=== PATIENT | female | born 1965 | race Caucasian/White ===

== ENCOUNTER → 2018-06-13 11:38 | Outpatient (CLI) | payer BC, SELFPAY ==
--- NOTE | 2018-06-13 12:00 | RAD_ITS ---
STUDY: X-RAY - PARANASAL SINUSES REASON FOR EXAM: Female, 53 years old. Left maxillary sinus pain. TECHNIQUE: 3 view(s) of the paranasal sinuses were obtained. COMPARISON: None. FINDINGS: Normal visualized frontal, maxillary, ethmoidal and sphenoid sinuses. Normal visualized facial bones. The soft tissue structures are unremarkable. RAD/Sinuses min 3 Views IMPRESSION: Normal x-rays of the paranasal sinuses. Electronically Signed: Andrew Akers MD at 14:59 EST , Service support ,
[2018-06-13 17:32] LABS: Absolute Lymphocyte Count 0.99 X10^3/ul (0.83-4.51); Absolute Neutrophil Count 4.4 X10^3/uL (2.0-7.7); Basophil# 0.02 X10^3/uL; Basophil% 0.4 % (0-1); Eosinophil# 0.04 X10^3/uL; Eosinophils% 0.7 % (0-5); Hematocrit 41.4 % (37-47); Hemoglobin 14.2 g/dl (12.0-15.0); Lymphocyte # 0.99 X10^3/ul (4.0); Lymphocyte % 17.6 % (19-41); Mean Corp Hgb Conc 34.3 g/gl (32-36); Mean Corpuscular Hgb 30.7 pg (27.0-32.0); Mean Corpuscular Volume 89.6 fL (81-99); Mean Platelet Vol. 10.8 fl (6.2-12.0); Monocyte% 3.6 % (0-10); Neutrophil # 4.37 X10^3/uL (2.7-7.7); Neutrophil % 77.5 % (47-70); Platelet Count 205 K/mm3 (150-450); RBC Distribution Width CV 11.9 % (11.6-14.6); RBC Distribution Width SD 37.9 fl (35.1-43.9); Red Blood Count 4.62 M/mm3 (4.2-5.4); White Blood Count 5.6 K/mm3 (4.4-11.0)
[2018-06-13 17:33] LABS: POSITIVE COUNT NO; POSITIVE DIFFERENTIAL NO; POSITIVE MORPHOLOGY NO
[2018-06-13 17:51] LABS: Erythrocyte Sedimentation Rate 25 mm/hr (0-30)
--- OUTSIDE RECORDS SUMMARY | 2018-08-06 18:01 | XMS RPT_ITS ---
:1965 Author Organization OHIP Care Team Providers Name Role Phone Dr. Villa Vilchis Attending Unavailable Prosper Hoppero Aparna Referring Unavailable Julianneo, Joe J Primary Care Unavailable GAIL BILLY Admitting Unavailable GAIL BILLY Attending Unavailable Prosper Hoppero Aparna Primary Care Unavailable Gilbert Monsalve Primary Care Unavailable Radha Quintana Attending Unavailable Gilbert Monsalve Primary Care Unavailable Gilbert Monsalve Attending Unavailable Gilbert Monsalve Referring Unavailable SURYA RIZVI Attending Unavailable CHRISTINA MENARD ([facility]) Attending Unavailable SURYA RIZVI Attending Unavailable SURYA RIZVI Referring Unavailable Belardo, Joe Aparna Attending Unavailable Ward, Joe J Primary Care Unavailable Joseph Tomlinson Attending Unavailable Vicenta Cnty, Emergency Physicians Attending Unavailable Belardo, Joe J Primary Care Unavailable PROBLEMS PROBLEMS DATE TYPE CONDITION / ATTENDING STATUS SOURCE CODE 06/14/2018 Unknown R51 - Headache Gilbert Monsalve Active [facility] / [facility]10[facility] 06/14/2018 Unknown R59.0 - BelloGilbert Active [facility] Localized [facility] enlarged lymph Hospital nodes / Repository R59.0(ICD-10) 06/14/2018 Unknown H57.89 - Other Gilbert Monsalve Active [facility] specified [facility] eye and adnexa Repository / H57.89(ICD-10) 04/12/2018 Active Encounter for NA Active [facility] screening [facility] mammogram for Repository malignant neoplasm of breast / Z12.31(ICD-10) 08/27/2017 Admitting Unknown / Joe Hopper Aparna Active [facility] Medical diagnosis UNK(Unknown) [facility] [place] Repository PROCEDURES PROCEDURES No Procedure Records FoundRESULTS RESULTS Observed: 06/14/2018 Status: F Source: [place] CULTURE, EYE 6:20 AM [facility] [place] LEFT EYE Gram Stain Gram Stain No White Blood Cells No organisms seen Eye Culture Clinical correlation necessary, Possible skin contamination. ORGANISM 1: Streptococcus mitis/ oralis Amount Growth Rare ORGANISM 2: Staphylococcus epidermidis Amount Growth 1+ Streptococcus mitis/ oralis: REACTION Ampicillin $ 8 R Clindamycin $$ <=0.25 S Erythromycin $ >=8 R Tigecycline $$$$ <=0.06 S Vancomycin $ 0.5 S (NF) indicates non-formulary drug at [facility]. Approval by Infectious Disease Specialist required before non-formulary drugs may be ordered and/or dispensed. * CLSI guidelines does not recommend testing of cephalosporins. This interpretation is deduced from Beta-lactam/penicillin results. Staphylococcus epidermidis: REACTION Benzylpenicillin NF >=0.5 R Cefoxitin *NF - Clindamycin $$ >=8 R Inducable Clindamycin [place] - Erythromycin $ >=8 R Gentamicin $ <=0.5 S Levofloxacin $ <=0.12 S Linezolid $$$$ 1 S Oxacillin NF <=0.25 S Tigecycline $$$$ <=0.12 S Rifampin $$ <=0.5 S Tetracycline NF <=1 S Vancomycin $ 1 S (NF) indicates non-formulary drug at [facility]. Approval by Infectious Disease Specialist required before non-formulary drugs may be ordered and/or dispensed. * CLSI guidelines does not recommend testing of cephalosporins. This interpretation is deduced from Beta-lactam/penicillin results. Cult, Anaerobic No anaerobic bacteria isolated. Performed By: #### M100.1200 #### [facility] [address] [place], [address] SINUSES MIN 3 VIEWS Observed: 06/13/2018 Status: F Source: [place] 11:58 AM [facility] [place] [facility] [place] [address] Sinuses min 3 Views MR#: [id number] Acct: [id number] Name: SAMUEL WOO Rep #: [id number] : 1965 F 53 From: Christiano Akers MD PCP: Gilbert Mnosalve DO Status: REG CLI Study: Sinuses min 3 Views Date of Exam: 06/13/18 Exam# [id number] Ordering Dr: Lev Monsalve MD STUDY: X-RAY - PARANASAL SINUSES REASON FOR EXAM: Female, 53 years old. Left maxillary sinus pain. TECHNIQUE: 3 view(s) of the paranasal sinuses were obtained. COMPARISON: None. FINDINGS: Normal visualized frontal, maxillary, ethmoidal and sphenoid sinuses. Normal visualized facial bones. The soft tissue structures are unremarkable. RAD/Sinuses min 3 Views IMPRESSION: Normal x-rays of the paranasal sinuses. Electronically Signed: Andrew Akers MD at 14:59 EST , Service support , CC: Gilbert Monsalve DO; Lev Monsalve MD I O Psychologist: Signed CBC W/DIFF, AUTOMATED Collected: 06/13/2018 Status: F Source: [place] 11:40 AM [facility] [place] TYPE CODE TESTS RESULT OUT OF RANGE REFERENCE UNITS LAB L100.1000 4.4-11.0 K/mm3 Normal WBC 5.6 LAB L100.1200 4.2-5.4 M/mm3 Normal RBC 4.62 LAB L100.1300 12.0-15.0 g/dl Normal HGB 14.2 LAB L100.1400 37-47 % Normal HCT 41.4 LAB L100.1500 81-99 fL Normal MCV 89.6 LAB L100.1600 27.0-32.0 pg Normal MCH 30.7 LAB L100.1700 32-36 g/gl Normal MCHC 34.3 LAB L100.1810 11.6-14.6 % Normal RDW CV 11.9 LAB L100.1820 35.1-43.9 fl Normal RDW SD 37.9 LAB L100.1900 150-450 K/mm3 Normal PLT 205 LAB L100.2000 6.2-12.0 fl Normal MPV 10.8 LAB L100.2100 47-70 % High NEUT% 77.5 LAB L100.2200 19-41 % Low LY% 17.6 LAB L100.2300 0-10 % Normal MONO% 3.6 LAB L100.2400 0-5 % Normal EO% 0.7 LAB L100.2500 0-1 % Normal BASO% 0.4 LAB L100.2550 0.0-0.9 % Normal IM GRAN % 0.200 Result Comment: IG% - Immature Granulocytes (promyelocytes, myelocytes and metamyelocytes) > 1% indicates that a LEFT SHIFT is Present. LAB L100.2620 2.0-7.7 X10 3/uL Normal Absolute Neut 4.4 LAB L100.2720 0.83-4.51 X10 3/ul Normal Absolute Lymph 0.99 Performed By: #### L100.0100, L101.9900 #### [facility] [address] [facility] [place], [place], [id number] ERYTHROCYTE SED RATE Collected: 06/13/2018 Status: F Source: [place] 11:40 AM [facility] [place] TYPE CODE TESTS RESULT OUT OF RANGE REFERENCE UNITS LAB L102.0000 0-30 mm/hr Normal SED RATE 25 Performed By: #### L100.0100, L101.9900 #### [facility] [address] [place], [place], [id number] CRP Collected: 06/13/2018 Status: F Source: [place] 11:40 AM [facility] [place] [facility] TYPE CODE TESTS RESULT OUT OF RANGE REFERENCE UNITS LAB L501.6710 0.0-3.0 mg/L High 12.70 C-REACTIVE PROT Result Comment: C-Reactive Protein (CRP) provides useful information for the diagnosis, therapy and monitoring of inflammatory processes and associated diseases. For the evaluation of Relative Risk for Cardiovascular Disease, a High Sensitivity CRP (HSCRP) should be ordered. Performed By: #### L501.6710 #### [facility] [place], [address] CNCO Observed: 04/12/2018 Status: COMPLETED Source: [place] 9:47 AM [facility] REPOSITORY HNO ID: [id number] Author: Mammography Coordinator Service: (none) Author Type: Physician Type: Letter Filed: 04/13/2018 11:31 PM Note Text: April 12, 2018 PID: [id number] Samuel Woo [address] [place] [address] Dear Ms. Woo, We are pleased to inform you that the results of your recent breast imaging exam on 04/12/2018 are normal. Your mammogram demonstrates that you have dense breast tissue, which could hide abnormalities. Dense breast tissue, in and of itself, is a relatively common condition. Therefore, this information is not provided to cause undue concern; rather, it is to raise your awareness and promote discussion with your health care provider regarding the presence of dense breast tissue in addition to other risk factors. Early detection of cancer is very important. We also understand recommendations regarding breast cancer screening are controversial. Please discuss with your primary care provider which strategy is best for you and whether a mammogram is right for you. Your imaging studies and report will be kept on file at [facility] as part of your permanent medical record and are available for your continuing care. Thank you for allowing us to help in meeting your health care needs. Sincerely, Dr. Amato Interpreting Radiologist [facility] (Normal over 40) [facility] SCREENING Observed: 04/12/2018 Status: F Source: [place] 7:52 AM [facility] REPOSITORY * * *Final Report* * * DATE OF EXAM: Apr 12 2018 7:52AM RAI [id number] - [facility] SCREENING / PROCEDURE REASON: Encounter for screening mammogram for malignant neoplasm of breast * * * * Physician Interpretation * * * * RESULT: #[id number] - [facility] SCREENING BILATERAL DIGITAL SCREENING MAMMOGRAM WITH CAD: 04/12/2018 HISTORY: Encounter For Screening Mammogram For Malignant Neoplasm Of Breast /Screening Mammogram - patient reports NO breast symptoms /Priors available for comparison. RESULT: TECHNIQUE: The study was acquired using full field digital technology and interpreted from soft copy. Current study was also evaluated with a Computer Aided Detection (CAD). Comparison is made to exams dated: 12/30/2016 mammogram, 10/31/2015 mammogram, 07/26/2013 mammogram, and 06/14/2012 mammogram - [facility]. The tissue of both breasts is heterogeneously dense. This may lower the sensitivity of mammography. No significant masses, calcifications, or other findings are seen in either breast. There has been no significant interval change. IMPRESSION: NEGATIVE There is no mammographic evidence of malignancy.A 1 year screening mammogram is recommended. Desiree Amato M.D., jr/adamaris:04/12/2018 09:47:39 Administrative Volunteer: Zulema MONTES(Shaunna)(Michael), [facility] letter sent: Normal over 40 Mammogram BI-RADS: 1 Negative Multiple national specialty organizations have released breast cancer screening guidelines for women at average risk for developing breast cancer - guidelines that are based on both evidence and opinion, yet differ on when to start and how often to screen for breast cancer. With representation from Breast Imaging, Internal Medicine, Women's Health, Family Medicine, and Medical/Surgical Oncology, the [facility] has carefully reviewed the data and reached the following consensus: 1) All women should engage in shared decision-making with their providers to decide when to start and how often to screen; 2) All women should have the opportunity to start screening mammography at age 40; 3) For women ages 45-55, we recommend annual screening mammograms; 4) For women ages 55 and over, we support both the transition from an annual to a biennial interval if this aligns more with patient's values and preferences, or continuation with annual screening; 5) All women should discuss with their providers when to stop screening mammograms. I O Psychologist: Adamaris Transcribe Date/Time: Apr 12 2018 7:39A Dictated by: DESIREE AMATO MD This examination was interpreted and the report reviewed and electronically signed by: DESIREE AMATO MD on Apr 12 2018 9:47AM EST [id number] PROGRESS Observed: 04/06/2018 Status: COMPLETED Source: [place] 9:04 AM [facility] REPOSITORY HNO ID: [id number] Author: Kandy Aguilera Ma Service: (none) Author Type: (none) Type: Progress Notes Filed: 04/06/2018 9:43 AM Note Text: Would you like a maintenance of way superintendent present for your visit today? No Kandy Aguilera Ma CNOV Observed: 04/06/2018 Status: COMPLETED Source: [place] 9:00 AM [facility] REPOSITORY Office Visit (WOOB) SAMUEL WOO ([id number]) 1965 F Date Time Provider Department 04/06/18 9:00 AM SURYA RIZVI WOCELI During your visit today, we recorded the following information about you: Blood pressure Weight Height 128/76 92.1 kg 1.702 m Surya Rizvi MD 04/06/2018 9:43 AM Signed Samuel Woo is a 53 year old who presents for her annual gynecologic exam with complaints, some vulvar pruritis, has been on amoxicillin for tooth/mouth infection.. Has had 7 teeth pulled now and feels somewhat better but still a lot of sinus symptoms. s/p hysterectomy Postmenopausal: likely, no hot flashes, stopped estradiol HRT use: No. Last Pap: 2011 normal HPV: 2011 negative History of abnormal pap: No Last mammogram: 2017 normal History of abnormal mammogram: No Sexually active: Yes Obstetric History T2 L2 SAB0 TAB0 Ectopic0 Multiple0 Live Births0 PAST MEDICAL HISTORY Diagnosis Date - Cervical stenosis (uterine cervix) - Dysmenorrhea - Excessive or frequent menstruation Heavy periods - Hypothyroid - Metrorrhagia 2008 - Tobacco use disorder Stopped 02/2007 - Urinary tract infection, site not specified Recurrent UTI's PAST SURGICAL HISTORY Procedure Laterality Date - DELIVERY ONLY , low cervical/X2 - HYSTEROSCOPY, DIAGNOSTIC (SEPARATE 07/09/09 Hysteroscopy, dANIl - LIGATE FALLOPIAN TUBE Tubal ligation at time of c/s - PAST SURGICAL HISTORY OF LEFT GANGLION CYST - PAST SURGICAL HISTORY OF LASIK SURGERY - REMOVAL OF TONSILS,<12 Y/O Tonsillectomy - TLH W/T/O 250 G OR LESS 10/26/13 TLH, bilateral salpingectomy FAMILY HISTORY Problem Relation Age of Onset - Heart Mother AAA and her mother's 2 GMs - Stroke Mother - Heart Father - Thyroid Brother hypo - Diabetes Paternal Grandmother - Asthma Daughter - Thyroid Other Several P-cousins SOCIAL HISTORY Social History Substance Use Topics - Smoking status: Former Smoker Packs/day: 0.50 Years: 25.00 Types: Cigarettes Quit date: 02/16/2007 - Smokeless tobacco: Former User - Alcohol use No REVIEW OF SYSTEMS Abdomen: No abdominal pain, nausea, vomiting, diarrhea, or still consitpated Bladder: No dysuria, gross hematuria, urinary frequency, urinary urgency, or incontinence, difficult to fully empty bladder Breast: No breast lumps, nipple d/c, overlying skin changes, redness or skin retraction Allergies and current medication updated:Yes EXAM: LMP 09/06/2013 GENERAL: pleasant, female in no apparent distress HEENT: Normocephalic, atraumatic, mucus membranes moist and no lesions NECK: Supple, full range of motion, no adenopathy and thyroid normal DERMATOLOGY: Normal, without lesions, non-icteric and non-hirsute BREAST: soft, non-tender, symmetric, no dominant mass, normal nipple-areolar complex, no lymphadenopathy and no nipple discharge CHEST: Normal inspiratory effort ABDOMEN: soft, non-tender and no masses PELVIC: external genitalia normal, normal Bartholin's glands, urethra, [place]'s glands, no vulvar lesions, good vaginal support, physiologic discharge present, normal appearing perineal body and perianal region, cervix surgically absent BIMANUAL: no adnexal masses, non-tender and uterus surgically absent RECTOVAGINAL: deferred. NEURO: alert and oriented x3,exam grossly non-focal EXTREMITIES: normal ASSESSMENT/PLAN: 1) Health maintenance: Pap/HPV up to date. Mammogram ordered Colon cancer screening: up to date with screening 2) Follow up one year or sooner as needed diflucan prn yeast infection MD Kandy Kearney Ma 04/06/2018 9:43 AM Signed Would you like a maintenance of way superintendent present for your visit today? No Kandy Aguilera Ma Referring Provider: SELF [[id number]] Allergies As of Date: 04/06/2018 Noted Allergy Reaction PEANUT 11/30/2017 10 - Anaphylaxis MORPHINE SULFATE 09/15/2016 4 - Hives Comments: Pt receive morphine in ED room today and broke out in hives. Date Reviewed: 04/06/2018 Reviewed by: Surya Rizvi - Fully Assessed Primary Visit Diagnosis:Encounter for gynecological examination (general) (routine) without abnormal findings [Z01.419] Other Visit Diagnosis:Encounter for screening mammogram for breast cancer [Z12.31] Order(s):JANEE SCREENING [[id number]] Order #: [id number] FUTURE JANEE SCREENING [[id number]] Order #: [id number] FUTURE fluconazole (DIFLUCAN) 150 mg tabletTake 1 tablet by mouth one time only for 1 dose. TAKE ONE TIME DOSE PO.Disp: 1 tabletRfl: 1 Prescriptions as of 04/06/2018 Sig: LEVOTHYROXINE 88 MCG TABLET Take 88 mcg by mouth daily be* ACETAMINOPHEN 500 MG TABLET Take 2 tablets by mouth every* FLUCONAZOLE 150 MG TABLET Take 1 tablet by mouth one ti* Medication notes this encounter GABAPENTIN 300 MG CAPSULE >> Kandy Aguilera Ma 04/06/2018 8:58 AM >> KANDY AGUILERA MA WedApr 06, 2018 8:58 AM Pt no longer taking LEVOTHYROXINE 75 MCG CAPSULE >> Kandy Aguilera Ma 04/06/2018 8:59 AM >> KANDY AGUILERA MA WedApr 06, 2018 8:59 AM Pt no longer taking Problem List As Of Date 04/06/2018 Noted Resolved Metrorrhagia [N92.1] INVALID FOR*07/21/2013 Excessive or frequent menstruation [N92.0] INVALID FOR*12/08/2013 Premenstrual Tension Syndromes [N94.3] INVALID FOR* Stricture and stenosis of cervix [N88.2] INVALID FOR*12/08/2013 Hypertrophy of uterus [N85.2] INVALID FOR*10/26/2013 Pelvic pain in female [R10.2] INVALID FOR*12/08/2013 Pelvic pressure in female [R10.2] INVALID FOR*12/08/2013 Acquired hypothyroidism [E03.9] INVALID FOR* Priority: D More... Status post hysterectomy [Z90.710] INVALID FOR* More... Weight loss [R63.4] INVALID FOR* Pain of upper abdomen [R10.10] INVALID FOR* Priority: B More... SUMMARY INVALID FOR* Priority: A More... General ill feeling [R68.89] INVALID FOR* Priority: C More... Prescriptions ordered this encounter Disp Refills Start End FLUCONAZOLE 150 MG TABLET 1 ta* 1 04/06/2018 04/06/2018 Route: ORAL Sig: Take 1 tablet by mouth one time only for 1 dose. TAKE ONE TIME DOSE PO. Medications Discontinued During This Encounter clotrimazole (LOTRIMIN) 1 % vaginal * 45 g 0 12/20/2017 04/06/2018 Si applicator full vaginally every other week for 2 months. Patient not taking: Reported on 04/06/2018 Disc: Reason for discontinue is not on file. Estradiol (ESTRACE) 0.5 mg tablet 30 t* 1 09/11/2016 04/06/2018 Route: ORAL Sig: Take 1 tablet by mouth once daily. take daily x 2 weeks, increase to two tabs daily if needed Patient not taking: Reported on 11/30/2017 Disc: Reason for discontinue is not on file. fluconazole (DIFLUCAN) 150 mg tablet 3 ta* 0 12/20/2017 04/06/2018 Route: ORAL Sig: Take 1 tablet by mouth as directed. Take 1 tablet every 3 days. Patient not taking: Reported on 04/06/2018 Disc: Reason for discontinue is not on file. ibuprofen (MOTRIN) 400 mg tablet 09/18/2016 04/06/2018 Class: OTC Route: ORAL Sig: Take 1 tablet by mouth every 6 hours as needed for Pain (Take around the clock as needed when pain returns). FOR PAIN. Patient not taking: Reported on 11/30/2017 Disc: Reason for discontinue is not on file. gabapentin (NEURONTIN) 300 mg capsule 04/06/2018 Class: Historical Med Route: ORAL Sig: Take 300 mg by mouth three times daily as needed. Disc: Reason for discontinue is not on file. Levothyroxine (TIROSINT) 75 mcg cap 04/06/2018 Class: Historical Med Route: ORAL Sig: Take by mouth. Disc: Reason for discontinue is not on file. lidocaine (LIDODERM) 5 % 30 P* 0 09/18/2016 04/06/2018 Class: Print RX Route: TRANSDERMAL Sig: Apply 2 Patches as directed once daily. Patient not taking: Reported on 11/30/2017 Disc: Reason for discontinue is not on file. lidocaine 5 % gel 1 Olvin* 0 09/18/2016 04/06/2018 Class: Print RX Route: TOPICAL Sig: Apply 1 application to affected area twice daily. Patient not taking: Reported on 11/30/2017 Disc: Reason for discontinue is not on file. melatonin 3 mg 0 09/18/2016 04/06/2018 Class: OTC Route: ORAL Sig: Take 3 tablets by mouth at bedtime as needed (insomnia). Patient not taking: Reported on 11/30/2017 Disc: Reason for discontinue is not on file. LORazepam (ATIVAN) 1 mg tablet 30 t* 0 09/18/2016 04/06/2018 Class: Print RX Route: ORAL Sig: Take 1 tablet by mouth twice daily as needed for Anxiety. Patient not taking: Reported on 11/30/2017 Disc: Reason for discontinue is not on file. metoprolol tartrate, short acting, (* 0 09/18/2016 04/06/2018 Class: Med Update Route: ORAL Sig: Take 0.5 tablets by mouth twice daily. Patient not taking: Reported on 11/30/2017 Disc: Reason for discontinue is not on file. Disposition: Return in 1 year (on 04/06/2019) for Annual Exam. Follow-up and Disposition History Recorded Encounter Status:Closed by SURYA RIZVI MD on 04/06/18 PROGRESS Observed: 04/06/2018 Status: COMPLETED Source: [place] 8:54 AM [facility] REPOSITORY HNO ID: [id number] Author: Surya Rizvi Service: (none) Author Type: Physician Type: Progress Notes Filed: 04/06/2018 9:43 AM Note Text: Samuel Woo is a 53 year old who presents for her annual gynecologic exam with complaints, some vulvar pruritis, has been on amoxicillin for tooth/mouth infection.. Has had 7 teeth pulled now and feels somewhat better but still a lot of sinus symptoms. s/p hysterectomy Postmenopausal: likely, no hot flashes, stopped estradiol HRT use: No. Last Pap: 2011 normal HPV: 2011 negative History of abnormal pap: No Last mammogram: 2017 normal History of abnormal mammogram: No Sexually active: Yes Obstetric History T2 L2 SAB0 TAB0 Ectopic0 Multiple0 Live Births0 PAST MEDICAL HISTORY Diagnosis Date - Cervical stenosis (uterine cervix) - Dysmenorrhea - Excessive or frequent menstruation Heavy periods - Hypothyroid - Metrorrhagia 2008 - Tobacco use disorder Stopped 02/2007 - Urinary tract infection, site not specified Recurrent UTI's PAST SURGICAL HISTORY Procedure Laterality Date - DELIVERY ONLY , low cervical/X2 - HYSTEROSCOPY, DIAGNOSTIC (SEPARATE 07/09/09 Hysteroscopy, dANDc - LIGATE FALLOPIAN TUBE Tubal ligation at time of c/s - PAST SURGICAL HISTORY OF LEFT GANGLION CYST - PAST SURGICAL HISTORY OF LASIK SURGERY - REMOVAL OF TONSILS,<14 Y/O Tonsillectomy - TLH W/T/O 250 G OR LESS 10/26/13 TLH, bilateral salpingectomy FAMILY HISTORY Problem Relation Age of Onset - Heart Mother AAA and her mother's 2 GMs - Stroke Mother - Heart Father - Thyroid Brother hypo - Diabetes Paternal Grandmother - Asthma Daughter - Thyroid Other Several P-cousins SOCIAL HISTORY Social History Substance Use Topics - Smoking status: Former Smoker Packs/day: 0.50 Years: 25.00 Types: Cigarettes Quit date: 02/16/2007 - Smokeless tobacco: Former User - Alcohol use No REVIEW OF SYSTEMS Abdomen: No abdominal pain, nausea, vomiting, diarrhea, or still consitpated Bladder: No dysuria, gross hematuria, urinary frequency, urinary urgency, or incontinence, difficult to fully empty bladder Breast: No breast lumps, nipple d/c, overlying skin changes, redness or skin retraction Allergies and current medication updated:Yes EXAM: LMP 09/06/2013 GENERAL: pleasant, female in no apparent distress HEENT: Normocephalic, atraumatic, mucus membranes moist and no lesions NECK: Supple, full range of motion, no adenopathy and thyroid normal DERMATOLOGY: Normal, without lesions, non-icteric and non-hirsute BREAST: soft, non-tender, symmetric, no dominant mass, normal nipple-areolar complex, no lymphadenopathy and no nipple discharge CHEST: Normal inspiratory effort ABDOMEN: soft, non-tender and no masses PELVIC: external genitalia normal, normal Bartholin's glands, urethra, [place]'s glands, no vulvar lesions, good vaginal support, physiologic discharge present, normal appearing perineal body and perianal region, cervix surgically absent BIMANUAL: no adnexal masses, non-tender and uterus surgically absent RECTOVAGINAL: deferred. NEURO: alert and oriented x3,exam grossly non-focal EXTREMITIES: normal ASSESSMENT/PLAN: 1) Health maintenance: Pap/HPV up to date. Mammogram ordered Colon cancer screening: up to date with screening 2) Follow up one year or sooner as needed diflucan prn yeast infection Surya Rizvi MD ID - FOLLOW UP Observed: 2018 Status: UNK Source: [place] 11:35 AM [facility] Chief Complaint Visit For: Other Referred by PCP . History of Present Illness update 02-18-18 patient did nwith clarithromycin- she says she gets bruising in her right arm with antibiotics and this was worse with clarithromycin She reiterated her concern for some infection causing her total body pain and facial pain- tearful and upset at times over a two-year ordeal- eels it no doctor's help bring her or Figuring out that was wrong with her symptom complex as described below No fevers chills night sweats nausea vomiting diarrhea They had a stool analysis test from a chiropractor which I discussed with him in detail- in indicated I did not think thatthis test had any medical significance from 12-31 Patient was seen for evaluation and management of a 20 month illness characterized by fatigue mouth neck and extremity pain headaches malaise. She is a 52-year-old woman who states she was very healthy until April 20, 2016 when she developed relatively sudden onset of mouth pain malaise neck pain headaches and feeling of her heart racing and blood pressure that went up and down. These symptoms have persisted and she said she seen over 60 physicians in the last 20 month with these problems- mediate urgent care or ER doctors but she is been evaluated by another infectious disease doctor neurologist electrician mental tester a Lyme specialist to determine ENT doctors an oral surgeon who specializes in facial pain and other providers. She has had extensive testing including an MRI of her brain a CAT scan of her face and sinuses examination of her throat by ENT extensive testing for endocrinopathies such as pheochromocytoma with 3 24-hour urines. She indicated that after this went on for sever al months she was diagnosed with infection in the right side of her mouth and underwent tooth extractions which made her feel better. She relapses and took a course of amoxicillin which she said she con tinued for 40 days and felt better but then developed a feeling of burning and inflammation was due to medication she has similar response to clindamycin and doxycycline. She indicated she now frequentl y feels bad when she takes a number medications and also sometimes when she eats. With the feeling of burning and inflammation. She tested negative for Lyme disease, she indicated she had increased infl ammatory markers before the tooth extraction. She was worked up extensively by electrician; she indicated the neurologist told her it was on her head Current symptoms are neck and throat pain malaise fatigue and headaches. 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 No unusual pets or animal exposures. Family history social history otherwise noncontributory Patient has joint pain but no yuliana joint swelling no rash she developed some food intolerance but no nausea vomiting diarrhea no visual changes no hearing changes no hair loss she is postmenopausal meme es many years no cough no shortness of breath no chest pain no abdominal pain Active Problems CFS (chronic fatigue syndrome) (780.71) (R53.82) Frequent headaches (784.0) (R51) Hypothyroidism (244.9) (E03.9) Neck pain (723.1) (M54.2) Occasional tremors (781.0) (R25.1) Pharyngitis, chronic (472.1) (J31.2) Family History Family history of hypothyroidism (V18.19) (Z83.49) Allergies metoprolol Recorded By: Elham Nair; 12/31/2017 9:28:19 AM Morphine Sulfate (Concentrate) SOLN Recorded By: Elham Nair; 12/31/2017 9:27:57 AM Current Meds Synthroid 88 MCG Oral Tablet; Take 1 tablet daily; Therapy: (Recorded:18Feb2018) to Recorded Dispense: 0 Days ; #: Sufficient Tablet; Refill: 0;For: Hypothyroidism; MAURISIO = N; Record; Last Updated By: Essie Leblanc; 2018 10:27:06 AM Vitals Vital Signs Recorded: 18Feb2018 10:23AM Bhfeefjfeeu29.6 F Heart Rate61 [id number] Rcatigpsg07 Height5 ft 7 in Pain Scale4 Physical Exam Patient was at times tearful and upset during the interview but otherwise had normal mental status no oral lesions tympanic membranes benign neck supple she has some shotty anterior cervical adenopathy but nothing significant no spine tenderness chest clear cardiac exam unremarkable abdomen soft nontender no joint swelling no rash normal gait reflexes intact Diagnoses/Problems CFS (chronic fatigue syndrome) (780.71) (R53.82) Frequent headaches (784.0) (R51) Encounter for preventive health examination (V70.0) (Z00.00) Hypothyroidism (244.9) (E03.9) Occasional tremors (781.0) (R25.1) Orders C Reactive Protein, Serum; Source:Blood (BLD); Status:Active; Requested for:18Feb2018; Perform:Lab Services - Lab To Draw (Blood Test); Due:19May2018;Ordered; For:CFS (chronic fatigue syndrome), Neck pain, Pharyngitis, chronic; Ordered By:Gail Billy; Comprehensive Metabolic Panel; Status:Active; Requested for:18Feb2018; Perform:Lab Services - Lab To Draw (Blood Test); Due:19May2018;Ordered; For:Frequent headaches, Hypothyroidism, Neck pain, Occasional tremors, Pharyngitis, chronic; Ordered By:Gail Billy; Complete Blood Count + Differential; Source:Blood (BLD); Status:Active; Requested for:18Feb2018; Perform:Lab Services - Lab To Draw (Blood Test); Due:19May2018;Ordered; For:Frequent headaches, Neck pain, Pharyngitis, chronic; Ordered By:Gail Billy; Vitamin B12, Serum; Source:Blood (BLD); Status:Active; Requested for:18Feb2018; Perform:Lab Services - Lab To Draw (Blood Test); Due:19May2018;Ordered; For:Health Maintenance, Neck pain; Ordered By:Gail Billy; Sedimentation Rate, Erythrocyte; Source:Blood (BLD); Status:Active; Requested for:18Feb2018; Perform:Lab Services - Lab To Draw (Blood Test); Due:19May2018;Ordered; For:Health Maintenance, Neck pain, Pharyngitis, chronic; Ordered By:Gail Billy; Start: Doxycycline Hyclate 100 MG Oral Capsule; Take 1 capsule twice daily Rx By: Gail Billy; Dispense: 60 Days ; #:120 Capsule; Refill: 4;For: Pharyngitis, chronic, Tooth abscess; MAURISIO = N; Verified Transmission to [id number]; Last Updated By: System, [employer]; 2018 10:12:33 AM Provider Impressions 02-18-18 this continues to be a very challenging case- the patient reports great frustration with what she believes is a tooth infection, or something similar. she feels like something needs to be done to fix he r and nothing is being done. I had a long discussion about this. i thought it was possible but unlikely she could have a chronic infection due to persistent pathogen such as actinomyces. We will get a check inflammatory mars today and we prescribed doxycycline. She has a visit coming up with an oral surgeon she iwill defer taking doxycycline until after this examination. I told her if the inflammatory markers are normal we discus sed additional testing including nuclear scans. We will see her back in 6 weeks from 12-27 This is a very unusual symptom complex- as above the patient said she seen over 60 physicians including multiple specialists. I told the patient and her stitcher set up operator automatic she does not easily fit any diagnosis o n the bases a pattern recognition I could not think of anything that was going on specifically. She somewhat focused on the issue of infection as she felt better when she had her teeth pulled and then f elt better temporarily while taking amoxicillin but then developed some nonspecific intolerance of amoxicillin- she is a same intolerance with multiple medications including vzhg-ojt-odghoob medications so I do not think this is an allergy of any type. On exam today there was nothing suggestive active infection. A chronic infection such as actinomycoses is a possibility and we discussed treatment opti ons for this. We recommended treatedment with clarithromycin which has some antimicrobial properties, some anti-inflammatory properties and is something that she has not shown intolerance of in the past . I discussed the indications for this medication with her and told her we did not have a specific diagnosis but given her great difficulty over the last 20 months and her extreme frustration- she wante d to try something that I characterized as somewhat experimental- and she expressed a good understanding of the plan of care. In some ways her illness is characteristic of chronic fatigue syndrome- in that she was relatively high energy high functioning until she developed a relatively acute illness which she can pinpoint as t o the day- and since that time has not felt well. But her symptoms of throat pain jaw pain etc. are typical for chronic fatigue. Time Time Stamp_UH: Time Spent With Patient: 70 minutes of which greater than 50 percent was spent counseling and or coordinating care. End of Encounter Meds Doxycycline Hyclate 100 MG Oral Capsule; Take 1 capsule twice daily; Therapy: 18Feb2018 to (Evaluate:15Dec2018) Requested for: 18Feb2018; Last Rx:18Feb2018 Ordered Synthroid 88 MCG Oral Tablet (Levothyroxine Sodium); Take 1 tablet daily; Therapy: (Recorded:18Feb2018) to Recorded Signatures Electronically signed by : Gail Billy MD; 2018 11:35AM EST (Author) VITAMIN B12 Collected: 2018 Status: F Source: [place] 10:[facility] REPOSITORY TYPE CODE TESTS RESULT OUT OF REFERENCE UNITS RANGE LAB VTB12(LOINC 211 - 911 pg/mL ) VITAMIN B12 289 Performed By: #### VTB12 #### [facility] [address] [place] [address] C-REACTIVE PROTEIN Collected: 2018 Status: F Source: [place] 10:[address] [place] [address] REPOSITORY TYPE CODE TESTS RESULT OUT OF REFERENCE UNITS RANGE LAB CRP(LOINC) mg/dL C-REACTIVE <0.10 PROTEIN Result Comment: REF VALUE < 1.00 Performed By: #### CRP #### [facility] [address] [place] [address] COMPREHENSIVE PANEL Collected: 2018 Status: F Source: [place] 10:[address] [place] [address] REPOSITORY TYPE CODE TESTS RESULT OUT OF REFERENCE UNITS RANGE LAB GLU(LOINC) 74 - 99 mg/dL GLUCOSE 92 LAB SOD(LOINC) 136 - 145 mmol/L SODIUM 140 LAB K(LOINC) 3.5 - 5.3 mmol/L POTASSIUM 4.2 LAB CHLOR(LOIN 98 - 107 mmol/L C) CHLORIDE 104 LAB BIC(LOINC) 21 - 32 mmol/L BICARBONATE 26 LAB ANGAP(LOIN 10 - 20 mmol/L C) ANION GAP 14 LAB UREA(LOINC 6 - 23 mg/dL ) UREA NITROGEN 15 LAB CREA(LOINC 0.50 - 1.05 mg/dL ) CREATININE 0.73 LAB GFRFN(LOIN >60 mL/min/1.7 C) 3m2 GFR-NON AM. >60 LAB GFRAA(LOIN >60 mL/min/1.7 C) 3m2 GFR- AM. >60 Result Comment: CALCULATIONS OF ESTIMATED GFR ARE PERFORMED USING THE MDRD STUDY EQUATION FOR THE IDMS-TRACEABLE CREATININE METHODS. CLIN CHEM 2007;53:766-72 LAB CA(LOINC) 8.6 - 10.6 mg/dL CALCIUM 9.7 LAB ALB(LOINC) 3.4 - 5.0 g/dL ALBUMIN 4.8 LAB AP(LOINC) 33 - 110 U/L ALKALINE PHOSPHATASE 59 LAB TP(LOINC) 6.4 - 8.2 g/dL TOTAL PROTEIN 6.8 LAB AST(LOINC) 9 - 39 U/L AST 15 LAB TBILI(LOINC) 0.0 - 1.2 mg/dL BILIRUBIN,TOTAL 1.1 LAB ALT(LOINC) 7 - 45 U/L ALT 12 Result Comment: Patients treated with Sulfasalazine may generate falsely decreased results for ALT. Performed By: #### CMP #### [facility] [address] [place] [address] CBC AND DIFFERENTIAL Collected: 2018 Status: F Source: [place] 10:[facility] REPOSITORY TYPE CODE TESTS RESULT OUT OF REFERENCE UNITS RANGE LAB WBCR(LOINC 4.4 - 11.3 x10E9/L ) WBC 4.6 LAB NRBC(LOINC 0.0-0.0 /100 WBC ) NUCLEATED RBC 0.0 LAB RBCCT(LOIN 4.00 - 5.20 x10E12/L C) RBC 4.70 LAB HGB(LOINC) 12.0 - 16.0 g/dL HGB 14.6 LAB HCT(LOINC) 36.0 - 46.0 % HCT 42.6 LAB MCV(LOINC) 80 - 100 fL MCV 91 LAB MCHC2(LOIN 32.0 - 36.0 g/dL C) MCHC 34.3 LAB PLTCT(LOIN 150 - 450 x10E9/L C) PLT 170 LAB RDWCV(LOIN 11.5 - 14.5 % C) RDW-CV 11.7 LAB NEUT(LOINC 40.0 - 80.0 % ) % NEUTROPHIL 63.2 LAB IG(LOINC) 0.0 - 0.9 % % AUTOMATED 0.2 IMMATURE GRAN Result Comment: Percent differential counts (%) should be interpreted in the context of the absolute cell counts (cells/L). LAB LYMPH(LOINC) 13.0 - 44.0 % % LYMPHOCYTE 27.4 LAB MONO(LOINC) 2.0 - 10.0 % % MONOCYTE 7.0 LAB EOS(LOINC) 0.0 - 6.0 % % EOSINOPHIL 1.3 LAB BASO(LOINC) 0.0 - 2.0 % % BASOPHIL 0.9 LAB #NEUT(LOINC) 1.20 - 7.70 x10E9/L NEUTROPHIL 2.89 LAB #LYMP(LOINC) 1.20 - 4.80 x10E9/L LYMPHOCYTE 1.25 LAB #MONO(LOINC) 0.10 - 1.00 x10E9/L MONOCYTE 0.32 LAB #EOS(LOINC) 0.00 - 0.70 x10E9/L EOSINOPHIL 0.06 LAB #BASO(LOINC) 0.00 - 0.10 x10E9/L BASOPHIL 0.04 Performed By: #### CBCDF #### [facility] [address] [place] [address] SEDIMENTATION RATE, Collected: 2018 Status: F Source: [place] [facility]ROCY[facility] 10:41 [facility] REPOSITORY TYPE CODE TESTS RESULT OUT OF REFERENCE UNITS RANGE LAB ESRWS(LOIN 0 - 30 mm/h C) SEDIMENTATION RATE, ERYTHROCYTE 8 Performed By: #### ESRWS #### [facility] [address] [place] [address] OFFICE VISIT Observed: 02/09/2018 Status: UNK Source: [place] (NEURO-MOVEMENT) 12:43 PM [facility]OSPITALS REPOSITORY Chief Complaint referred for tremor. 1. Pain that surges in an out (hip and feet) 2. Sleepiness 3. Ear pain History of Present Illness SAMUEL WOO is here for an initial evaluation. She is a left-handed 52 year-old woman with multiple complaints since 2016 including jaw and arm tremor. She just kind of noticed the jaw and arm tremor. It can be very prevalent or mild. It feels like teeth chattering when its cold and is always there at a low level at least. Both arms shake and she may n otice it when bringing a cup to her mouth. THere is no family history of tremor. She feels her handwriting is poor but not shaky or small. She doesnt sleep much at all. She feels like she drank a pot of coffee 24-7. She doesnt talk or act out her dreams at night. She rarely drinks alcohol and is not sure if it effects her tremor. There is no change in walking but is more difficult due to pain. Her pain is everywhere. She has bad headaches surging in and out every day, all day long. She has searing neck pain and pain radiating in her jaw. She as bad pain in her right hip down to her ankle. She has stabbing pain in both arms and feet. She has pain in both ears L>R. It is not painful to touch. It feels like an ear ache all the time. She doesnt get nauseous with headaches and light doesnt bother her eyes. When all of this started, her blood pressure went up a little 140-190s systolic where it had never was high before. She has felt dizzy (not vertigo) but off balance. She has a constant machine moice in her ears. It is sometime pulsatile but not always. Her first symptoms was the noise in March 2016. It got louder and louder. In April 2016, all of a sudden after dinner she felt like she was having an anxiety attack, and had high blood pressure an d tingeling in hands and feet and had severe headache bitemporally. At that time she had some nausea and photophobia and stiff neck for about a year. The tremor started August of this year. She has been on an off antibiotics which causes her pain to go away temporarily. The tremor doesnt change. She saw Dr. Galvan in [place]. He had ordered an MRI of brain w/ w/o contrast 07/03/2016 and EEG. This was reportable normal. She saw him again in October and seemed to suggest her problems were physiatric. She reports no life stressors or prior traumas. No history of depression or anxiety prior to this. She has not been on antidepressants for her depression or anxiety but Ativan seemed to help. She reports no speech problems and no dysphagia. She reports she has no symptoms of depression and no anxiety . She had suicidal thoughts when coming off ativan and gabapentin but is fine now and had no plan. She reports difficulty staying asleep, but no difficulty falling asleep and no problems with daytime sleepiness. [place] Sleepiness Scale is 0. She reports no concern about memory and no hallucinations. Review of Systems Constitutional: unexplained weight loss, but no fever. Eyes: vision loss/change, but no diplopia. ENMT: tinnitus and dizziness/vertigo, but no hearing loss. Respiratory: dyspnea, but no cough. Cardiovascular: palpitations, but no chest pain. Gastrointestinal: constipation and Constipation has always been a problem, but no dysphagia and no bleeding. Genitourinary: no hematuria and no incontinence. Musculoskeletal: pain, stiffness and muscle weakness. Skin: no rashes. Neurological: no seizures, no headaches and no frequent falls. Psychiatric: sleep disturbances. Hematologic/Lymphatic: excessive. Active Problems CFS (chronic fatigue syndrome) (780.71) (R53.82) Frequent headaches (784.0) (R51) Hypothyroidism (244.9) (E03.9) Neck pain (723.1) (M54.2) Pharyngitis, chronic (472.1) (J31.2) Family History Family history of hypothyroidism (V18.19) (Z83.49) Allergies metoprolol Recorded By: Elham Nair; 12/31/2017 9:28:19 AM Morphine Sulfate (Concentrate) SOLN Recorded By: Elham Nair; 12/31/2017 9:27:57 AM Current Meds Medication NameInstructionReason Synthroid 88 MCG Oral TabletTake 1 tablet daily Physical Exam Constitutional: General appearance: no acute distress Peripheral Vascular Exam: Pulses +2 and equal in all extremities. No swelling, varicosities, edema or tenderness to palpations Mental status: The patient was in no distress, alert, interactive and cooperative. Affect is appropriate. Orientation: oriented to person, oriented to place and oriented to time. Memory: recent memory intact and remote memory intact. Attention: normal attention span and normal concentrating ability. Language: normal comprehension and no difficulty naming common objects. Fund of knowledge: Patient displays adequate knowledge of current events, adequate fund of knowledge regarding past history and adequate fund of knowledge regarding vocabulary. Eyes: The ophthalmoscopic examination was normal. The fundi are visualized with normal disc margins and without hemorrhages Cranial nerve II: Visual barger full to confrontation. Cranial nerves III, IV, and : Pupils round, equally reactive to light; no ptosis. EOMs intact. No nystagmus. Cranial Nerve V: Facial sensation intact bilaterally. Cranial nerve VII: Normal and symmetric facial strength. Cranial nerve VIII: Hearing is intact bilaterally to finger rub / whisper. Cranial nerves IX and X: Palate elevates symmetrically. Cranial nerve XI: Shoulder shrug and neck rotation strength are intact. Cranial nerve XII: Tongue midline with normal strength. Motor: Motor exam was normal. (There is no tremor at rest. There is no bradykinesia or rigidity and gait is normal with normal arm-swing. There is no postural or kinetic tremor on ynqihi-[id number]) Mu scle bulk was normal in both upper and lower extremities. Muscle tone was normal in both upper and lower extremities. Muscle strength was 5/5 throughout. no abnormal or adventitious movements were present. Deep Tendon Reflexes: left biceps 2+ , right biceps 2+, left triceps 2+, right triceps 2+, left brachioradialis 2+, right brachioradialis 2+, left patella 2+, right patella 2+, left ankle jerk 2+, right ankle jerk 2+ Plantar Reflex: Toes downgoing to plantar stimulation on the left. Toes downgoing to plantar stimulation on the right. Sensory Exam: Normal to light touch . Normal temperature except maybe a little more pronounced at right ankle than mata. Joint position is intact. Coordination: There is no limb dystaxia and rapid alternating movements are intact. Gait: Gait is normal without spasticity, ataxia or bradykinesia. Stance is stable with a negative Romberg. Normal arm-swing. Results/Data MRI Report Details Patient Name: SAMUEL WOO Procedure Date: 07/03/2016 Date of : 1965 Age 51 Gender: F Facility: [facility] Referring Physician: Lupillo Galvan Procedure: BRAIN WWO NCCBRAIN WITH AND WITHOUT Procedure ID: [id number] Report Text MRI brain with and without contrast Clinical statement: Headaches. Tremors Comparison study: No prior exams Findings An empty sella noted. Midline structures are otherwise normal. No signal abnormality identified in the brain. No restricted diffusion identified No extra-axial fluid collection visualized. Flow voids are patent. No enhancing lesion seen. Orbits appear grossly normal. The septum is deviated towards the left. Numerous retention cysts/polyps noted in the maxillary sinuses. Mild mucosal thickening noted in the sinuses. The septum is bowed towards the left. Impression: 1. Partially empty sella 2. No evidence of ischemia or demyelination 3. No enhancing lesion 4. Sinus inflammatory changes Professional interpretation provided by [facility], [place] on [id number]. Thank you for this referral. Signed by: Justen Penaloza Date Signed: 07/03/2016 1:33 PM Diagnoses/Problems Occasional tremors (781.0) (R25.1) Provider Impressions She is a left-handed 52 year-old woman with with multiple complaints evolving from April 2016 now being seen for tremor. Her tremor is not evident on exam and I see no evidence of Parkinson's disease, essential tremor or dystonia. I gave her reassurance with regards to this. I think further pursuing evaluation of her geovanny f complaints may be helpful at this point as has been initiated. General Billing Time: Medical decision making was highly complex due to multiple diagnoses and management options., Greater than 50% of the visit was spent counseling about diagnosis, prognosis, and treatment options. 80 minutes was spent [id number] in the visit. Signatures Electronically signed by : Villa Vilchis MD; Feb 09 2018 12:43PM EST (Author) ID - INITIAL/CONSULT Observed: 12/31/2017 Status: UNK Source: [place] 2:14 PM HOSPITALS REPOSITORY Chief Complaint Referred by PCP . History of Present Illness Patient was seen for evaluation and management of a 20 month illness characterized by fatigue mouth neck and extremity pain headaches malaise. She is a 52-year-old woman who states she was very healthy until April 20, 2016 when she developed relatively sudden onset of mouth pain malaise neck pain headaches and feeling of her heart racing and blood pressure that went up and down. These symptoms have persisted and she said she seen over 60 physicians in the last 20 month with these problems- mediate urgent care or ER doctors but she is been evaluated by another infectious disease doctor neurologist electrician mental tester a Lyme specialist to determine ENT doctors an oral surgeon who specializes in facial pain and other providers. She has had extensive testing including an MRI of her brain a CAT scan of her face and sinuses examination of her throat by ENT extensive testing for endocrinopathies such as pheochromocytoma with 3 24-hour urines. She indicated that after this went on for sever al months she was diagnosed with infection in the right side of her mouth and underwent tooth extractions which made her feel better. She relapses and took a course of amoxicillin which she said she con tinued for 40 days and felt better but then developed a feeling of burning and inflammation was due to medication she has similar response to clindamycin and doxycycline. She indicated she now frequentl y feels bad when she takes a number medications and also sometimes when she eats. With the feeling of burning and inflammation. She tested negative for Lyme disease, she indicated she had increased infl ammatory markers before the tooth extraction. She was worked up extensively by electrician; she indicated the neurologist told her it was on her head Current symptoms are neck and throat pain malaise fatigue and headaches. 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 No unusual pets or animal exposures. Family history social history otherwise noncontributory Patient has joint pain but no yuliana joint swelling no rash she developed some food intolerance but no nausea vomiting diarrhea no visual changes no hearing changes no hair loss she is postmenopausal meme es many years no cough no shortness of breath no chest pain no abdominal pain Active Problems Hypothyroidism (244.9) (E03.9) Family History Family history of hypothyroidism (V18.19) (Z83.49) Allergies metoprolol Recorded By: Elham Nair; 12/31/2017 9:28:19 AM Morphine Sulfate (Concentrate) SOLN Recorded By: Elham Nair; 12/31/2017 9:27:57 AM Current Meds Gabapentin 300 MG Oral Capsule; as needed; Therapy: [id number] to Recorded Dispense: 30 Days ; #:30 Capsule; Refill: 0; MAURISIO = N; Record; Last Updated By: Elham Nair; 12/31/2017 9:32:38 AM Synthroid 88 MCG Oral Tablet; Take 1 tablet daily; Therapy: (Recorded:31Dec2017) to Recorded Dispense: 0 Days ; #: Sufficient Tablet; Refill: 0; MAURISIO = N; Record; Last Updated By: Elham Nair; 12/31/2017 9:33:12 AM Physical Exam Patient was at times tearful during the interview but otherwise had normal mental status no oral lesions tympanic membranes benign neck supple she has some shotty anterior cervical adenopathy but nothin g significant no spine tenderness chest clear cardiac exam unremarkable abdomen soft nontender no joint swelling no rash normal gait reflexes intact Diagnoses/Problems CFS (chronic fatigue syndrome) (780.71) (R53.82) Pharyngitis, chronic (472.1) (J31.2) Frequent headaches (784.0) (R51) Provider Impressions This is a very unusual symptom complex- as above the patient said she seen over 60 physicians including multiple specialists. I told the patient and her stitcher set up operator automatic she does not easily fit any diagnosis o n the bases a pattern recognition I could not think of anything that was going on specifically. She somewhat focused on the issue of infection as she felt better when she had her teeth pulled and then f elt better temporarily while taking amoxicillin but then developed some nonspecific intolerance of amoxicillin- she is a same intolerance with multiple medications including [id number] medications so I do not think this is an allergy of any type. On exam today there was nothing suggestive active infection. A chronic infection such as actinomycoses is a possibility and we discussed treatment opti ons for this. We recommended treatedment with clarithromycin which has some antimicrobial properties, some anti-inflammatory properties and is something that she has not shown intolerance of in the past . I discussed the indications for this medication with her and told her we did not have a specific diagnosis but given her great difficulty over the last 20 months and her extreme frustration- she wante d to try something that I characterized as somewhat experimental- and she expressed a good understanding of the plan of care. In some ways her illness is characteristic of chronic fatigue syndrome- in that she was relatively high energy high functioning until she developed a relatively acute illness which she can pinpoint as t o the day- and since that time has not felt well. But her symptoms of throat pain jaw pain etc. are typical for chronic fatigue. Time Time Stamp_UH: Time Spent With Patient:1 70 minutes of which greater than 50 percent was spent counseling and or coordinating care.1 . 1 Amended By: Gail Billy; Dec 31 2017 2:13 PM EST End of Encounter Meds Gabapentin 300 MG Oral Capsule; as needed; Therapy: [id number] to Recorded Synthroid 88 MCG Oral Tablet (Levothyroxine Sodium); Take 1 tablet daily; Therapy: (Recorded:[id number]) to Recorded Signatures Electronically signed by : Gail Billy MD; Dec 31 2017 2:14PM EST (Author) PROGRESS Observed: 12/20/2017 Status: COMPLETED Source: [place] 11:48 AM [facility] REPOSIT[facility] HNO ID: [id number] Author: Christina Ocasio) Derian Service: (none) Author Type: Nurse Practitioner Type: Progress Notes Filed: 12/20/2017 11:53 AM Note Text: Samuel Woo is a 52 year old female who presents for vaginal pruritis and discharge for 2 month(s).pt has been treated with Diflucan and Terazol over the past 2 months but is still having the itching and discharge Vaginal discharge: moderate amount, thick and white. Itching: YES Dyspareunia: N/A Fever/chills: No Abdominal pain: No Bladder: Negative for dysuria or frequency Bowel: No blood in stool, pain with BM, tarry stool, persistent diarrhea or constipation Any new sexual partners or concern for STD exposure: No Any history of STDs: None Does your partner have any new complaints: No Are you currently taking any medications to treat vaginitis: No Do you use feminine sprays, douches or deodorants: No Past medical, surgical, social history, medications and allergies reviewed and updated. OBJECTIVE: BP 130/84 Wt 193 lb (87.5kg) LMP 09/06/2013 GENERAL: Well developed, well nourished in no apparent distress PELVIC: external genitalia normal, normal Bartholin's glands, urethra, [place]'s glands, no vulvar lesions, no cervical lesions, good vaginal support, physiologic discharge present, normal appearing perineal body and perianal region BIMANUAL: uterus normal size, shape and consistency, no adnexal masses, non-tender and no cervical motion tenderness. RECTOVAGINAL: deferred. ASSESSMENT/PLAN: [place] Office Visit on 12/20/17 -WOUND CULTURE AND GRAM STAIN -gabapentin (NEURONTIN) 300 mg capsule -clotrimazole (LOTRIMIN) 1 % vaginal cream -fluconazole (DIFLUCAN) 150 mg tablet STD screening: Declined STD check. Vaginal culture sent Diflucan started 3x treatment Clotrimazole ordered- will start if needed pending culture. Christina Menard APRN.SPINNING OPERATOR WOUND Observed: 12/20/2017 Status: F Source: [place] CULTURE/STAIN 11:00 AM [facility] REPOSITORY Sp. Request/Comment: - Swab Smear Result - BACTERIAL VAGINOSIS RESULT: Stain results consistent with normal vaginal olya. No Yeast observed Few Polymorphonuclear leukocytes Culture Result - Few Normal vaginal olya No Staphylococcus aureus isolated. No yeast isolated. No Beta Streptococcus species isolated. No Neisseria gonorrhoeae isolated. For optimal sensitivity, testin g for Neisseria gonorrhoeae should be performed by molecular methods. Performed By: #### WCUL #### [facility] [address] [place], [place] [address] CNOV Observed: 12/20/2017 Status: COMPLETED Source: [place] 10:45 AM [facility] REPOSITORY Office Visit (WOOB) SAMUEL WOO ([id number]) 1965 F Date Time Provider Department 12/20/17 10:45 AM CHRISTINA MENARD (LUCILA) WOOB During your visit today, we recorded the following information about you: Blood pressure Weight 130/84 87.5 kg Christina Menard APRN.CNP 12/20/2017 11:53 AM Signed Samuel Woo is a 52 year old female who presents for vaginal pruritis and discharge for 2 month(s).pt has been treated with Diflucan and Terazol over the past 2 months but is still having the itching and discharge Vaginal discharge: moderate amount, thick and white. Itching: YES Dyspareunia: N/A Fever/chills: No Abdominal pain: No Bladder: Negative for dysuria or frequency Bowel: No blood in stool, pain with BM, tarry stool, persistent diarrhea or constipation Any new sexual partners or concern for STD exposure: No Any history of STDs: None Does your partner have any new complaints: No Are you currently taking any medications to treat vaginitis: No Do you use feminine sprays, douches or deodorants: No Past medical, surgical, social history, medications and allergies reviewed and updated. OBJECTIVE: BP 130/84 Wt 193 lb (87.5kg) LMP 09/06/2013 GENERAL: Well developed, well nourished in no apparent distress PELVIC: external genitalia normal, normal Bartholin's glands, urethra, [place]'s glands, no vulvar lesions, no cervical lesions, good vaginal support, physiologic discharge present, normal appearing perineal body and perianal region BIMANUAL: uterus normal size, shape and consistency, no adnexal masses, non-tender and no cervical motion tenderness. RECTOVAGINAL: deferred. ASSESSMENT/PLAN: [place] Office Visit on 12/20/17 -WOUND CULTURE AND GRAM STAIN -gabapentin (NEURONTIN) 300 mg capsule -clotrimazole (LOTRIMIN) 1 % vaginal cream -fluconazole (DIFLUCAN) 150 mg tablet STD screening: Declined STD check. Vaginal culture sent Diflucan started 3x treatment Clotrimazole ordered- will start if needed pending culture. Christina Menard, [place] RECREATION COORDINATOR.SPINNING OPERATOR Referring Provider: SELF [200] Allergies As of Date: 12/20/2017 Noted Allergy Reaction PEANUT 11/30/2017 10 - Anaphylaxis MORPHINE SULFATE 09/15/2016 4 - Hives Comments: Pt receive morphine in ED room today and broke out in hives. Date Reviewed: 12/20/2017 Reviewed by: Holly Ratliff LPN - Fully Assessed Reason for Visit: Vaginal Problem [117] Cmt: itching AND difficulty emptying bladder completely when voiding Primary Visit Diagnosis:Vaginal irritation [N89.8] Order(s):clotrimazole (LOTRIMIN) 1 % vaginal cream1 applicator full vaginally every other week for 2 months.Disp: 45 gRfl: 0 fluconazole (DIFLUCAN) 150 mg tabletTake 1 tablet by mouth as directed. Take 1 tablet every 3 days.Disp: 3 tabletRfl: 0 WOUND CULTURE AND GRAM STAIN [SQWCUL] Order #: [id number] Prescriptions as of 12/20/2017 Sig: GABAPENTIN 300 MG CAPSULE Take 300 mg by mouth three ti* LEVOTHYROXINE 88 MCG TABLET Take 88 mcg by mouth daily be* ACETAMINOPHEN 500 MG TABLET Take 2 tablets by mouth every* CLOTRIMAZOLE 1 % VAGINAL CREAM 1 applicator full vaginally e* FLUCONAZOLE 150 MG TABLET Take 1 tablet by mouth as dir* LORAZEPAM 1 MG TABLET Take 1 tablet by mouth twice * Patient not taking: Reported on 11/30/2017 METOPROLOL TARTRATE 25 MG TAB* Take 0.5 tablets by mouth twi* Patient not taking: Reported on 11/30/2017 LIDOCAINE 5 % TOPICAL PATCH Apply 2 Patches as directed o* Patient not taking: Reported on 11/30/2017 LIDOCAINE 5 % TOPICAL GEL Apply 1 application to affect* Patient not taking: Reported on 11/30/2017 MELATONIN 3 MG TABLET Take 3 tablets by mouth at be* Patient not taking: Reported on 11/30/2017 IBUPROFEN 400 MG TABLET Take 1 tablet by mouth every * Patient not taking: Reported on 11/30/2017 ESTRADIOL 0.5 MG TABLET Take 1 tablet by mouth once d* Patient not taking: Reported on 11/30/2017 LEVOTHYROXINE 75 MCG CAPSULE Take by mouth. Problem List As Of Date 12/20/2017 Noted Resolved Metrorrhagia [N92.1] INVALID FOR*07/21/2013 Excessive or frequent menstruation [N92.0] INVALID FOR*12/08/2013 Premenstrual Tension Syndromes [N94.3] INVALID FOR* Stricture and stenosis of cervix [N88.2] INVALID FOR*12/08/2013 Hypertrophy of uterus [N85.2] INVALID FOR*10/26/2013 Pelvic pain in female [R10.2] INVALID FOR*12/08/2013 Pelvic pressure in female [R10.2] INVALID FOR*12/08/2013 Acquired hypothyroidism [E03.9] INVALID FOR* Priority: D More... Status post hysterectomy [Z90.710] INVALID FOR* More... Weight loss [R63.4] INVALID FOR* Pain of upper abdomen [R10.10] INVALID FOR* Priority: B More... SUMMARY INVALID FOR* Priority: A More... General ill feeling [R68.89] INVALID FOR* Priority: C More... Prescriptions ordered this encounter Disp Refills Start End CLOTRIMAZOLE 1 % VAGINAL CREAM 45 g 0 12/20/2017 Si applicator full vaginally every other week for 2 months. FLUCONAZOLE 150 MG TABLET 3 ta* 0 12/20/2017 Route: ORAL Sig: Take 1 tablet by mouth as directed. Take 1 tablet every 3 days. Medications Discontinued During This Encounter citalopram (CELEXA) 20 mg tablet 30 t* 0 09/18/2016 12/20/2017 Class: Print RX Sig: Take half a tablet by mouth once daily through September 24. Then take one full tablet by mouth daily Patient not taking: Reported on 11/30/2017 Disc: Reason for discontinue is not on file. Encounter Status:Closed by CHRISTINA MENARD on 12/20/17 PROGRESS Observed: 11/30/2017 Status: COMPLETED Source: [place] 3:02 PM [facility] [place] REPOSIT[facility] O ID: [id number] Author: Surya Rizvi Service: (none) Author Type: Physician Type: Progress Notes Filed: 11/30/2017 3:19 PM Note Text: Samuel Woo is a 52 year old female who presents for problem visit concerns of vaginal irritation for several week(s). HPI: 52 YOF was on antibioitics and they did help her pain that she has and now her pain has returned. Took diflucan but was still on the antibiotics at that time. Hasn't tried anything else other than vinegar and water. No new partners. PAST MEDICAL HISTORY Diagnosis Date - Cervical stenosis (uterine cervix) - Dysmenorrhea - Excessive or frequent menstruation Heavy periods - Hypothyroid - Metrorrhagia 2008 - Tobacco use disorder Stopped 02/2007 - Urinary tract infection, site not specified Recurrent UTI's PAST SURGICAL HISTORY Procedure Laterality Date - DELIVERY ONLY , low cervical/X2 - HYSTEROSCOPY, DIAGNOSTIC (SEPARATE 07/09/09 Hysteroscopy, dANIl - LIGATE FALLOPIAN TUBE Tubal ligation at time of c/s - PAST SURGICAL HISTORY OF LEFT GANGLION CYST - PAST SURGICAL HISTORY OF LASIK SURGERY - REMOVAL OF TONSILS,<12 Y/O Tonsillectomy - TLH W/T/O 250 G OR LESS 10/26/13 TLH, bilateral salpingectomy FAMILY HISTORY Problem Relation Age of Onset - Heart Mother AAA and her mother's 2 GMs - Stroke Mother - Heart Father - Thyroid Brother hypo - Diabetes Paternal Grandmother - Asthma Daughter - Thyroid Other Several P-cousins Social History Marital status: Spouse name: Cece Years of education: Number of children: 2 Occupational History Occupation Employer Comment [employer] Social History Main Topics Smoking status: Former Smoker Packs/day: 0.50 Years: 25.00 Types: Cigarettes Quit date: 02/16/2007 Smokeless tobacco: Former User Alcohol use: No Drug use: No Sexual activity: Yes Partners with: Male control/protection: Surgical Comment: hysterectomy Current Outpatient Prescriptions: levothyroxine (SYNTHROID) 88 mcg tablet Take 88 mcg by mouth daily before breakfast. acetaminophen (TYLENOL) 500 mg tablet Take 2 tablets by mouth every 8 hours as needed (take around the clock as needed when pain returns). LORazepam (ATIVAN) 1 mg tablet Take 1 tablet by mouth twice daily as needed for Anxiety. (Patient not taking: Reported on 11/30/2017 ) metoprolol tartrate, short acting, (LOPRESSOR) 25 mg tablet Take 0.5 tablets by mouth twice daily. (Patient not taking: Reported on 11/30/2017 ) citalopram (CELEXA) 20 mg tablet Take half a tablet by mouth once daily through September 24. Then take one full tablet by mouth daily (Patient not taking: Reported on 11/30/2017 ) lidocaine (LIDODERM) 5 % Apply 2 Patches as directed once daily. (Patient not taking: Reported on 11/30/2017 ) lidocaine 5 % gel Apply 1 application to affected area twice daily. (Patient not taking: Reported on 11/30/2017 ) melatonin 3 mg Take 3 tablets by mouth at bedtime as needed (insomnia). (Patient not taking: Reported on 11/30/2017 ) ibuprofen (MOTRIN) 400 mg tablet Take 1 tablet by mouth every 6 hours as needed for Pain (Take around the clock as needed when pain returns). FOR PAIN. (Patient not taking: Reported on 11/30/2017 ) Estradiol (ESTRACE) 0.5 mg tablet Take 1 tablet by mouth once daily. take daily x 2 weeks, increase to two tabs daily if needed (Patient not taking: Reported on 11/30/2017 ) Levothyroxine (TIROSINT) 75 mcg cap Take by mouth. No current facility-administered medications for this visit. Allergies As of Date: 11/30/2017 Allergen Noted Reaction PEANUT 11/30/2017 Anaphylaxis MORPHINE SULFATE 09/15/2016 Hives Fully Assessed 11/30/2017 REVIEW OF SYSTEMS Abdomen: No bloating, early satiety, indigestion, or increased flatulence. No abdominal pain, nausea, vomiting, diarrhea, or constipation. Bladder: No dysuria, gross hematuria, urinary frequency, urinary urgency, or incontinence. Breast: No breast lumps, nipple d/c, overlying skin changes, redness or skin retraction. Expanded ROS: N/A Allergies and current medication updated:Yes EXAM: LMP 09/06/2013 GENERAL: pleasant, female in no apparent distress ABDOMEN: soft, non-tender and no masses PELVIC: external genitalia normal, normal Bartholin's glands, urethra, [place]'s glands, no vulvar lesions, good vaginal support, white thick discharge present, normal appearing perineal body and perianal region, cervix surgically absent BIMANUAL: no adnexal masses, non-tender and uterus surgically absent ASSESSMENT AND PLAN: yeast vaginitis, rx given, contact office if not improved encouraged referral to center for functional medicine for ongoing issues Surya Rizvi MD CNOV Observed: 11/30/2017 Status: COMPLETED Source: [place] 2:50 PM [facility] REPOSITORY Office Visit (WOOB) SAMUEL WOO ([id number]) 1965 F Date Time Provider Department 11/30/17 2:50 PM SURYA RIZVI WOCELI During your visit today, we recorded the following information about you: Surya Rizvi MD 11/30/2017 3:19 PM Signed Samuel Maza Emily is a 52 year old female who presents for problem visit concerns of vaginal irritation for several week(s). HPI: 52 YOF was on antibioitics and they did help her pain that she has and now her pain has returned. Took diflucan but was still on the antibiotics at that time. Hasn't tried anything else other than vinegar and water. No new partners. PAST MEDICAL HISTORY Diagnosis Date - Cervical stenosis (uterine cervix) - Dysmenorrhea - Excessive or frequent menstruation Heavy periods - Hypothyroid - Metrorrhagia 2008 - Tobacco use disorder Stopped 02/2007 - Urinary tract infection, site not specified Recurrent UTI's PAST SURGICAL HISTORY Procedure Laterality Date - DELIVERY ONLY , low cervical/X2 - HYSTEROSCOPY, DIAGNOSTIC (SEPARATE 07/09/09 Hysteroscopy, dANDc - LIGATE FALLOPIAN TUBE Tubal ligation at time of c/s - PAST SURGICAL HISTORY OF LEFT GANGLION CYST - PAST SURGICAL HISTORY OF LASIK SURGERY - REMOVAL OF TONSILS,<12 Y/O Tonsillectomy - TLH W/T/O 250 G OR LESS 10/26/13 TLH, bilateral salpingectomy FAMILY HISTORY Problem Relation Age of Onset - Heart Mother AAA and her mother's 2 GMs - Stroke Mother - Heart Father - Thyroid Brother hypo - Diabetes Paternal Grandmother - Asthma Daughter - Thyroid Other Several P-cousins Social History Marital status: Spouse name: Cece Years of education: Number of children: 2 Occupational History Occupation Employer Comment [employer] Social History Main Topics Smoking status: Former Smoker Packs/day: 0.50 Years: 25.00 Types: Cigarettes Quit date: 02/16/2007 Smokeless tobacco: Former User Alcohol use: No Drug use: No Sexual activity: Yes Partners with: Male control/protection: Surgical Comment: hysterectomy Current Outpatient Prescriptions: levothyroxine (SYNTHROID) 88 mcg tablet Take 88 mcg by mouth daily before breakfast. acetaminophen (TYLENOL) 500 mg tablet Take 2 tablets by mouth every 8 hours as needed (take around the clock as needed when pain returns). LORazepam (ATIVAN) 1 mg tablet Take 1 tablet by mouth twice daily as needed for Anxiety. (Patient not taking: Reported on 11/30/2017 ) metoprolol tartrate, short acting, (LOPRESSOR) 25 mg tablet Take 0.5 tablets by mouth twice daily. (Patient not taking: Reported on 11/30/2017 ) citalopram (CELEXA) 20 mg tablet Take half a tablet by mouth once daily through September 24. Then take one full tablet by mouth daily (Patient not taking: Reported on 11/30/2017 ) lidocaine (LIDODERM) 5 % Apply 2 Patches as directed once daily. (Patient not taking: Reported on 11/30/2017 ) lidocaine 5 % gel Apply 1 application to affected area twice daily. (Patient not taking: Reported on 11/30/2017 ) melatonin 3 mg Take 3 tablets by mouth at bedtime as needed (insomnia). (Patient not taking: Reported on 11/30/2017 ) ibuprofen (MOTRIN) 400 mg tablet Take 1 tablet by mouth every 6 hours as needed for Pain (Take around the clock as needed when pain returns). FOR PAIN. (Patient not taking: Reported on 11/30/2017 ) Estradiol (ESTRACE) 0.5 mg tablet Take 1 tablet by mouth once daily. take daily x 2 weeks, increase to two tabs daily if needed (Patient not taking: Reported on 11/30/2017 ) Levothyroxine (TIROSINT) 75 mcg cap Take by mouth. No current facility-administered medications for this visit. Allergies As of Date: 11/30/2017 Allergen Noted Reaction PEANUT 11/30/2017 Anaphylaxis MORPHINE SULFATE 09/15/2016 Hives Fully Assessed 11/30/2017 REVIEW OF SYSTEMS Abdomen: No bloating, early satiety, indigestion, or increased flatulence. No abdominal pain, nausea, vomiting, diarrhea, or constipation. Bladder: No dysuria, gross hematuria, urinary frequency, urinary urgency, or incontinence. Breast: No breast lumps, nipple d/c, overlying skin changes, redness or skin retraction. Expanded ROS: N/A Allergies and current medication updated:Yes EXAM: LMP 09/06/2013 GENERAL: pleasant, female in no apparent distress ABDOMEN: soft, non-tender and no masses PELVIC: external genitalia normal, normal Bartholin's glands, urethra, [place]'s glands, no vulvar lesions, good vaginal support, white thick discharge present, normal appearing perineal body and perianal region, cervix surgically absent BIMANUAL: no adnexal masses, non-tender and uterus surgically absent ASSESSMENT AND PLAN: yeast vaginitis, rx given, contact office if not improved encouraged referral to center for functional medicine for ongoing issues MD Surya Kearney MD 11/30/2017 3:24 PM Signed Addended by: SURYA RIZVI MD on: 11/30/2017 03:24 PM Modules accepted: Orders Referring Provider: SELF [200] Allergies As of Date: 11/30/2017 Noted Allergy Reaction PEANUT 11/30/2017 10 - Anaphylaxis MORPHINE SULFATE 09/15/2016 4 - Hives Comments: Pt receive morphine in ED room today and broke out in hives. Date Reviewed: 11/30/2017 Reviewed by: Aubrie Lerner Ma - Fully Assessed Reason for Visit: Vaginal Problem [117] Cmt: ongoing yeast infection- was treated with difucan x2 in 4 weeks Primary Visit Diagnosis:Vaginal yeast infection [B37.3] Other Visit Diagnosis:Vaginal discharge [N89.8] Order(s):RAPID BV B/O [[id number]] Order #: [id number] fluconazole (DIFLUCAN) 150 mg tabletTake 1 tablet by mouth as directed for 1 day. repeat in 3 daysDisp: 2 tabletRfl: 1 Prescriptions as of 11/30/2017 Sig: LEVOTHYROXINE 88 MCG TABLET Take 88 mcg by mouth daily be* ACETAMINOPHEN 500 MG TABLET Take 2 tablets by mouth every* FLUCONAZOLE 150 MG TABLET Take 1 tablet by mouth as dir* LORAZEPAM 1 MG TABLET Take 1 tablet by mouth twice * Patient not taking: Reported on 11/30/2017 METOPROLOL TARTRATE 25 MG TAB* Take 0.5 tablets by mouth twi* Patient not taking: Reported on 11/30/2017 CITALOPRAM 20 MG TABLET Take half a tablet by mouth o* Patient not taking: Reported on 11/30/2017 LIDOCAINE 5 % TOPICAL PATCH Apply 2 Patches as directed o* Patient not taking: Reported on 11/30/2017 LIDOCAINE 5 % TOPICAL GEL Apply 1 application to affect* Patient not taking: Reported on 11/30/2017 MELATONIN 3 MG TABLET Take 3 tablets by mouth at be* Patient not taking: Reported on 11/30/2017 IBUPROFEN 400 MG TABLET Take 1 tablet by mouth every * Patient not taking: Reported on 11/30/2017 ESTRADIOL 0.5 MG TABLET Take 1 tablet by mouth once d* Patient not taking: Reported on 11/30/2017 LEVOTHYROXINE 75 MCG CAPSULE Take by mouth. Problem List As Of Date 11/30/2017 Noted Resolved Metrorrhagia [N92.1] INVALID FOR*07/21/2013 Excessive or frequent menstruation [N92.0] INVALID FOR*12/08/2013 Premenstrual Tension Syndromes [N94.3] INVALID FOR* Stricture and stenosis of cervix [N88.2] INVALID FOR*12/08/2013 Hypertrophy of uterus [N85.2] INVALID FOR*10/26/2013 Pelvic pain in female [R10.2] INVALID FOR*12/08/2013 Pelvic pressure in female [R10.2] INVALID FOR*12/08/2013 Acquired hypothyroidism [E03.9] INVALID FOR* Priority: D More... Status post hysterectomy [Z90.710] INVALID FOR* More... Weight loss [R63.4] INVALID FOR* Pain of upper abdomen [R10.10] INVALID FOR* Priority: B More... SUMMARY INVALID FOR* Priority: A More... General ill feeling [R68.89] INVALID FOR* Priority: C More... Prescriptions ordered this encounter Disp Refills Start End FLUCONAZOLE 150 MG TABLET 2 ta* 1 11/30/2017 12/01/2017 Route: ORAL Sig: Take 1 tablet by mouth as directed for 1 day. repeat in 3 days Encounter Status:Closed by SURYA RIZVI MD on 11/30/17 ED DOC Observed: 09/27/2017 Status: UNK Source: [facility] 9:10 PM [employer] This is a preliminary report only, as the practitioner review and authentication has not occurred. ED DOC Observed: 09/27/2017 Status: UNK Source: [facility] 9:10 PM [employer] REPOSITORY PHYSICIAN ASSESSMENT RECORDS : [employer] Event Time: 09/27/2017 20:40 [facility]CA Status: Signed [facility] Samuel Woo [[id number]] Mid-Level Chart (V2b) / / 1965 Chart created at 09/27/2017 20:36 by Laly Jean Chart closed at 09/27/2017 21:18 Entry in Emergency Department at 09/27/2017 17:59, departure at 09/27/2017 21:10 Patient Name: Samuel Woo Record Number: [id number] Date: 09/27/2017 20:36 Entered Department at: 09/27/2017 17:59 Patient Seen at: 09/27/2017 20:38 Historian: Patient PCP: Joe Hopper Chief Complaint:NUMBNESS IN BOTH ARMS Nursing triage/initial assessment reviewed and confirmed and Initial Vital Signs reviewed. Temperature: 97.5 F (36.4 C). Pulse: 86. Respiratory Rate: 16. Blood-pressure: 180/97. Oxygen Saturation: 100%. History of Present Illness: This is a 52-year-old female here for evaluation of numbness and tingling in both of her upper extremities which is been going on since approximately 4:30 this afternoon. The patient reports that the numbness and tingling is in both upper extremities and radiates up to her nose and to her mid abdomen. She reports that the feeling is constant but fluctuates in severity. When it is more severe, she [facility] PATIENT NAME: SAMUEL WOO [address] [facility] [address]. Rojas MEDICAL REC #: [id number] [place] [address] EMERGENCY DEPARTMENT CHART EMERGENCY DEPARTMENT PHYSICIAN describes some mild associated shortness of breath. She also reports a mild intermittent headache. The patient reports that she has had similar numbness and tingling in both her feet for over a year and a half. The patient also notes that she has had multiple teeth extracted over the past several months. During that time, she has been on multiple rounds of antibiotics. She notes that while on amoxicillin, the numbness and tingling in her feet resolves. She believes that her dental pain is related to the numbness and tingling. She denies any chest pain, nausea, vomiting, diarrhea, abdominal pain, visual changes, neck pain, back pain, or any other symptoms at this time. She is a history of hypothyroidism and GERD but has no other chronic medical illnesses and is otherwise healthy. Review of Systems. Constitutional: negative for Chills or Fever Eyes: negative for Eye Pain or Vis. Changes Ear/Nose/Throat: negative for Congestion or Sore Throat Cardio-Vascular: negative for Chest Pain, Palpitations or Syncope Skin: negative for Rash Respiratory: negative for Cough, Dyspnea or Hemoptysis GI: negative for Abd. Pain, Diarrhea, Nausea or Vomiting : negative for Dysuria or Frequency Musculo-Skeletal: negative for Back Pain, Myalgias or Neck Pain Neurological: positive for Headache and Numbness All other systems reviewed and negative.. Past History, Medications, Allergies, Social History and Family History reviewed in nurses note. Medications: Reviewed RN Note. ATIVAN 1MG TABLET - PO, SYNTHROID 88MCG TABLET - PO, AUGMENTIN 850MG TABLET - PO Allergies: Reviewed RN Note Morphine(*N/A) Social History: Reviewed RN Note. Family History: Reviewed RN Note [facility] PATIENT NAME: SAMUEL WOO [address] [facility] [address]. Rojas MEDICAL REC #: [id number] [place] [address] EMERGENCY DEPARTMENT CHART EMERGENCY DEPARTMENT PHYSICIAN Physical Examination: General: Alert and Well Developed; No acute distress. HEENT: Normal ENT inspection. Neck: No Lymphadenopathy, No Meningismus and Supple Respiratory: No Resp Distress, Chest non-tender and Normal Breath Sounds Cardio-Vascular: No murmur and RRR Abdomen: Normal Bowel Sounds, Non-tender and Soft Back: No CVA tenderness and Non-tender Extremity: No Calf Tenderness, No edema and Normal Equal pulses Neurological: Alert and oriented andamp;#215;3. Cranial nerves II through XII are intact. Strength and sensation are grossly intact in bilateral upper and lower extremities. Rapid alternating movements are intact. Radial and dorsalis pedis pulses are 2+. Skin: No rash, No Petechiae, Warm and Dry Psychological: Mood/Affect Normal and Normal Memory/Judgment Cardiogram: Interpreted by me. Read Time: 09/27/2017 21:05 Rate: 62 bpm. Rate NormalRhythm Sinus RhythmAxis NormalIntervals NormalQRS NormalST/T Normal Comparison: Unchanged from 06/26/2016. Medical Decision Making This is a 52-year-old female here for evaluation of bilateral upper extremity numbness and tingling which has been going on for the past several hours. The description of her symptoms is quite unusual. The numb and tingling sensation in both arms and radiates to the patients nose into her mid abdomen. She reports that it constant but fluctuates in severity and when it is more severe she has some difficulty breathing. She also notes intermittent headaches. She denies any chest pain, nausea, vomiting, diarrhea, abdominal pain, visual changes, urinary symptoms, or any other symptoms. She has a history of numbness and tingling in both of her feet which has been going on for 1.5 years which is similar to her numbness and tingling in her arms. The patients physical exam is completely unremarkable. Heart is regular rate and rhythm without murmur. Lungs are clear to auscultation bilaterally. Abdomen soft and nontender. She is totally neurologically intact. Cranial nerves II through XII are intact. She is alert and oriented andamp;#215;3. Rapid alternating movements are intact. Strength and sensation grossly intact in bilateral upper and lower extremities. The patient symptoms are also bilateral in [facility] PATIENT NAME: SAMUEL WOO [address] [facility] [address] Rojas MEDICAL REC #: [id number] [place] [address] EMERGENCY DEPARTMENT CHART EMERGENCY DEPARTMENT PHYSICIAN nature. For these reasons, I have very low suspicion for any acute intercranial process. I do not believe any imaging of the head is warranted at this time. Acetone was suspicion for ACS is the patients signs and symptoms neck while it well with this diagnosis. In addition EKG shows a normal sinus rhythm at 62 bpm with normal intervals, axis, QRS, ST 2. Troponin is 0.00. CBC is unremarkable. There is no leukocytosis or anemia. BMP is also unremarkable. There is no electrolyte abnormality or kidney dysfunction. At this time, because of the patients bilateral upper extremity paresthesias is unclear, although there is no evidence of acute intracranial or cardiac process. She is advised to follow-up with her primary care doctor for further evaluation of her symptoms. She is injected to return to the emergency department with any new or worsening symptoms she verbalized understanding of this plan and is agreeable. I did discuss the patients elevated blood pressure with her. She reports a known history of hypertension, however, states that she cannot take any other medication because they react with her. She is instructed to discuss this with her primary care doctor. Additional Information: Discussed Results, Diagnosis and Follow-Up with Patient and Family. Clinical Impression: 1. Bilateral upper extremity paresthesias, unclear etiology Disposition: Discharged *Home. Condition: Good Direct patient care supervision and electronic documentation review by Gonzalez Thao on 09/30/2017 23:30. : JaneDajessie Event Time: 10/01/2017 00:07 Status: Signed [facility] Samuel Emily [[id number]] [facility] PATIENT NAME: SAMUEL WOO [address] [facility] [address] Rojas MEDICAL REC #: [id number] [place] [address] EMERGENCY DEPARTMENT CHART EMERGENCY DEPARTMENT PHYSICIAN Attending Physician 52 / / 1965 Addendum (V2b) Chart created at 09/30/2017 23:27 by Gonzalez Thao Chart closed at 09/30/2017 23:27 Entry in Emergency Department at 09/27/2017 17:59, departure at 09/27/2017 21:10 Patient Name: Samuel Woo Record Number: [id number] Date: 09/30/2017 23:27 Entered Department at: 09/27/2017 17:59 Patient Seen at: 09/27/2017 20:38 PCP: Joe Hopper Chief Complaint:NUMBNESS IN BOTH ARMS Disposition: Discharged *Home. Condition: Stable MSE completed. I was the primary ED attending.. I confirm that I have reviewed the mid-level providers documentation and agree with the evaluation, plan of care and disposition.. : Discharge Report Event Time: 09/27/2017 20:40 ===DISCHARGE REPORT=== : JaneDajessie Event Time: 09/27/2017 20:40 CMCA : FlexChartData Event Time: 10/01/2017 00:07 : Discharge Report Event Time: 09/27/2017 20:40 Status: Draft Reasons to Return to the ER: You must return to the ER for any new, worsening or changing symptoms, or if you feel more ill or sick in [facility] PATIENT NAME: SAMUEL WOO [address] [facility] [address] Rojas MEDICAL REC #: [id number] [place] [address] EMERGENCY DEPARTMENT CHART EMERGENCY DEPARTMENT PHYSICIAN any way. This is the most important thing to remember. Follow-up: The care you received in the ER was given on an emergency basis only, and it is often not possible to completely treat or diagnose a problem in a single ER visit. You must see your follow-up doctor for a recheck within a week unless you receive instructions with a different timeframe for follow-up. Please follow all your discharge instructions. Medications: Unless the ER doctor tells you differently, you should take all your regular medications and any new medications prescribed today. Because it is not possible for the ER doctor to review all of your medication side effects or interactions, you must review possible side effects and interactions with your pharmacist when you get your prescriptions filled. EKG and Radiology Results: A coagulator or radiologist will review any EKG or radiology results provided by the ER doctor. We will contact you if the results in the final EKG or radiology reports require a change in treatment. Culture Results: Cultures may have been ordered during your ER visit. We will contact you if the culture results require a change in treatment. Referrals: Most referrals to specialists come from the on-call list You should make your regular doctor aware of any referrals before you schedule the appointment so that they are aware and can make suggestions DIAGNOSIS: Bilateral upper extremity paresthesias, unclear etiology [facility] PATIENT NAME: SAMUEL WOO [address] [facility] [address] Rojas MEDICAL REC #: [id number] [place] [address] EMERGENCY DEPARTMENT CHART EMERGENCY DEPARTMENT PHYSICIAN INSTRUCTIONS: Continue all current medications as prescribed. Follow up with Dr. Hopper for further evaluation of your symptoms. Return to the emergency department with any new or worsening symptoms. REFERRAL Emily Hopper MD (Pediatrics), , fax: Please call the above number to schedule a follow-up appointment. 2-3 days MEDICATIONS We have given you these prescriptions that you must fill and start taking: None My signature below indicates that I have received and understand the oral instructions regarding my medical problem. I also acknowledge receipt of this written instruction sheet including a list of major tests and procedures ordered during my visit. I will arrange for follow-up care as indicated by these instructions and referrals. This signed original will be kept in my medical record. Your signature below indicates consent for Case Management to [facility] in an effort to meet your ongoing healthcare needs. This will allow forcontinuity of care once you leave the Emergency Department. This exchange of informationwill include, but not be limited to, disclosure of your patient information and possible release of records. 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 Address: [place] [address] REGISTRATION ED Number: [id number] Marital Status: M Financial Class: PPO TRIAGE Priority: 3 - Urgent Complaint: Numbness Stated Complaint: NUMBNESS IN BOTH ARMS Arrival Date: 09/27/2017 17:59 Triage Date: 09/27/2017 18:00 Mode of Arrival: Ambulance Transfer From: * Home WC: N Language: Congolese Transport: Other$$$ccccccccccccccccccccccccccccc$$$ BED C36 In: 09/27/2017 18:07:57 09/27/2017 18:07:57 RSS C36 (Removed From) Out: 09/27/2017 21:10:17 09/27/2017 21:10:17 RSS PROVIDERS Emergency Medical Service Provider Contact: 09/27/2017 18:00:36 EMS End: [facility] PATIENT NAME: SAMUEL WOO [address] [facility] [address]. Rojas MEDICAL REC #: [id number] [place] [address] EMERGENCY DEPARTMENT CHART EMERGENCY DEPARTMENT PHYSICIAN ENRIKE MEADE Provider Contact: 09/27/2017 18:08:27 RSS End: TRACI JEAN Provider Contact: 09/27/2017 18:12:24 CMCA End: MD Gonzalez Thao Provider Contact: 09/27/2017 20:38:07 LRS End: TRIAGE HISTORY ALLERGIES Allergic To: Morphine - *N/A 09/27/2017 18:09 RSS CURRENT MEDS Name: ATIVAN 1MG TABLET - PO 09/27/2017 18:11 RSS Freq: PRN Name: SYNTHROID 88MCG TABLET - PO 09/27/2017 18:11 RSS Name: AUGMENTIN 850MG TABLET - PO 09/27/2017 18:11 RSS ILLNESS Illness: GERD 09/27/2017 18:09 RSS Illness: *Family History of heart diseae 09/27/2017 18:09 RSS Illness: Hypothyroid 09/27/2017 18:09 RSS Illness: Gluten Sensitivity 09/27/2017 18:09 RSS PAST SURGERY HIST Surgery: x 2 09/27/2017 18:09 RSS Surgery: Tonsillectomy 09/27/2017 18:09 RSS Surgery: ganglion cyst removal from wrist 09/27/2017 18:09 RSS [facility] PATIENT NAME: SAMUEL WOO [facility] Dr. Rojas MEDICAL REC #: [id number] [place] [address] EMERGENCY DEPARTMENT CHART EMERGENCY DEPARTMENT PHYSICIAN Surgery: Hysterectomy-PARTIAL 09/27/2017 18:09 RSS PAST SOCIAL HIST Social History: Communicates without difficulty 09/27/2017 18:09 RSS Social History: Lives with family or significant other 09/27/2017 18:09 RSS Social History: Smoker-None 09/27/2017 18:09 RSS Social History: Recreational Drugs - None 09/27/2017 18:09 RSS Social History: Have you traveled in the past month? Where DENIES 09/27/2017 18:09 RSS NURSING ASSESSMENT ASSESSMENT NOTES 09/27/2017 18:10 pt brought in by ems for c/o numbness and tingling in both of her upper extremities which has been going on since 4:30 this afternoon. The patient reports that the numbness and tingling is in both upper extremities and radiates up to her nose and to her mid abdomen. pt is aandamp;ox 3, skin warm and dry to touch. resp.are easy and nonlabored. moves all extremities with purpose. msps intact. no neurologic deficits noted. 09/28/2017 00:28 RSS TREATMENT 09/27/2017 18:08 Staff/ Patient Interaction - Call light placed within reach. 09/27/2017 18:08 RSS 09/27/2017 18:08 Staff/ Patient Interaction - Introduced self and assessed patients needs. 09/27/2017 18:08 RSS 09/27/2017 18:08 Hourly Rounding - Rounding 09/27/2017 [facility] PATIENT NAME: SAMUEL WOO [address] [facility] [address] Rojas MEDICAL REC #: [id number] [place] [address] EMERGENCY DEPARTMENT CHART EMERGENCY DEPARTMENT PHYSICIAN 18:08 RSS Elimination/Toileting N Pain 0 Position Comfortable Y Safe Environment Y Fall Risk Change N 09/27/2017 18:08 Patient Interaction - Allergy Band on Pt. 09/27/2017 18:08 RSS 09/27/2017 18:08 Patient Interaction - Acoustic Intelligence Specialist/ Pulse ox/ BP cuff applied 09/27/2017 18:08 RSS 09/27/2017 18:18 Neuro Assessment Non Stroke - Neuro Assessment 09/27/2017 18:18 RSS Right Pupil Reaction Brisk Left Pupil Reaction Brisk Follows Commands Appropriately 0 performs 2 tasks correctly [place] Coma Scale /15 15 Level of Orientation /4 4 Pupil Right mm 3 Pupil Left mm 3 Motor Sensory Intact Times /4 4 09/27/2017 19:08 Hourly Rounding - Rounding 09/27/2017 19:42 RSS Position Comfortable Y Safe Environment Y Assessment Note poc updated 09/27/2017 19:15 POC testing results and critical values - POC Troponin 0.00 on ED triag instrument 09/27/2017 19:15 CNH 09/27/2017 19:30 Genitourinary - Patient assisted to BR. 09/27/2017 19:31 RSS Notes: GAIT WAS STEADY 09/27/2017 20:09 Hourly Rounding - Rounding 09/27/2017 20:28 RSS Position Comfortable Y Safe Environment Y Assessment Note POC UPDATED 09/27/2017 21:07 Discharge - Ambulated with steady gait [facility] PATIENT NAME: SAMUEL WOO0 [facility] [address]. Rojas MEDICAL REC #: [id number] [place] [address] EMERGENCY DEPARTMENT CHART EMERGENCY DEPARTMENT PHYSICIAN home 09/27/2017 21:07 RSS Notes: REFUSED WC 09/27/2017 21:07 Discharge - Instructions reviewed with pt and verbalizes understanding 09/27/2017 21:07 RSS MEDICATIONS IV IV Fluid: B 09/27/2017 18:58 09/27/2017 18:59 RSS Line #: 1 Fluid: Saline Lock Rate: ml/hr Location: antecubital fossa right Ndl Gauge: 20 # Attempts: 1 Notes: LABS SENT, GOOD BLOOD RETURN, FLUHES EASY IV Fluid: E 09/27/2017 21:06 09/27/2017 21:06 RSS Line #: 1 Rate: ml/hr Location: antecubital fossa right Ndl Gauge: 20 # Attempts: 1 Notes: CATH INTACT, DRESSING APPLIED I AND O VITALS VS-ROUTINE Time: 09/27/2017 18:00 B/P: 180/97 - Right Upper Arm - Sitting - Machine Pulse: 86 - Acoustic Intelligence Specialist Resp: 16 Sa02: 100 Room Air Temp: 97.50 F - Oral 09/27/2017 18:08 RSS VS-Pain Time: 09/27/2017 18:00 Pain Level: 0 09/27/2017 18:08 RSS VS-GCS Time: 09/27/2017 18:00 Visual: 4 Verbal: 5 Motor: 6 GCS Total: 15 09/27/2017 18:08 RSS VS-HT/WT Time: 09/27/2017 18:00 Weight: 184 lbs Actual 09/27/2017 18:08 RSS VS-Visual Time: 09/27/2017 18:00 09/27/2017 18:08 RSS VS-FHT Time: 09/27/2017 18:00 09/27/2017 18:08 [facility] PATIENT NAME: SAMUEL WOO [address] [facility] [address] Rojas MEDICAL REC #: [id number] [place] [address] EMERGENCY DEPARTMENT CHART EMERGENCY DEPARTMENT PHYSICIAN RSS VS-Notes Time: 09/27/2017 18:00 MAP 128 09/27/2017 18:08 RSS VS-ROUTINE Time: 09/27/2017 19:31 B/P: 180/92 - Left Upper Arm - Sitting - Machine Pulse: 78 - Acoustic Intelligence Specialist Resp: 18 Sa02: 100 Room Air 09/27/2017 19:31 RSS VS-Pain Time: 09/27/2017 19:31 Pain Level: 4 09/27/2017 19:31 RSS VS-GCS Time: 09/27/2017 19:31 Visual: 4 Verbal: 5 Motor: 6 GCS Total: 15 09/27/2017 19:31 RSS VS-HT/WT Time: 09/27/2017 19:31 09/27/2017 19:31 RSS VS-Visual Time: 09/27/2017 19:31 09/27/2017 19:31 RSS VS-FHT Time: 09/27/2017 19:31 09/27/2017 19:31 RSS VS-Notes Time: 09/27/2017 19:31 MAP 126 09/27/2017 19:31 RSS VS-ROUTINE Time: 09/27/2017 19:44 09/27/2017 19:44 RSS VS-Pain Time: 09/27/2017 19:44 09/27/2017 19:44 RSS VS-GCS Time: 09/27/2017 19:44 09/27/2017 19:44 RSS VS-HT/WT Time: 09/27/2017 19:44 Ht: 67 in. Stated 09/27/2017 19:44 RSS VS-Visual Time: 09/27/2017 19:44 09/27/2017 19:44 RSS VS-FHT Time: 09/27/2017 19:44 09/27/2017 19:44 RSS VS-Notes Time: 09/27/2017 19:44 09/27/2017 19:44 RSS ORDERS Discharge patient 09/27/2017 21:02 N/A Ordered: 09/27/2017 20:40 By . Other Reviewed: 09/27/2017 21:02 By . Other MANUFACTURING CLERK ORDER: GFRP 09/27/2017 19:21 None Ordered: 09/27/2017 19:21 Completed Time: 09/27/2017 19:21 Results Time: 09/27/2017 19:21 MANUFACTURING CLERK ORDER: POCTROP 09/27/2017 19:17 None [facility] PATIENT NAME: SAMUEL WOO [address] [facility] [address] Rojas MEDICAL REC #: [id number] [place] [address] EMERGENCY DEPARTMENT CHART EMERGENCY DEPARTMENT PHYSICIAN Ordered: 09/27/2017 19:17 Completed Time: 09/27/2017 19:17 Results Time: 09/27/2017 19:17 CBC with diff 09/27/2017 19:17 N/A Ordered: 09/27/2017 18:33 By LALY JEAN Completed Time: 09/27/2017 19:17 By LALY JEAN Noted Time: 09/27/2017 18:58 RSS Results Time: 09/27/2017 19:17 BMP 09/27/2017 19:21 N/A Ordered: 09/27/2017 18:33 By LALY JEAN Completed Time: 09/27/2017 19:21 By LALY JEAN Noted Time: 09/27/2017 18:58 RSS Results Time: 09/27/2017 19:21 POC troponin 09/27/2017 18:58 N/A Ordered: 09/27/2017 18:33 By LALY JEAN Noted Time: 09/27/2017 18:58 RSS EKG and most recent EKG 09/27/2017 19:17 N/A Ordered: 09/27/2017 18:33 By LALY JEAN Completed Time: 09/27/2017 19:16 By LALY JEAN Noted Time: 09/27/2017 19:13 VLC IV hep lock 09/27/2017 18:58 N/A Ordered: 09/27/2017 18:33 By LALY JEAN Completed Time: 09/27/2017 18:58 By LALY JEAN Noted Time: 09/27/2017 18:47 RSS DISCHARGE Diagnosis: Bilateral upper extremity paresthesias, unclear etiology 09/27/2017 20:40 Disposition: Time: 09/27/2017 20:40 By: Gonzalez Thao Discharge Time: 09/27/2017 21:10 Type: Discharge Condition: Stable for admission/discharge/transfer after emergency evaluation/treatment Category: *NOT APPLICABLE [facility] PATIENT NAME: SAMUEL WOO [address] [facility] MEDICAL REC #: [id number] [place] [address] EMERGENCY DEPARTMENT CHART EMERGENCY DEPARTMENT PHYSICIAN Concurred: 09/27/2017 21:02 Referral: 09/27/2017 20:40 PRESCRIPTIONS CHARGES SIGNATURE Gonzalez Thao MD LRS CHIRSTINA MEADE RN [facility] LUCIE VICTORIA RN [facility] EBEN EWING [facility] LALY JEAN PA-C CMCA [facility] PATIENT NAME: SAMUEL WOO [facility] [address]. Rojas MEDICAL REC #: [id number] [place] [address] EMERGENCY DEPARTMENT CHART EMERGENCY DEPARTMENT PHYSICIAN EKG Observed: 09/27/2017 Status: UNK Source: [facility] 8:46 PM [facility] Procedure Date and Time: 09/27/171911 Test Reason : STAT Blood Pressure : / mmHG Vent. Rate : 062 BPM Atrial Rate : 062 BPM P-R Int : 166 ms QRS Dur : 088 ms QT Int : 416 ms P-R-T Axes : 055 059 054 degrees QTc Int : 422 ms Poor data quality, interpretation may be adversely affected Normal sinus rhythm with sinus arrhythmia Normal ECG When compared with ECG of 26-JUN-2016 20:59, No significant change was found Confirmed by MINH REINOSO A. ([id number]) on 09/28/2017 7:28:40 PM Referred By: Laly Jean Confirmed By:Emanuel REINOSO M.D.FACC M.D. DDandT: 09/27/171911 TDandT: [facility] PATIENT [facility]: [facility] MEDICAL REC #: [id number] [place] [address] ADMIT DATE: DISCHARGE DATE: 09/27/17 ATTENDING PHY: Gonzalez Thao MD ELECTROCARDIOGRAM REPORT CLB cc: [facility] PATIENT NAME: [facility] WOO [facility] MEDICAL REC #: [id number] [place] [address] ADMIT DATE: DISCHARGE DATE: 09/27/17 ATTENDING PHY: Gonzalez Thao MD ELECTROCARDIOGRAM REPORT TROPONIN I POC Collected: 09/27/2017 Status: F Source: [facility] 7:[address] [facility] REPOSITORY TYPE CODE TESTS RESULT OUT OF RANGE REFERENCE UNITS LAB L550.31305 0.0-0.06 NG/ML Normal TROPONIN I POC 0.00 Result Comment: 0.0 - 0.06 NG/ML - NON- DIAGNOSTIC (REFERENCE RANGE) 0.07 - 0.59 NG/ML - INDETERMINATE Greater than or equal to 0.6 NG/ML - INDICATIVE OF MYOCARDIAL DAMAGE CBC W/DIFF Collected: 09/27/2017 Status: F Source: [facility] 6:[address] [facility] REPOSITORY Order Comment: Tunas: TYPE CODE TESTS RESULT OUT OF RANGE REFERENCE UNITS LAB [id number] 4.5-11.0 K/CU MM WBC Normal 5.4 LAB L200.71800 3.90-5.30 M/CU MM RBC Normal 4.63 LAB L200.46368 11.5-15.5 G/DL HGB Normal 14.0 LAB L200.15550 35.0-47.0 % HCT Normal 40.4 LAB L200.54591 80.0-99.0 fl MCV Normal 87.3 LAB L200.52053 32.0-36.0 GM/DL MCHC Normal 34.7 LAB L200.86397 11-14.5 RDW Normal 11.6 LAB L200.96885 9.4-12.4 MPV Normal 10.3 LAB L200.54772 150-450 K/CU MM PLT Normal 183 LAB L200.62415 45-75 % NEUTROPHILS Normal % 73.3 LAB L200.21449 Less than 2 % IMMATURE Normal GRAN % 0.4 LAB L200.72251 20-40 % Low LYMPH % 19.3 LAB L200.58268 2-10 % MONOCYTE % Normal 6.0 LAB L200.15588 0-5 % EOSINOPHIL Normal % 0.4 LAB L200.79479 0-2 % BASOPHIL % Normal 0.6 LAB L200.99012 2.0-8.3 K/CU MM NEUTROPHIL Normal ABS 3.90 LAB L200.76527 Less than 2 K/CU MM IMMATR GRAN Normal ABS 0.00 LAB L200.31197 0.9-4.4 K/CU MM LYMPH ABS Normal 1.00 LAB L200.38560 0.1-1.1 K/CU MM MONO ABS Normal 0.30 LAB L200.36967 0-0.5 K/CU MM EOS ABS Normal 0.00 LAB L200.06063 0-0.2 K/CU MM BASO ABS Normal 0.00 LAB L200.24955 Less than 1 % NRBC Normal 0.0 Performed By: #### L200.78362 #### [facility] [address] [place] [address] BMP Collected: 09/27/2017 Status: F Source: [facility] 6:[address] [facility] REPOSITORY Order Comment: Tunas: TYPE CODE TESTS RESULT OUT OF RANGE REFERENCE UNITS LAB L500.98933 136-145 MMOL/L Normal NA 139 LAB L500.26059 3.5-5.1 MMOL/L Normal K 3.6 LAB L500.30574 98-107 MMOL/L Normal CL 104 LAB L500.77786 21-32 MMOL/L Normal CO2 25 LAB L500.19751 5-16 MMOL/L Normal AGAP 10 LAB L500.10432 70-100 MG/DL Normal GLU 96 Result Comment: 70-100- Normal Fasting; 100-125 Impaired Fasting; greater than 126 on more than one result- Diabetes. ADA guidelines. Results may be falsely elevated after the administration of Sulfapyridine. Results may be falsely depressed after the administration of Sulfasalazine. LAB L500.65270 7-26 MG/DL Low BUN 6 LAB L500.14375 0.510-0.950 MG/DL Normal CREAT 0.705 Result Comment: Patients receiving either N-Acetylcysteine (NAC) or Metamizole prior to venipuncture, may have falsely depressed results. LAB L500.38857 15-24 Low BUN/CREA 9 LAB L500.94078 8.5-10.1 MG/DL Normal CALCIUM TOTAL 9.6 Performed By: #### L500.76838, L500.59122 #### [facility] [address] [place] [address] GFR EST Collected: 09/27/2017 Status: F Source: [facility] 6:[address] [facility] REPOSITORY Order Comment: [place]: M TYPE CODE TESTS RESULT OUT OF RANGE REFERENCE UNITS LAB L500.57888 ML/MIN Normal IF non-AFR Greater than AMER 60 LAB L500.64492 ML/MIN Normal IF Greater than AMER 60 Performed By: #### L500.40562, L500.18758 #### [facility] [address] [place] [address] CT ABDOMEN W/O CON Observed: 09/27/2017 Status: F Source: [facility] 6:[address] [facility] REPOSITORY CT ABDOMEN W/O CON Ordering Physician: Joseph Tomlinson DO 09/27/2017 6:[address] ABDOMEN WITHOUT CONTRAST: Clinical Statement: Follow-up adrenal nodule. Comparison: CT abdomen with and without contrast 07/04/2016 FINDINGS: There is redemonstration of a small left adrenal nodule measuring approximately 8 mm, stable to slightly decreased in size when compared to prior exam 07/04/2016. Several small subcentimeter hypodensities are noted within the liver, grossly unchanged prior exam, given differences in technique. These are too small to characterize but most likely represent simple cysts and/or hemangiomas. The spleen, pancreas, bilateral kidneys and gallbladder are unremarkable. The abdominal aorta demonstrates atherosclerotic calcification without aneurysmal dilatation. No obvious lymphadenopathy. No free fluid or free air within the abdomen. The loops of large and small bowel as well as the stomach are grossly unremarkable. Visualized bilateral lung bases are unremarkable. No acute osseous abnormality. Degenerative changes of the visualized spine is noted. IMPRESSION: 1. Redemonstration of small left adrenal nodule measuring approximately 8 mm, stable to slightly decreased in size since prior exam 07/04/2016. It was compatible with a benign adenoma on prior CT abdomen 07/04/2016. ---- Electronic Signature on File ---- Signed By: Shawn Weeks MD [email or web address] Dictated: 09/27/2017 11:21 AM Signed: 09/27/2017 11:27 AM Reported By: SHAWN WEEKS M.D. Signed By: SHAWN WEEKS M.D. CT SINUSES/FACIAL BONES Observed: 08/27/2017 Status: F Source: [facility] 8:[address] AM [facility] CT SINUSES/FACIAL BONES W/O CO Ordering Physician: Joe Hopper MD 08/27/2017 8:[address] SINUSES/FACIAL BONES WITHOUT CONTRAST, WITH CORONAL RECONSTRUCTIONS: Clinical Statement: Sinus drainage for over six weeks, headache, lightheadedness Comparison: CT head 04/25/2016 TECHNIQUE: Continuous transaxial 2.5 mm images were obtained through the paranasal sinuses without the administration of contrast. Post processing coronal reconstruction was performed. FINDINGS: There is mild to moderate mucosal thickening of the bilateral maxillary sinuses. There has been prior tooth extraction in the left maxilla. No obvious fistula is shown. Otherwise, there is adequate pneumatization of the bilateral frontal, ethmoid, and sphenoid sinuses. The visualized mastoid air cells are clear bilaterally. The maxillary sinus ostia and infundibula are patent. No air-fluid levels are seen. There is no evidence of sinus expansion or bony destruction. The nasal septum is midline. The orbits and periorbital soft tissues are unremarkable. The temporomandibular joints are intact. No soft tissue swelling is noted. The visualized oral, pharyngeal, and nasal structures are unremarkable. Intracranial contents are within normal limits. IMPRESSION: Mild to moderate mucosal thickening of the bilateral maxillary sinuses. The ostiomeatal units are patent bilaterally. Dictated by Technical Support Assistant: Carmen Biswas MD Reviewed and Signed by: Thea Adhikari MD ---- Electronic Signature on File ---- Signed By: Thea Adhikari MD [email or web address] Dictated: 08/27/2017 8:24 AM Signed: 08/27/2017 9:05 AM Reported By: THEA ADHIKARI M.D. Signed By: THEA ADHIKARI M.D. 12 LEAD ELECTROCARDIOGRAM Observed: 07/14/2017 Status: F Source: [place] 3:20 PM [facility] [place] [facility] Cardiovascular Services [address] [place] [address] 12 Lead EKG 07/05/17 0804 MR#: [id number] Acct: [id number] Name: SAMUEL WOO Rep #: [id number] : 1965 52 From: Mathew Dodge MD Attending Dr: Status: DEP ER Ordering Dr: Radha Quintana MD Date: 07/05/17 Location: ED Sex: F C Admitted: Test Reason : OTHER PAIN Blood Pressure : / mmHG Vent. Rate : 064 BPM Atrial Rate : 064 BPM P-R Int : 152 ms QRS Dur : 084 ms QT Int : 416 ms P-R-T Axes : 056 058 055 degrees QTc Int : 429 ms Normal sinus rhythm with sinus arrhythmia Normal ECG Confirmed by MATHEW DODGE MD ([id number]), web content editor RAYRAY COLLAZO ([id number]) on 07/14/2017 3:19:50 PM Referred By: ANITA Confirmed By:MATHEW DODGE MD 07/14/17 1519 Date Mathew Dodge MD CC: Gilbert Monsalve DO Signed EMERGENCY DEPARTMENT Observed: 07/05/2017 Status: F Source: [place] SUMMARY 1:52 PM [facility] [place] [facility] Medical Records Department [address] [place] [address] Emergency Department Summary 07/05/17 0745 MR#: [id number] Acct: [id number] Name: SAMUEL WOO Rep #: [id number] : 1965 52 From: Radha Quintana MD PCP: Gilbert Monsalve DO Status: DEP ER - ER Visit Summary Date of Service: 07/05/17 Chief Complaint: Pain all over History of Present Illness: The patient is a 52 F presenting with pain all over. Patient states that this has been ongoing for 15 months. She complains of dental pain and pain on the bottoms of both of her feet. She has been seen by her primary care physician, electrician, infectious disease. She states no one has been able to figure out what has been going on. The electrician diagnosed her with lupus and rheumatoid arthritis. She states she also has daily chest pain. She states she has seen 28 physicians to this point. She was at [facility] as inpatient and had multiple tests performed. She states they told her she needed to take antidepressants and had no other diagnosis. She does not want to take any medications. Physical Examination: Vitals are stable. Patient is afebrile. Alert no acute distress. HEENT exam is unremarkable. Neck is supple. Lungs are clear and equal bilaterally. Heart is regular rate and rhythm. Abdomen is soft nontender nondistended. Extremities are unremarkable. No erythema, warmth or signs of infection. Normal DP pulses bilaterally. Skin is warm and dry. Remainder of exam is unremarkable. Emergency Department Course and Treatment: Patient is given fentanyl and zofran IV. CBC, chemistries unremarkable. Troponin is negative. EKG is sinus rate of 64. Chest x-ray shows no acute process. She continues to complain of headache. CTA head and neck show no acute process. Patient was given additional dose of fentanyl. She had some improvement. She is not taking any medications at home. She is given a short course of Percocet and Flexeril. She is advised to follow-up with her primary care physician, neurologist, electrician. Advised return ED if worsening complaints. Disposition: Discharge home Impression: Acute on chronic pain This note was generated with [employer] dictation software. It may contain incorrect words, spelling, and punctuation that were not noted in review of the chart prior to signing ED Disposition - Plan for ED Patient: Chief Complaint: Other, Pain/Inj Referrals: Gilbert Monsalve, [Primary Care Provider] - What to do if you have Problems For any increased pain, shortness of breath, bleeding, nausea or vomiting, chest pain, or any unexpected problems, contact your Primary Care Provider. Call [facility] ([phone]) or report to the closest Emergency Room. Call 911 if necessary. 07/05/17 1352 <Electronically signed by Radha Quintana MD> Date Radha Quintana MD Cosigner Signature (If Indicated): Date CC: Gilbert Monsalve DO DISCHARGE INSTRUCTION Observed: 07/05/2017 Status: F Source: [place] 11:06 AM [facility] [place] [facility] Medical Records Department [address] [place] [address] Discharge Instruction 07/05/17 1105 MR#: [id number] Acct: [id number] Name: SAMUEL WOO Rep #: [id number] : 1965 52 From: Radha Quintana MD PCP: Gilbert Monsalve DO Status: REG ER ED Disposition - Plan for ED Patient: Chief Complaint: Other, Pain/Inj Prescriptions: Oxycodone HCl/Acetaminophen [Percocet 5/325] 1 tablet PO Q6H PRN PRN #12 tablet PRN Reason: Pain Cyclobenzaprine [Flexeril] 10 mg PO TID PRN #20 tablet PRN Reason: Muscle Spasm Referrals: Gilbert Monsalve DO [Primary Care Provider] - Michelle Huff MD [STAFF PHYSICIAN] - What to do if you have Problems For any increased pain, shortness of breath, bleeding, nausea or vomiting, chest pain, or any unexpected problems, contact your Primary Care Provider. Call [facility] ([phone]) or report to the closest Emergency Room. Call 911 if necessary. 07/05/17 1106 <Electronically signed by Radha Quintana MD> Date Radha Southern MD Cosigner Signature (If Indicated): Date CC: Gilbert JeanBello CTA NECK W/WO Observed: 07/05/2017 Status: F Source: [place] CONTRAST 9:09 AM [facility] [place] [facility] Imaging Services [address] [place] [address] CTA Neck W/WO Contrast MR#: [id number] Acct: [id number] Name: SAMUEL WOO Rep #: [id number] : 1965 F 52 From: Delores Collazo MD PCP: Gilbert Monsalve DO Status: REG ER Study: CTA Neck W/WO Contrast Date of Exam: 07/05/17 Exam# [id number] Ordering Dr: Radha Quintana MD STUDY: CTA OF THE BRAIN REASON FOR EXAM: Female, 52 years old. Vertigo. RADIATION DOSAGE (If Supplied By Facility): CTDIvol = ( 30.84 ) mGy, DLP = ( 1482.93 ) mGycm TECHNIQUE: CT angiography was performed with a multi-detector CT scanner. Data acquisition was obtained from the skull base through the vertex following intravenous administration of 100 ml of Isovue 370. MIP images were reconstructed from the axial data set. Post-processing of the angiographic images was performed, with multiplanar reformation and 3D reconstruction. Individualized dose optimization techniques were used for this CT. COMPARISON: None. FINDINGS: Normal bilateral petrous carotid arteries. Normal right cavernous carotid artery with a normal supraclinoid bifurcation. Normal left cavernous carotid artery with a normal supraclinoid bifurcation. Normal right A1 segments of the anterior cerebral artery. Normal left A1 segments of the anterior cerebral artery. Normal intact anterior communicating artery (ACOM). Normal bilateral A2 segments of the anterior cerebral arteries. Normal right M1 and M2 segments of the middle cerebral arteries, with a normal M1 bifurcation. Normal left M1 and M2 segments of the middle cerebral arteries, with a normal M1 bifurcation. 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 There is a persistent origin of the left posterior cerebral artery with absence of the posterior communicating artery (PCOM). Both vertebral arteries are small in size. The right vertebral artery appears to end in PICA. The basilar artery is small in size. The visualized bilateral superior cerebellar (SCA) arteries are normal. Bilateral P1 segments are absent. Normal bilateral P2 and visualized P3 segments of the posterior cerebral arteries. There is no demonstrated aneurysm of the osage of Vargas. There is no demonstrated abnormality of the visualized brain. IMPRESSION: No CTA evidence for hemodynamically significant stenosis, acute thrombosis or aneurysm. STUDY: CT BRAIN WITHOUT CONTRAST REASON FOR EXAM: Female, 52 years old. Vertigo. RADIATION DOSAGE (If Supplied By Facility): CTDIvol = ( 30.84 ) mGy, DLP = ( 1482.93 ) mGycm TECHNIQUE: Transaxial CT imaging of the brain was performed without administration of intravenous contrast material. Individualized dose optimization techniques were used for this CT. COMPARISON: Prior comparable comparison studies are not available for review at this time. FINDINGS: Normal soft tissue structures. Normal calvarium. Normal size ventricles and extra-axial spaces for the patient's age. Normal white matter tracts of the cerebral hemispheres. Normal basal ganglia and thalami. Normal brainstem. Normal cerebellum. There is no intracranial hemorrhage. There are no findings of an acute ischemic infarction. Normal visualized paranasal sinuses. IMPRESSION: No CT evidence of acute intracranial hemorrhage. Electronically Signed: Delores Collazo MD at 10:22 EST , Service support , STUDY: CTA NECK WITH CONTRAST REASON FOR EXAM: Female, 52 years old. RADIATION DOSAGE (If Supplied By Facility): CTDIvol = ( ) mGy, DLP = ( ) mGycm TECHNIQUE: CT angiography with multi-detector data acquisition was performed from the aortic arch to the skull base following intravenous administration of 100ML ml of Isovue 370 contrast. MIP images were reconstructed from the axial data set. Post-processing of the angiographic images was performed, with multiplanar reformation and 3D reconstruction. Individualized dose optimization techniques were used for this CT. COMPARISON: None. FINDINGS: AORTIC ARCH: Normal visualized aortic arch. Normal origins of the brachiocephalic, left common carotid, and left subclavian arteries. RIGHT CAROTID ARTERIES: Normal right common carotid artery (CCA). There is mild atherosclerotic plaque formation with minimal narrowing of the right carotid bulb. Normal origin of the right internal carotid (ICA) artery without a hemodynamically significant stenosis. There is atherosclerotic tortuous elongation of the cervical portion of the right internal carotid artery. Normal origin of the right external carotid artery (ECA). LEFT CAROTID ARTERIES: Normal left common carotid artery (CCA). Normal left common carotid bulb. Normal origin of the left internal carotid (ICA) artery without a hemodynamically significant stenosis. Normal visualized cervical portion of the left internal carotid artery. Normal origin of the left external carotid artery (ECA). VERTEBRAL ARTERIES: Normal bilateral vertebral arteries. Normal bilateral parotid glands. Normal bilateral director of product development spaces. Normal bilateral parapharyngeal spaces. Normal bilateral carotid spaces. Normal bilateral sublingual and submandibular glands and spaces. Normal visualized nasopharynx. Normal retropharyngeal space. Normal perivertebral space. Normal visualized bilateral faucial tonsils. There is significant beam hardening and streak artifact arising from patient's dental amalgam obscuring the anatomy of the oral cavity and tongue. The visualized cervical lymph nodes (levels I-) are within normal size limits, and maintain normal morphology. There is no demonstrated solid or cystic mass lesion. There is no abnormal contrast enhancement. Normal epiglottis, bilateral vallecula and hypopharynx. The pre-epiglottic and paraglottic adipose spaces are normal. Normal visualized bilateral piriform sinuses, aryepiglottic folds, vocal cords, and arytenoid-cricoid articulations. Normal subglottic trachea. Normal bilateral lobes of the thyroid gland. Normal visualized pulmonary apices. There are bilateral maxillary mucous retention cysts. There is multilevel degenerative changes of the cervical spine. CT/CTA Neck W/WO Contrast IMPRESSION: No CTA evidence for hemodynamically significant stenosis, acute thrombosis or dissection. Electronically Signed: Delores Collazo MD at 10:31 EST , Service support , CC: Radha Quintana MD; Gilbert Monsalve DO I O Psychologist: Signed CTA HEAD W/WO Observed: 07/05/2017 Status: F Source: [place] CONTRAST 9:09 AM [facility] [place] [facility] Imaging Services [address] [place] [address] CTA Head W/WO Contrast MR#: [id number] Acct: [id number] Name: SAMUEL WOO Rep #: [id number] : 1965 F 52 From: Delores Collazo MD PCP: Gilbert Monsalve DO Status: REG ER Study: CTA Head W/WO Contrast Date of Exam: 07/05/17 Exam# [id number] Ordering Dr: Radha Quintana MD STUDY: CTA OF THE BRAIN REASON FOR EXAM: Female, 52 years old. Vertigo. RADIATION DOSAGE (If Supplied By Facility): CTDIvol = ( 30.84 ) mGy, DLP = ( 1482.93 ) mGycm TECHNIQUE: CT angiography was performed with a multi-detector CT scanner. Data acquisition was obtained from the skull base through the vertex following intravenous administration of 100 ml of Isovue 370. MIP images were reconstructed from the axial data set. Post-processing of the angiographic images was performed, with multiplanar reformation and 3D reconstruction. Individualized dose optimization techniques were used for this CT. COMPARISON: None. FINDINGS: Normal bilateral petrous carotid arteries. Normal right cavernous carotid artery with a normal supraclinoid bifurcation. Normal left cavernous carotid artery with a normal supraclinoid bifurcation. Normal right A1 segments of the anterior cerebral artery. Normal left A1 segments of the anterior cerebral artery. Normal intact anterior communicating artery (ACOM). Normal bilateral A2 segments of the anterior cerebral arteries. Normal right M1 and M2 segments of the middle cerebral arteries, with a normal M1 bifurcation. Normal left M1 and M2 segments of the middle cerebral arteries, with a normal M1 bifurcation. 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 There is a persistent origin of the left posterior cerebral artery with absence of the posterior communicating artery (PCOM). Both vertebral arteries are small in size. The right vertebral artery appears to end in PICA. The basilar artery is small in size. The visualized bilateral superior cerebellar (SCA) arteries are normal. Bilateral P1 segments are absent. Normal bilateral P2 and visualized P3 segments of the posterior cerebral arteries. There is no demonstrated aneurysm of the osage of Vargas. There is no demonstrated abnormality of the visualized brain. IMPRESSION: No CTA evidence for hemodynamically significant stenosis, acute thrombosis or aneurysm. STUDY: CT BRAIN WITHOUT CONTRAST REASON FOR EXAM: Female, 52 years old. Vertigo. RADIATION DOSAGE (If Supplied By Facility): CTDIvol = ( 30.84 ) mGy, DLP = ( 1482.93 ) mGycm TECHNIQUE: Transaxial CT imaging of the brain was performed without administration of intravenous contrast material. Individualized dose optimization techniques were used for this CT. COMPARISON: Prior comparable comparison studies are not available for review at this time. FINDINGS: Normal soft tissue structures. Normal calvarium. Normal size ventricles and extra-axial spaces for the patient's age. Normal white matter tracts of the cerebral hemispheres. Normal basal ganglia and thalami. Normal brainstem. Normal cerebellum. There is no intracranial hemorrhage. There are no findings of an acute ischemic infarction. Normal visualized paranasal sinuses. IMPRESSION: No CT evidence of acute intracranial hemorrhage. Electronically Signed: Delores Collazo MD at 10:22 EST , Service support , STUDY: CTA NECK WITH CONTRAST REASON FOR EXAM: Female, 52 years old. RADIATION DOSAGE (If Supplied By Facility): CTDIvol = ( ) mGy, DLP = ( ) mGycm TECHNIQUE: CT angiography with multi-detector data acquisition was performed from the aortic arch to the skull base following intravenous administration of 100ML ml of Isovue 370 contrast. MIP images were reconstructed from the axial data set. Post-processing of the angiographic images was performed, with multiplanar reformation and 3D reconstruction. Individualized dose optimization techniques were used for this CT. COMPARISON: None. FINDINGS: AORTIC ARCH: Normal visualized aortic arch. Normal origins of the brachiocephalic, left common carotid, and left subclavian arteries. RIGHT CAROTID ARTERIES: Normal right common carotid artery (CCA). There is mild atherosclerotic plaque formation with minimal narrowing of the right carotid bulb. Normal origin of the right internal carotid (ICA) artery without a hemodynamically significant stenosis. There is atherosclerotic tortuous elongation of the cervical portion of the right internal carotid artery. Normal origin of the right external carotid artery (ECA). LEFT CAROTID ARTERIES: Normal left common carotid artery (CCA). Normal left common carotid bulb. Normal origin of the left internal carotid (ICA) artery without a hemodynamically significant stenosis. Normal visualized cervical portion of the left internal carotid artery. Normal origin of the left external carotid artery (ECA). VERTEBRAL ARTERIES: Normal bilateral vertebral arteries. Normal bilateral parotid glands. Normal bilateral director of product development spaces. Normal bilateral parapharyngeal spaces. Normal bilateral carotid spaces. Normal bilateral sublingual and submandibular glands and spaces. Normal visualized nasopharynx. Normal retropharyngeal space. Normal perivertebral space. Normal visualized bilateral faucial tonsils. There is significant beam hardening and streak artifact arising from patient's dental amalgam obscuring the anatomy of the oral cavity and tongue. The visualized cervical lymph nodes (levels I-) are within normal size limits, and maintain normal morphology. There is no demonstrated solid or cystic mass lesion. There is no abnormal contrast enhancement. Normal epiglottis, bilateral vallecula and hypopharynx. The pre-epiglottic and paraglottic adipose spaces are normal. Normal visualized bilateral piriform sinuses, aryepiglottic folds, vocal cords, and arytenoid-cricoid articulations. Normal subglottic trachea. Normal bilateral lobes of the thyroid gland. Normal visualized pulmonary apices. There are bilateral maxillary mucous retention cysts. There is multilevel degenerative changes of the cervical spine. CT/CTA Head W/WO Contrast IMPRESSION: No CTA evidence for hemodynamically significant stenosis, acute thrombosis or dissection. Electronically Signed: Delores Collazo MD at 10:31 EST , Service support , CC: Radha Quintana MD; Gilbert Monsalve DO I O Psychologist: Signed CBC W/DIFF, AUTOMATED Collected: 07/05/2017 Status: F Source: [place] 7:55 AM [facility] [place] TYPE CODE TESTS RESULT OUT OF RANGE REFERENCE UNITS LAB L100.1000 4.4-11.0 K/mm3 Low WBC 4.2 LAB L100.1200 4.2-5.4 M/mm3 Normal RBC 4.62 LAB L100.1300 12.0-15.0 g/dl Normal HGB 14.5 LAB L100.1400 37-47 % Normal HCT 39.7 LAB L100.1500 81-99 fL Normal MCV 85.9 LAB L100.1600 27.0-32.0 pg Normal MCH 31.4 LAB L100.1700 32-36 g/gl High MCHC 36.5 LAB L100.1810 11.6-14.6 % Low RDW CV 11.5 LAB L100.1820 35.1-43.9 fl Normal RDW SD 35.8 LAB L100.1900 150-450 K/mm3 Normal PLT 208 LAB L100.2000 6.2-12.0 fl Normal MPV 10.4 LAB L100.2100 47-70 % Normal NEUT% 61.6 LAB L100.2200 19-41 % Normal LY% 27.9 LAB L100.2300 0-10 % Normal MONO% 7.2 LAB L100.2400 0-5 % Normal EO% 2.1 LAB L100.2500 0-1 % Normal BASO% 1.0 LAB L100.2550 0.0-0.9 % Normal IM GRAN % 0.200 Result Comment: IG% - Immature Granulocytes (promyelocytes, myelocytes and metamyelocytes) > 1% indicates that a LEFT SHIFT is Present. LAB L100.2620 2.0-7.7 X10 3/uL Normal Absolute Neut 2.6 LAB L100.2720 0.83-4.51 X10 3/ul Normal Absolute Lymph 1.17 Performed By: #### L100.0100 #### [facility] [address] [place], [address] BASIC METABOLIC Collected: 07/05/2017 Status: F Source: [place] PROFILE (B[facility]) 7:55 AM [facility] [place] [facility] Order Comment: 'TROP' Serial specimen #1, #2, #3, or #4: 1 TYPE CODE TESTS RESULT OUT OF RANGE REFERENCE UNITS LAB L501.0100 70-110 mg/dL Normal GLU 97 LAB L501.1000 7-18 mg/dL Normal BUN 11 LAB L501.1100 0.55-1.02 mg/dL Normal 0.71 CREAT,SERUM Result Comment: The validity of the calculated GFR AND GFRAA in patients over 70 years has not been determined. Clinical correlation is essential. LAB L501.1110 >60 mL/min Normal EST GFR 92 Result Comment: Non- GFR Calc LAB L501.1115 >60 mL/min Normal EST GFR - AA 112 Result Comment: GFR Calc LAB L501.1255 ml/min Normal Estimated CRCL 92.18 LAB L501.1300 10-20 RATIO Normal BUN/CRE 15.4 LAB L501.2200 8.5-10 mg/dL Normal .1 CA 9.1 LAB L501.5300 136-14 mmol/L Normal 5 NA 142 LAB L501.5600 3.5-5. mmol/L Normal 1 K 3.5 LAB L501.5900 98-107 mmol/L High CL 108 LAB L501.6100 21.0-3 mmol/L Normal 2.0 CO2 23.0 LAB L501.6200 5-15 Normal GAP 11 Performed By: #### L500.2500, L501.4010 #### [facility] [address] [place], [address] TROPONIN-I Collected: 07/05/2017 Status: F Source: [place] 7:55 AM [facility] [place] Order Comment: 'TROP' Serial specimen #1, #2, #3, or #4: 1 TYPE CODE TESTS RESULT OUT OF RANGE REFERENCE UNITS LAB L501.4010 <0.06 ng/mL Normal < 0.02 TROPONIN-I Result Comment: TROPONIN-I EXPECTED VALUES <0.05 NEGATIVE 0.06 - 0.59 AT RISK OF LA > OR = 0.60 SUGGEST LA Performed By: #### L500.2500, L501.4010 #### [facility] [address] [facility] [place], [address] CHEST 1 VIEW Observed: 07/05/2017 Status: F Source: [place] (PORTABLE) 7:45 AM [facility] [place] [facility] Imaging Services [address] [facility] [place] [address] Chest 1 View (Portable) MR#: [id number] Acct: [id number] Name: SAMUEL WOO Rep #: [id number] : 1965 F 52 From: Delores Collazo MD PCP: Gilbert Monsalve DO Status: REG ER Study: Chest 1 View (Portable) Date of Exam: 07/05/17 Exam# [id number] Ordering Dr: Radha Quintana MD STUDY: X-RAY CHEST REASON FOR EXAM: Female, 52 years old. Generalized pain. TECHNIQUE: Single AP portable view of the chest. COMPARISON: CTA of the chest dated September 09, 2016 FINDINGS: The lungs are clear and hyperexpanded. There is no demonstrated pleural abnormality. Normal size heart. Normal mediastinum and garfield. Normal visualized pulmonary arteries. Normal visualized aortic arch and descending thoracic aorta. There are diffuse degenerative changes of the visualized thoracic spine. Normal visualized ribs, clavicles, and shoulders. There is no demonstrated abnormality of the visualized soft tissue structures of the upper abdomen. RAD/Chest 1 View (Portable) IMPRESSION: No radiographic evidence of acute cardiopulmonary disease. Electronically Signed: Delores Collazo MD at 8:22 EST , Service support , CC: Radha Quintana MD; Gilbert Monsalve DO I O Psychologist: Signed ALLERGIES ALLERGIES DATE TYPE / CODE NAME / CODE REACTION SEVERITY SOURCE 11/30/2017 DRUG PEANUT ANAPHYLAXIS High [facility] INGREDI/[address] [place] [id number](SN Repository ED CT) 07/05/2017 Drug peanut/[id number] Anaphylaxis Unknown [place] Allergy/416 68(RXNORM) [facility] 359663([facility] ED CT) Repository 07/05/2017 Drug morphine/O92541 Hives Unknown [place] Allergy/416 1545(RXNORM) [facility] 482783([facility] ED CT) Repository 09/15/2016 DRUG MORPHINE HIVES [facility] INGRED/[address] [place] 157059([facility] Repository ED CT) ENCOUNTERS ENCOUNTERS ADMIT/DISCHARGE ACCOUNT ADMITTING ENCOUNTER LOCATION SOURCE NUMBER CLASS 06/13/2018 [id number] [facility] ing:BFAB Repository 04/29/2018 [id number] [place], Ambulatory [address] [facility] Repository 04/12/2018/04/12/20 [id number] Ambulatory [address] Repository 04/06/2018/04/07/20 [id number] Ambulatory [address] Repository 02/09/2018 [id number] Ambulatory [address] [place] [address] Repository 12/20/2017/12/24/19 [id number] Ambulatory [address] Repository 11/30/2017/12/30/19 [id number] Ambulatory [address] Repository 09/27/[id number] [facility] [place] g:H.ED Repository 09/27/[id number] [facility] [place] g:H.MASCT Repository 08/27/2017 [id number] Ambulatory [facility] g:Ev.JCT Repository 07/05/2017/07/05/20 [id number] Emergency [place] [place] [address] [facility] ing:ED Repository PAYERS PAYERS ENCOUNTER GUARANTOR PAYER SUBSCRIBER SOURCE 06/13/2018 [facility] [place] Insurance:ANTHEMPolic HARTMANDOB[facility] Number: [id number] [id number] Repository [address]Cla: (411) Date:0506-49-67Y[address] () [id number], [place] [address]AP: 06/13/2018 Secondary NOT GIVENUNK [place] Insurance:SELF PAY [facility] Number: Effective Repository Date:2018-06-13 [facility]2018 [facility]AnthemPolic HARTMANDOB: Hospitals y Number: [id number] [facility]ository [id number] [place], [place] Date:Plan Name:[place], [place] [address]Ice: [phone]: () [phone] () 02/09/2018 [facility]:AnthemPolic HARTMANDOB: Hospitals y Number: [id number] [facility]ository [id number] [place], [place] Date:Plan Name:[place], [place] [address]Fse: [phone]: () 263 () 09/27/2017 MELLINDA R [facility] Insurance:[facility] [address] [place], OTHERPolicy Number: Repository [place] [address]Iob: [id number] Date:6710-80-83MW [address] () [id number] [place] [address]EJ: 09/27/2017 [facility] Insurance:[facility] [id number] DARREN OTHERPolicy Number: Repository [place] [id number] [id number]: (330) Date:1549-17-56VZ [phone] () [address] [place] [address] 319[address]UG: 08/27/2017 [facility] R [facility] Insurance:[facility] [id number] DARREN OTHERPolicy Number: Repository [place] [id number]: (330) Date:9726-03-72CO [phone] () [id number] [place] [address] 674[address]SM: 07/05/2017 [facility] Primary [place] [address], Insurance:[facility] Hospital[facility] [place] [address]Gbw: y Number: [id number] Hospital [id number] Repository (HP) Date:0314-85-18TW [address] [place] [address]SH: 07/05/2017 Secondary NOT GIVENUNK [place] Insurance:SELF PAY [facility] Number: Effective Repository Date:2017-07-05
== END ==
PROVIDERS: Family Medicine; Family Provider Family Medicine; PCP Family Medicine; Referring Provider Family Medicine; Visit Provider Family Medicine
DX: R51 Headache (principal); R59.0 Localized enlarged lymph nodes; H57.89 Other specified disorders of eye and adnexa; J34.89 Other specified disorders of nose and nasal sinuses
CPT/HCPCS: 36415; 70220; 85025; 85652; 86140; 87070; 87075; 87077; 87186; 87205

== ENCOUNTER → 2018-07-08 07:05 | Outpatient (CLI) | payer BC, SELFPAY ==
--- NOTE | 2018-07-08 07:45 | MRI_ITS ---
STUDY: MRI SOFT TISSUE NECK WITH AND WITHOUT CONTRAST REASON FOR EXAM: Female, 53 years old. Left cervical adenopathy TECHNIQUE: Standarized fat and water weighted pulse sequences were obtained in all 3 orthogonal plane pre and post intravenous administration of 10 ml of Gadavist contrast material. COMPARISON: CTA neck 07/05/2017 FINDINGS: Normal bilateral parotid glands. Normal bilateral double end tenoner setter spaces. Normal bilateral parapharyngeal spaces. Normal bilateral carotid spaces. Normal bilateral sublingual and submandibular glands and spaces. Normal visualized nasopharynx. Normal retropharyngeal space. Normal perivertebral space. Normal visualized bilateral faucial tonsils. The visualized tongue, tongue base and oropharynx are normal. The visualized cervical lymph nodes (levels I-) are within normal size limits, and maintain normal morphology. There is no demonstrated solid or cystic mass lesion. There is no abnormal contrast enhancement. Normal epiglottis, bilateral vallecula and hypopharynx. The pre-epiglottic and paraglottic adipose spaces are normal. Normal visualized bilateral piriform sinuses, aryepiglottic folds, vocal cords, and arytenoid-cricoid articulations. Normal subglottic trachea. Normal bilateral lobes of the thyroid gland. Normal visualized pulmonary apices. Cyst in the right maxillary sinus. Normal visualized cervical spine. MRI/Orbit Face Neck W/WO Contrast IMPRESSION: No evidence of mass or adenopathy. No focal lesions are identified involving the pharynx or larynx. Electronically Signed: Walt Grigsby MD at 0:55 EST Tel , Service support ,
== END ==
PROVIDERS: Family Provider Family Medicine; PCP Family Medicine; Referring Provider Family Medicine; Visit Provider Family Medicine
DX: R51 Headache (principal); R59.0 Localized enlarged lymph nodes
CPT/HCPCS: 70543; A9585

== ENCOUNTER → 2018-09-02 11:15 | Outpatient (CLI) | payer BC, SELFPAY ==
--- NOTE | 2018-09-02 11:32 | MRI_ITS ---
STUDY: MRI BRAIN WITH AND WITHOUT CONTRAST REASON FOR EXAM: Female, 53 years old. Trigeminal neuralgia TECHNIQUE: Standardized multiplanar fat and water weighted pulse sequences were obtained. Gadavist 10 IV was administered for the contrast portion of the examination. COMPARISON: 07/08/2018 FINDINGS: Normal size of the ventricles and extra-axial spaces for the patient's age. Normal white matter tracts of the supratentorial brain. Normal bilateral basal ganglia. Normal thalami. There is no extra-axial fluid accumulation. Normal flow voids within the major intracranial circulation suggesting patency by spin echo criteria. Normal venous enhancement. There is no enhancing intra-axial or extra-axial abnormality. Normal sella turcica, pituitary gland, infundibular stalk, optic chiasm and hypothalamus. Normal tectal plate and pineal gland. Normal midbrain, smooth and medulla. Normal cerebellum. Normal basal cisterns. Normal bilateral temporal bones. Normal bilateral internal auditory canals. No demonstrated orbital abnormality, within the constraints of a routine brain study. Normal visualized paranasal sinuses. Normal calvarium and skull base. Normal visualized soft tissue structures. Normal visualized upper cervical spine. MRI/Brain W/WO Contrast IMPRESSION: Normal unenhanced and enhanced MRI of the brain. Electronically Signed: Walt Grigsby MD at 2:30 EST Tel , Service support ,
== END ==
PROVIDERS: Family Provider Family Medicine; PCP Family Medicine
DX: G50.0 Trigeminal neuralgia (principal)
CPT/HCPCS: 70553; A9585

== ENCOUNTER → 2018-11-28 | Outpatient (CLI) | payer BC, SELFPAY ==
[2017-07-05 07:23] VITALS: BMI 29.7
[2018-11-28 14:17] LABS: ALB/GLOB Ratio 1.2 RATIO (0.9-2.4); AST(SGOT) 15 U/L (15-37); Alanine Aminotransfer ALT/SGPT 22 U/L (13-56); Albumin, Serum 4.1 g/dL (3.2-5.0); Alkaline Phosphatase 70 U/L (45-117); Anion Gap 9 (5-15); BUN 8 mg/dL (7-18); BUN/Creat Ratio 10.3 RATIO (10-20); Chloride 105 mmol/L (98-107); Creatinine, Serum 0.78 mg/dL (0.55-1.02); EST Glomerular Filtration Rate 83 mL/min (>60); Est Glom Filt Rate - Afr Amer 100 mL/min (>60); Globulin 3.3 g/dL (2.2-4.2); Glucose 93 mg/dL (74-106); Protein, Total 7.4 g/dL (6.4-8.2); Sodium Level 139 mmol/L (136-145)
== END | disposition home or self-care (01) ==
LOC: MTLAB 11:53
PROVIDERS: Family Provider Family Medicine; PCP Family Medicine; Referring Provider Family Medicine; Visit Provider Family Medicine
DX: Z51.81 Encounter for therapeutic drug level monitoring (principal)
CPT/HCPCS: 36415; 80053

== ENCOUNTER → 2018-12-10 | Outpatient (CLI) | payer BC, SELFPAY | END | disposition home or self-care (01) | LOC: LAB.FUTURE 10:26 | PROVIDERS: Family Provider Family Medicine; PCP Family Medicine; Referring Provider Family Medicine; Visit Provider Family Medicine | DX: E72.11 Homocystinuria (principal) | CPT/HCPCS: 36415; 81291 ==

== ENCOUNTER → 2019-01-07 | Outpatient (CLI) | payer BC, SELFPAY ==
[2019-01-07 10:11] LABS: Homocysteine 7.7 umol/L (3.2-10.7)
[2019-01-09 09:26] LABS: Vitamin B12 216 pg/mL (211-911)
== END | disposition home or self-care (01) ==
PROVIDERS: Family Provider Family Medicine; PCP Family Medicine; Referring Provider Family Medicine; Visit Provider Family Medicine
DX: E72.12 Methylenetetrahydrofolate reductase deficiency (principal); E67.2 Megavitamin-B6 syndrome
CPT/HCPCS: 36415; 82607; 82746; 83090; 83921

== ENCOUNTER → 2019-01-19 | Outpatient (CLI) | payer BC, SELFPAY | END | disposition home or self-care (01) | LOC: BFHLAB 12:06 | PROVIDERS: Family Provider Family Medicine; PCP Family Medicine; Visit Provider Family Medicine | DX: R21 Rash and other nonspecific skin eruption (principal); R23.8 Other skin changes | CPT/HCPCS: 87101; 87252 ==

== ENCOUNTER → 2019-05-26 | Outpatient (CLI) | payer BC, SELFPAY | END | disposition home or self-care (01) | LOC: LAB.FUTURE 13:02 | PROVIDERS: Family Provider Family Medicine; PCP Family Medicine; Visit Provider Family Medicine | DX: H57.89 Other specified disorders of eye and adnexa (principal) ==

== ENCOUNTER → 2019-09-25 09:05 | Outpatient (CLI) | payer BC, SELFPAY | PROVIDERS: PCP Family Medicine; Referring Provider Family Medicine; Visit Provider Family Medicine | DX: G62.9 Polyneuropathy, unspecified (principal); J45.909 Unspecified asthma, uncomplicated; R51 Headache; R53.83 Other fatigue | CPT/HCPCS: 36415 ==

== ENCOUNTER → 2019-09-29 13:13 | Outpatient (CLI) | payer BC, SELFPAY ==
[2019-09-29 13:49] LABS: Absolute Lymphocyte Count 0.95 X10^3/uL (0.83-4.51); Basophil# 0.03 X10^3/uL; Basophil% 0.7 % (0-1); Eosinophil# 0.01 X10^3/uL; Eosinophils% 0.2 % (0-5); Hemoglobin 13.8 g/dL (12.0-15.0); Lymphocyte # 0.95 X10^3/ul (4.0); Lymphocyte % 22.6 % (19-41); Mean Corp Hgb Conc 34.5 g/dL (32-36); Mean Corpuscular Hgb 30.9 pg (27.0-32.0); Mean Corpuscular Volume 89.7 fL (81-99); Mean Platelet Vol. 10.5 fl (6.2-12.0); Monocyte# 0.25 X10^3/uL; NRBC Flagged by Analyzer 0 % (0-5); Neutrophil # 2.96 X10^3/uL (2.7-7.7); Neutrophil % 70.5 % (47-70); Platelet Count 173 K/mm3 (150-450); RBC Distribution Width CV 11.7 % (11.6-14.6); RBC Distribution Width SD 37.6 fl (35.1-43.9); Red Blood Count 4.46 M/mm3 (4.2-5.4); White Blood Count 4.2 K/mm3 (4.4-11.0)
[2019-09-29 14:10] LABS: CRP < 2.90 mg/L (0.0-3.0)
[2019-09-29 14:12] LABS: Erythrocyte Sedimentation Rate 7 mm/hr (0-30)
== END ==
PROVIDERS: PCP Family Medicine; Referring Provider Family Medicine; Visit Provider Family Medicine
DX: R50.9 Fever, unspecified (principal); R51 Headache
CPT/HCPCS: 36415; 85025; 85652; 86140; 87040

== ENCOUNTER → 2019-10-31 09:37 | Outpatient (CLI) | payer BC, SELFPAY | PROVIDERS: PCP Family Medicine; Referring Provider Family Medicine; Visit Provider Family Medicine | DX: K13.70 Unspecified lesions of oral mucosa (principal); H57.89 Other specified disorders of eye and adnexa | CPT/HCPCS: 87101 ==

== ENCOUNTER → 2020-02-29 12:58 | Outpatient (CLI) | payer BC, SELFPAY ==
[2020-02-29 14:03] LABS: Vitamin B12 367 pg/mL (211-911); Vitamin D,25 Hydroxy 22.9 ng/mL
[2020-02-29 14:14] LABS: AST(SGOT) 12 U/L (15-37); Alanine Aminotransfer ALT/SGPT 18 U/L (13-56); Albumin, Serum 4.1 g/dL (3.2-5.0); Alkaline Phosphatase 65 U/L (45-117); Globulin 2.9 g/dL (2.2-4.2); Iron 107 ug/dL (50-170)
[2020-03-03 16:07] LABS: Vitamin B1, Thiamine 94.6 nmol/L (66.5-200.0)
[2020-03-04 10:43] LABS: Zinc, Plasma or Serum 90 ug/dL (56-134)
== END ==
PROVIDERS: PCP Family Medicine; Referring Provider Family Medicine; Visit Provider Family Medicine
DX: E63.9 Nutritional deficiency, unspecified (principal); E53.8 Deficiency of other specified B group vitamins; E67.2 Megavitamin-B6 syndrome
CPT/HCPCS: 80076; 82306; 82330; 82607; 82746; 83540; 83735; 84425; 84630

== ENCOUNTER → 2020-06-17 15:00 | Outpatient (CLI) | payer BC, SELFPAY | PROVIDERS: PCP Family Medicine; Visit Provider Family Medicine | DX: K12.30 Oral mucositis (ulcerative), unspecified (principal); K90.49 Malabsorption due to intolerance, not elsewhere classified; R68.89 Other general symptoms and signs | CPT/HCPCS: 36415 ==

== ENCOUNTER → 2021-01-16 13:18 | Outpatient (CLI) | payer BC, SELFPAY ==
[2021-01-16 13:29] LABS: Mucous, Urine 0 SEEN /hpf (<or=2+); Red Blood Cells-Urine 0 SEEN /hpf (0-5)
[2021-01-16 14:22] LABS: Color, Urine Straw (Yellow); Glucose, Dipstick Normal (Normal); Ketone-Dipstick Negative (Negative); Leukocyte Esterase-Dipstick 500 /ul (Negative); Nitrite-Dipstick Negative (Negative); Occult Blood-Urine 150 /ul (Negative); Protein-Dipstick Negative (Negative); Specific Gravity, Urine 1.005 (1.002-1.030); Urine Bilirubin Dipstick Negative (Negative); Urine Clarity Clear (Clear); Urine Urobilinogen Normal (Normal)
[2021-01-16 14:29] LABS: Bacteria RARE /hpf (None Seen); Squamous Epithelial Cells - UA 0-5 SEEN /hpf (5-10); White Blood Cells 10-25 SEEN /hpf (0-5)
== END ==
PROVIDERS: PCP Family Medicine; Referring Provider Family Medicine; Visit Provider Family Medicine
DX: R30.0 Dysuria (principal)
CPT/HCPCS: 81001; 87086; 87088; 87186

== ENCOUNTER → 2021-02-14 07:11 | Outpatient (CLI) | payer BC, SELFPAY ==
--- NOTE | 2021-02-14 07:14 | CT_ITS ---
STUDY: CT MAXILLOFACIAL SINUSES REASON FOR EXAM: Female, 55 years old. CHRONIC SINUSITIS RADIATION DOSAGE (If Supplied By Facility): CTDIvol = ( 33.06 ) mGy, DLP = ( 788.40 ) mGycm TECHNIQUE: The patient was scanned in a multi detector CT scanner. High resolution axial imaging was performed without the administration of intravenous contrast material. Sagittal and coronal images were reconstructed. Individualized dose optimization techniques were used for this CT. COMPARISON: None. FINDINGS: FRONTAL SINUSES: Normal aeration, without mucosal inflammatory disease. ETHMOIDAL SINUSES: Normal aeration, without mucosal inflammatory disease. MAXILLARY SINUSES: Mucous retention cyst in the floor the right maxilla sinus consistent with chronic sinusitis. SPHENOIDAL SINUSES: Normal aeration, without mucosal inflammatory disease. There is patency of the bilateral maxillary infundibuli with normal uncinate processes, ethmoid bullae, and hiatus semilunaris. Normal bilateral middle turbinates. Normal bilateral inferior turbinates. Normal midline nasal septum. There is patency of the bilateral nasal airways. The visualized osseous structures are normal. The visualized bilateral orbital contents are normal. CT/Sinus/Facial Bone IMPRESSION: Mucous retention cyst in the floor the right maxillary sinus consistent with chronic sinusitis. Patent ostiomeatal units bilaterally. Electronically Signed: Keaton Medina MD at 10:11 EDT Tel , Service support ,
--- NOTE | 2021-02-14 07:14 | CT_ITS ---
INDICATION: PERSISTANT CERVICAL ADENOPATHY EXAMINATION: CT NECK WITH CONTRAST - CT Soft Tissue Neck W/ Contrast Injection TECHNIQUE: Helically acquired images were obtained of the neck following IV contrast. A radiation dose optimization technique was used for this scan. IV Contrast dosage and agent: 100 cc of ISOVUE-300 was intravenously injected COMPARISON: CTA Head and Neck obtained on 07/05/2017 FINDINGS: NASOPHARYNX: Unremarkable. SUPRAHYOID NECK: Unremarkable oropharynx, oral cavity, parapharyngeal space, and retropharyngeal space. INFRAHYOID NECK: Unremarkable larynx, hypopharynx, and supraglottis. Cervical lymph nodes: No cerevical lymphadenopathy identified. THYROID: No focal lesions. SALIVARY GLANDS: Unremarkable. LYMPH NODES: No cervical or supraclavicular lymphadenopathy. VASCULAR STRUCTURES: Unremarkable. VISUALIZED PORTIONS OF THE ORBITS, PARANASAL SINUSES, MASTOID AIR CELLS AND SKULL BASE: A mucous retention cyst in the floor of the right maxillary sinus.. BONES: Cervical spondylosis with degenerative arthritis is noted involving the C4-5 and C5-6 articular facets on the right and left respectively. THORACIC INLET: Clear lung apices. CT/Soft Tissue Neck WITH Contrast IMPRESSION: A mucous retention cyst is noted in the floor of the right maxillary sinus in this otherwise normal CT scan of the cervical soft tissues. Electronically Signed: Alexandru Montanez DO at 10:43 EDT Tel , Service support ,
== END ==
PROVIDERS: PCP Family Medicine; Referring Provider Family Medicine; Visit Provider Family Medicine
DX: J32.9 Chronic sinusitis, unspecified (principal); R59.0 Localized enlarged lymph nodes
CPT/HCPCS: 70486; 70491; Q9967

== ENCOUNTER → 2021-02-25 06:01 | Outpatient (CLI) | payer BC, SELFPAY ==
[2021-02-25 08:00] LABS: ALB/GLOB Ratio 1.4 RATIO (0.9-2.4); AST(SGOT) 13 U/L (15-37); Alanine Aminotransfer ALT/SGPT 22 U/L (13-56); Albumin, Serum 3.9 g/dL (3.2-5.0); Alkaline Phosphatase 58 U/L (45-117); Anion Gap 5 (5-15); BUN 10 mg/dL (7-18); BUN/Creat Ratio 15.8 RATIO (10-20); Calcium,Total 8.6 mg/dL (8.5-10.1); Chloride 103 mmol/L (98-107); Cholesterol 219 mg/dL (200); Creatinine, Serum 0.63 mg/dL (0.55-1.02); EST Glomerular Filtration Rate 105 mL/min (>60); Est Glom Filt Rate - Afr Amer 126 mL/min (>60); Globulin 2.7 g/dL (2.2-4.2); Glucose 82 mg/dL (74-106); High Density Lipoprotein 58 mg/dL; Potassium 3.7 mmol/L (3.5-5.1); Protein, Total 6.6 g/dL (6.4-8.2); Sodium Level 136 mmol/L (136-145); Thyroid Stim Hormone (TSH) 0.27 uIU/mL (0.358-3.74); Triglycerides 94 mg/dL; Very Low Density Lipoprotein 19 mg/dL (5-40)
[2021-02-25 08:29] LABS: Vitamin D,25 Hydroxy 37.7 ng/mL
== END ==
PROVIDERS: PCP Family Medicine; Referring Provider Internal Medicine Endocrinology, Diabetes & Metabolism; Visit Provider Internal Medicine Endocrinology, Diabetes & Metabolism
DX: E03.8 Other specified hypothyroidism (principal); E78.2 Mixed hyperlipidemia; E55.9 Vitamin D deficiency, unspecified
CPT/HCPCS: 36415; 80053; 80061; 82306; 84443

== ENCOUNTER → 2021-07-07 06:23 | Outpatient (CLI) | payer BC, SELFPAY ==
[2021-07-07 09:36] LABS: Vitamin B12 199 pg/mL (211-911)
[2021-07-10 10:34] LABS: Zinc, Plasma or Serum 105 ug/dL (44-115)
== END ==
PROVIDERS: PCP Family Medicine; Referring Provider Internal Medicine Endocrinology, Diabetes & Metabolism; Visit Provider Internal Medicine Endocrinology, Diabetes & Metabolism
DX: E03.8 Other specified hypothyroidism (principal)
CPT/HCPCS: 36415; 82607; 84630

== ENCOUNTER 2021-07-15 05:58 | Outpatient (CLI) | payer BC, SELFPAY ==
[2021-07-15 08:05] LABS: ALB/GLOB Ratio 1.2 RATIO (0.9-2.4); AST(SGOT) 13 U/L (15-37); Alanine Aminotransfer ALT/SGPT 22 U/L (13-56); Albumin, Serum 3.5 g/dL (3.2-5.0); Alkaline Phosphatase 62 U/L (45-117); Anion Gap 7 (5-15); BUN 14 mg/dL (7-18); BUN/Creat Ratio 21.1 RATIO (10-20); Calcium,Total 8.5 mg/dL (8.5-10.1); Chloride 107 mmol/L (98-107); Cholesterol 195 mg/dL (200); Creatinine, Serum 0.66 mg/dL (0.55-1.02); EST Glomerular Filtration Rate 99 mL/min (>60); Est Glom Filt Rate - Afr Amer 119 mL/min (>60); Glucose 92 mg/dL (74-106); High Density Lipoprotein 62 mg/dL; Potassium 3.9 mmol/L (3.5-5.1); Protein, Total 6.5 g/dL (6.4-8.2); Sodium Level 140 mmol/L (136-145); Thyroid Stim Hormone (TSH) 0.46 uIU/mL (0.358-3.74); Triglycerides 120 mg/dL; Very Low Density Lipoprotein 24 mg/dL (5-40)
== END 2021-07-15 23:59 | disposition short-term general hospital (02) ==
LOC: LAB 06:02
PROVIDERS: PCP Family Medicine; Referring Provider Internal Medicine Endocrinology, Diabetes & Metabolism; Visit Provider Internal Medicine Endocrinology, Diabetes & Metabolism
DX: E03.8 Other specified hypothyroidism (principal); E78.2 Mixed hyperlipidemia; E55.9 Vitamin D deficiency, unspecified
CPT/HCPCS: 36415; 80053; 80061; 82306; 84443

== ENCOUNTER 2021-08-03 16:11 | Emergency (ER) | payer BC, SELFPAY ==
[2021-08-03 16:11] VITALS: BP 175/84; BP 178/106; PULSE 100; RESP 16; TEMP 37.1; O2SAT 98; BMI 31.3
[2021-08-03 16:48] VITALS: BP 153/87
--- NOTE | 2021-08-03 16:56 | EKG12_ITS ---
Test Reason : HTN Blood Pressure : / mmHG Vent. Rate : 064 BPM Atrial Rate : 064 BPM P-R Int : 164 ms QRS Dur : 090 ms QT Int : 418 ms P-R-T Axes : 040 035 048 degrees QTc Int : 431 ms Normal sinus rhythm Nonspecific ST abnormality Abnormal ECG Confirmed by JENNY CENTENO, ISHAN ([id number]), editorial director WILMAR CLARK ([id number]) on 08/05/2021 9:41:52 AM Referred By: JOSE GUADALUPE Confirmed By:ISHAN ALVARADO MD
--- NOTE | 2021-08-03 16:58 | EX.ED.DYSGE1 ---
HPI History of Present Illness Chief Complaint: Hypertension Informant: patient Onset/Context/Timing Onset: Weeks Context: Gradual Onset Current Severity: Mild Maximum Severity: Moderate Narrative Narrative: Patient presents secondary to high blood pressure with headache, chest pressure. Patient states over the last 6 weeks or so her blood pressure has been climbing. Last week it was in the 160/105 range. She tried clonidine but states that she reacted to it was unable to tolerate it. Her PCP put her on oral potassium pills. She states her blood pressure has been down the last couple days, 150s over 90s. This morning it read 152/98. This afternoon she developed increasing headache with pounding sensation in her chest. She checked her blood pressure and it went up as high as 179/110. She did take a dose of hydralazine that her primary care physician had given her. When her blood pressure had not improved over the next half hour or so she came in for evaluation. She also reports some mild dizziness. Symptoms at this time are improving but not resolved. At the time of my examination blood pressure is 147/91. PFSH PFS Medical History Adrenal adenoma Asthma B12 deficiency Connective tissue disease Heterozygous MTHFR mutation [id number] Hypervitaminosis B6 Hypokalemia Hypothyroid Ocular rosacea Vitamin D deficiency Home Medications oxycodone-acetaminophen 1 tab PO Q6H PRN PRN #12 tablet 07/05/17 [Rx Last Taken Unknown] levothyroxine 100 mcg PO MOTUWETHFRSA 07/10/19 [History Last Taken Unknown] hydralazine 10 mg PO DAILY 08/03/21 [History Last Taken Unknown] levothyroxine 50 mcg PO BARNHART 08/03/21 [History Last Taken Unknown] potassium chloride 10 meq PO DAILY 08/03/21 [History Last Taken Unknown] Allergy/AdvReac Type Severity Reaction Status Date / Time metoprolol Allergy Rash Verified 08/03/21 16:14 morphine Allergy Hives Verified 08/03/21 16:14 peanut Allergy Anaphylaxis Verified 08/03/21 16:14 ALL MEDS AdvReac Other Uncoded 08/03/21 16:14 Family History Mother CVA (cerebral vascular accident) Heart disease Father Heart disease Surgical History History of delivery History of partial hysterectomy Hx of tonsillectomy Social History Smoking Status: Former smoker ROS ROS ED Constitutional Constitutional ED: Denies chills or fever(s) Eyes Eyes: Denies change in vision ENT ENT ED: Denies sore throat Cardiovascular Cardiovascular: Reports chest pain Respiratory/Chest Respiratory/Chest: Denies cough or dyspnea Gastrointestinal Gastrointestinal: Denies abdominal pain, diarrhea, nausea or vomiting Genitourinary Genitourinary ED: Denies dysuria Musculoskeletal Musculoskeletal: Denies back pain Integumentary Denies rash Neurologic Neurologic: Denies weakness Allergic/Immunologic Allergic/Immunologic ED: Denies urticaria EXAM Physical Exam Const Vital Signs: 08/03/21 16:11 08/03/21 16:20 08/03/21 16:48 Temperature 98.7 F Temperature Source Temporal Pulse Rate 100 Respiratory Rate 16 Respiratory Effort Normal Non-Labored Respiratory Pattern Normal Blood Pressure 175/84 H 153/87 H Blood Pressure Mean 114 109 Pulse Ox 98 Oxygen Delivery Method Room Air 08/03/21 18:11 Temperature Temperature Source Pulse Rate 58 L Respiratory Rate 17 Respiratory Effort Respiratory Pattern Blood Pressure 141/87 H Blood Pressure Mean 105 Pulse Ox 97 Oxygen Delivery Method Room Air Positive well nourished and well developed General Appearance ED: well developed HEENT Reports moist mucous membranes Eyes PERRL and EOMs intact bilaterally Neck supple Chest Wall inspection of chest normal and palpation of chest normal Resp normal respiratory effort and clear to auscultation bilaterally Cardio regular rate and regular rhythm GI normal to inspection, nondistended, normoactive bowel sounds and non-tender Palpation: soft Extremity normal to inspection Neuro oriented x3, CN's II-XII intact bilaterally and no sensory deficits noted Sensorium / Orientation: alert Motor Exam: strength 5/5 throughout Psych mental status grossly normal Skin no rashes or lesions noted MDM MDM MDM Narrative Medical decision making narrative: 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 Lab work, EKG, chest x-ray obtained. Lab Data Attestation: I reviewed the patient's lab results. Labs: Laboratory Results - last 24 hr 08/03/21 08/03/21 08/03/21 17:09 17:09 17:53 WBC Cancelled 5.0 Corrected WBC Cancelled RBC Cancelled 4.59 Hgb Cancelled 13.7 Hct Cancelled 40.6 MCV Cancelled 88.5 MCH Cancelled 29.8 MCHC Cancelled 33.7 RDW Std Deviation Cancelled 37.2 RDW Coeff of [place] Cancelled 11.8 Plt Count Cancelled 183 MPV Cancelled 10.2 Immature Gran % (Auto) Cancelled 0.200 Neut % (Auto) Cancelled 66.6 Lymph % (Auto) Cancelled 25.3 Harrison % (Auto) Cancelled 6.1 Eos % (Auto) Cancelled 1.2 Baso % (Auto) Cancelled 0.6 Absolute Neuts (auto) Cancelled 3.3 Absolute Lymphs (auto) Cancelled 1.25 Total Counted Cancelled Neutrophils % (Manual) Cancelled Band Neutrophils % Cancelled Lymphocytes % (Manual) Cancelled Monocytes % (Manual) Cancelled Eosinophils % (Manual) Cancelled Basophils % (Manual) Cancelled Metamyelocytes % Cancelled Myelocytes % Cancelled Promyelocytes % Cancelled Blast Cells % Cancelled Plasma Cell % (Manual) Cancelled Other Cells % Cancelled Nucleated RBC % Cancelled 0 Nucleated RBCs/100 WBC Cancelled Differential Comment Cancelled Diff Path Review Cancelled Hypersegmented Neuts Cancelled Atypical Lymphocytes Cancelled Reactive Lymphocytes Cancelled Smudge Cells Cancelled Toxic Granulation Cancelled Toxic Vacuolation Cancelled Dohle Bodies Cancelled Gulshan Rods Cancelled Platelet Estimate Cancelled Plt Morphology Comment Cancelled RBC Morphology Cancelled Polychromasia Cancelled Hypochromasia Cancelled Poikilocytosis Cancelled Basophilic Stippling Cancelled Anisocytosis Cancelled Microcytosis Cancelled Macrocytosis Cancelled Spherocytes Cancelled Sickle Cells Cancelled Target Cells Cancelled Tear Drop Cells Cancelled Ovalocytes Cancelled Stomatocytes Cancelled Palma-Pennock Bodies Cancelled John Cells Cancelled Bite Cells Cancelled Crenated Cell Cancelled Acanthocytes (Spur) Cancelled Rouleaux Cancelled Schistocytes Cancelled Sodium 140 Potassium 3.8 Chloride 109 H Carbon Dioxide 26.0 Anion Gap 5 BUN 10 Creatinine 0.67 Estim Creat Clear Calc 93.34 Est GFR (MDRD) Af Amer 118 Est GFR (MDRD) Non-Af 98 BUN/Creatinine Ratio 15.0 Glucose 105 Calcium 9.0 Troponin I High Sens 6 Radiography Chest X-Ray - ED: 1 View, Read by ED Physician, Normal, Heart, Lungs and Mediastinum EKG Initial EKG: Attestation: I personally reviewed and interpreted this EKG as follows: Interpretation: Sinus Rhythm (Sinus at 64 with no acute ischemia.) Treatment and Re-Evaluation Comments:: On repeat evaluation patient resting comfortably. Blood pressure is 141/87. She was given no additional medications here. I did recommend starting hydralazine at twice a day and monitoring her blood pressures. This can be increased to the prescribed 4 times a day. She is requesting referral to cardiology to help with blood pressure management. This will be provided. Discharge Plan Triage Chief Complaint: Hypertension ED Provider: Megan Bal Dx/Rx/DC Orders Clinical Impression: Hypertension Instructions: ED Hypertension, Established Prescriptions: No Action oxycodone-acetaminophen 1 TABLET tablet 1 tab PO Q6H PRN PRN (Reason: Pain) Qty: 12 RF: 0 levothyroxine 100 MCG tablet 100 mcg PO MOTUWETHFRSA RF: 0 hydralazine 10 mg tablet 10 mg PO DAILY RF: 0 potassium chloride 10 mEq tablet extended release 10 meq PO DAILY RF: 0 levothyroxine 50 mcg Tablet 50 mcg PO BARNHART RF: 0 Primary Care Provider: Gilbert Monsalve Referrals: Mathew Dodge MD [STAFF PHYSICIAN] - As Needed Gilbert Monsalve DO [Primary Care Provider] - Disposition Disposition: Home, Self Care
--- NOTE | 2021-08-03 17:11 | RAD_ITS ---
STUDY: X-RAY CHEST REASON FOR EXAM: Female, 56 years old. cp increased blood pressure headache TECHNIQUE: Frontal portable view of the chest COMPARISON: 05 July 2017 FINDINGS: The lungs are clear and expanded. There is no demonstrated pleural abnormality. Normal size heart. Normal mediastinum and garfield. Normal visualized pulmonary arteries. Normal visualized aortic arch and descending thoracic aorta. Normal visualized thoracic spine. Normal visualized ribs, clavicles, and shoulders. There is no demonstrated abnormality of the visualized soft tissue structures of the upper abdomen. RAD/Chest 1 View (Portable) IMPRESSION: Normal x-ray examination of the chest. Electronically Signed: Brody Gallagher MD at 19:20 EST Tel , Service support ,
--- NOTE | 2021-08-03 17:30 | NURSING ---
[facility] IS CLOTTED. THEY WILL REPRINT LABELS
[2021-08-03 17:40] LABS: Anion Gap 5 (5-15); BUN 10 mg/dL (7-18); Chloride 109 mmol/L (98-107); Creatinine, Serum 0.67 mg/dL (0.55-1.02); EST Glomerular Filtration Rate 98 mL/min (>60); Est Glom Filt Rate - Afr Amer 118 mL/min (>60); Estimated Creatinine Clearance 93.34 ml/min; Glucose 105 mg/dL (74-106); Potassium 3.8 mmol/L (3.5-5.1); Sodium Level 140 mmol/L (136-145); Troponin-I HS 6 pg/mL (3.0-54.0)
[2021-08-03 18:04] LABS: Absolute Lymphocyte Count 1.25 X10^3/uL (0.83-4.51); Absolute Neutrophil Count 3.3 X10^3/uL (2.0-7.7); Basophil# 0.03 X10^3/uL; Basophil% 0.6 % (0-1); Eosinophil# 0.06 X10^3/uL; Eosinophils% 1.2 % (0-5); Hematocrit 40.6 % (37-47); Hemoglobin 13.7 g/dL (12.0-15.0); Lymphocyte # 1.25 X10^3/ul (0.83-4.51); Lymphocyte % 25.3 % (19-41); Mean Corp Hgb Conc 33.7 g/dL (32-36); Mean Corpuscular Hgb 29.8 pg (27.0-32.0); Mean Corpuscular Volume 88.5 fL (81-99); Mean Platelet Vol. 10.2 fl (6.2-12.0); Monocyte% 6.1 % (0-10); NRBC Flagged by Analyzer 0 % (0-5); Neutrophil % 66.6 % (47-70); Platelet Count 183 K/mm3 (150-450); RBC Distribution Width CV 11.8 % (11.6-14.6); RBC Distribution Width SD 37.2 fl (35.1-43.9); Red Blood Count 4.59 M/mm3 (4.2-5.4)
[2021-08-03 18:11] VITALS: BP 141/87; PULSE 58; RESP 17; O2SAT 97
[2021-08-03 18:58] VITALS: BP 140/89; PULSE 84; RESP 15; O2SAT 98
== END 2021-08-03 18:58 | disposition home or self-care (01) ==
PROVIDERS: Emergency Provider Emergency Medicine; PCP Family Medicine; Visit Provider Emergency Medicine
DX: I10 Essential (primary) hypertension (principal); R51.9 Headache, unspecified; Z87.891 Personal history of nicotine dependence; E03.9 Hypothyroidism, unspecified; Z79.899 Other long term (current) drug therapy
CPT/HCPCS: 71045; 80048; 84484; 85025; 93005; 99285; A4216

== ENCOUNTER 2021-08-25 07:41 | Outpatient (CLI) | payer BC, SELFPAY ==
[2021-09-01 15:08] LABS: Dopamine, UR 45 ug/L (Undefined); Epinephrine, 24Ur < 3 ug/24 hr (0-20); Epinephrine, Ur < 1 ug/L (Undefined); Norepinephrine, 24Ur 20 ug/24 hr (0-135); Norepinephrine, Ur 6 ug/L (Undefined); VMA, 24UR 3.3 mg/24 hr (0.0-7.5)
[2021-09-01 17:59] LABS: Dopamine, 24Ur 146 ug/24 hr (0-510)
== END 2021-08-25 23:59 | disposition home or self-care (01) ==
LOC: LAB 07:43
PROVIDERS: PCP Family Medicine; Visit Provider Internal Medicine Endocrinology, Diabetes & Metabolism
DX: D35.02 Benign neoplasm of left adrenal gland (principal)
CPT/HCPCS: 81050; 82384; 84585

== ENCOUNTER 2021-08-26 07:12 | Outpatient (CLI) | payer BC, SELFPAY ==
[2021-09-02 19:07] LABS: Metanephrine, Ur 18 ug/L (Undefined); Normetanephrines, 24Ur 169 ug/24 hr (131-612); Normetanephrines, Ur 36 ug/L (Undefined)
[2021-09-02 19:58] LABS: Metanephrines, 24Ur 85 ug/24 hr (36-209)
== END 2021-08-26 23:59 | disposition home or self-care (01) ==
LOC: LAB 07:12 → LABSPEC 07:13
PROVIDERS: PCP Family Medicine; Referring Provider Internal Medicine Endocrinology, Diabetes & Metabolism; Visit Provider Internal Medicine Endocrinology, Diabetes & Metabolism
DX: D35.02 Benign neoplasm of left adrenal gland (principal)
CPT/HCPCS: 81050; 83835

== ENCOUNTER 2021-09-17 16:16 | Outpatient (CLI) | payer BC, SELFPAY ==
[2021-09-17 17:22] LABS: Anion Gap 6 (5-15); BUN 8 mg/dL (7-18); BUN/Creat Ratio 10.2 RATIO (10-20); Calcium,Total 9.6 mg/dL (8.5-10.1); Chloride 106 mmol/L (98-107); Creatinine, Serum 0.78 mg/dL (0.55-1.02); EST Glomerular Filtration Rate 81 mL/min (>60); Est Glom Filt Rate - Afr Amer 99 mL/min (>60); Glucose 94 mg/dL (74-106); Sodium Level 138 mmol/L (136-145)
[2021-09-17 18:05] LABS: Homocysteine < 2.0 umol/L (3.2-10.7)
== END 2021-09-17 23:59 | disposition home or self-care (01) ==
LOC: LAB 16:18
PROVIDERS: PCP Family Medicine; Referring Provider Internal Medicine Cardiovascular Disease; Visit Provider Internal Medicine Cardiovascular Disease
DX: I10 Essential (primary) hypertension (principal); D35.00 Benign neoplasm of unspecified adrenal gland
CPT/HCPCS: 36415; 80048; 82088; 82384; 83090; 84244

== ENCOUNTER 2021-10-02 07:46 | Outpatient (CLI) | payer BC, SELFPAY ==
--- NOTE | 2021-10-02 07:51 | CT_ITS ---
STUDY: CT ABDOMEN AND PELVIS WITH AND WITHOUT CONTRAST REASON FOR EXAM: Female, 56 years old. Adenoma adrenal RADIATION DOSAGE (If Supplied By Facility): CTDIvol = ( 21.96 ) mGy, DLP = ( 1444.62 ) mGycm TECHNIQUE: Transaxial images were obtained from the dome of the diaphragm to the symphysis pubis without oral contrast. 100mL Isovue 370 was administered. Sagittal and coronal images were reconstructed. Individualized dose optimization techniques were used for this CT. COMPARISON: None. FINDINGS: The visualized lung bases are unremarkable. The visualized portions of the heart are within normal limits. 2 small cysts are seen in the left lobe of the liver. The largest cyst measures 7.2 mm. A tiny cyst is also seen in the anterior aspect of the right lobe of the liver. Normal gallbladder and extrahepatic biliary system. Normal spleen. Normal pancreas. There is a small, circumscribed, smooth, low attenuation left adrenal mass, consistent with an adrenal adenoma. This measures 7.5 mm. Normal right adrenal gland. Normal right kidney. Normal left kidney. Normal visualized stomach. Normal small intestine. There are scattered colonic diverticula consistent with diverticulosis. The appendix is visualized and appears normal. There is scattered atherosclerotic calcification of the abdominal aorta, without a demonstrated aneurysm. Normal inferior vena cava. Normal retroperitoneum. Normal urinary bladder. There is absence of the uterus consistent with a prior hysterectomy. Normal abdominal wall. There are degenerative changes of the visualized lumbar spine. CT/CT Abd/Pelvis W/WO Contrast IMPRESSION: Findings suggestive of a left adrenal adenoma measuring 7.5 mm. Electronically Signed: Earnest Morales MD at 13:16 EDT ,
== END 2021-10-02 23:59 | disposition home or self-care (01) ==
LOC: CT 07:49
PROVIDERS: PCP Family Medicine; Referring Provider Internal Medicine Cardiovascular Disease; Visit Provider Internal Medicine Cardiovascular Disease
DX: D35.00 Benign neoplasm of unspecified adrenal gland (principal); I10 Essential (primary) hypertension
CPT/HCPCS: 74178; Q9967

== ENCOUNTER 2021-10-17 09:24 | Outpatient (CLI) | payer BC, SELFPAY ==
--- NOTE | 2021-10-17 09:28 | ECHOD_ITS ---
Reason For Study: HTN Procedure This was a 2D Doppler, Color Flow transthoracic echocardiogram. Exam performed in department. Left Ventricle Normal LV size. Left ventricular systolic function is lower limits of normal. The estimated ejection fraction is 53 %. No regional wall motion abnormalities noted. Right Ventricle Normal RV size. Normal systolic function. Atria Normal left atrium. Normal right atrium. Mitral Valve Normal mitral valve. Tricuspid Valve Normal tricuspid valve. Mild tricuspid valve insufficiency. Pulmonary artery systolic pressure is 22 mmHg. Aortic Valve Normal aortic valve. Trisinus/trileaflet aortic valve. Pulmonic Valve Normal pulmonic valve. Great Vessels Normal aortic root. The pulmonary artery is normal size. Normal inferior vena cava. Pericardium/Pleural No pericardial effusion. MMode/2D Measurements & Calculations LVIDd: 5.0 cm IVSd: 1.1 cm Ao root diam: 3.1 cm LVIDs: 3.0 cm LVPWd: 1.0 cm LA dimension: 3.0 cm RVDd: 3.0 cm FS: 39.3 % LAV(MOD-bp): 41.3 ml LA A4 area: 16.3 cm2 RA A4 area: 12.0 cm2 LAV(MOD-bp) Indexed: 20.4 ml/m2 LAV(MOD-sp2): 38.6 ml LAV(MOD-sp4): 45.3 ml Time Measurements MV dec time: 0.25 sec Doppler Measurements & Calculations MV E max kevin: 93.8 cm/sec Lat Peak E' Kevin: 7.7 cm/sec Med Peak E' Kevin: 12.5 cm/sec MV A max kevin: 93.8 cm/sec E/E' lat: 12.2 E/E' med: 7.5 MV E/A: 1.0 MV V2 max: 105.9 cm/sec MV P1/2t max kevin: 106.9 cm/sec Ao V2 max: 134.1 cm/sec MV max P.5 mmHg MV P1/2t: 114.9 msec Ao max P.2 mmHg MV V2 mean: 59.0 cm/sec MV dec slope: 272.4 cm/sec2 MV mean P.6 mmHg MVA(P1/2t): 1.9 cm2 MV V2 VTI: 33.0 cm LV V1 max: 117.5 cm/sec PA V2 max: 94.4 cm/sec TR max kevin: 222.1 cm/sec LV V1 max P.5 mmHg TR max P.7 mmHg ECHO/Echo Complete Interpretation Summary Normal LV size. Left ventricular systolic function is lower limits of normal. The estimated ejection fraction is 53 %. Structurally normal valves. Ordering Physician: Mathew Dodge Referring Physician: Gilbert Monsalve Performed By: Gunner Garcia RCS
== END 2021-10-17 23:59 | disposition home or self-care (01) ==
LOC: CVS 09:27
PROVIDERS: PCP Family Medicine; Referring Provider Internal Medicine Cardiovascular Disease; Visit Provider Internal Medicine Cardiovascular Disease
DX: I10 Essential (primary) hypertension (principal); D35.00 Benign neoplasm of unspecified adrenal gland
CPT/HCPCS: 93306

== ENCOUNTER → 2021-11-05 | Outpatient (CLI) | payer BC, SELFPAY ==
[2021-11-05 10:18] LABS: Vitamin B12 > 2000 pg/mL (211-911)
[2021-11-05 10:59] LABS: ALB/GLOB Ratio 1.2 RATIO (0.9-2.4); AST(SGOT) 16 U/L (15-37); Alanine Aminotransfer ALT/SGPT 24 U/L (13-56); Albumin, Serum 3.7 g/dL (3.2-5.0); Alkaline Phosphatase 61 U/L (45-117); Anion Gap 8 (5-15); BUN 7 mg/dL (7-18); BUN/Creat Ratio 9.8 RATIO (10-20); Calcium,Total 8.4 mg/dL (8.5-10.1); Chloride 104 mmol/L (98-107); Creatinine, Serum 0.71 mg/dL (0.55-1.02); EST Glomerular Filtration Rate 91 mL/min (>60); Est Glom Filt Rate - Afr Amer 110 mL/min (>60); Ferritin 103 ng/mL (8-252); Globulin 3.2 g/dL (2.2-4.2); Glucose 113 mg/dL (74-106); Potassium 3.8 mmol/L (3.5-5.1); Protein, Total 6.9 g/dL (6.4-8.2); Sodium Level 138 mmol/L (136-145); Thyroid Stim Hormone (TSH) 0.88 uIU/mL (0.358-3.74)
[2021-11-06 15:10] LABS: Folate, RBC (Hct) Test 40.5 % (34.0-46.6)
[2021-11-06 17:13] LABS: Folates, RBC Test 1420 ng/mL (>498)
== END | disposition home or self-care (01) ==
LOC: LAB 08:50
PROVIDERS: PCP Family Medicine; Referring Provider Internal Medicine Endocrinology, Diabetes & Metabolism; Visit Provider Internal Medicine Endocrinology, Diabetes & Metabolism
DX: E03.8 Other specified hypothyroidism (principal); E53.9 Vitamin B deficiency, unspecified
CPT/HCPCS: 36415; 80053; 82607; 82728; 82746; 82747; 84443; 85014

== ENCOUNTER → 2021-11-21 | Outpatient (CLI) | payer BC, SELFPAY ==
[2021-11-21 10:07] LABS: AST(SGOT) 16 U/L (15-37); Alanine Aminotransfer ALT/SGPT 22 U/L (13-56); Albumin, Serum 3.8 g/dL (3.2-5.0); Alkaline Phosphatase 66 U/L (45-117); Protein, Total 6.8 g/dL (6.4-8.2)
== END | disposition home or self-care (01) ==
PROVIDERS: PCP Family Medicine; Referring Provider Nurse Practitioner Adult Health; Visit Provider Nurse Practitioner Adult Health
DX: E80.7 Disorder of bilirubin metabolism, unspecified (principal)
CPT/HCPCS: 36415; 80076

== ENCOUNTER → 2022-02-25 | Outpatient (CLI) | payer BC, SELFPAY ==
[2022-02-25 07:51] LABS: Absolute Lymphocyte Count 1.08 X10^3/uL (0.83-4.51); Absolute Neutrophil Count 2.2 X10^3/uL (2.0-7.7); Basophil# 0.03 X10^3/uL; Basophil% 0.8 % (0-1); Eosinophil# 0.07 X10^3/uL; Hematocrit 41.2 % (37-47); Hemoglobin 14.1 g/dL (12.0-15.0); Lymphocyte # 1.08 X10^3/ul (0.83-4.51); Lymphocyte % 30.2 % (19-41); Mean Corp Hgb Conc 34.2 g/dL (32-36); Mean Corpuscular Volume 90.5 fL (81-99); Mean Platelet Vol. 10.6 fl (6.2-12.0); Monocyte% 5.6 % (0-10); NRBC Flagged by Analyzer 0 % (0-5); Neutrophil # 2.19 X10^3/uL (2.7-7.7); Neutrophil % 61.1 % (47-70); Platelet Count 162 K/mm3 (150-450); RBC Distribution Width CV 11.2 % (11.6-14.6); RBC Distribution Width SD 37.3 fl (35.1-43.9); Red Blood Count 4.55 M/mm3 (4.2-5.4); White Blood Count 3.6 K/mm3 (4.4-11.0)
[2022-02-25 08:45] LABS: Vitamin B12 > 2000 pg/mL (211-911); Vitamin D,25 Hydroxy 79.9 ng/mL
[2022-02-25 09:00] LABS: ALB/GLOB Ratio 1.3 RATIO (0.9-2.4); AST(SGOT) 16 U/L (15-37); Alanine Aminotransfer ALT/SGPT 23 U/L (13-56); Albumin, Serum 3.7 g/dL (3.2-5.0); Alkaline Phosphatase 54 U/L (45-117); Anion Gap 5 (5-15); BUN 8 mg/dL (7-18); BUN/Creat Ratio 9.2 RATIO (10-20); Calcium,Total 8.6 mg/dL (8.5-10.1); Chloride 106 mmol/L (98-107); Creatinine, Serum 0.87 mg/dL (0.55-1.02); EST Glomerular Filtration Rate 72 mL/min (>60); Est Glom Filt Rate - Afr Amer 87 mL/min (>60); Ferritin 82 ng/mL (8-252); Globulin 2.8 g/dL (2.2-4.2); Glucose 89 mg/dL (74-106); Iron 120 ug/dL (50-170); Potassium 3.9 mmol/L (3.5-5.1); Protein, Total 6.5 g/dL (6.4-8.2); Sodium Level 139 mmol/L (136-145)
[2022-03-03 08:00] LABS: Methylmalonic Acid Bld 112 nmol/L (0-378)
[2022-03-03 08:02] LABS: VITAMIN B6 7.7 ug/L (3.4-65.2); Vitamin B1, Thiamine 105.4 nmol/L (66.5-200.0)
== END | disposition home or self-care (01) ==
PROVIDERS: PCP Family Medicine; Referring Provider Family Medicine; Visit Provider Family Medicine
DX: I10 Essential (primary) hypertension (principal); R53.83 Other fatigue; E67.2 Megavitamin-B6 syndrome; E53.8 Deficiency of other specified B group vitamins
CPT/HCPCS: 36415; 80053; 82306; 82607; 82728; 82746; 83540; 83921; 84207; 84425; 85025

== ENCOUNTER → 2022-07-08 | Outpatient (CLI) | payer BC, SELFPAY ==
[2022-07-08 08:11] LABS: Vitamin D,25 Hydroxy 43.4 ng/mL
[2022-07-08 08:12] LABS: ALB/GLOB Ratio 1.2 RATIO (0.9-2.4); AST(SGOT) 19 U/L (15-37); Alanine Aminotransfer ALT/SGPT 24 U/L (13-56); Albumin, Serum 3.5 g/dL (3.2-5.0); Alkaline Phosphatase 56 U/L (45-117); Anion Gap 7 (5-15); BUN 12 mg/dL (7-18); BUN/Creat Ratio 13.6 RATIO (10-20); Calcium,Total 8.6 mg/dL (8.5-10.1); Chloride 108 mmol/L (98-107); Creatinine, Serum 0.88 mg/dL (0.55-1.02); EST Glomerular Filtration Rate 71 mL/min (>60); Est Glom Filt Rate - Afr Amer 85 mL/min (>60); Globulin 2.9 g/dL (2.2-4.2); Glucose 95 mg/dL (74-106); Potassium 4.2 mmol/L (3.5-5.1); Protein, Total 6.4 g/dL (6.4-8.2); Sodium Level 140 mmol/L (136-145)
== END | disposition home or self-care (01) ==
LOC: LAB 07:19
PROVIDERS: PCP Family Medicine; Referring Provider Internal Medicine Endocrinology, Diabetes & Metabolism; Visit Provider Internal Medicine Endocrinology, Diabetes & Metabolism
DX: E03.8 Other specified hypothyroidism (principal); E55.9 Vitamin D deficiency, unspecified
CPT/HCPCS: 36415; 80053; 82306; 84443

== ENCOUNTER → 2023-02-15 | Outpatient (CLI) | payer BC, SELFPAY | END | disposition home or self-care (01) | LOC: LAB 06:38 | PROVIDERS: PCP Family Medicine; Referring Provider Internal Medicine Endocrinology, Diabetes & Metabolism; Visit Provider Internal Medicine Endocrinology, Diabetes & Metabolism | DX: E03.8 Other specified hypothyroidism (principal) | CPT/HCPCS: 36415; 84443 ==

== ENCOUNTER → 2023-03-12 | Outpatient (CLI) | payer BC, SELFPAY | END | disposition home or self-care (01) | LOC: BFHLAB 15:32 → LABSPEC 15:32 | PROVIDERS: PCP Family Medicine; Referring Provider Family Medicine; Visit Provider Family Medicine | DX: R35.0 Frequency of micturition (principal) | CPT/HCPCS: 87086; 87088 ==

== ENCOUNTER → 2023-03-23 | Outpatient (CLI) | payer BC, SELFPAY ==
[2023-03-23 17:53] LABS: Color, Urine Yellow (Yellow); Glucose, Dipstick Normal (Normal); Ketone-Dipstick Negative (Negative); Leukocyte Esterase-Dipstick Negative /ul (Negative); Nitrite-Dipstick Negative (Negative); Occult Blood-Urine Negative /ul (Negative); Protein-Dipstick Negative (Negative); Urine Bilirubin Dipstick Negative (Negative); Urine Clarity Clear (Clear); Urine Urobilinogen Normal (Normal)
== END | disposition home or self-care (01) ==
LOC: LABSPEC 15:42
PROVIDERS: PCP Family Medicine; Referring Provider Family Medicine; Visit Provider Family Medicine
DX: N39.0 Urinary tract infection, site not specified (principal)
CPT/HCPCS: 81002; 87086

== ENCOUNTER 2023-03-27 17:55 | Emergency (ER) | payer BC, SELFPAY ==
[2023-03-27 17:56] VITALS: BP 163/130; PULSE 95; RESP 18; TEMP 36.7; O2SAT 99; BMI 29.6
--- NOTE | 2023-03-27 18:28 | EX.ED.DYSGE1 ---
HPI History of Present Illness Chief Complaint: General Illness Informant: patient Narrative Narrative: Patient is a 58-year-old female with history of hypertension, hypothyroid, multiple medication intolerances and diverticulosis presenting with abdominal pain. Patient states that a few weeks ago she saw her UTI for consultation of weird symptoms but also included frequency of urination and dysuria. She had a positive urinalysis and was put on an antibiotic. She does not recall which antibiotic was but states it was a blue and purple pill. She states the antibiotic did not agree with her and then she was switched to ciprofloxacin. She was feeling better but then 3 days later her other symptoms returned but she had no further urinary symptoms. The symptoms include elevated blood pressure, myalgias, cramping and dizziness. She then started to develop some left lower quad abdominal pain and was tentatively put on Augmentin for diverticulitis. She took 2 doses and started feel short of breath. Her PCP then switched her to for amoxicillin. She has been on this for 3 to 4 days but over the past 2 days feels like she is getting worse. She developed abdominal pain last night which is more mild but she states she gets surges of pain in her right lower abdomen. She has nausea but no vomiting. Denies fever but is having sensation of being flushed. She states that she uses an enema daily to help with defecation and thinks that might have caused some type of colonic infection. She notes that she did stop these enemas with the symptoms and has just been using prune juice. She states she does not feel impacted. She denies any URI symptoms. No other complaints or concerns at this time. Denies any black or blood in her stool. 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 Hypokalemia Hypothyroid Ocular rosacea Paresthesia of bilateral legs Vitamin D deficiency Home Medications levothyroxine 100 mcg tablet 100 mcg PO DAILY 09/10/21 [History Last Taken Unknown] hydroxocobalamin 1,000 mcg/mL intramuscular solution 1,000 mcg IM .3xw 12/02/21 [History Last Taken Unknown] clonidine HCl 0.1 mg tablet 0.05 mg (1/2 x 0.1 mg) PO ONCE PRN hypertensive emergency #30 tabs 11/26/22 [Rx Last Taken Unknown] Allergy/AdvReac Type Severity Reaction Status Date / Time morphine Allergy Hives Verified 03/27/23 17:58 peanut Allergy Anaphylaxis Verified 03/27/23 17:58 salicylates Allergy Other Verified 03/27/23 17:58 amlodipine AdvReac unknown Verified 03/27/23 17:58 losartan AdvReac lower Verified 03/27/23 17:58 back/flank pain metoprolol AdvReac GI PAIN Verified 03/27/23 17:58 Family History Mother CVA (cerebral vascular accident) Heart disease Aortic aneurysm abdominal Father Heart disease Aunt Aortic aneurysm Surgical History History of delivery History of partial hysterectomy Hx of tonsillectomy Social History Smoking Status: Former smoker ROS ROS ED Constitutional Constitutional ED: Reports other Details: flushed ; Denies chills or fever(s) Cardiovascular Cardiovascular: Denies chest pain or palpitations Respiratory/Chest Respiratory/Chest: Denies cough or dyspnea Gastrointestinal Gastrointestinal: Reports abdominal pain, constipation and nausea; Denies diarrhea, melena or vomiting Musculoskeletal Musculoskeletal: Reports myalgias; Denies arthralgias Integumentary Denies rash Neurologic Neurologic: Reports headache(s); Denies paresthesias or weakness Psychiatric Psychiatric: Reports anxiety EXAM Physical Exam Const Vital Signs: 03/27/23 17:56 03/27/23 18:41 03/27/23 19:33 Temperature 98.1 F 97.9 F Temperature Source Temporal Oral Pulse Rate 95 68 Respiratory Rate 18 18 Respiratory Effort Normal Non-Labored Respiratory Pattern Normal Blood Pressure 163/130 H 161/84 H Blood Pressure Mean 141 109 Pulse Ox 99 99 Oxygen Delivery Method Room Air Room Air 03/27/23 20:05 03/27/23 21:24 Temperature Temperature Source Pulse Rate 67 72 Respiratory Rate 17 18 Respiratory Effort Respiratory Pattern Blood Pressure 152/86 H 170/99 H Blood Pressure Mean 108 Pulse Ox 99 98 Oxygen Delivery Method Room Air Positive well nourished and well developed General Appearance ED: well developed and NAD HEENT Reports moist mucous membranes Eyes PERRL Neck supple and no JVD Chest Wall inspection of chest normal and palpation of chest normal Resp normal respiratory effort and clear to auscultation bilaterally GI normal to inspection, nondistended, normoactive bowel sounds Palpation: soft and tender RLQ; Negative for guarding Back/Spine no CVA tenderness Extremity normal to inspection General Extremety ED: Negative for edema General Extremity: Negative for edema Neuro oriented x3 Sensorium / Orientation: alert Motor Exam: Negative for general weakness Psych mental status grossly normal Skin no rashes or lesions noted MDM MDM MDM Narrative Medical decision making narrative: Patient is evaluated for right-sided abdominal pain. Has been on multiple partial courses of antibiotics over the past few weeks. Vital signs significant for mild hypertension. Differential includes pyelonephritis, renal colic, appendicitis, diverticulitis and UTI. Despite her antibiotics has been on she does not report any significant diarrhea and in fact has constipation. Low suspicion for C. difficile colitis. Her lab work is largely normal. She has a normal white blood cell count, normal hemoglobin and normal platelets. CMP largely unremarkable. Total bilirubin mildly elevated however it is at her baseline. Urinalysis is not consistent with infection. CT of the abdomen pelvis is obtained without contrast. Patient specifically requested no contrast stating that IV contrast makes her heart feel like it is racing and she does not like that sensation at all. I did discuss that if there is a more subtle process we could miss it without contrast however given that her symptoms been going on for the past 2 weeks to be less likely. She is not pain out of proportion and I do not suspect an acute ischemic process. Patient is agreeable with this and would elected for noncontrast CT. CT of the abdomen pelvis does not show any acute process to explain her symptoms. There is no focal inflammatory changes and no signs of diverticulitis. Patient counseled on these findings. She is referred to either surgery or GI for further follow-up that she might benefit from a colonoscopy given her symptoms. At this time I do not think she requires further antibiotics as she has no signs of infection on her work-up today. She is encouraged to continue to also follow-up with her primary care doctor. Given return precautions. Discharged home in stable condition. History & Record Review Discussion w/independent historian: Patient Lab Data Labs: Laboratory Results - last 24 hr 03/27/23 18:33 WBC 5.7 RBC 4.77 Hgb 14.8 Hct 42.7 MCV 89.5 MCH 31.0 MCHC 34.7 RDW Std Deviation 38.2 RDW Coeff of [place] 11.8 Plt Count 190 MPV 10.1 Immature Gran % (Auto) 0.200 Neut % (Auto) 68.1 Lymph % (Auto) 22.8 [place] % (Auto) 7.3 Eos % (Auto) 0.9 Baso % (Auto) 0.7 Absolute Neuts (auto) 3.9 Absolute Lymphs (auto) 1.29 Nucleated RBC % 0 Sodium 138 Potassium 3.6 Chloride 107 Carbon Dioxide 26.0 Anion Gap 5 BUN 19 H Creatinine 0.98 Estim Creat Clear Calc 62.33 Est GFR (MDRD) Af Amer 75 Est GFR (MDRD) Non-Af 62 BUN/Creatinine Ratio 19.3 Glucose 121 H Calcium 8.8 Total Bilirubin 1.30 H AST 21 ALT 31 Alkaline Phosphatase 68 Total Creatine Kinase 108 Total Protein 6.9 Albumin 3.9 Globulin 3.0 Albumin/Globulin Ratio 1.3 Urine Color Yellow Urine Clarity Clear Urine pH 6.5 Ur Specific [place] 1.010 Urine Protein Negative Urine Glucose (UA) Normal Urine Ketones Negative Urine Occult Blood Negative Urine Nitrite Negative Urine Bilirubin Negative Urine Urobilinogen Normal Ur Leukocyte Esterase Negative Urine RBC 0 SEEN Urine WBC 0 SEEN Ur Squamous Epith Cells 0-5 SEEN Urine Bacteria 0 SEEN Urine Mucus 0 SEEN Radiography Diagnostic Testing: Clinical Impression(s) from Imaging Studies Abdomen/Pelvis CT 03/27/23 18:50 IMPRESSION: No acute intra-abdominal process is appreciated. No focal inflammatory change. Diverticulosis without diverticulitis. Normal appendix. Electronically Signed: Ga Villlaba MD at 19:29 EDT , Discharge Plan Triage Chief Complaint: General Illness ED Provider: Ya He Dx/Rx/DC Orders Clinical Impression: Abdominal pain Instructions: ED Abdominal Pain Unkn Cause Fem Prescriptions: No Action hydroxocobalamin 1,000 mcg/mL solution 1,000 mcg IM .3xw Patient Comments: INJECT 1000MCG INTRAMUSCULARLY 3 TIMES PER WK clonidine HCl 0.1 mg tablet 0.05 mg PO ONCE PRN (Reason: hypertensive emergency) Qty: 30 0RF levothyroxine 100 mcg tablet 100 mcg PO DAILY Primary Care Provider: Gilbert Monsalve Referrals: Roderick Min MD [Med Staff - Active Staff] - As Needed Gilbert Monsalve DO [Primary Care Provider] - Friend,DO Otis [Med Staff - Active Staff] - As Needed Activity Restrictions/Additional Instructions: The exact cause of your symptoms is not clear today however your work-up was largely normal. At this time I feel he can safely be discharged home for outpatient follow-up. You not have any signs of infection on your imaging or blood work. You have been given referral for GI follow-up with gastroenterology as well as general surgery. You can choose who would like to follow-up with. Disposition Disposition: Home, Self Care Discharge Date/Time: 03/27/23 21:28
[2023-03-27] MEDS: 0.9% Normal Saline (1000mL) 1,000 ML 1000 ML IV (18:36)
[2023-03-27 18:41] LABS: Bacteria 0 SEEN /hpf (None Seen); Mucous, Urine 0 SEEN /hpf (<or=2+); Red Blood Cells-Urine 0 SEEN /hpf (0-5); White Blood Cells 0 SEEN /hpf (0-5)
[2023-03-27 18:46] LABS: Color, Urine Yellow (Yellow); Glucose, Dipstick Normal (Normal); Ketone-Dipstick Negative (Negative); Leukocyte Esterase-Dipstick Negative /ul (Negative); Nitrite-Dipstick Negative (Negative); Occult Blood-Urine Negative /ul (Negative); Protein-Dipstick Negative (Negative); Urine Bilirubin Dipstick Negative (Negative); Urine Clarity Clear (Clear); Urine Urobilinogen Normal (Normal); Urine pH 6.5 (5.0 - 8.0)
[2023-03-27 18:49] LABS: Absolute Lymphocyte Count 1.29 X10^3/uL (0.83-4.51); Absolute Neutrophil Count 3.9 X10^3/uL (2.0-7.7); Basophil# 0.04 X10^3/uL; Basophil% 0.7 % (0-1); Eosinophil# 0.05 X10^3/uL; Eosinophils% 0.9 % (0-5); Hematocrit 42.7 % (37-47); Hemoglobin 14.8 g/dL (12.0-15.0); Lymphocyte # 1.29 X10^3/ul (0.83-4.51); Lymphocyte % 22.8 % (19-41); Mean Corp Hgb Conc 34.7 g/dL (32-36); Mean Corpuscular Volume 89.5 fL (81-99); Mean Platelet Vol. 10.1 fl (6.2-12.0); Monocyte# 0.41 X10^3/uL; Monocyte% 7.3 % (0-10); NRBC Flagged by Analyzer 0 % (0-5); Neutrophil # 3.85 X10^3/uL (2.7-7.7); Neutrophil % 68.1 % (47-70); Platelet Count 190 K/mm3 (150-450); RBC Distribution Width CV 11.8 % (11.6-14.6); RBC Distribution Width SD 38.2 fl (35.1-43.9); Red Blood Count 4.77 M/mm3 (4.2-5.4); White Blood Count 5.7 K/mm3 (4.4-11.0)
--- NOTE | 2023-03-27 18:50 | CT_ITS ---
INDICATION: Pain RLQ EXAMINATION: CT ABDOMEN AND PELVIS WITHOUT CONTRAST - CT Abdomen And Pelvis W/O Contrast Injection TECHNIQUE: Helically acquired images were obtained of the abdomen and pelvis without oral or IV contrast. A radiation dose optimization technique was used for this scan. IV Contrast dosage and agent: None. Oral contrast: None. COMPARISON: October 02, 2021. FINDINGS: LOWER CHEST: Basilar atelectasis or scarring. No cardiomegaly or pericardial effusion. LIVER: Homogeneous. No focal mass. GALLBLADDER AND BILIARY TREE: No calcified gallstones. No gallbladder distension or wall edema. No intra- or extrahepatic biliary ductal dilation. PANCREAS: No focal cystic or solid mass. SPLEEN: Normal size without focal cystic or solid mass. ADRENAL GLANDS: No nodules. KIDNEYS AND URETERS: Normal renal size and position. No hydronephrosis. PERITONEUM: No ascites or free air. No other fluid collection. BOWEL: No evidence of acute appendicitis. Normal appendix visualized. No stomach or bowel distension. No focal inflammatory change. Diverticulosis without diverticulitis. LYMPH NODES: No enlarged mesenteric or retroperitoneal lymph nodes. VESSELS: Aorta is non-dilated. Atherosclerosis. URINARY BLADDER: Unremarkable. REPRODUCTIVE ORGANS: No pelvic masses. Hysterectomy. ABDOMINAL WALL: No discrete abdominal or pelvic wall hernia. BONES: Areas of sclerosis are noted in the right iliac bone and femoral heads which are similar to prior. CT/Abdomen/Pelvis without Cont IMPRESSION: No acute intra-abdominal process is appreciated. No focal inflammatory change. Diverticulosis without diverticulitis. Normal appendix. Electronically Signed: Ga Villalba MD at 19:29 EDT ,
[2023-03-27 18:53] LABS: Squamous Epithelial Cells - UA 0-5 SEEN /hpf (5-10)
[2023-03-27 18:58] LABS: ALB/GLOB Ratio 1.3 RATIO (0.9-2.4); AST(SGOT) 21 U/L (15-37); Alanine Aminotransfer ALT/SGPT 31 U/L (13-56); Albumin, Serum 3.9 g/dL (3.2-5.0); Alkaline Phosphatase 68 U/L (45-117); Anion Gap 5 (5-15); BUN 19 mg/dL (7-18); BUN/Creat Ratio 19.3 RATIO (10-20); Calcium,Total 8.8 mg/dL (8.5-10.1); Chloride 107 mmol/L (98-107); Creatinine, Serum 0.98 mg/dL (0.55-1.02); EST Glomerular Filtration Rate 62 mL/min (>60); Est Glom Filt Rate - Afr Amer 75 mL/min (>60); Estimated Creatinine Clearance 62.33 ml/min; Glucose 121 mg/dL (74-106); Potassium 3.6 mmol/L (3.5-5.1); Protein, Total 6.9 g/dL (6.4-8.2); Sodium Level 138 mmol/L (136-145)
[2023-03-27 19:33] VITALS: BP 161/84; PULSE 68; RESP 18; TEMP 36.6; O2SAT 99
[2023-03-27 20:05] VITALS: BP 152/86; PULSE 67; RESP 17; O2SAT 99
[2023-03-27 20:17] LABS: CPK Total, Creatine Kinase 108 U/L (26-192)
[2023-03-27 21:24] VITALS: BP 170/99; PULSE 72; RESP 18; O2SAT 98
== END 2023-03-27 21:28 | disposition home or self-care (01) ==
PROVIDERS: Emergency Provider Emergency Medicine; PCP Family Medicine; Visit Provider Emergency Medicine
DX: R10.9 Unspecified abdominal pain (principal); Z87.891 Personal history of nicotine dependence
CPT/HCPCS: 74176; 80053; 81001; 82550; 85025; 96360; 96361; 99282; J7030; A4216

== ENCOUNTER → 2023-07-21 | Outpatient (CLI) | payer BC, SELFPAY ==
[2023-07-21 09:31] LABS: ALB/GLOB Ratio 1.1 RATIO (0.9-2.4); AST(SGOT) 16 U/L (15-37); Alanine Aminotransfer ALT/SGPT 24 U/L (13-56); Albumin, Serum 3.5 g/dL (3.2-5.0); Alkaline Phosphatase 67 U/L (45-117); Anion Gap 5 (5-15); BUN 10 mg/dL (7-18); BUN/Creat Ratio 12.7 RATIO (10-20); Chloride 105 mmol/L (98-107); Creatinine, Serum 0.79 mg/dL (0.55-1.02); EST Glomerular Filtration Rate 80 mL/min (>60); Est Glom Filt Rate - Afr Amer 97 mL/min (>60); Globulin 3.1 g/dL (2.2-4.2); Glucose 107 mg/dL (74-106); Protein, Total 6.6 g/dL (6.4-8.2); Sodium Level 137 mmol/L (136-145); Thyroid Stim Hormone (TSH) 0.63 uIU/mL (0.358-3.74)
[2023-07-21 12:16] LABS: Vitamin D,25 Hydroxy 43.7 ng/mL
== END | disposition home or self-care (01) ==
LOC: LAB 08:21
PROVIDERS: PCP Family Medicine; Visit Provider Internal Medicine Endocrinology, Diabetes & Metabolism
DX: E03.8 Other specified hypothyroidism (principal); E55.9 Vitamin D deficiency, unspecified
CPT/HCPCS: 36415; 80053; 82306; 84443

== ENCOUNTER → 2023-12-17 | Outpatient (CLI) | payer BC, SELFPAY | END | disposition home or self-care (01) | LOC: LABSPEC 13:03 | PROVIDERS: PCP Family Medicine; Referring Provider Family Medicine; Visit Provider Family Medicine | DX: R79.89 Other specified abnormal findings of blood chemistry (principal); E56.9 Vitamin deficiency, unspecified ==

== ENCOUNTER → 2023-12-25 | Outpatient (CLI) | payer BC, SELFPAY ==
[2023-12-25 08:50] LABS: Calcium,Total 9.4 mg/dL (8.5-10.1)
== END | disposition home or self-care (01) ==
PROVIDERS: PCP Family Medicine; Referring Provider Family Medicine; Visit Provider Family Medicine
DX: R79.89 Other specified abnormal findings of blood chemistry (principal); E56.9 Vitamin deficiency, unspecified
CPT/HCPCS: 36415; 82310

== ENCOUNTER → 2024-01-12 | Outpatient (CLI) | payer BC, SELFPAY ==
[2024-01-12 09:45] LABS: ALB/GLOB Ratio 1.3 RATIO (0.9-2.4); AST(SGOT) 21 U/L (15-37); Alanine Aminotransfer ALT/SGPT 29 U/L (13-56); Albumin, Serum 3.7 g/dL (3.2-5.0); Alkaline Phosphatase 65 U/L (45-117); Anion Gap 5 (5-15); BUN 8 mg/dL (7-18); BUN/Creat Ratio 11.7 RATIO (10-20); Calcium,Total 8.9 mg/dL (8.5-10.1); Chloride 106 mmol/L (98-107); Creatinine, Serum 0.68 mg/dL (0.55-1.02); EST Glomerular Filtration Rate 94 mL/min (>60); Est Glom Filt Rate - Afr Amer 114 mL/min (>60); Globulin 2.8 g/dL (2.2-4.2); Glucose 85 mg/dL (74-106); Potassium 3.8 mmol/L (3.5-5.1); Protein, Total 6.5 g/dL (6.4-8.2); Sodium Level 138 mmol/L (136-145); Thyroid Stim Hormone (TSH) 0.06 uIU/mL (0.358-3.74)
== END | disposition home or self-care (01) ==
LOC: LAB 08:07
PROVIDERS: PCP Family Medicine; Visit Provider Internal Medicine Endocrinology, Diabetes & Metabolism
DX: E03.8 Other specified hypothyroidism (principal)
CPT/HCPCS: 36415; 80053; 84443

== ENCOUNTER → 2024-01-19 | Outpatient (CLI) | payer BC, SELFPAY ==
[2024-01-19 09:47] LABS: ALB/GLOB Ratio 1.4 RATIO (0.9-2.4); AST(SGOT) 19 U/L (15-37); Alanine Aminotransfer ALT/SGPT 23 U/L (13-56); Albumin, Serum 3.8 g/dL (3.2-5.0); Alkaline Phosphatase 64 U/L (45-117); Anion Gap 3 (5-15); BUN 7 mg/dL (7-18); BUN/Creat Ratio 9.8 RATIO (10-20); Chloride 107 mmol/L (98-107); Creatinine, Serum 0.71 mg/dL (0.55-1.02); EST Glomerular Filtration Rate 90 mL/min (>60); Est Glom Filt Rate - Afr Amer 109 mL/min (>60); Globulin 2.7 g/dL (2.2-4.2); Glucose 85 mg/dL (74-106); Potassium 4.1 mmol/L (3.5-5.1); Protein, Total 6.5 g/dL (6.4-8.2); Sodium Level 139 mmol/L (136-145)
== END | disposition home or self-care (01) ==
LOC: LAB 08:56
PROVIDERS: PCP Family Medicine; Visit Provider Internal Medicine Endocrinology, Diabetes & Metabolism
DX: E80.7 Disorder of bilirubin metabolism, unspecified (principal)
CPT/HCPCS: 36415; 80053

== ENCOUNTER → 2024-07-26 | Outpatient (CLI) | payer BC, SELFPAY ==
[2024-07-26 09:56] LABS: Vitamin D,25 Hydroxy 25.4 ng/mL
[2024-07-26 10:01] LABS: ALB/GLOB Ratio 1.2 RATIO (0.9-2.4); AST(SGOT) 17 U/L (15-37); Alanine Aminotransfer ALT/SGPT 32 U/L (13-56); Alkaline Phosphatase 67 U/L (45-117); Anion Gap 6 (5-15); BUN 12 mg/dL (7-18); Calcium,Total 9.2 mg/dL (8.5-10.1); Chloride 104 mmol/L (98-107); Creatinine, Serum 0.86 mg/dL (0.55-1.02); EST Glomerular Filtration Rate 72 mL/min (>60); Est Glom Filt Rate - Afr Amer 87 mL/min (>60); Globulin 3.2 g/dL (2.2-4.2); Glucose 88 mg/dL (74-106); Protein, Total 7.2 g/dL (6.4-8.2); Sodium Level 140 mmol/L (136-145)
== END | disposition home or self-care (01) ==
LOC: LAB 08:44
PROVIDERS: PCP Family Medicine; Referring Provider Internal Medicine Endocrinology, Diabetes & Metabolism; Visit Provider Internal Medicine Endocrinology, Diabetes & Metabolism
DX: E03.8 Other specified hypothyroidism (principal); E55.9 Vitamin D deficiency, unspecified
CPT/HCPCS: 36415; 80053; 82306; 84443

== ENCOUNTER → 2024-09-12 | Outpatient (CLI) | payer BC, SELFPAY ==
[2024-09-14 06:08] LABS: Calprotectin, Stool 12 ug/g (0-120)
== END | disposition home or self-care (01) ==
LOC: LABSPEC 08:41
PROVIDERS: PCP Family Medicine; Referring Provider Student in an Organized Health Care Education/Training Program; Visit Provider Student in an Organized Health Care Education/Training Program
DX: K58.9 Irritable bowel syndrome, unspecified (principal); R19.5 Other fecal abnormalities
CPT/HCPCS: 83993; 87177; 87209; 87329; 87506

== ENCOUNTER → 2025-01-31 | Outpatient (CLI) | payer BC, SELFPAY ==
--- OUTSIDE RECORDS SUMMARY | 2025-01-31 20:14 | XMS RPT_ITS | CCD ---
Author Organization [facility] Care Team Providers Care Last Trimmer Name Role Phone Joseph Tomlinson Unavailable Unavailable Belardo, Joe J Unavailable Unavailable Belardo, Joe J Unavailable Unavailable Joseph Tomlinson Unavailable Unavailable Stk Cnty, Emergency Physicians Unavailable U navailable Belardo, Joe J Unavailable Unavailable HANDY PRICE MD Unavailable Unavailable HANDY PRICE MD Unavailable Unavailable HANDY PRICE MD Unavailable Unavailable Villa Vilchis Unavailable Unavailable Belardo, Joe J Unavailable Unavailable Belardo, Joe J Unavailable Unavailable Dr. Gilbert Monsalve Primary Care Provider [phone] Dr. Gilbert Monsalve Referring Provider [phone] Dr. Mathew Dodge Attending Provider [phone] Mark Nguyen (Historical) Primary Care Prov ider Unavailable Bello DO, Gilbert A [phone] [phone] Dr. Gilbert Monsalve Primary Care Provider [phone] Dr. Gilbert Monsalve Referring Provider [phone] Dr. Mathew Dodge Attending Provider [phone] Mark Nguyen (Historical) Primary Care Prov ider Unavailable Bello DO, Gilbert A Unavailable [phone] Dr. Gilbert Monsalve Primary Care Provider [phone] Dr. Gilbert Monsalve Referring Provider [phone] JOHANA Navarro NP Attending Provider SURYA RIZVI Referring Unavailable SURYA RIZVI Attending Unavailable SURYA RIZVI Referring Unavailable MERCEDES ANN Attending Unavailable Dr. Gilbert Monsalve DO Primary Care Provider [phone] Dr. Joseph Tomlinson DO Attending Provider Dr. Joseph Tomlinson DO Referring Provider Dr. Gilbert Monsalve DO Referring Provider Naomy Lagos Attending Provider Naomy Lagos Referring Provider Gilbert Monsalve Primary Care Unavailable Naomy Chau Referring Unavailable Naomy Chau Attending Unavailable Gilbert Monsalve Primary Care Unavailable Joseph Tomlinson Referring Unavailable Joseph Tomlinson Attending Unavailable Gilbert Monsalve Referring Unavailable Gilbert Monsalve Attending Unavailable Gilbert Monsalve Primary Care Unavailable Gilbert Monsalve Referring Unavailable Gilbert Monsalve Primary Care Unavailable Naomy Chau Attending Unavailable Allergies Allergy Classification Reported Allergen(s) Allergy Type Date of Onset Reaction(s) Facility (11 sources) amLODIPine Drug Allergy 2 Other: See Comments [facility] (20 sources) Metoprolol; Translations: [METOPROLOL] Drug Allergy 9 Rash [facility] (10 sources) Morphine Drug Allergy 2 Hives [facility] (20 sources) peanut allergenic extract; Translations: [PEANUT] Drug Allergy 8 Shortness of Breath [facility] Work Phone: (6 sources) ALL MEDS Propensity to adverse reactions 2 Other [facility] (10 sources) Amoxicillin; Translations: [AMOXICILLIN] Drug Allergy 1 Shortness of Breath [facility] (10 sources) Cinnamon Preparation; Translations: [CINNAMON] Drug Allergy 1 Other: See Comments [facility] (10 sources) Clindamycin; Translations: [CLINDAMYCIN] Drug Allergy 1 Itching [facility] (10 sources) Escitalopram; Translations: [ESCITALOPRAM OXALATE] Drug Allergy 1 Other: See Comments [facility] (10 sources) Lactase; Translations: [LACTASE] Drug Allergy 1 Unknown [facility] (10 sources) Morphine; Translations: [MORPHINE SULFATE] Drug Allergy 7 [facility] (10 sources) Onion extract; Translations: [ONION] Drug Allergy 1 [facility] (10 sources) strawberry allergenic extract; Translations: [STRAWBERRY] Drug Allergy 1 Unknown [facility] (4 sources) Green Pepper Propensity to adverse reactions to drug 1 Unknown [facility] (10 sources) Vitamin D Analogue; Translations: [VITAMIN D ANALOGUE] Propensity to adverse reactions to drug 1 Other: See Comments [facility] (10 sources) Losartan Drug Allergy 2 Other: See Comments [facility] (6 sources) Histamine H>2< antagonist; Translations: [HISTAMINE H2 INHIBITORS] Drug Intolerance 3 Other: See Comments [facility] (6 sources) salicylamide; Translations: [SALICYLAMIDE] Drug Allergy 3 Other: See Comments [facility] (3 sources) Salicylic Acid Drug Allergy 3 Other [facility] (6 sources) King Pepper; Translations: [KING PEPPER] Propensity to adverse reactions to drug 1 Unknown [facility] (1 source) amLODIPine Drug Allergy 3 [facility] Repository (1 source) Losartan Drug Allergy 3 [facility] Repository (1 source) Metoprolol Drug Allergy 3 [facility] Repository (1 source) Morphine Drug Allergy 3 [facility] Repository (1 source) peanut allergenic extract Drug Allergy 3 [facility] Repository (1 source) Salicylic Acid Drug Allergy 3 [facility] Repository Medications Current Medications Medication Drug Class(es) Dates Sig (Normalized) Sig (Original) hydroxocobalamin 1 mg/ml injectable solution (7 sources) Antidote Start: 12-02-2021 Hydroxocobalamin 1,000 mcg/mL solution Active 1000 ug IM .3xw December 02, 2021 12:00am Start: 12-02-2021 Hydroxocobalam in Active 1000 MCG IM .3xw December 01, 2021 11:00pm Magnesium (4 sources) MAGNESIUM ORAL T richmond by mouth once daily. Active MOLYBDENUM, BULK, MISC (4 sources) MOLYBDENUM, BULK , MISC once daily. Supplement Active Vitamin B Complex (4 sources) vitamin B comple x (B COMPLETE ORAL) Take by mouth once daily. Takes all vitamin B supplements individually. Active Completed/Discontinued Medications Medication Drug Class(es) Dates Sig (Normalized) Sig (Original) acetaminophen 325 mg / oxyCODONE hydrochloride 5 mg oral tablet (20 sources) Opioid Agonist Start: 07-05-2017 End: 09-10-2021 Oxycodone-Acetamino phen 1 TABLET tablet Discontinued 1 {tbl} PO EVERY 6 HOURS NEEDED as needed for Pain July 05, 2017 1:00am September 10, 2021 4:00pm Start: 07-05-2017 End: 09-10-2021 take 1 tablet by mouth every six hours as needed Oxycodone-Acetaminophen Discontinued 1 TABLET PO EVERY 6 HOURS NEEDED July 05, 2017 12:00am September 10, 2021 3:00pm Start: 10-27-2013 End: 10-27-2013 Oxycodone-Acetaminophen 1 TA BLET tablet Discontinued 2 {tbl} PO EVERY 4 HOURS NEEDED as needed for Moderate-Severe pain October 27, 2013 12:00am October 27, 2013 8:56am Start: 10-27-2013 End: 10-27-2013 take 2 tablets by mouth every four hours as needed Oxycodone-Acetaminophen Discontinued 2 TABLET PO EVERY 4 HOURS NEEDED October 26, 2013 11:00pm October 27, 2013 7:56am acetylcholine 10% solution - [facility] (5 sources) Start: 11-10-2018 End: 12-10-2022 acetylcholine 10% solution - [facility] Start: 11-10-2018 acetylcholine 10% solution - [facility] cloNIDine hydrochloride 0.1 mg oral tablet (20 sources) Central alpha-2 Adrenergic Agonist Start: 11-26-2022 End: 08-30-2024 take 0.05 mg by mouth once as needed Clonidine Hcl 0.1 mg tablet Discontinued 0.05 mg PO ONCE as needed for hypertensive emergency November 26, 2022 9:46am August 30, 2024 10:02am Start: 11-26-2022 take 0.05 mg by mouth once Alexandra nidine Hcl Active 0.05 MG PO ONCE November 26, 2022 8:46am Start: 10-09-2021 End: 11-26-2022 take 0.05 mg by mouth twice daily as needed Clonidine Hcl 0.1 mg tablet Discontinued 0.05 mg PO TWICE A DAY as needed for hypertensive emergency October 09, 2021 12:00am November 26, 2022 9:46am Start: 10-09-2021 End: 11-26-2022 take 0.05 mg by mouth twice daily Clonidine Hcl Discontinued 0.05 MG PO TWICE A DAY October 08, 2021 11:00pm November 26, 2022 8:46am Start: 09-10-2021 End: 09-17-2021 take 1 tablet by mouth twice daily Clonidine Hcl 0.1 mg tablet Discontinued 0.1 mg PO TWICE A DAY September 10, 2021 1:00am September 17, 2021 5:07pm Cyanocobalamin (Vitamin B-12 ) 100 mcg/mL solution (2 sources) Start: 12-02-2021 End: 12-02-2021 Cyanocobalamin (Vitamin B-12 ) 100 mcg/mL solution Discontinued 100 ug .Route .3xweekly December 02, 2021 10:35am December 02, 2021 10:36am 100 mcg .3xweekly; wice weekly Start: 09-17-2021 End: 12-02-2021 Cyanocobalamin (Vitamin B-12 ) 100 mcg/mL solution Discontinued 100 ug .Route .2 x week September 17, 2021 1:00am December 02, 2021 10:35am .2 x weektwice weekly hydrALAZINE hydrochloride 10 mg oral tablet (10 sources) Arteriolar Vasodilator Start: 08-03-2021 End: 09-17-2021 take 1 tablet by mouth once daily Hydralazine 10 mg tablet Discontinued 10 mg PO DAILY August 03, 2021 1:00am September 17, 2021 4:18pm ibuprofen 600 mg oral tablet (20 sources) Nonsteroidal Anti-inflammatory Drug Start: 10-26-2013 End: 10-27-2013 take 1 tablet by mouth every six hours as needed for pain Ibuprofen 600 MG tablet Discontinued 600 mg PO EVERY 6 HOURS NEEDED as needed for Pain October 27, 2013 8:53am October 27, 2013 8:56am levothyroxine sodium 0.05 mg oral tablet (20 sources) l-Thyroxine Start: 08-03-2021 End: 09-10-2021 Levothyroxine 50 mcg Tablet Discontinued 50 ug PO [place] August 03, 2021 1:00am September 10, 2021 3:58pm Start: 07-10-2019 End: 06-30-2024 take 1 tablet by mouth once daily Levothyroxine 100 mcg tablet Active 100 ug PO DAILY September 10, 2021 3:58pm take 1 tablet by saray th once daily before breakfast levothyroxine (SYNTHROID) 88 mcg tablet Take 88 mcg by mouth daily before breakfast. Active Comment on above: Take 100 mcg by mout h daily before breakfast. LORazepam 1 mg oral tablet (10 sources) Benzodiazepine Start: 6 End: 7 take 1 tablet by mouth three times daily as needed for anxiety Lorazepam 1 MG tablet Discontinued 1 mg PO THREE TIMES A DAY as needed for Anxiety April 22, 2016 10:35am September 09, 2016 12:03am losartan potassium 50 mg oral tablet (10 sources) Angiotensin 2 Receptor Chivo Start: 2 End: 2 take 1 tablet by mouth once daily Losartan 50 mg tablet Discontinued 50 mg PO DAILY 180 September 17, 2021 1:00am October 09, 2021 3:18pm potassium chloride 10 meq extended release oral tablet (20 sources) Start: 2 End: 2 take 1 tablet by mouth three times daily as needed Potassium Chloride 10 mEq tablet extended release Discontinued 10 meq PO THREE TIMES A DAY as needed September 17, 2021 4:15pm September 17, 2021 5:07pm Start: 08-03-2021 End: 09-10-2021 take 1 tablet by mouth once daily Potassium Chloride 10 mEq tablet extended release Discontinued 10 meq PO DAILY August 03, 2021 1:00am September 10, 2021 3:59pm vitamin B12 (15 sources) Vitamin B12 Start: 12-02-2021 End: 12-02-2021 Cyanocobalamin (Vitamin B-12 ) Discontinued 100 MCG .Route .3xweekly December 02, 2021 9:35am December 02, 2021 9:36am 100 mcg .3xweekly; wice weekly Start: 12-02-2021 End: 12-02-2021 Cyanocobalamin (Vitamin B-12 ) Discontinued 100 MCG .Route .3xweekly December 02, 2021 10:35am December 02, 2021 10:36am 100 mcg .3xweekly; wice weekly Start: 09-17-2021 Cyanocobalamin (Vitamin B-12) Active 100 MCG .Route .2 x week September 17, 2021 4:18pm .2 x weektwice weekly Start: 09-17-2021 End: 12-02-2021 Cyanocobalamin (Vitamin B-12 ) Discontinued 100 MCG .Route .2 x week September 17, 2021 12:00am December 02, 2021 9:35am .2 x weektwice weekly Start: 09-17-2021 End: 12-02-2021 Cyanocobalamin (Vitamin B-12 ) Discontinued 100 MCG .Route .2 x week September 17, 2021 1:00am December 02, 2021 10:35am .2 x weektwice weekly Problems Active Problems Problem Classification Problem Date Documented Date Episodic/Chronic Abdominal pain (20 sources) Upper abdominal pain; Translations: [Upper abdominal pain, unspecified] Onset: 014 Resolve d: 014 09-18-2016 Episodic Allergic reactions (2 sources) Adverse reaction to food; Translations: [Other adverse food reactions, not elsewhere classified, initial encounter] Onset: 025 03-01-2024 Episodic Cardiac dysrhythmias (10 sources) Palpitations - rapid; Translations: [Palpitations] 09-17-2021 Episodic Essential hypertension (20 sources) Essential hypertension; Translations: [Essential (primary) hypertension] Chronic Fluid and electrolyte disorders (10 sources) Hypokalemia; Translations: [Hypokalemia] 09-16-2021 Episodic Other and unspecified benign neoplasm (10 sources) Adrenal adenoma; Translations: [Benign neoplasm of unspecified adrenal gland] 09-16-2021 Episodic Other and unspecified benign neoplasm (3 sources) Benign neoplasm of unspecified adrenal gland; Translations: [Benign neoplasm of adrenal gland] Episodic Other circulatory disease (7 sources) Elevated blood-pressure reading without diagnosis of hypertension; Translations: [Elevated blood-pressure reading, without diagnosis of hypertension] 12-02-2021 Episodic Other circulatory disease (3 sources) Elevated blood-pressure reading, without diagnosis of hypertension; Translations: [Elevated blood pressure reading without diagnosis of hypertension] Episodic Other female genital disorders (9 sources) Premenstrual tension syndrome; Translations: [Premenstrual tension syndrome] Onset: 009 05-13-2009 Chronic Other gastrointestinal disorders (1 source) Irritable bowel syndrome without diarrhea; Translations: [Irritable bowel syndrome, unspecified] Onset: 025 Chronic Other gastrointestinal disorders (2 sources) Abnormal feces; Translations: [Other fecal abnormalities] 08-30-2024 Episodic Other gastrointestinal disorders (1 source) Constipation; Translations: [Constipation, unspecified] 08-30-2024 Episodic Other nervous system disorders (10 sources) Paresthesia of skin; Translations: [Paresthesia of both hands] 09-17-2021 Episodic Other nervous system disorders (10 sources) Paresthesia of lower extremity; Translations: [Paresthesia of skin] 09-17-2021 Episodic Other nutritional; endocrine; and metabolic disorders (9 sources) Hypervitaminosis B6; 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 07-22-2019 Chronic Other screening for suspected conditions (not mental disorders or infectious disease) (7 sources) Patient encounter status; Translations: [Encounter for screening mammogram for malignant neoplasm of breast] Onset: 024 Episodic Residual codes; unclassified (10 sources) Heterozygous methylenetetrahydrofolate reductase mutation; Translations: [Genetic susceptibility to other disease] 07-18-2019 Episodic Thyroid disorders (20 sources) Hypothyroidism; Translations: [Hypothyroidism, unspecified] Onset: 016 09-16-2016 Chronic Unclassified (1 source) Unknown / UNK(Unknown) Onset: 017 Unclassified (9 sources) SUMMARY Onset: 017 09-18-2016 Past or Other Problems Problem Classification Problem Date Documented Date Episodic/Chronic Administrative/social admission (9 sources) Person with feared health complaint in whom no diagnosis is made; Translations: [Person with feared complaint in whom no diagnosis was made] Onset: 11-20-2018 11-20-2018 Episodic Conditions associated with dizziness or vertigo (9 sources) Orthostatic hypotension; Translations: [Dizziness and giddiness] Onset: 11-20-2018 11-20-2018 Episodic Menstrual disorders (8 sources) Intermenstrual bleeding - irregular; Translations: [Excessive and frequent menstruation with irregular cycle] Onset: 01-20-2006 Resolved: 12-08-2013 07-21-2013 Chronic Other connective tissue disease (9 sources) Pain in both feet; Translations: [Pain in right foot] Onset: 11-20-2018 11-20-2018 Episodic Other female genital disorders (4 sources) Stenosis of cervix; Translations: [Stricture and stenosis of cervix uteri] Onset: 06-05-2009 Resolved: 12-08-2013 12-08-2013 Episodic Other female genital disorders (4 sources) Hypertrophy of uterus; Translations: [Hypertrophy of uterus] Onset: 07-24-2009 Resolved: 10-26-2013 10-26-2013 Episodic Other nervous system disorders (9 sources) Skin sensation disturbance; Translations: [Unspecified disturbances of skin sensation] Onset: 11-20-2018 11-20-2018 Episodic Other nervous system disorders (4 sources) Abnormal involuntary movement; Translations: [Unspecified abnormal involuntary movements] Onset: 07-22-2019 07-22-2019 Episodic Other nervous system disorders (9 sources) Athetoid movement; Translations: [Other abnormal involuntary movements] Onset: 07-22-2019 07-22-2019 Episodic Other nervous system disorders (5 sources) Involuntary movement; Translations: [Unspecified abnormal involuntary movements] Onset: 07-22-2019 07-22-2019 Episodic Other nutritional; endocrine; and metabolic disorders (9 sources) Weight loss; Translations: [Abnormal weight loss] Onset: 09-15-2016 09-16-2016 Episodic Residual codes; unclassified (9 sources) Generally unwell; Translations: [Other general symptoms and signs] Onset: 09-16-2016 09-18-2016 Episodic Residual codes; unclassified (9 sources) Generalized aches and pains; Translations: [Pain, unspecified] Onset: 11-20-2018 11-20-2018 Episodic Unclassified (1 source) PAIN ALL OVER/ TRIAGE Onset: 04-19-2017 Results Test Name Value Interpretation Reference Range Facility [id number] 09-15-2024 M7400.3302 _ TESTING PERFORMED AT [facility]. ORIGINAL REPORT ON FILE IN LAB CONTAINS ADDITIONAL TEST SITE INFORMATION. _ Giardia Lamblia EIA NEGATIVE [facility] Comment on above: Performed By: #### M 100.637, M600.5000, L7000.0700, M7400.3302 #### [facility] [address] [place], [place], [id number] Ova and Parasites 8623on OP OVA AND PARASITES EX AM, ROUTINE These results were obtained using wet preparation(s) and trichrome stained smear. This test does not include testing for Crytosporidium parvum, Cyclospora, or Microsporidia. One negative specimen does not rule out the possibility of a parasitic infection. _ TESTING PERFORMED AT [facility]. ORIGINAL REPORT ON FILE IN LAB CONTAINS ADDITIONAL TEST SITE INFORMATION. _ Ova/Parasite Exam NO OVA, CYSTS, OR PARASITES FOUND. [facility] Comment on above: Performed By: #### M 100.637, M600.5000, L7000.0700, M7400.3302 #### [facility] [address] [place], [place], [id number] Calprotectin, Stoolon [address] 12 ug/g Normal 0-120 [facility] Comment on above: Result Comment: Conc entration Interpretation Follow-Up < 5 - 50 ug/g Normal None >50 -120 ug/g Borderline Re-evaluate in 4-6 weeks >120 ug/g Abnormal Repeat as clinically indicated Performed at: - [facility] [address] [place], [place] [id number] [employer] Helper: Flavia Bishop MD, Phone: [phone] Performed By: #### M 100.637, M600.5000, L7000.0700, M7400.3302 #### [facility] [address] [place], [address] Calprotectin stoolOrdered By : Naomy Chau on 09-12-2024 Stool Calprotectin 12 ug/g 0-120 [facility] Comment on above: Concentration Interp retation Follow-Up< 5 - 50 ug/g Normal None>50 -120 ug/g Borderline Re-evaluate in 4-6 weeks >120 ug/g Abnormal Repeat as clinically indicatedPerformed at: - [facility] [address] [id number] Director: Flavia Bishop MD, Phone: [phone] ENTERIC PATHOGEN PANEL STOOL on 09-12-2024 EP PANEL Normal Reference Ran ge = Not Detected Not detected for Campylobacter group, Salmonella species, Shigella species, Vibrio Group, Yersinia enterocolitica, EHEC (Shiga Toxin 1, Shiga Toxin 2), Norovirus Gl/Gll, and Rotavirus A. Other common stool pathogens are not detected on this panel include: Aeromonas/Plesiomonas or parasites. Order testing for these organisms separately if suspected. This is an amplified DNA test which makes it both specific and sensitive. CAMPYLOBACTER Not Detected Norovirus Not Detected Rotavirus Not Detected Salmonella Not Detected Shiga Toxin Not Detected Shigella sp. Not Detected VIBRIO Not Detected Yersinia Not Detected Normal [facility] Comment on above: Performed By: #### M 100.637, M600.5000, L7000.0700, M7400.3302 #### [facility] [address] [place], [address] Giardia lamblia antigen assa y by enzyme immunoassayOrdered By: Naomy Chau on 09-12-2024 Giardia Antigen (MAIRA) [facility] Ova and parasitesOrdered By: Naomy Chau on 09-12-2024 Ova and Parasites [facility] Stool enteric pathogen panel by probe and target amplification methodOrdered By: Naomy Chau on 09-12-2024 Enteric Bacteriology [facility] Visit Repor ton 08-30-2024 Gastroenterology Visit Report [facility] [address] [place] [address] OFFICE VISIT Date of Service: 08/30/24 MR#: [id number] Acct: [id number] Name: SAMUEL WOO Rep #: [id number] : 1965 Provider: LEANDRA Quiroz Age/Sex: 59/F Location[place] [facility] [email or web address] Status: Signed Intake Vital Signs 03/27/23 17:56 Height 5 ft 7 in Intake Visit Reasons: Constipation Chief Complaint: constipation Orange Picker Required: No Is patient in pain?: No Allergies morphine Allergy (Verified 03/27/23 17:58) Hives peanut Allergy (Verified 03/27/23 17:58) Anaphylaxis salicylates Allergy (Verified 03/27/23 17:58) Other amlodipine Adverse Reaction (Verified 03/27/23 17:58) unknown losartan Adverse Reaction (Verified 03/27/23 17:58) lower back/flank pain metoprolol Adverse Reaction (Verified 03/27/23 17:58) GI PAIN Medications ???Medication ???Instructions ???Recorded ???Confirmed ???Type levothyroxine 100 mcg tablet 100 mcg PO DAILY 09/10/21 11/26/22 History hydroxocobalamin 1,000 mcg/mL 1,000 mcg IM .3xw 12/02/21 3 History intramuscular solution Patient : No Have you fallen in the past year?: No Nurse's Note: OV 08.30.24 Pt here to establish care with [facility]. Pt reports she has "life long" constipation and can not have a BM without enemas. Denies n/v, abdominal pain, gas, bloating, and blood in stools. Prior hx of colonoscopy was over 8 years ago. 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 Pt with complaints of constipation for her whole life but worsening over the past 2.5 years. She is using three enemas daily. During the first enema she will have string like "rubbery" substance. The second one she has mucous and then the third one is stool. Warm prune juice helped in the past but had to stop taking. She tells me she has a salicylate sensitivity which causes extreme pain in her body so she is very sensitive to anything she takes including foods. Has tried miralax in the past but had bad reaction. She denies abd pain, n/v, constipation, diarrhea, or heartburn. Last colonoscopy; 8 years ago which was normal Smoking status; former smoker ROS Const Constitutional: No fatigue, fever(s) or weight change ENT ENT: No difficulty swallowing Gastro GI: Positive for constipation; No abdominal pain, belching, bloating, change in bowel habits, change in stool character, coffee ground emesis, cramping, diarrhea, heartburn, difficulty swallowing, feeling full early, excessive flatus, incontinent of stools, Vomiting blood/hematemesis, Blood in stool, loose stools, Black,tarry stools, nausea/dyspepsia, pain with swallowing, vomiting or other Musc Musculoskeletal: Positive for joint pain, back pain, muscle cramps, numbness, stiffness, tingling, Arthritis, sciatica and leg pain at night Skin Skin: Positive for dry skin; No yellowing of the eye or itchy eyes Neuro Neurology: Positive for numbness and tingling Psych Psychiatric: No anxiety and No depression Endo Endocrine: No fatigue or weight change Aller/Imm Allergy/Immunologic: No itchy eyes Vu/Lymp Hematologic/Lymphatic: No easy bleeding or easy bruising Exam Const General: cooperative and comfortable Nutritional Appearance: average body habitus and well nourished [facility] Head: normal to inspection Ears: hearing grossly normal bilaterally Nose: external nose normal Face and sinus: normal facial exam Eyes General: appearance normal, both eyes and all related structures Neck Neck: normal visual inspection Chest Chest palpation inspection: normal inspection of the chest and normal palpation of entire chest wall Resp Effort Inspection: normal respiratory effort Auscultation: Bilateral: Clear to Auscultation Cardio Palpation: normal PMI Rate: regular rate Rhythm: regular rhythm GI Inspection: normal to ins (more content not included)... Normal [facility] [id number] DOrdered By: Flory Tomlinson on 07-26-2024 Vitamin D 25-Hydroxy 25.4 ng/mL [facility] Comment on above: Vitamin D 25(OH) Sta tus Range Deficiency <20 ng/mL (50nmol/L) Insufficiency 20 - 30 ng/mL (50 - 75 nmol/L) Sufficiency 30 - 100 ng/mL (75 - 250 nmol/L) Toxicity >100 ng/mL (>250 nmol/L) Albumin to globulin ratioOrd ered By: Joseph Tomlinson on 07-26-2024 Albumin/Globulin [Mass ratio] 1.2 {ratio} 0.9-2.4 [facility] Bilirubin, totalOrdered By: Joseph Tomlinson on 07-26-2024 Bilirubin [Mass/Vol] 1.80 mg/dL High 0.20-1.00 [facility] Comment on above: For patients on eltr ombopag therapy, use of Dimension Dellroy TBIL is not recommended. Blood urea nitrogen (BUN)/cr eatinine ratioOrdered By: Joseph Tomlinson on 07-26-2024 Urea nitrogen/Creatinine [Mass ratio] 14.0 mg/mg 10-20 [facility] Carbon dioxide measurementOr dered By: Joseph Tomlinson on 07-26-2024 CO2 [Moles/Vol] 30.0 mmol/L 21.0-32.0 [facility] Chloride measurementOrdered By: Joseph Tomlinson on 07-26-2024 Chloride [Moles/Vol] 104 mmol/L 98-107 [facility] Prof ilon 07-26-2024 Albumin [Mass/Vol] 4.0 g/dL Normal 3.2-5.0 [facility] Comment on above: Performed By: #### L [id number], L506.1000, [id number] #### [facility] [address] [place], [address] Albumin/Globulin [Mass ratio] 1.2 {ratio} Normal 0.9-2.4 [facility] Comment on above: Performed By: #### L [id number], L506.1000, [id number] #### [facility] [address] [place], [address] ALK P 67 U/L Normal 45-117 [facility] Comment on above: Performed By: #### L [id number], [id number], [id number] #### [facility] [address] [place], [address] ALT [Catalytic activity/Vol] 32 U/L Normal 13-56 [facility] Comment on above: Performed By: #### L [id number], L506.1000, [id number] #### [facility] [address] [place], [address] AST [Catalytic activity/Vol] 17 U/L Normal 15-37 [facility] Comment on above: Performed By: #### L [id number], L506.1000, [id number] #### [facility] [address] [place], [address] Bilirubin [Mass/Vol] 1.80 mg/dL High 0.20-1.00 [facility] Comment on above: Result Comment: For patients on eltrombopag therapy, use of Dimension Dellroy TBIL is not recommended. Performed By: #### L [id number], L506.1000, [id number] #### [facility] [address] [place], [address] BUN/CRE 14.0 RATIO Normal 10-20 [facility] Comment on above: Performed By: #### L [id number], L506.1000, [id number] #### [facility] [address] [place], [address] CA,Total 9.2 mg/dL Normal 8.5-10.1 [facility] Comment on above: Performed By: #### L [id number], L506.1000, [id number] #### [facility] [address] [place], [address] Chloride [Moles/Vol] 104 mmol/L Normal 98-107 [facility] Comment on above: Performed By: #### L [id number], L506.1000, [id number] #### [facility] [address] [place], [address] CO2 [Moles/Vol] 30.0 mmol/L Normal 21.0-32.0 [facility] Comment on above: Performed By: #### L [id number], L506.1000, [id number] #### [facility] [address] [place], [address] Creatinine [Mass/Vol] 0.86 mg/dL Normal 0.55-1.02 [facility] Comment on above: Result Comment: The validity of the calculated GFR GFRAA in patients over 70 years has not been determined. Clinical correlation is essential. Performed By: #### L [id number], L506.1000, [id number] #### [facility] [address] [place], [address] EST GFR - AA 87 mL/min Normal >60 [facility] Comment on above: Result Comment: Afri can Algerian GFR Calc Performed By: #### L [id number], L506.1000, [id number] #### [facility] [address] [place], [address] GAP 6 Normal 5-15 [facility] Comment on above: Performed By: #### L [id number], L506.1000, [id number] #### [facility] [address] [place], [address] GFR/1.73 sq M.predicted among non-blacks MDRD (S/P/Bld) [Vol rate/Area] 72 mL/min/{1.73_m2} Normal >60 [facility] Comment on above: Result Comment: Non- GFR Calc Performed By: #### L [id number], L506.1000, [id number] #### [facility] [address] [place], [address] Globulin (S) [Mass/Vol] 3.2 g/dL Normal 2.2-4.2 [facility] Comment on above: Performed By: #### L [id number], [id number], [id number] #### [facility] [address] [place], [address] Glucose [Mass/Vol] 88 mg/dL Normal 74-106 [facility] Comment on above: Performed By: #### L [id number], [id number], [id number] #### [facility] [address] [place], [address] Potassium [Moles/Vol] 4.0 mmol/L Normal 3.5-5.1 [facility] Comment on above: Performed By: #### L [id number], L506.1000, [id number] #### [place] [facility] [address] [place], [address] Sodium [Moles/Vol] 140 mmol/L Normal 136-145 [facility] Comment on above: Performed By: #### L [id number], L506.1000, [id number] #### [facility] [address] [place], [address] T PROT 7.2 g/dL Normal 6.4-8.2 [facility] Comment on above: Performed By: #### L [id number], L506.1000, [id number] #### [facility] [address] [place], [address] Urea nitrogen [Mass/Vol] 12 mg/dL Normal 7-18 [facility] Comment on above: Performed By: #### L [id number], L506.1000, [id number] #### [facility] [address] [place], [address] Estimated glomerular filtrat ion rate (GFR) AmericanOrdered By: Joseph Tomlinson on 07-26-2024 Estimated GFR (MDRD) Amer 87 mL/min >60 [facility] Comment on above: GFR Calc Glomerular filtration rate ( GFR) estimationOrdered By: Joseph Tomlinson on 07-26-2024 Estimated GFR (MDRD) Non-Af Amer 72 mL/min >60 [facility] Comment on above: Non- GFR Calc Glucose measurementOrdered B y: Joseph Tomlinson on 07-26-2024 Glucose [Mass/Vol] 88 mg/dL 74-106 [facility] - Chemistry and C hemistry - challengeOrdered By: Joseph Tomlinson on 07-26-2024 AST [Catalytic activity/Vol] 17 U/L 15-37 [facility] Potassium measurementOrdered By: Joseph Tomlinson on 07-26-2024 Potassium [Moles/Vol] 4.0 mmol/L 3.5-5.1 [facility] Serum anion gap measurementO rdered By: Joseph Tomlinson on 07-26-2024 Anion gap [Moles/Vol] 6 mmol/L 5-15 [facility] Serum globulin measurementOr dered By: Joseph Tomlinson on 07-26-2024 Globulin (S) [Mass/Vol] 3.2 g/dL 2.2-4.2 [facility] Serum or plasma alanine espinoza otransferase (ALT) measurementOrdered By: Joseph Tomlinson on 07-26-2024 ALT [Catalytic activity/Vol] 32 U/L 13-56 [facility] Serum or plasma albumin yris urement (mass/volume)Ordered By: Joseph Tomlinson on 07-26-2024 Albumin [Mass/Vol] 4.0 g/dL 3.2-5.0 [facility] Serum or plasma alkaline eliel sphatase measurementOrdered By: Joseph Tomlinson on 07-26-2024 ALP [Catalytic activity/Vol] 67 U/L 45-117 [facility] Serum or plasma calcium yris urement (mass/volume)Ordered By: Joseph Tomlinson on 07-26-2024 Calcium [Mass/Vol] 9.2 mg/dL 8.5-10.1 [facility] Serum or plasma creatinine m easurement (mass/volume)Ordered By: Joseph Tomlinson on 07-26-2024 Creatinine [Mass/Vol] 0.86 mg/dL 0.55-1.02 [facility] Comment on above: The validity of the calculated GFR & GFRAA in patients over 70 years has not been determined. Clinical correlation is essential. Serum or plasma urea nitroge n measurement (mass/volume)Ordered By: Joseph Tomlinson on 07-26-2024 Urea nitrogen [Mass/Vol] 12 mg/dL 7-18 [facility] Sodium levelOrdered By: Julian Tomlinson on 07-26-2024 Sodium [Moles/Vol] 140 mmol/L 136-145 [facility] TSH QnOrdered By: Joseph nessa on 07-26-2024 Thyroid Stimulating Hormone (TSH) 1.730 uIU/mL 0.358-3.74 0 [facility] Thyroid Stim Hormone (TSH)on 07-26-2024 TSH 1.730 uIU/mL Normal 0.358-3.74 0 [facility] Comment on above: Performed By: #### L [id number], L506.1000, [id number] #### [facility] [address] [place], [address] Total proteinOrdered By: Kyle Gateszay on 07-26-2024 Protein [Mass/Vol] 7.2 g/dL 6.4-8.2 [facility] Vitamin D,25 Hydroxyon 07-26 Vitamin D 25-OH 25.4 ng/mL Normal [facility] Comment on above: Result Comment: Alisa min D 25(OH) Status Range Deficiency <20 ng/mL (50nmol/L) Insufficiency 20 - 30 ng/mL (50 - 75 nmol/L) Sufficiency 30 - 100 ng/mL (75 - 250 nmol/L) Toxicity >100 ng/mL (>250 nmol/L) Performed By: #### L [id number], L506.1000, [id number] #### [facility] [address] 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 Still get period: No LMP: n/a Menopause symptoms: None Time with current partner: 39 YEARS Number of lifetime partners: 2 control frequency: Never HPV vaccine: No; Last pap smear: 09/09/2022 History of abnormal pap: No, all prior PAP smears have been normal Bothersome pelvic pain: No Last mammogram: 2022 normal History of abnormal mammogram: No OB History T2 L2 SAB0 IAB0 Ectopic0 Multiple0 Live Births0 Ip Counsel History LMP: 09/06/2013, Hysterectomy Age at Menarche: 16 Age at First : Age at Menopause: Ip Counsel History Comments: Sexual Activity: Yes; Male; hysterectomy Contraception: Surgical PAST MEDICAL HISTORY Diagnosis Date Asthma Cervical stenosis (uterine cervix) Dysmenorrhea Excessive or frequent menstruation Heavy periods Hypothyroid Metrorrhagia 2008 MTHFR mutation 01/2019 Rheumatoid arthritis (HCC) Systemic lupus erythematosus (HCC) Tobacco use disorder Stopped 02/2007 Urinary tract infection, site not specified Recurrent UTI's Vitamin B12 deficiency PAST SURGICAL HISTORY Procedure Laterality Date DELIVERY ONLY , low cervical/X2 HYSTERECTOMY 2013 HYSTEROSCOPY, DIAGNOSTIC (SEPARATE 07/09/2009 Hysteroscopy, [facility] LAPS TOTAL HYSTERECT 250 GM/< W/RMVL TUBE/OVARY 10/26/2013 TLH, bilateral salpingectomy LIG/TRNSXJ FLP TUBE ABDL/VAG APPR UNI/BI Tubal ligation at time of c/s PAST SURGICAL HISTORY OF LEFT GANGLION CYST PAST SURGICAL HISTORY OF LASIK SURGERY TONSILLECTOMY PRIMARY/SECONDARY Tonsillectomy UNSPECIFIED ORAL SURGERY PROCEDURE, BY REPORT 2017 Teeth removal --2017 and 2020 FAMILY HISTORY Problem Relation Age of Onset Heart Mother AAA and her mother's 2 GMs Stroke Mother Cancer Mother lung Heart Father Cancer Father multiple mylomia other (mthfr) Sister other (gilberts disease) Brother Thyroid Brother hypo Diabetes Paternal Grandmother Asthma Daughter other (MTHFR) Daughter Thyroid Other Several P-cousins SOCIAL HISTORY Social History Tobacco Use Smoking status: Former Current packs/day: 0.00 Average packs/day: 0.5 packs/day for 25.0 years (12.5 ttl pk-yrs) Types: Cigarettes Start date: 02/16/1982 Quit date: 02/16/2007 Years since quittin.3 Smokeless tobacco: Former Types: Chew Vaping Use Vaping status: Never Used Substance Use Topics Alcohol use: No Alcohol/week: 1.0 standard drink of alcohol Types: 1 Cans of Beer (12oz) per week Drug use: No REVIEW OF SYSTEMS Abdomen: No abdominal pain, nausea, vomiting, diarrhea, or constipation. No bloating, early satiety, indigestion, or increased flatulence.no changes in BM Bladder: No dysuria, gross hematuria, urinary frequency, urinary urgency, or incontinence Breast: No breast lumps, nipple d/c, overlying skin changes, redness or skin retraction Allergies and current medication updated:Yes SENSITIVE EXAM: The sensitive examination was discussed with the Patient or Patient's Authorized Paper Sheeter. As applicable, any other physician, advance practice provider, medical student, or other health professional student that will be observing or involved in the sensitive examination for educational or training purposes was discussed with the Patient or Authorized Paper Sheeter. The Patient or Authorized Paper Sheeter has agreed to proceed with the sensitive examination. (Sensitive examination includes inspection and/or palpation of the breasts, pelvis, prostate and anorectal regions). EXAM: BP 112/74 Ht 5' 7" (1.70m) Wt 169 lb (76.7kg) LMP 09/06/2013 BMI 26.46 kg/(m2). GENERAL: pleasant, female in no apparent distress HEENT: Normocephalic, atraumatic, mucus membranes moist, and no lesions NECK: Supple, full range of motion, no adenopathy, and thyroid normal DERMATOLOGY: Normal, without lesions, non-icteric, and non-hirsute BREAST: soft, non-tender, symmetric, no dominant mass, normal nipple-areolar complex, no lymphadenopathy, and no nipple discharge CHEST: Normal inspiratory effort ABDOMEN: soft, non-tender, and no masses PELVIC: external genitalia normal, normal Bartholin's glands, urethra, Burnet's glands, no vulvar lesions, good vaginal support, physiologic discharge present, normal appearing perineal body (more content not included)... Normal [facility] SCREENING W TOMOon 06-30 JANEE SCREENING W DARRELL * * *Final Report* * * DATE OF EXAM: Jun 30 2024 8:06AM JOANNW [id number] - JANEE SCREENING W DARRELL / PROCEDURE REASON: Screening mammogram, encounter for * * * * Physician Interpretation * * * * RESULT: [facility] [address] [place] [address] #[id number] - [facility] SCREENING W DARRELL HISTORY: Patient is 59 years old and is seen for screening and is asymptomatic in both breasts. Patient states no personal history of breast cancer. Patient states no personal history of other cancers. COMPARISON STUDIES: The present examination has been compared to prior imaging studies dated 04/12/2018 (mammogram), 04/13/2019 (mammogram), 07/01/2020 (mammogram), 10/13/2021 (mammogram) and 10/26/2022 (mammogram). MAMMOGRAM TECHNIQUE: The study was acquired using full field digital technology and interpreted from soft copy. Digital Breast Tomosynthesis (DBT) images were obtained and used to assist in the interpretation of this examination. Computer-aided detection was utilized by the radiologist in the interpretation of this examination. MAMMOGRAM FINDINGS: The breasts are heterogeneously dense, which may obscure small masses. There are stable vascular calcifications in both breasts. There are no significant interval changes. No suspicious masses, calcifications or other abnormalities are seen in either breast. IMPRESSION: There is no mammographic evidence of malignancy. Routine screening mammogram is recommended. Annual mammogram will be due in 1 year. BI-RADS Category 2: Benign RISK: Based on the Tyrer-Cuzick (TC) risk assessment model, this patient has a 7.2% lifetime risk of developing breast cancer, meaning they are at average risk for developing breast cancer. However, this is only an estimate based on available history provided on the patient's questionnaire. We encourage all patients to talk with their providers about these results, further recommendations for managing breast health, and appropriate supplemental screening options if the patient has dense breast tissue. Interpreting Radiologist: Debi Saini M.D. FACR, FSBI Electronically signed on: 07/03/2024 Clinical Nursing Intern: SHARRON Transcribe Date/Time: Jun 30 2024 7:52A Dictated by: DEBI SAINI MD This examination was interpreted and the report reviewed and electronically signed by: DEBI SAINI MD on Jul 03 2024 7:46AM EST [id number] Normal [facility] CNOVon 03-01-2024 CNOV Office Visit (ALLMED ) SAMUEL WOO ([id number]) 1965 F Date Time Provider Department 03/01/24 2:00 PM MERCEDES ANN During your visit today, we recorded the following information about you: Pulse Blood pressure Weight 77/minute 133/83 79 kg Mercedes Ann MD 03/08/2024 1:24 PM Signed ASSESSMENT/PLAN: -Discussed with patient that her constellation of symptoms are not consistent with IgE-mediated food allergies. Discussed that patients who have known conditions associated with aspirin/NSAID sensitivity including patients with aspirin exacerbated respiratory disease and urticaria associated with use of aspirin/NSAIDs tolerate salicylate containing foods without adverse reaction. Recommend that she see neurology and psychiatry for her symptoms. Recommend that she consult a dietitian if she chooses to continue her elimination diet. At the patient's request, I will reach out to my colleagues to get their opinion regarding this patient's concern about salicylate sensitivity. I will contact the patient after hearing back from them. - Discussed medication dosage, usage, side effects, and goals of treatment in detail. - Follow-up in PRN - patient will return sooner should new symptoms or problems arise. Mercedes Ann MD Allergy AND Immunology This is a self-referral for an allergy and immunology evaluation. Samuel Woo is a 59 year old female who presents for further evaluation of possible salicylate sensitivity. Patient was last seen in this office on January 02, 2021. She complains of multiple symptoms including headaches, nerve pain, joint pain, internal vibration, dizziness and rhinorrhea associated with ingestion of multiple types of foods. She attributes the symptoms to salicylates found in foods. She also develops the symptoms with exposure to strong odors. She is significantly limiting her diet and currently ingests beef, white rice, vegetables and butter." She notes that some foods will "limit" her breathing but do not cause wheezing or distress. She has never experienced urticaria, angioedema, respiratory distress or loss of consciousness associated with ingestion of a particular type of food. Symptoms resolve without treatment. She has not presented to the emergency room or required treatment with epinephrine. She requests treatment with antileukotrienes for the presumed salicylate sensitivity. She reports that she has previously undergone neurologic and and psychological evaluation for these symptoms. She has a history of intermittent asthma. Denies use of short acting beta agonists or treatment with systemic steroids for asthma symptoms in recent years. Denies a history of nasal polyposis. Denies a history of urticaria. She currently avoids use of aspirin/NSAIDs. Prior to developing the symptoms mentioned above 8 years ago, she took aspirin/NSAIDs without adverse reaction. REVIEW OF SYSTEMS: Answers submitted by the patient for this visit: Allergy Review of Symptoms (Submitted on 03/01/2024) Eye discharge: Yes Eye pain: Yes Ear pain: Yes Ringing in Ears: Yes Nasal Congestion: Yes Runny Nose: Yes Shortness of breath: Yes Constipation: Yes Headaches: Yes All other review of systems negative except for those listed above. PAST MEDICAL HISTORY No date: Cervical stenosis (uterine cervix) No date: Dysmenorrhea No date: Excessive or frequent menstruation Comment: Heavy periods No date: Hypothyroid 2008: Metrorrhagia 01/2019: MTHFR mutation No date: Tobacco use disorder Comment: Stopped 02/2007 No date: Urinary tract infection, site not specified Comment: Recurrent UTI's No date: Vitamin B12 deficiency MEDICATIONS: levothyroxine (SYNTHROID) 100 mcg tablet Take 100 mcg by mouth daily before breakfast. ALLERGIES: Allergies As of Date: 03/01/2024 Allergen Noted Reaction PEANUT 11/30/2017 Shortness of Breath AMOXICILLIN 01/02/2021 Shortness of Breath KING PEPPER 01/02/2021 Unknown CINNAMON 01/02/2021 Other: See Comments CLINDAMYCIN 01/02/2021 Itching DAIRY AID [LACTASE] 01/02/2021 Unknown ESCITALOPRAM OXALATE 01/02/2021 Other: See Comments HISTAMINE H2 INHIBITORS 11/02/2022 Other: See Comments METOPROLOL 07/10/2019 Rash MORPHINE SULFATE 09/15/2016 Hives ONION 01/02/2021 Hives SALICYLAMIDE 11/02/2022 Other: See Comments STRAWBERRY 01/02/2021 Unknown VITAMIN D ANALOGUE 01/02/2021 Other: See Comments Fully Assessed 11/02/2022 PAST SURGICAL HISTORY No date: DELIVERY ONLY Comment: , low cervical/X2 2014: HYSTERECTOMY 07/09/2009: HYSTEROSCOPY, DIAGNOSTIC (SEPARATE Comment: Hysteroscopy, dANDc 10/26/2013: LAPS TOTAL HYSTERECT 250 GM/< W/RMVL TUBE/OVARY Comment: TLH, bilateral salpingectomy No date: LIG/TRNSXJ FLP TUBE ABDL/VAG APPR UNI/BI Comment: T (more content not included)... Normal [facility] CNCOon 02-21-2024 CNCO Letter Text Normal [facility] Basophil percentageOrdered B y: Joseph Tomlinson on 07-21-2023 Bilirubin [Mass/Vol] 1.20 mg/dL 0.20-1.00 [facility] Comment on above: For patients on eltr ombopag therapy, use of Dimension Dellroy TBIL is not recommended. Chloride [Moles/Vol] 105 mmol/L 98-107 [facility] Glucose [Mass/Vol] 107 mg/dL 74-106 [facility] Comment on above: Fasting Glucose resu lt from 100 to 125 mg/dL suggests IMPAIRED HOMEOSTASIS per A.D.A. criteria. Potassium [Moles/Vol] 4.0 mmol/L 3.5-5.1 [facility] Protein [Mass/Vol] 6.6 g/dL 6.4-8.2 [facility] Sodium [Moles/Vol] 137 mmol/L 136-145 [facility] - Chemistry and C hemistry - challengeOrdered By: Joseph Tomlinson on 07-21-2023 ALP [Catalytic activity/Vol] 67 U/L 45-117 [facility] ALT [Catalytic activity/Vol] 24 U/L 13-56 [facility] CO2 [Moles/Vol] 27.0 mmol/L 21.0-32.0 [facility] Globulin (S) [Mass/Vol] 3.1 g/dL 2.2-4.2 [facility] Urea nitrogen/Creatinine [Mass ratio] 12.7 mg/mg 10- [facility] No Panel InformationOrdered By: Joseph Tomlinson on 07-21-2023 Estimated GFR (MDRD) Amer 97 mL/min >60 [facility] Comment on above: GFR Calc Estimated GFR (MDRD) Non-Af Amer 80 mL/min >60 [facility] Comment on above: Non- GFR Calc Thyroid Stimulating Hormone (TSH) 0.63 uIU/mL 0.358-3.74 [facility] Vitamin D 25-Hydroxy 43.7 ng/mL [facility] Comment on above: Vitamin D 25(OH) Sta tus Range Deficiency <20 ng/mL (50nmol/L) Insufficiency 20 - 30 ng/mL (50 - 75 nmol/L) Sufficiency 30 - 100 ng/mL (75 - 250 nmol/L) Toxicity >100 ng/mL (>250 nmol/L) Serum or plasma albumin yris urement (mass/volume)Ordered By: Joseph Tomlinson on 07-21-2023 Albumin [Mass/Vol] 3.5 g/dL 3.2-5.0 [facility] Serum or plasma albumin/glob ulin mass ratioOrdered By: Joseph Tomlinson on 07-21-2023 Albumin/Globulin [Mass ratio] 1.1 {ratio} 0.9-2.4 [facility] Serum or plasma calcium yris urement (mass/volume)Ordered By: Joseph Tomlinson on 07-21-2023 Calcium [Mass/Vol] 9.0 mg/dL 8.5-10.1 [facility] Serum or plasma creatinine m easurement (mass/volume)Ordered By: Joseph Tomlinson on 07-21-2023 Creatinine [Mass/Vol] 0.79 mg/dL 0.55-1.02 [facility] Comment on above: The validity of the calculated GFR & GFRAA in patients over 70 years has not been determined. Clinical correlation is essential. Serum or plasma urea nitroge n measurement (mass/volume)Ordered By: Joseph Tomlinson on 07-21-2023 Urea nitrogen [Mass/Vol] 10 mg/dL - [facility] Thin prep Papanicolaou smear with manual screeningOrdered By: Josephkaruna Tomlinson on 07-21-2023 Thin prep Papanicolaou smear with manual screening 16 U/L 15-37 [facility] Thin prep Papanicolaou smear with manual screening 5 5-15 [facility] Absolute lymphocyte countOrd ered By: Ya He on 03-27-2023 Lymphocytes Auto (Unsp spec) [#/Vol] 1.29 10*3/uL 0.83-4.51 [facility] Basophil percentageOrdered B y: Ya He on 03-27-2023 Basophil percentage 0 SEEN /hpf 0-5 [facility] Basophils/100 WBC (Bld) 0.7 % 0-1 [facility] Bilirubin [Mass/Vol] 1.30 mg/dL 0.20-1.00 [facility] Comment on above: For patients on eltr ombopag therapy, use of Dimension [place]roy TBIL is not recommended. Chloride [Moles/Vol] 107 mmol/L 98-107 [facility] Eosinophils/100 WBC (Bld) 0.9 % 0-5 [facility] Glucose [Mass/Vol] 121 mg/dL 74-106 [facility] Comment on above: Fasting Glucose resu lt from 100 to 125 mg/dL suggests IMPAIRED HOMEOSTASIS per A.D.A. criteria. Neutrophils (Bld) [#/Vol] 3.9 10*3/uL 2.0-7.7 [facility] Neutrophils/100 WBC (Bld) 68.1 % 47-70 [facility] Potassium [Moles/Vol] 3.6 mmol/L 3.5-5.1 [facility] Protein [Mass/Vol] 6.9 g/dL 6.4-8.2 [facility] Sodium [Moles/Vol] 138 mmol/L 136-145 [facility] WBC (Bld) [#/Vol] 5.7 10*3/uL 4.4-11.0 [facility] Bilirubin Test strip Ql (U)O rdered By: Ya He on 03-27-2023 Bilirubin Ql (U) Negative Negative [facility] Blood erythrocytes count (nu mber/volume)Ordered By: Ya He on 03-27-2023 RBC (Bld) [#/Vol] 4.77 10*6/uL 4.2-5.4 [facility] Blood hemoglobin measurement (mass/volume)Ordered By: Ya He on 03-27-2023 Hemoglobin (Bld) [Mass/Vol] 14.8 g/dL 12.0-15.0 [facility] Blood lymphocytes/100 leukoc ytesOrdered By: Ya He on 03-27-2023 Lymphocytes/100 WBC (Bld) 22.8 % 19-41 [facility] Blood monocytes/100 leukocyt esOrdered By: Ya He on 03-27-2023 Monocytes/100 WBC (Bld) 7.3 % 0-10 [facility] Blood platelet mean volumeOr dered By: Ya He on 03-27-2023 Platelet mean volume (Bld) [Entitic vol] 10.1 fL 6.2-12.0 [facility] Determination of erythrocyte mean corpuscular volume (MCV)Ordered By: Ya He on 03-27-2023 MCV (RBC) [Entitic vol] 89.5 fL 81-99 [facility] Hematocrit Auto (Bld) [Volum e fraction]Ordered By: Ya He on 03-27-2023 Hematocrit (Bld) [Volume fraction] 42.7 % 37-47 [facility] Ketones Test strip Ql (U)Ord ered By: Ya He on 03-27-2023 Ketones Ql (U) Negative Negative [facility] Laboratory - Chemistry and C hemistry - challengeOrdered By: Ya He on 03-27-2023 ALP [Catalytic activity/Vol] 68 U/L 45-117 [facility] ALT [Catalytic activity/Vol] 31 U/L 13-56 [facility] CK [Catalytic activity/Vol] 108 U/L 26-192 [facility] CO2 [Moles/Vol] 26.0 mmol/L 21.0-32.0 [facility] Globulin (S) [Mass/Vol] 3.0 g/dL 2.2-4.2 [facility] Urea nitrogen/Creatinine [Mass ratio] 19.3 mg/mg 10-20 [facility] Laboratory - Hematology and Cell countsOrdered By: Ya He on 03-27-2023 Erythrocyte distribution width (RBC) [Entitic vol] 38.2 fL 35.1-43.9 [facility] Erythrocyte distribution width (RBC) [Ratio] 11.8 % 11.6-14.6 [facility] Immature granulocytes/100 WBC (Bld) 0.200 % 0.0-0.9 [facility] Comment on above: IG% - Immature Granu locytes (promyelocytes, myelocytes and metamyelocytes) > 1% indicates that a LEFT SHIFT is Present. MCH (RBC) [Entitic mass] 31.0 pg 27.0-32.0 [facility] Nucleated RBC/100 WBC (Bld) [Ratio] 0 % 0-5 [facility] MCHC Auto (RBC) [Mass/Vol]Or dered By: Ya He on 03-27-2023 MCHC (RBC) [Mass/Vol] 34.7 g/dL 32-36 [facility] Mucus LM Ql (Urine sed)Order ed By: Ya He on 03-27-2023 Mucus Ql (Urine sed) 0 SEEN /hpf [facility] Nitrite Test strip Ql (U)Ord ered By: Ya He on 03-27-2023 Nitrite Ql (U) Negative Negative [facility] No Panel InformationOrdered By: Ya He on 03-27-2023 Estimated Creatinine Clearance Calc 62.33 ml/min [facility] Estimated GFR (MDRD) Amer 75 mL/min >60 [facility] Comment on above: GFR Calc Estimated GFR (MDRD) Non-Af Amer 62 mL/min >60 [facility] Comment on above: Non- GFR Calc Platelets bldOrdered By: Kimmy He on 03-27-2023 Platelets (Bld) [#/Vol] 190 10*3/uL 150-450 [facility] Protein Test strip Ql (U)Ord ered By: Ya He on 03-27-2023 Protein Ql (U) Negative Negative [facility] Serum or plasma albumin yris urement (mass/volume)Ordered By: Ya He on 03-27-2023 Albumin [Mass/Vol] 3.9 g/dL 3.2-5.0 [facility] Serum or plasma albumin/glob ulin mass ratioOrdered By: Ya He on 03-27-2023 Albumin/Globulin [Mass ratio] 1.3 {ratio} 0.9-2.4 [facility] Serum or plasma calcium yris urement (mass/volume)Ordered By: Ya He on 03-27-2023 Calcium [Mass/Vol] 8.8 mg/dL 8.5-10.1 [facility] Serum or plasma creatinine m easurement (mass/volume)Ordered By: Ya He on 03-27-2023 Creatinine [Mass/Vol] 0.98 mg/dL 0.55-1.02 [facility] Comment on above: The validity of the calculated GFR & GFRAA in patients over 70 years has not been determined. Clinical correlation is essential. Serum or plasma urea nitroge n measurement (mass/volume)Ordered By: Ya He on 03-27-2023 Urea nitrogen [Mass/Vol] 19 mg/dL 7-18 [facility] Squamous epithelial cells de tection in urine sediment by light microscopyOrdered By: Ya He on 03-27-2023 Epithelial cells.squamous LM Ql (Urine sed) 0-5 SEEN /hpf 5-10 [facility] Thin prep Papanicolaou smear with manual screeningOrdered By: Ya He on 03-27-2023 Thin prep Papanicolaou smear with manual screening 21 U/L 15-37 [facility] Thin prep Papanicolaou smear with manual screening 5 5-15 [facility] Urine blood detectionOrdered By: Ya He on 03-27-2023 RBC Ql (U) Negative Negative [facility] RBC Ql (U) 0 SEEN /hpf 0-5 [facility] Urine clarityOrdered By: Kimmy He on 03-27-2023 Clarity (U) Clear Clear [facility] Urine color determinationOrd ered By: Ya He on 03-27-2023 Color (U) Yellow Yellow [facility] Urine glucose detectionOrder ed By: Ya He on 03-27-2023 Glucose Ql (U) Normal mg/dl Normal [facility] Urine leukocyte esterase det ection by dipstickOrdered By: Ya He on 03-27-2023 Leukocyte esterase Test strip Ql (U) Negative Negative [facility] Urine pHOrdered By: Ya benson on 03-27-2023 pH (U) 6.5 [pH] 5.0 - 8.0 [facility] Urine sediment bacteria coun t by microscopy (number/high power field)Ordered By: Ya He on 03-27-2023 Bacteria LM.HPF (Urine sed) [#/Area] 0 /[HPF] None Seen [facility] Urine specific gravity measu rementOrdered By: Ya He on 03-27-2023 Specific gravity (U) [Rel density] 1.010 1.002-1.03 0 [facility] Urobilinogen Auto test strip Ql (U)Ordered By: Ya He on 03-27-2023 Urobilinogen Ql (U) Normal mg/dl Normal [facility] Bilirubin Test strip Ql (U)O rdered By: Gilbert Monsalve on 03-23-2023 Bilirubin Ql (U) Negative Negative [facility] Culture, urineOrdered By: Pauly Monsalve on 03-23-2023 Bacteria identified Cx Nom (U) Culture exhibits no growth. [facility] Ketones Test strip Ql (U)Ord ered By: Gilbert Monsalve on 03-23-2023 Ketones Ql (U) Negative Negative [facility] Nitrite Test strip Ql (U)Ord ered By: Gilbert Monsalve on 03-23-2023 Nitrite Ql (U) Negative Negative [facility] Protein Test strip Ql (U)Ord ered By: Gilbert Monsalve on 03-23-2023 Protein Ql (U) Negative Negative [facility] Urine blood detectionOrdered By: Gilbert Monsalve on 03-23-2023 RBC Ql (U) Negative Negative [facility] Urine clarityOrdered By: Raven Monsalve on 03-23-2023 Clarity (U) Clear Clear [facility] Urine color determinationOrd ered By: Gilbert Monsalve on 03-23-2023 Color (U) Yellow Yellow [facility] Urine glucose detectionOrder ed By: Gilbert Monsalve on 03-23-2023 Glucose Ql (U) Normal mg/dl Normal [facility] Urine leukocyte esterase det ection by dipstickOrdered By: Gilbert oMnsalve on 03-23-2023 Leukocyte esterase Test strip Ql (U) Negative Negative [facility] Urine pHOrdered By: Gilbert candelario on 03-23-2023 pH (U) 8.0 [pH] 5.0 - 8.0 [facility] Urine specific gravity measu rementOrdered By: Gilbert Monsalve on 03-23-2023 Specific gravity (U) [Rel density] 1.010 1.002-1.03 0 [facility] Urobilinogen Auto test strip Ql (U)Ordered By: Gilbert Monsalve on 03-23-2023 Urobilinogen Ql (U) Normal mg/dl Normal [facility] Culture, urineOrdered By: Pauly Monsalve on 03-12-2023 Bacteria identified Cx Nom (U) Positive [facility] No Panel InformationOrdered By: Joseph Tomlinson on 02-15-2023 Thyroid Stimulating Hormone (TSH) 1.90 uIU/mL 0.358-3.74 [facility] JANEE SCREENING W TOMOon 10-26 [facility] Basophil percentageon 2021 Bilirubin [Mass/Vol] 1.20 mg/dL 0.20-1.00 [facility] Work Phone: Comment on above: For patients on eltr ombopag therapy, use of Dimension [place] TBIL is not recommended. Chloride [Moles/Vol] 108 mmol/L 98-107 [facility] Work Phone: Glucose [Mass/Vol] 95 mg/dL 74-106 [facility] Work Phone: Potassium [Moles/Vol] 4.2 mmol/L 3.5-5.1 [facility] Work Phone: Comment on above: Slight Hemolysis, Re sult may be falsely increased. Protein [Mass/Vol] 6.4 g/dL 6.4-8.2 [facility] Work Phone: Sodium [Moles/Vol] 140 mmol/L 136-145 [facility] Work Phone: Laboratory - Chemistry and C hemistry - challengeon 07-08-2022 ALP [Catalytic activity/Vol] 56 U/L 45-117 [facility] Work Phone: ALT [Catalytic activity/Vol] 24 U/L 13-56 [facility] Work Phone: CO2 [Moles/Vol] 25.0 mmol/L 21.0-32.0 [facility] Work Phone: Globulin (S) [Mass/Vol] 2.9 g/dL 2.2-4.2 [facility] Work Phone: Urea nitrogen/Creatinine [Mass ratio] 13.6 mg/mg 10-20 [facility] Work Phone: No Panel Informationon 07-08 Estimated GFR (MDRD) Amer 85 mL/min >60 [facility] Work Phone: Comment on above: GFR Calc Estimated GFR (MDRD) Non-Af Amer 71 mL/min >60 [facility] Work Phone: Comment on above: Non- GFR Calc Thyroid Stimulating Hormone (TSH) 2.00 uIU/mL 0.358-3.74 [facility] Work Phone: Vitamin D 25-Hydroxy 43.4 ng/mL [facility] Work Phone: Comment on above: Vitamin D 25(OH) Sta tus Range Deficiency <20 ng/mL (50nmol/L) Insufficiency 20 - 30 ng/mL (50 - 75 nmol/L) Sufficiency 30 - 100 ng/mL (75 - 250 nmol/L) Toxicity >100 ng/mL (>250 nmol/L) Serum or plasma albumin yris urement (mass/volume)on 07-08-2022 Albumin [Mass/Vol] 3.5 g/dL 3.2-5.0 [facility] Work Phone: Serum or plasma albumin/glob ulin mass ratioon 07-08-2022 Albumin/Globulin [Mass ratio] 1.2 {ratio} 0.9-2.4 [facility] Work Phone: Serum or plasma calcium yris urement (mass/volume)on 07-08-2022 Calcium [Mass/Vol] 8.6 mg/dL 8.5-10.1 [facility] Work Phone: Serum or plasma creatinine m easurement (mass/volume)on 07-08-2022 Creatinine [Mass/Vol] 0.88 mg/dL 0.55-1.02 [facility] Work Phone: Comment on above: The validity of the calculated GFR & GFRAA in patients over 70 years has not been determined. Clinical correlation is essential. Serum or plasma urea nitroge n measurement (mass/volume)on 07-08-2022 Urea nitrogen [Mass/Vol] 12 mg/dL 7-18 [facility] Work Phone: Thin prep Papanicolaou smear with manual screeningon 07-08-2022 Thin prep Papanicolaou smear with manual screening 19 U/L 15-37 [facility] Work Phone: Comment on above: Slight Hemolysis, Re sult may be falsely increased. Thin prep Papanicolaou smear with manual screening 7 5-15 [facility] Work Phone: Absolute lymphocyte counton 02-25-2022 Lymphocytes Auto (Unsp spec) [#/Vol] 1.08 10*3/uL 0.83-4.51 [facility] Work Phone: Basophil percentageon 2021 Basophils/100 WBC (Bld) 0.8 % 0-1 [facility] Work Phone: Bilirubin [Mass/Vol] 1.60 mg/dL 0.20-1.00 [facility] Work Phone: Comment on above: For patients on eltr ombopag therapy, use of Dimension [place] TBIL is not recommended. Chloride [Moles/Vol] 106 mmol/L 98-107 [facility] Work Phone: Eosinophils/100 WBC (Bld) 2.0 % 0-5 [facility] Work Phone: Glucose [Mass/Vol] 89 mg/dL 74-106 [facility] Work Phone: Neutrophils (Bld) [#/Vol] 2.2 10*3/uL 2.0-7.7 [facility] Work Phone: Neutrophils/100 WBC (Bld) 61.1 % 47-70 [facility] Work Phone: Potassium [Moles/Vol] 3.9 mmol/L 3.5-5.1 [facility] Work Phone: Protein [Mass/Vol] 6.5 g/dL 6.4-8.2 [facility] Work Phone: [phone] Sodium [Moles/Vol] 139 mmol/L 136-145 [facility] Work Phone: WBC (Bld) [#/Vol] 3.6 10*3/uL 4.4-11.0 [facility] Work Phone: Blood erythrocytes count (nu mber/volume)on 02-25-2022 RBC (Bld) [#/Vol] 4.55 10*6/uL 4.2-5.4 [facility] Work Phone: [phone] Blood hemoglobin measurement (mass/volume)on 02-25-2022 Hemoglobin (Bld) [Mass/Vol] 14.1 g/dL 12.0-15.0 [facility] Work Phone: [phone] Blood lymphocytes/100 leukoc yteson 02-25-2022 Lymphocytes/100 WBC (Bld) 30.2 % 19-41 [facility] Work Phone: Blood monocytes/100 leukocyt eson 02-25-2022 Monocytes/100 WBC (Bld) 5.6 % 0-10 [facility] Work Phone: Blood platelet mean volumeon 02-25-2022 Platelet mean volume (Bld) [Entitic vol] 10.6 fL 6.2-12.0 [facility] Work Phone: Determination of erythrocyte mean corpuscular volume (MCV)on 02-25-2022 MCV (RBC) [Entitic vol] 90.5 fL 81-99 [facility] Work Phone: Hematocrit Auto (Bld) [Volum e fraction]on 02-25-2022 Hematocrit (Bld) [Volume fraction] 41.2 % 37-47 [facility] Work Phone: Iron measurement (mass/mass) on 02-25-2022 Iron (Unsp spec) [Mass/Mass] 120 ug/dL 50-170 [facility] Work Phone: Laboratory - Chemistry and C hemistry - challengeon 02-25-2022 ALP [Catalytic activity/Vol] 54 U/L 45-117 [facility] Work Phone: ALT [Catalytic activity/Vol] 23 U/L 13-56 [facility] Work Phone: CO2 [Moles/Vol] 28.0 mmol/L 21.0-32.0 [facility] Work Phone: Globulin (S) [Mass/Vol] 2.8 g/dL 2.2-4.2 [facility] Work Phone: Urea nitrogen/Creatinine [Mass ratio] 9.2 mg/mg 10-20 [facility] Work Phone: Laboratory - Hematology and Cell countson 02-25-2022 Erythrocyte distribution width (RBC) [Entitic vol] 37.3 fL 35.1-43.9 [facility] Work Phone: [phone] Erythrocyte distribution width (RBC) [Ratio] 11.2 % 11.6-14.6 [facility] Work Phone: Immature granulocytes/100 WBC (Bld) 0.300 % 0.0-0.9 [facility] Work Phone: Comment on above: IG% - Immature Granu locytes (promyelocytes, myelocytes and metamyelocytes) > 1% indicates that a LEFT SHIFT is Present. MCH (RBC) [Entitic mass] 31.0 pg 27.0-32.0 [facility] Work Phone: Nucleated RBC/100 WBC (Bld) [Ratio] 0 % 0-5 [facility] Work Phone: MCHC Auto (RBC) [Mass/Vol]on 02-25-2022 MCHC (RBC) [Mass/Vol] 34.2 g/dL 32-36 [facility] Work Phone: No Panel Informationon 02-25 Estimated GFR (MDRD) Amer 87 mL/min >60 [facility] Work Phone: Comment on above: GFR Calc Estimated GFR (MDRD) Non-Af Amer 72 mL/min >60 [facility] Work Phone: Comment on above: Non- GFR Calc Miscellaneous Test See comment [facility] Work Phone: Comment on above: TEST RESULT UNITS RE F INTERVALVITAMIN B5 73.0 ng/mL 12.9-253.1 ___ TESTING PERFORMED AT [facility]. ORIGINAL REPORT ON FILE IN LAB CONTAINS ADDITIONAL TEST SITE INFORMATION. Vitamin B12 Level > 2000 pg/mL [phone] [facility] Work Phone: Vitamin D 25-Hydroxy 79.9 ng/mL [facility] Work Phone: Comment on above: Vitamin D 25(OH) Sta tus Range Deficiency <20 ng/mL (50nmol/L) Insufficiency 20 - 30 ng/mL (50 - 75 nmol/L) Sufficiency 30 - 100 ng/mL (75 - 250 nmol/L) Toxicity >100 ng/mL (>250 nmol/L) Platelets bldon 02-25-2022 Platelets (Bld) [#/Vol] 162 10*3/uL 150-450 [facility] Work Phone: Serum or plasma albumin yris urement (mass/volume)on 02-25-2022 Albumin [Mass/Vol] 3.7 g/dL 3.2-5.0 [facility] Work Phone: Serum or plasma albumin/glob ulin mass ratioon 02-25-2022 Albumin/Globulin [Mass ratio] 1.3 {ratio} 0.9-2.4 [facility] Work Phone: Serum or plasma calcium yris urement (mass/volume)on 02-25-2022 Calcium [Mass/Vol] 8.6 mg/dL 8.5-10.1 [facility] Work Phone: Serum or plasma creatinine m easurement (mass/volume)on 02-25-2022 Creatinine [Mass/Vol] 0.87 mg/dL 0.55-1.02 [facility] Work Phone: Comment on above: The validity of the calculated GFR & GFRAA in patients over 70 years has not been determined. Clinical correlation is essential. Serum or plasma ferritin dax surement (mass/volume)on 02-25-2022 Ferritin [Mass/Vol] 82 ng/mL 8-252 [facility] Work Phone: Serum or plasma folate measu rement (mass/volume)on 02-25-2022 Folate [Mass/Vol] 61.50 ng/mL 3.1-55.4 [facility] Work Phone: Serum or plasma urea nitroge n measurement (mass/volume)on 02-25-2022 Urea nitrogen [Mass/Vol] 8 mg/dL 7-18 [facility] Work Phone: Thin prep Papanicolaou smear with manual screeningon 02-25-2022 Thin prep Papanicolaou smear with manual screening 16 U/L 15-37 [facility] Work Phone: Thin prep Papanicolaou smear with manual screening 5 5-15 [facility] Work Phone: Basophil percentageon 2021 Bilirubin [Mass/Vol] 1.10 mg/dL 0.20-1.00 [facility] Work Phone: Comment on above: For patients on eltr ombopag therapy, use of Dimension [place] TBIL is not recommended. Protein [Mass/Vol] 6.8 g/dL 6.4-8.2 [facility] Work Phone: Direct bilirubinon 2 Bilirubin.direct [Mass/Vol] 0.20 mg/dL 0.00-0.30 [facility] Work Phone: Laboratory - Chemistry and C hemistry - challengeon 11-21-2021 ALP [Catalytic activity/Vol] 66 U/L 45-117 [facility] Work Phone: ALT [Catalytic activity/Vol] 22 U/L 13-56 [facility] Work Phone: Globulin (S) [Mass/Vol] 3.0 g/dL 2.2-4.2 [facility] Work Phone: Serum or plasma albumin yris urement (mass/volume)on 11-21-2021 Albumin [Mass/Vol] 3.8 g/dL 3.2-5.0 [facility] Work Phone: Thin prep Papanicolaou smear with manual screeningon 11-21-2021 Thin prep Papanicolaou smear with manual screening 16 U/L 15-37 [facility] Work Phone: Basophil percentageon 2021 Bilirubin [Mass/Vol] 2.00 mg/dL 0.20-1.00 [facility] Work Phone: Comment on above: For patients on eltr ombopag therapy, use of Dimension [place] TBIL is not recommended. Chloride [Moles/Vol] 104 mmol/L 98-107 [facility] Work Phone: Glucose [Mass/Vol] 113 mg/dL 74-106 [facility] Work Phone: Comment on above: Fasting Glucose resu lt from 100 to 125 mg/dL suggests IMPAIRED HOMEOSTASIS per A.D.A. criteria. Potassium [Moles/Vol] 3.8 mmol/L 3.5-5.1 [facility] Work Phone: Protein [Mass/Vol] 6.9 g/dL 6.4-8.2 [facility] Work Phone: Sodium [Moles/Vol] 138 mmol/L 136-145 [facility] Work Phone: Laboratory - Chemistry and C hemistry - challengeon 11-05-2021 ALP [Catalytic activity/Vol] 61 U/L 45-117 [facility] Work Phone: ALT [Catalytic activity/Vol] 24 U/L 13-56 [facility] Work Phone: CO2 [Moles/Vol] 26.0 mmol/L 21.0-32.0 [facility] Work Phone: Globulin (S) [Mass/Vol] 3.2 g/dL 2.2-4.2 [facility] Work Phone: Urea nitrogen/Creatinine [Mass ratio] 9.8 mg/mg 10-20 [facility] Work Phone: No Panel Informationon 11-05 Estimated GFR (MDRD) Amer 110 mL/min >60 [facility] Work Phone: Comment on above: GFR Calc Estimated GFR (MDRD) Non-Af Amer 91 mL/min >60 [facility] Work Phone: Comment on above: Non- GFR Calc RBC Folate Hemolysate 575.0 ng/mL Not Estab. Wo [facility] Work Phone: Red Blood Cell Folate 1420 ng/mL >498 [facility] Work Phone: Comment on above: Performed at: [address] [id number] Director: Keenan Sheridan PhD, Phone: [phone] Thyroid Stimulating Hormone (TSH) 0.88 uIU/mL 0.358-3.74 [facility] Work Phone: Vitamin B12 Level > 2000 pg/mL 211-911 [facility] Work Phone: Serum or plasma albumin yris urement (mass/volume)on 11-05-2021 Albumin [Mass/Vol] 3.7 g/dL 3.2-5.0 [facility] Work Phone: Serum or plasma albumin/glob ulin mass ratioon 11-05-2021 Albumin/Globulin [Mass ratio] 1.2 {ratio} 0.9-2.4 [facility] Work Phone: Serum or plasma calcium yris urement (mass/volume)on 11-05-2021 Calcium [Mass/Vol] 8.4 mg/dL 8.5-10.1 [facility] Work Phone: Serum or plasma creatinine m easurement (mass/volume)on 11-05-2021 Creatinine [Mass/Vol] 0.71 mg/dL 0.55-1.02 [facility] Work Phone: Comment on above: The validity of the calculated GFR & GFRAA in patients over 70 years has not been determined. Clinical correlation is essential. Serum or plasma ferritin dax surement (mass/volume)on 11-05-2021 Ferritin [Mass/Vol] 103 ng/mL 8- [facility] Work Phone: Serum or plasma folate measu rement (mass/volume)on 11-05-2021 Folate [Mass/Vol] 50.40 ng/mL 3.1-55.4 [facility] Work Phone: Serum or plasma urea nitroge n measurement (mass/volume)on 11-05-2021 Urea nitrogen [Mass/Vol] 7 mg/dL 7-18 [facility] Work Phone: Thin prep Papanicolaou smear with manual screeningon 04-27-2022 Thin prep Papanicolaou smear with manual screening 16 U/L 15-37 [facility] Work Phone: Thin prep Papanicolaou smear with manual screening 8 5-15 [facility] Work Phone: Thin prep Papanicolaou smear with manual screening 40.5 % 34.0-46.6 [facility] Work Phone: JANEE SCREENING W TOMOon 10-13 [facility] Basophil percentageon 2021 Chloride [Moles/Vol] 106 mmol/L 98-107 [facility] Work Phone: Glucose [Mass/Vol] 94 mg/dL 74-106 [facility] Work Phone: Potassium [Moles/Vol] 4.0 mmol/L 3.5-5.1 [facility] Work Phone: Sodium [Moles/Vol] 138 mmol/L 136-145 [facility] Work Phone: Laboratory - Chemistry and C hemistry - challengeon 09-17-2021 CO2 [Moles/Vol] 26.0 mmol/L 21.0-32.0 [facility] Work Phone: Urea nitrogen/Creatinine [Mass ratio] 10.2 mg/mg 10-20 [facility] Work Phone: No Panel Informationon 09-17 Estimated GFR (MDRD) Amer 99 mL/min >60 [facility] Work Phone: Comment on above: GFR Calc Estimated GFR (MDRD) Non-Af Amer 81 mL/min >60 [facility] Work Phone: Comment on above: Non- GFR Calc Homocysteine < 2.0 umol/L 3.2-10.7 [facility] Work Phone: Plasma Total Catecholamines Not Reportable [facility] Work Phone: Plasma epinephrine measureme nt (mass/volume)on 09-17-2021 EPINEPHrine (P) [Mass/Vol] Not Reportable [facility] Work Phone: [phone] Plasma norepinephrine measur ement (mass/volume)on 09-17-2021 Norepinephrine (P) [Mass/Vol] See comment [facility] Work Phone: Comment on above: TEST RESULT UNITS RE F INTERVALCatecholamines, PlasmaCatecholamine Frac,PNorepinephrine, Pl 186 pg/mL 0-874Epinephrine, Pl 28 pg/mL 0-62Dopamine, Pl <30 pg/mL 0-48 TESTING PERFORMED AT [facility]. ORIGINAL REPORT ON FILE IN LAB CONTAINS ADDITIONAL TEST SITE INFORMATION. Plasma renin measurement (en zymatic activity/volume)on 09-17-2021 Renin (P) [Catalytic activity/Vol] Not Reportable [facility] Work Phone: Serum or plasma calcium yris urement (mass/volume)on 09-17-2021 Calcium [Mass/Vol] 9.6 mg/dL 8.5-10.1 [facility] Work Phone: Serum or plasma creatinine m easurement (mass/volume)on 09-17-2021 Creatinine [Mass/Vol] 0.78 mg/dL 0.55-1.02 [facility] Work Phone: Comment on above: The validity of the calculated GFR & GFRAA in patients over 70 years has not been determined. Clinical correlation is essential. Serum or plasma dopamine dax surement (mass/volume)on 09-17-2021 DOPamine [Mass/Vol] Not Reportable [facility] Work Phone: Serum or plasma urea nitroge n measurement (mass/volume)on 09-17-2021 Urea nitrogen [Mass/Vol] 8 mg/dL 7-18 [facility] Work Phone: Thin prep Papanicolaou smear with manual screeningon 09-17-2021 Thin prep Papanicolaou smear with manual screening 6 5-15 [facility] Work Phone: Thin prep Papanicolaou smear with manual screening See comment [facility] Work Phone: Comment on above: TEST RESULT UNITS RE F INTERVALAldosterone/Renin RatioAldosterone 3.6 ng/dL 0.0-30.0Renin Activity, Plasma 0.418 ng/mL/hr 0.167-5.380Aldos/Renin Ratio 8.6 0.0-30.0 Units: ng/dL per ng/mL/hr 24 hour urine normetanephrin e measurement (mass/time)on 08-26-2021 Normetanephrine (24H U) [Mass/Time] 169 ug/24 hr [facility] Work Phone: No Panel Informationon 08-26 Urine Metanephrines 24 Hour 85 ug/24 hr [facility] Work Phone: Comment on above: Performed at: [employer] [place], [place] [id number] Director: Flavia Bishop MD, Phone: [phone] Urine Normetanephrine 36 ug/L Undefined [facility] Work Phone: Urine metanephrine measureme nt (mass/volume)on 08-26-2021 Metanephrine (U) [Mass/Vol] 18 ug/L Undefined [facility] Work Phone: 24 hour urine dopamine measu rement (mass/time)on 08-25-2021 DOPamine (24H U) [Mass/Time] 146 ug/24 hr 65-610 [facility] Work Phone: Comment on above: Performed at: [employer] [place], [place] [id number] Director: Flavia Bishop MD, Phone: [phone] ___ TESTING PERFORMED AT [facility]. ORIGINAL REPORT ON FILE IN LAB CONTAINS ADDITIONAL TEST SITE INFORMATION. 24 hour urine epinephrine me asurement (mass/time)on 08-25-2021 EPINEPHrine (24H U) [Mass/Time] < 3 ug/24 hr [facility] Work Phone: 24 hour urine vanillylmandel ate measurement (mass/time)on 08-25-2021 Vanillylmandelate (24H U) [Mass/Time] 3.3 mg/24 hr [facility] Work Phone: No Panel Informationon 08-25 Urine Norepinephrine 24 Hour 20 ug/24 hr [facility] Work Phone: Urine dopamine measurement ( mass/volume)on 08-25-2021 DOPamine (U) [Mass/Vol] 45 ug/L Undefined [facility] Work Phone: Urine epinephrine measuremen t (mass/volume)on 08-25-2021 EPINEPHrine (U) [Mass/Vol] < 1 ug/L Undefined [facility] Work Phone: Urine norepinephrine measure ment (mass/volume)on 08-25-2021 Norepinephrine (U) [Mass/Vol] 6 ug/L Undefined [facility] Work Phone: Urine vanillylmandelate yris urement (mass/volume)on 08-25-2021 Vanillylmandelate (U) [Mass/Vol] 1.0 mg/L Undefined [facility] Work Phone: Absolute lymphocyte counton 08-03-2021 Lymphocytes Auto (Unsp spec) [#/Vol] 1.25 10*3/uL 0.83-4.51 [facility] Work Phone: Basophil percentageon 2021 Basophils/100 WBC (Bld) 0.6 % 0-1 [facility] Work Phone: Eosinophils/100 WBC (Bld) 1.2 % 0-5 [facility] Work Phone: Neutrophils (Bld) [#/Vol] 3.3 10*3/uL 2.0-7.7 [facility] Work Phone: Neutrophils/100 WBC (Bld) 66.6 % 47-70 [facility] Work Phone: [phone] WBC (Bld) [#/Vol] 5.0 10*3/uL 4.4-11.0 [facility] Work Phone: Chloride [Moles/Vol] 109 mmol/L 98-107 [facility] Work Phone: Glucose [Mass/Vol] 105 mg/dL 74-106 [facility] Work Phone: Comment on above: Fasting Glucose resu lt from 100 to 125 mg/dL suggests IMPAIRED HOMEOSTASIS per A.D.A. criteria. Potassium [Moles/Vol] 3.8 mmol/L 3.5-5.1 [facility] Work Phone: Comment on above: Moderate Hemolysis, Result may be falsely increased. Sodium [Moles/Vol] 140 mmol/L 136-145 [facility] Work Phone: Blood erythrocytes count (nu mber/volume)on 08-03-2021 RBC (Bld) [#/Vol] 4.59 10*6/uL 4.2-5.4 [facility] Work Phone: Blood hemoglobin measurement (mass/volume)on 08-03-2021 Hemoglobin (Bld) [Mass/Vol] 13.7 g/dL 12.0-15.0 [facility] Work Phone: Blood lymphocytes/100 leukoc yteson 08-03-2021 Lymphocytes/100 WBC (Bld) 25.3 % 19-41 [facility] Work Phone: Blood monocytes/100 leukocyt eson 08-03-2021 Monocytes/100 WBC (Bld) 6.1 % 0-10 [facility] Work Phone: Blood platelet mean volumeon 08-03-2021 Platelet mean volume (Bld) [Entitic vol] 10.2 fL 6.2-12.0 [facility] Work Phone: Determination of erythrocyte mean corpuscular volume (MCV)on 08-03-2021 MCV (RBC) [Entitic vol] 88.5 fL 81-99 [facility] Work Phone: Hematocrit Auto (Bld) [Volum e fraction]on 08-03-2021 Hematocrit (Bld) [Volume fraction] 40.6 % 37-47 [facility] Work Phone: Laboratory - Chemistry and C hemistry - challengeon 08-03-2021 CO2 [Moles/Vol] 26.0 mmol/L 21.0-32.0 [facility] Work Phone: Urea nitrogen/Creatinine [Mass ratio] 15.0 mg/mg 10-20 [facility] Work Phone: Laboratory - Hematology and Cell countson 08-03-2021 Erythrocyte distribution width (RBC) [Entitic vol] 37.2 fL 35.1-43.9 [facility] Work Phone: Erythrocyte distribution width (RBC) [Ratio] 11.8 % 11.6-14.6 [facility] Work Phone: Immature granulocytes/100 WBC (Bld) 0.200 % 0.0-0.9 [facility] Work Phone: Comment on above: IG% - Immature Granu locytes (promyelocytes, myelocytes and metamyelocytes) > 1% indicates that a LEFT SHIFT is Present. MCH (RBC) [Entitic mass] 29.8 pg 27.0-32.0 [facility] Work Phone: Nucleated RBC/100 WBC (Bld) [Ratio] 0 % 0-5 [facility] Work Phone: MCHC Auto (RBC) [Mass/Vol]on 08-03-2021 MCHC (RBC) [Mass/Vol] 33.7 g/dL 32-36 [facility] Work Phone: No Panel Informationon 08-03 Estimated Creatinine Clearance Calc 93.34 ml/min [facility] Work Phone: Estimated GFR (MDRD) Amer 118 mL/min >60 [facility] Work Phone: Comment on above: GFR Calc Estimated GFR (MDRD) Non-Af Amer 98 mL/min >60 [facility] Work Phone: Comment on above: Non- GFR Calc Troponin I High Sensitivity 6 pg/mL 3.0-54.0 [facility] Work Phone: Comment on above: Please Note: New Isis t Units and Gender Specific Reference Ranges. For more information see Policy Stat Procedure [place] High Sensitivity Troponin (TNIH) and attachments. Platelets bldon 08-03-2021 Platelets (Bld) [#/Vol] 183 10*3/uL 150-450 [facility] Work Phone: Serum or plasma calcium yris urement (mass/volume)on 08-03-2021 Calcium [Mass/Vol] 9.0 mg/dL 8.5-10.1 [facility] Work Phone: Serum or plasma creatinine m easurement (mass/volume)on 08-03-2021 Creatinine [Mass/Vol] 0.67 mg/dL 0.55-1.02 [facility] Work Phone: Comment on above: The validity of the calculated GFR & GFRAA in patients over 70 years has not been determined. Clinical correlation is essential. Serum or plasma urea nitroge n measurement (mass/volume)on 08-03-2021 Urea nitrogen [Mass/Vol] 10 mg/dL 7-18 [facility] Work Phone: Thin prep Papanicolaou smear with manual screeningon 08-03-2021 Thin prep Papanicolaou smear with manual screening 5 5-15 [facility] Work Phone: Basophil percentageon 2021 Bilirubin [Mass/Vol] 0.80 mg/dL 0.20-1.00 [facility] Work Phone: Comment on above: For patients on eltr ombopag therapy, use of Dimension Dellroy TBIL is not recommended. Chloride [Moles/Vol] 107 mmol/L 98-107 [facility] Work Phone: Cholesterol [Mass/Vol] 195 mg/dL <200 [facility] Work Phone: Comment on above: <200 mg/dL Desirable 200-240 mg/dL Borderline >240 mg/dL High Risk Glucose [Mass/Vol] 92 mg/dL 74-106 [facility] Work Phone: Comment on above: Please note revised GLUCOSE reference range effective 2017. Potassium [Moles/Vol] 3.9 mmol/L 3.5-5.1 [facility] Work Phone: Protein [Mass/Vol] 6.5 g/dL 6.4-8.2 [facility] Work Phone: Sodium [Moles/Vol] 140 mmol/L 136-145 [facility] Work Phone: Triglyceride [Mass/Vol] 120 mg/dL [facility] Work Phone: Comment on above: The drugs N-Acetylcy steine and Metamizole may falsely depress this assay.Serum Triglycerides Reference Interval Normal <150 mg/dL Borderline high 150 - 199 mg/dL High 200 - 499 mg/dL Very High > or = 500 mg/dL Laboratory - Chemistry and C hemistry - challengeon 07-15-2021 ALP [Catalytic activity/Vol] 62 U/L 45-117 [facility] Work Phone: ALT [Catalytic activity/Vol] 22 U/L 13-56 [facility] Work Phone: CO2 [Moles/Vol] 26.0 mmol/L 21.0-32.0 [facility] Work Phone: Globulin (S) [Mass/Vol] 3.0 g/dL 2.2-4.2 [facility] Work Phone: Urea nitrogen/Creatinine [Mass ratio] 21.1 mg/mg 10-20 [facility] Work Phone: No Panel Informationon 07-15 Estimated GFR (MDRD) Amer 119 mL/min >60 [facility] Work Phone: Comment on above: GFR Calc Estimated GFR (MDRD) Non-Af Amer 99 mL/min >60 [facility] Work Phone: Comment on above: Non- GFR Calc Thyroid Stimulating Hormone (TSH) 0.46 uIU/mL 0.358-3.74 [facility] Work Phone: Vitamin D 25-Hydroxy 26.0 ng/mL [facility] Work Phone: Comment on above: Vitamin D 25(OH) Sta tus Range Deficiency <20 ng/mL (50nmol/L) Insufficiency 20 - 30 ng/mL (50 - 75 nmol/L) Sufficiency 30 - 100 ng/mL (75 - 250 nmol/L) Toxicity >100 ng/mL (>250 nmol/L) Serum or plasma albumin yris urement (mass/volume)on 07-15-2021 Albumin [Mass/Vol] 3.5 g/dL 3.2-5.0 [facility] Work Phone: Serum or plasma albumin/glob ulin mass ratioon 07-15-2021 Albumin/Globulin [Mass ratio] 1.2 {ratio} 0.9-2.4 [facility] Work Phone: Serum or plasma calcium yris urement (mass/volume)on 07-15-2021 Calcium [Mass/Vol] 8.5 mg/dL 8.5-10.1 [facility] Work Phone: Serum or plasma cholesterol in HDL measurement (mass/volume)on 07-15-2021 Cholesterol in HDL [Mass/Vol] 62 mg/dL [facility] Work Phone: Comment on above: The drugs N-Acetylcy steine and Metamizole may falsely depress this assay. Reference Range HDL <40 mg/dL Low HDL Cholesterol HDL >or= 60 mg/dL High HDL Cholesterol Serum or plasma cholesterol in VLDL measurement (mass/volume)on 07-15-2021 Cholesterol in VLDL [Mass/Vol] 24 mg/dL 5-40 [facility] Work Phone: Serum or plasma creatinine m easurement (mass/volume)on 07-15-2021 Creatinine [Mass/Vol] 0.66 mg/dL 0.55-1.02 [facility] Work Phone: Comment on above: The validity of the calculated GFR & GFRAA in patients over 70 years has not been determined. Clinical correlation is essential. Serum or plasma low density lipoprotein (LDL) cholesterol measurement (mass/volume)on 07-15-2021 Cholesterol in LDL [Mass/Vol] 109 mg/dL 0-130 [facility] Work Phone: Serum or plasma urea nitroge n measurement (mass/volume)on 07-15-2021 Urea nitrogen [Mass/Vol] 14 mg/dL 7-18 [facility] Work Phone: Thin prep Papanicolaou smear with manual screeningon 07-15-2021 Thin prep Papanicolaou smear with manual screening 13 U/L 15-37 [facility] Work Phone: Thin prep Papanicolaou smear with manual screening 7 5-15 [facility] Work Phone: Laboratory - Chemistry and C hemistry - challengeon 07-07-2021 Cobalamin (Vitamin B12) [Mass/Vol] 199 pg/mL 211-911 [facility] Work Phone: Serum or plasma zinc measure ment (mass/volume)on 07-07-2021 Zinc [Mass/Vol] 105 ug/dL [facility] Work Phone: Comment on above: Detection Limit = 5P erformed at: - [facility] [id number] Director: Flavia Bishop MD, Phone: [phone] Office Visit (Neuro-Movement )on 02-09-2018 Office Visit (Neuro-Movement) Chief Complaintreferred for tremor. 1. Pain that surges in an out (hip and feet)2. Sleepiness3. Ear pain History of Present IllnessSAMUEL WOO is here for an initial evaluation. [...] least. Both arms shake and she may notice it when bringing a cup to her [...] with headaches and light doesnt bother her eyes.When all of this started, her blood pressure [...] anxiety attack, and had high blood pressure and tingeling in hands and feet and had severe headache bitemporally. At that time she had some nausea and photophobia and stiff neck for about a year. The tremor started August of this year. She has been on an off antibiotics which causes her pain to go away temporarily. The tremor doesnt change. She saw Dr. Galvan in [place]. He had ordered an MRI of brain [...] asleep and no problems with daytime sleepiness. [place] Sleepiness Scale is 0. She reports no concern about memory and no hallucinations. Review of SystemsConstitutional: unexplained weight loss, but no fever. Eyes: [...] Nair; 12/31/2017 9:27:57 AM Current Meds Medication NameInstructionReasonSynthro id 88 MCG Oral TabletTake 1 tablet daily Physical ExamConstitutional: General appearance: no acute distress Peripheral Vascular [...] is no postural or kinetic tremor on [id number]) Muscle bulk was normal in both upper and [...] stable with a negative Romberg. Normal arm-swing. Results/DataMRI Report Details Patient Name: SAMUEL WOO Procedure Date: 07/03/2016 Date of : 1965 Age 51 Gender: F Facility: [facility] Referring Physician: Lupillo Galvan Procedure: BRAIN WWO NCCBRAIN WITH AND WITHOUT Procedure ID: [id number] Report Text MRI brain with and without contrastClinical statement: Headaches. TremorsComparison study: No prior examsFindingsAn empty sella noted. Midline structures are otherwise normal.No signal abnormality identified in the brain. No restricted diffusion identifiedNo extra-axial fluid collection visualized.Flow voids are patent.No enhancing lesion seen.Orbits appear grossly normal.The septum is deviated towards the left. Numerous retention cysts/polyps noted in the maxillary sinuses. Mild mucosal thickening noted in the sinuses. The septum is bowed towards the left.Impression:1. Partially empty sella2. No evidence of ischemia or demyelination3. No enhancing lesion4. Sinus inflammatory changesProfessional interpretation provided by [facility], [place] on [facility]-51.Thank you for this referral. Signed by: Justen Penaloza Date Signed: 07/03/2016 1:33 PM Diagnoses/Problems Occasional tremors (781.0) (R25.1) Provider ImpressionsSmary is a left-handed 52 year-old woman with with multiple complaints evolving from April 2016 now being seen for tremor. Her tremor is not evident on exam and I see no evidence of Parkinson's disease, essential tremor or dystonia. I gave her reassurance with regards to this. I think further pursuing evaluation of her chief complaints may be helpful at this point as has been initiated. General Billing Time: Medical decision making was highly complex due to multiple diagnoses and management options., Greater than 50% of the visit was spent counseling about diagnosis, prognosis, and treatment options. 80 minutes was spent [id number] in the visit. Signatures Electronically signed by : Villa Vilchis MD; Feb 09 2018 12:43PM EST (Author) Normal Touchworks ID - Initial/Consulton 12-31 ID - Initial/Consult Chief ComplaintRefe rred by PCP . History of Present IllnessPatient was seen for evaluation and management of [...] evaluated by another infectious disease doctor neurologist naval aircrewman tactical helicopter garnett room worker a Lyme specialist to determine ENT doctors an oral surgeon who specializes in facial pain and other providers. She has had extensive testing including an MRI of her brain a CAT scan of her face and sinuses examination of her throat by ENT extensive testing for endocrinopathies such as pheochromocytoma with 3 24-hour urines. She indicated that after this went on for several months she was diagnosed with infection in the right side of her mouth and underwent tooth extractions which made her feel better. She relapses and took a course of amoxicillin which she said she continued for 40 days and felt better but then developed a feeling of burning and inflammation was due to medication she has similar response to clindamycin and doxycycline. She indicated she now frequently feels bad when she takes a number medications and also sometimes when she eats. With the feeling of burning and inflammation. She tested negative for Lyme disease, she indicated she had increased inflammatory markers before the tooth extraction. She was worked up extensively by naval aircrewman tactical helicopter; she indicated the neurologist told her it was on her headCurrent symptoms are neck and throat pain malaise fatigue and headaches. 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 No unusual pets or animal exposures. Family history social history otherwise noncontributoryPatient has joint pain but no yuliana joint swelling no rash she developed some food intolerance but no nausea vomiting diarrhea no visual changes no hearing changes no hair loss she is postmenopausal times many years no cough no shortness of breath no chest pain no abdominal pain Active Problems Hypothyroidism (244.9) (E03.9) Family History Family history of hypothyroidism (V18.19) (Z83.49) Allergies metoprololRecorded By: Elham Nair; 12/31/2017 9:28:19 AM Morphine Sulfate (Concentrate) SOLNRecorded By: Elham Nair; 12/31/2017 9:27:57 AM Current Meds Gabapentin 300 MG Oral Capsule; as needed;Therapy: [id number] to RecordedDispense: 30 Days ; #:30 Capsule; Refill: 0; MAURISIO = N; Record; Last Updated By: Elham Nair; 12/31/2017 9:32:38 AM Synthroid 88 MCG Oral Tablet; Take 1 tablet daily;Therapy: (Recorded:31Dec2017) to RecordedDispense: 0 Days ; #: Sufficient Tablet; Refill: 0; MAURISIO = N; Record; Last Updated By: Elham Nair; 12/31/2017 9:33:12 AM Physical ExamPatient was at times tearful during the interview [...] (472.1) (J31.2) Frequent headaches (784.0) (R51) Provider ImpressionsThis is a very unusual symptom complex- as above the patient said she seen over 60 physicians including multiple specialists. I told the patient and her steamer operator she does not easily fit any diagnosis on the bases a pattern recognition I could not think of anything that was going on specifically. She somewhat focused on the issue of infection as she felt better when she had her teeth pulled and then felt better temporarily while taking amoxicillin but then developed some nonspecific intolerance of amoxicillin- she is a same intolerance with multiple medications including [id number] medications so I do not think this is an allergy of any type. On exam today there was nothing suggestive active infection. A chronic infection such as actinomycoses is a possibility and we discussed treatment options for this. We recommended treatedment with clarithromycin which has some antimicrobial properties, some anti-inflammatory properties and is something that she has not shown intolerance of in the past. I discussed the indications for this medication with her and told her we did not have a specific diagnosis but given her great difficulty over the last 20 months and her extreme frustration- she wanted to try something that I characterized as somewhat experimental- and she expressed a good understanding of the plan of care.In some ways her illness is characteristic of chronic fatigue syndrome- in that she was relatively high energy high functioning until she developed a relatively acute illness which she can pinpoint as to the day- and since that time has not felt well. But her symptoms of throat pain jaw pain etc. are typical for chronic fatigue. TimeTime Stamp_: Time Spent With Patient:1 70 minutes of which greater than 50 percent was spent counseling and or coordinating care.1 . 1 Amended By: Dominic Cesar; Dec 31 2017 2:13 PM EST End of Encounter MedsGabapentin 300 MG Oral Capsule; as needed;Therapy: [id number] to RecordedSynthroid 88 MCG Oral Tablet (Levothyroxine Sodium); Take 1 tablet daily;Therapy: (Recorded:31Dec2017) to Recorded Signatures Electronically signed by : Dominic Cesar MD; Dec 31 2017 2:14PM EST (Author) Normal Touchworks BMPon 09-27-2017 Anion gap 10 mmol/L Normal 5-16 [facility] Comment on above: Order Comment: Campu s: M Performed By: #### L 500.80475, L500.71234, L500.28708 ####[facility] [id number] [place], [place] [address]Aw# [phone] BUN/Creatinine Ratio 9 mg/mg Low 15-24 [facility] Comment on above: Order Comment: Campu s: M Performed By: #### L 500.75166, L500.84025, L500.96928 ####[facility] QPFTPSZHRY1208 [place], [place] [address]Jp# [phone] Calcium 9.6 mg/dL Normal 8.5-10.1 [facility] Comment on above: Order Comment: Campu s: M Performed By: #### L 500.15871, L500.25905, L500.87104 ####[facility] [id number] [place], [place] [address]Nx# [phone] Chloride 104 mmol/L Normal 98-107 [facility] Comment on above: Order Comment: Campu s: M Performed By: #### L 500.22256, L500.33588, L500.97524 ####[facility] [id number] [place], [place] [address]Zm# [phone] CO2 25 mmol/L Normal 21-32 [facility] Comment on above: Order Comment: Campu s: M Performed By: #### L 500.41386, L500.84067, L500.95987 ####[facility] KWVXZEURPI4348 [place], [place] [address]Nt# [phone] Creatinine 0.705 mg/dL Normal 0.510-0.95 0 [facility] Comment on above: Order Comment: Campu s: M Result Comment: Liz ents receiving either N-Acetylcysteine (NAC) orMetamizole prior to venipuncture, may have falsely depressedresults. Performed By: #### L 500.29253, L500.75489, L500.55317 ####[facility] IETKLTJXEX0582 [place], [place] [address]Vn# [phone] Glucose mass conc 96 mg/dL Normal 70-100 [facility] Comment on above: Order Comment: Campu s: M Result Comment: 70-1 00- Normal Fasting; 100-125 Impaired Fasting; greaterthan 126 on more than one result- Diabetes. ADA guidelines.Results may be falsely elevated after the administration ofSulfapyridine.Results may be falsely depressed after the administration ofSulfasalazine. Performed By: #### L 500.17957, L500.32749, L500.56425 ####[facility] [id number] [place], [place] [address]Bs# [phone] Potassium molar conc 3.6 mmol/L Normal 3.5-5.1 [facility] Comment on above: Order Comment: Campu s: M Performed By: #### L 500.84397, L500.60458, L500.98827 ####[facility] LFHZKZOOPL1410 [place], [place] [address]Df# [phone] Sodium 139 mmol/L Normal 136-145 [facility] Comment on above: Order Comment: Campu s: M Performed By: #### L 500.09724, L500.19810, L500.35402 ####[facility] LIQNXQUAHF7562 [place], [place] [address]Zp# [phone] Urea nitrogen 6 mg/dL Low 7-26 [facility] Comment on above: Order Comment: Campu s: M Performed By: #### L 500.44562, L500.92752, L500.88911 ####[facility] [id number] [place] [address]Rg# [phone] CBC W/DIFFon 09-27-2017 BASO ABS 0.00 K/CU MM Normal 0-0.2 [facility] Comment on above: Order Comment: Campu s: M Performed By: #### L 200.14706 ####[facility] [id number] [place], [place] [address]Ph# [phone] Basophils/100 WBC Auto (Bld) 0.6 % Normal 0-2 [facility] Comment on above: Order Comment: Campu s: M Performed By: #### L 200.37674 ####[facility] UTSBLPVJSC[address] [place], [place] [address]Ph# [phone] EOS ABS 0.00 K/CU MM Normal 0-0.5 [facility] Comment on above: Order Comment: Campu s: M Performed By: #### L 200.66177 ####[facility] [id number] [place] [address]Yt# [phone] Eosinophils/100 leukocytes 0.4 % Normal 0-5 [facility] Comment on above: Order Comment: Campu s: M Performed By: #### L 200.65564 ####[facility] YFKQKSOCIQ[address] [place] [address]Zu# [phone] Erythrocyte distribution width Auto Ratio (RBC) 11.6 % Normal 11-14.5 [facility] Comment on above: Order Comment: Campu s: M Performed By: #### L 200.50487 ####[facility] MKGPQIZUAS[address] [place] [address]Oj# [phone] Erythrocytes (RBC) 0.0 % Normal Less than 1 [facility] Comment on above: Order Comment: Campu s: M Performed By: #### L 200.34656 ####[facility] [id number] [place], [place] [address]Cq# [phone] Erythrocytes (RBC) 4.63 M/CU MM Normal 3.90-5.30 [facility] Comment on above: Order Comment: Campu s: M Performed By: #### L 200.23756 ####[facility] [id number] [place], [place] [address]Ph# [phone] Hematocrit (HCT) 40.4 % Normal 35.0-47.0 [facility] Comment on above: Order Comment: Campu s: M Performed By: #### L 200.55237 ####[address] [address]Dk# [phone] Hemoglobin mass conc (Bld) 14.0 g/dL Normal 11.5-15.5 [facility] Comment on above: Order Comment: Campu s: M Performed By: #### L 200.22890 ####[facility] [id number] [place], [place] [address]Ph# [phone] IMMATR GRAN ABS 0.00 K/CU MM Normal Less than 2 [facility] Comment on above: Order Comment: Campu s: M Performed By: #### L 200.39044 ####[facility] [id number] [place], [place] [address]Ph# [phone] IMMATURE GRAN % 0.4 % Normal Less than 2 [facility] Comment on above: Order Comment: Campu s: M Performed By: #### L 200.79695 ####[facility] [address]ZOLDTFOG[address] [place] [address]Sb# [phone] Lymphocytes 1.00 K/CU MM Normal 0.9-4.4 [facility] Comment on above: Order Comment: Campu s: M Performed By: #### L 200.84559 ####[facility] YGMAUPORSF[address] [place], [place] [address]Ph# [phone] Lymphocytes/100 leukocytes 19.3 % Low 20-40 [facility] Comment on above: Order Comment: Campu s: M Performed By: #### L 200.10927 ####[facility] IVKOIVOQPV5432 [place], [place] [address]Tw# [phone] MCHC mass conc (RBC) 34.7 g/dL Normal 32.0-36.0 [facility] Comment on above: Order Comment: Campu s: M Performed By: #### L 200.98693 ####[facility] [address]JVGZTZN[address] [place] [address]Hu# [phone] MCV 87.3 fL Normal 80.0-99.0 [facility] Comment on above: Order Comment: Campu s: M Performed By: #### L 200.61037 ####[address] [address]Yb# [phone] MONO ABS 0.30 K/CU MM Normal 0.1-1.1 [facility] Comment on above: Order Comment: Campu s: M Performed By: #### L 200.33412 ####[facility] [id number] [place], [place] [address]Ph# [phone] Monocytes/100 leukocytes 6.0 % Normal 2-10 [facility] Comment [facility] above: Order Comment: Campu s: M Performed By: #### L 200.32712 ####[facility] [address]VOCN[address] [place] [address]Wk# [phone] Neutrophils 3.90 K/CU MM Normal 2.0-8.3 [facility] Comment on above: Order Comment: Campu s: M Performed By: #### L 200.85189 ####[facility] DATCJQZXCZ5753 [place], [place] [address]Gt# [phone] Neutrophils/100 WBC Auto (Bld) 73.3 % Normal 45-75 [facility] Comment on above: Order Comment: Campu s: M Performed By: #### L 200.81811 ####[facility] RYJLWHXSPT6089 [place], [place] [address]Kj# [phone] Platelet mean volume (PMV) 10.3 fL Normal 9.4-12.4 [facility] Comment on above: Order Comment: Campu s: M Performed By: #### L 200.26557 ####[facility] [id number] [place], [place] [address]At# [phone] Platelets 183 K/CU MM Normal 150-450 [facility] Comment on above: Order Comment: Campu s: M Performed By: #### L 200.38591 ####[facility] [id number] [place], [place] [address]Qs# [phone] WBC (Leukocytes) 5.4 K/CU MM Normal 4.5-11.0 [facility] Comment on above: Order Comment: Campu s: M Performed By: #### L 200.39188 ####[facility] MZEQWBJWLV1232 [place], [place] [address]Lo# [phone] CT ABDOMEN W/O CONon 018 CT ABDOMEN W/O CON CT ABDOMEN W/O Janis suze Physician: Joseph Tomlinson, DO09/27/2017 6:47 AMCT ABDOMEN WITHOUT CONTRAST:Clinical Statement: Follow-up adrenal nodule.Comparison: CT abdomen with and without contrast 07/04/2016FINDINGS: There is redemonstration of a small left adrenal nodulemeasuring approximately 8 mm, stable to slightly decreased in sizewhen compared to prior exam 07/04/2016.Several small subcentimeter hypodensities are noted within the liver,grossly unchanged prior exam, given differences in technique. Theseare too small to characterize but most likely represent simple cystsand/or hemangiomas.The spleen, pancreas, bilateral kidneys and gallbladder areunremarkable.The abdominal aorta demonstrates atherosclerotic calcification withoutaneurysmal dilatation. No obvious lymphadenopathy. No free fluid orfree air within the abdomen.The loops of large and small bowel as well as the stomach are grosslyunremarkable.Visualiz ed bilateral lung bases are unremarkable.No acute osseous abnormality. Degenerative changes of the visualizedspine is noted.IMPRESSION:1. Redemonstration of small left adrenal nodule measuringapproximately 8 mm, stable to slightly decreased in size since priorexam 07/04/2016. It was compatible with a benign adenoma on prior CTabdomen 07/04/2016. ---- Electronic Signature on File ----Signed By: Shawn Weeks [email or web address]: 09/27/2017 11:21 AMSigned: 09/27/2017 11:27 AM Reported By: SHAWN WEEKS M.D. Signed By: SHAWN WEEKS M.D. [facility] ED DOCon 09-27-2017 ED DOC PHYSICIA N ASSESSMENT ==RECORDS: FlexChartDataEvent Time: 09/27/2017 20:40 CMCAStatus: [facility] [[id number]]Mid -Level Chart (V2b)52 / F / 02/18/SolaChart created at 09/27/2017 20:36 by Laly Suh closed at 09/27/2017 21:18Entry in Emergency Department at 09/27/2017 17:59,departure at 09/27/2017 21:10Patient Name: Samuel Woo Record Number: [id number]: 09/27/2017 20:36Entered Department at: 09/27/2017 17:59 Patient Seen at:09/27/2017 20:38 Historian: PatientPCP: Yadiel Hopper Complaint:NUMBNESS IN BOTH ARMSNursing triage/initial assessment reviewed and confirmedand Initial Vital Signs reviewed.Temperature: 97.5 F (36.4 C). Pulse: 86. Respiratory Rate:16. Blood-pressure:180/97. Oxygen Saturation: 100%.History of Present Illness:This is a 52-year-old female here for evaluation ofnumbness and tingling in both of her upperextremities which is been going on since approximately 4:30this afternoon. The patient reports that thenumbness and tingling is in both upper extremities andradiates up to her nose and to her mid abdomen.She reports that the feeling is constant but fluctuates inseverity. When it is more severe, she [facility] PATIENT NAME: SAMUEL WOO R[address] [facility] Dr. Rojas [facility] REC #: [id number], [place] [address] DEPARTMENT CHART EMERGENCY DEPARTMENT PHYSICIANdescribes some mild associated shortness of breath. Shealso reports a mild intermittent headache. Thepatient reports that she has had similar numbness andtingling in both her feet for over a year and ahalf. The patient also notes that she has had multipleteeth extracted over the past several months.During that time, she has been on multiple rounds ofantibiotics. She notes that while on amoxicillin,the numbness and tingling in her feet resolves. Shebelieves that her dental pain is related to thenumbness and tingling. She denies any chest pain, nausea,vomiting, diarrhea, abdominal pain, visualchanges, neck pain, back pain, or any other symptoms atthis time. She is a history of hypothyroidism andGERD but has no other chronic medical illnesses and isotherwise healthy.Review of Systems. Constitutional: negative for Chills orFever Eyes: negative for Eye Pain or Vis.Changes Ear/Nose/Throat: negative for Congestion or SoreThroat Cardio-Vascular: negative for Chest Pain,Palpitations or Syncope Skin: negative for RashRespiratory: negative for Cough, Dyspnea or HemoptysisGI: negative for Abd. Pain, Diarrhea, Nausea or VomitingGU: negative for Dysuria or FrequencyMusculo-Skeletal: negative for Back Pain, Myalgias or NeckPain Neurological: positive for Headache andNumbness All other systems reviewed and negative..Past History, Medications, Allergies, Social History andFamily History reviewed in nurses note.Medications: Reviewed RN Note.ATIVAN 1MG TABLET - PO,SYNTHROID 88MCG TABLET - PO,AUGMENTIN 850MG TABLET - POAllergies: Reviewed RN NoteMorphine(*N/A)Social History: Reviewed RN Note.Family History: Reviewed RN Note [facility] PATIENT NAME: SAMUEL WOO [id number] [facility] Dr. Rojas [facility] REC #: [id number], [place] [address] DEPARTMENT CHART EMERGENCY DEPARTMENT PHYSICIANPhysical Examination: General: Alert and Well Developed; Noacute distress. HEENT: Normal ENTinspection. Neck: No Lymphadenopathy, No Meningismus andSupple Respiratory: No Resp Distress, Chestnon-tender and Normal Breath Sounds Cardio-Vascular: Nomurmur and RRR Abdomen: Normal Bowel Sounds,Non-tender and Soft Back: No CVA tenderness and Non-tenderExtremity: No Calf Tenderness, No edema andNormal Equal pulses Neurological: Alert and orientedandamp;#215;3. Cranial nerves II through XII are intact.Strength and sensation are grossly intact in bilateralupper and lower extremities. Rapid alternatingmovements are intact. Radial and dorsalis pedis pulses are2+. Skin: No rash, No Petechiae, Warm and DryPsychological: Mood/Affect Normal and Normal Memory/JudgmentCardiogram: Interpreted by me. Read Time: 09/27/2017 21:05Rate: 62 bpm. Rate NormalRhythm SinusRhythmAxis NormalIntervals NormalQRS NormalST/T NormalComparison: Unchanged from 06/26/2016.Medical Decision MakingThijenniffer is a 52-year-old female here for evaluation ofbilateral upper extremity numbness and tingling whichhas been going on for the past several hours. Thedescription of her symptoms is quite unusual. The numband tingling sensation in both arms and radiates to thepatients nose into her mid abdomen. She reportsthat it constant but fluctuates in severity and when it ismore severe she has some difficulty breathing.She also notes intermittent headaches. She denies any chestpain, nausea, vomiting, diarrhea, abdominalpain, visual changes, urinary symptoms, or any othersymptoms. She has a history of numbness and tinglingin both of her feet which has been going on for 1.5 yearswhich is similar to her numbness and tinglingin her arms. The patients physical exam is completelyunremarkable. Heart is regular rate and rhythmwithout murmur. Lungs are clear to auscultationbilaterally. Abdomen soft and nontender. She is totallyneurologically intact. Cranial nerves II through XII areintact. She is alert and oriented andamp;#215;3. Rapidalternating movements are intact. Strength and sensationgrossly intact in bilateral upper and lowerextremities. The patient symptoms are also bilateral in [facility] PATIENT NAME: SMAUEL WOO R[address] [facility] Dr. Rojas MEDICAL REC #: [id number], [place] [address] DEPARTMENT CHART EMERGENCY DEPARTMENT PHYSICIANnature. For these reasons, I have very lowsuspicion for any acute intercranial process. I do notbelieve any imaging of the head is warranted atthis time. Acetone was suspicion for ACS is the patientssigns and symptoms neck while it well with thisdiagnosis. In addition EKG shows a normal sinus rhythm at62 bpm with normal intervals, axis, QRS, ST 2.Troponin is 0.00. CBC is unremarkable. There is noleukocytosis or anemia. BMP is also unremarkable.There is no electrolyte abnormality or kidney dysfunction.At this time, because of the patientsbilateral upper extremity paresthesias is unclear, althoughthere is no evidence of acute intracranial orcardiac process. She is advised to follow-up [facility] doctor for further evaluation of hersymptoms. She is injected to return to the emergencydepartment with any new or worsening symptoms sheverbalized understanding of this plan and is agreeable. Idid discuss the patients elevated bloodpressure with her. She reports a known history ofhypertension, however, states that she cannot take anyother medication because they react with her. She isinstructed to discuss this with her primary caredoctor.Additional Information: Discussed Results, Diagnosis andFollow-Up with Patient and Family.Clinical Impression:1. Bilateral upper extremity paresthesias, unclear etiologyDisposition: Discharged *Home. Condition: Good at 21:18Direct patient care supervision and electronicdocumentation review by Gonzalez Thao on 09/30/2017 23:30.: FlexChartDataEvent Time: 10/01/2017 00:07Status: [facility] [[id number]] [facility] PATIENT NAME: SAMUEL WOO R1320 Brenda Rojas MEDICAL REC #: [id number], [place] [address] DEPARTMENT CHART EMERGENCY DEPARTMENT PHYSICIANAttending Inairysvg15 / F / 1965Addendum (V2b)Chart created at 09/30/2017 23:27 by Gonzalez Villagran closed at 09/30/2017 23:27Entry in Emergency Department at 09/27/2017 17:59,departure at 09/27/2017 21:10Patient Name: Samuel Woo Record Number: [id number]: 09/30/2017 23:27Entered Department at: 09/27/2017 17:59 Patient Seen at:09/27/2017 20:38 PCP:Yadiel Hopper Complaint:NUMBNESS IN BOTH ARMSDisposition: Discharged *Home. Condition: StableMSE completed.I was the primary ED attending..I confirm that I have reviewed the mid-level providersdocumentation and agree with the evaluation, planof care and disposition.. at23:27 : Discharge ReportEvent Time: 09/27/2017 20:40===DISCHARGE REPORT===: FlexChartDataEvent Time: 09/27/2017 20:40 CMCA: FlexChartDataEvent Time: 10/01/2017 00:07: Discharge ReportEvent Time: 09/27/2017 20:40Status: DraftReasons to Return to the ER:You must return to the ER for any new, worsening orchanging symptoms, or if you feel more ill or sick in [facility] PATIENT NAME: SAMUEL WOO [facility] Dr. Rojas [facility] REC #: [id number], [place] [address] DE[address] EMER[address]Y DEPART[address]any way. This is the most important thing to remember.Follow-up:The care you received in the ER was given on an emergencybasis only, and it is often not possible tocompletely treat or diagnose a problem in a single ERvisit. You must see your follow-up doctor for arecheck within a week unless you receive instructions witha different timeframe for follow-up. Pleasefollow all your discharge instructions.Medications:Unl ess the ER doctor tells you differently, you should takeall your regular medications and any newmedications prescribed today. Because it is not possiblefor the ER doctor to review all of yourmedication side effects or interactions, you must reviewpossible side effects and interactions with yourpharmacist when you get your prescriptions filled.EKG and Radiology Results:A manager transportation or radiologist will review any EKG orradiology results provided by the ER doctor. We willcontact you if the results in the final EKG or radiologyreports require a change in treatment.Culture Results:Cultures may have been ordered during your ER visit. Wewill contact you if the culture results require achange in treatment.Referrals:Most referrals to specialists come from the on-call listYou should make your regular doctor aware of anyreferrals before you schedule the appointment so that theyare aware and can make suggestionsDIAGNOSIS:Bishop jhaveri upper extremity paresthesias, unclear etiology [facility] PATIENT NAME: SAMUEL WOO [facility] Dr. Rojas [facility] REC #: [id number], [place] [address] DEPARTMENT CHART EMERGENCY DEPARTMENT PHYSICIANINSTRUCTIONS:Contin ue all current medications as prescribed. Follow upwith Dr. Hopper for further evaluation of yoursymptoms. Return to the emergency department with any newor worsening symptoms.REFERRALEmily Hopper MD (Pediatrics), , fax: Please call the above number to schedule a follow-upappointment.2-3 daysMEDICATIONSWe have given you these prescriptions that you must filland start taking:NoneMy signature below indicates that I have received andunderstand the oral instructions regarding mymedical problem. I also acknowledge receipt of this writteninstruction sheet including a list of majortests and procedures ordered during my visit. I willarrange for follow-up care as indicated by theseinstructions and referrals.This signed original will be kept in my medical record.Your signature below indicates consent for Case Managementto contact [facility] providers in [place] [facility] to meet your ongoing healthcare needs. This willallow forcontinuity of care once you leave theEmergency Department. This exchange of informationwillinclude, but not be limited to, disclosure of yourpatient information and possible release ofrecords. ==DEMOGRAPHICS ======Emergisoft Patient: SAMUEL WOOSex: F [facility] PATIENT NAME: [facility] WOO R1320 [facility] MED[facility] REC #: [id number], [place] [address] DEPARTMENT CHART EMERGENCY DEPARTMENT PHYSICIANDOB: 1965Age: 52 yrAccount No: [id number]: [id number] Date: 17:59 09/27/2017Address: [facility] [address]Address: [place] [address] IYY ISTRATION =ED Number: [id number]: Marital Status: MFinancial Class: PPO TRIAG E Priorit y: 3 - UrgentComplaint: NumbnessStated Complaint: NUMBNESS IN BOTH ARMSArrival Date: 09/27/2017 17:59Triage Date: 09/27/2017 18:00Mode of Arrival: AmbulanceTransfer From: * HomeWC: NLanguage: EnglishTransport: Other$$$cccccccccccccccccccc ccccccccc$$$ ====BED C 36 In: 09/27/2017 18:07:57 09/27/201718:07:57 RSSC36 (Removed From) Out: 09/27/2017 21:10:17009/27/2017 21:10:17 RSS PROVI DERS [facility] Medical Service Provider Contact:09/27/2017 18:00:36 EMSEnd: [facility] PATIENT NAME: SAMUEL WOO R[address] [facility] Dr. Rojas MEDICAL REC #: [id number], [place] [address] DEPARTMENT CHART EMERGENCY DEPARTMENT PHYSICIANRN KEN MEADE Provider Contact: 09/27/201718:08:27 RSSEnd:TRACI JEAN Provider Contact: 09/27/201718:12:24 CMCAEnd:MD Gonzalez Thao Provider Contact: 09/27/2017 20:38:07LRSEnd: =======TRIAGE HISTORY A LLERGIESAllergic To: Morphine - *N/A 09/27/2017 18:09 RSSCURRENT MEDSName: ATIVAN 1MG TABLET - PO 09/27/2017 18:11 RSSFreq: PRNName: SYNTHROID 88MCG TABLET - PO 09/27/2017 18:11 RSSName: AUGMENTIN 850MG TABLET - PO 09/27/2017 18:11 RSSILLNESSIllness: GERD 09/27/2017 18:09 RSSIllness: *Family History of heart diseae 09/27/201718:09 RSSIllness: Hypothyroid 09/27/2017 18:09 RSSIllness: Gluten Sensitivity 09/27/2017 18:09 RSSPAST SURGERY HISTSurgery: x 2 09/27/2017 18:09 RSSSurgery: Tonsillectomy 09/27/2017 18:09 RSSSurgery: ganglion cyst removal from wrist 09/27/201718:[address] [facility] PATIENT NAME: SAMUEL WOO [facility] Dr. Rojas [facility] REC #: [id number], [place] [address] DEPARTMENT CHART EMERGENCY DEPARTMENT PHYSICIANSurgery: Hysterectomy-PARTIAL 09/27/2017 18:09 RSSPAST SOCIAL HISTSocial History: Communicates without /19/2018 18:09 RSSSocial History: Lives with family or significant other09/27/2017 18:09 RSSSocial History: Smoker-None 09/27/2017 18:09 RSSSocial History: Recreational Drugs - None 09/27/201718:09 RSSSocial History: Have you traveled in the past month?Where DENIES 09/27/2017 18:09 RSS NURSI NG ASSESSMENT ASSESS MENT NOTES 18:10 pt brought in by ems for c/o numbnessand tingling in both of her upper extremities which hasbeen going on since 4:30 this afternoon. The patientreports that the numbness and tingling is in both upperextremities and radiates up to her nose and to her midabdomen. pt is aandamp;ox 3, skin warm and dry to touch.resp.are easy and nonlabored. moves all extremities withpurpose. msps intact. no neurologic deficits noted.09/28/2017 00:28 RSS TREAT MENT 09/09 18:08 Staff/ Patient Interaction - Calllight placed within reach. 09/27/2017 18:08 09/27/2017 18:08 Staff/ Patient Interaction -Introduced self and assessed patients needs. 09/27/201718:08 09/27/2017 18:08 Hourly Rounding - Rounding 09/27/[address] [facility] PATIENT NAME: SAMUEL WOO0 [facility] Dr. Rojas [facility] REC #: [id number], [place] [address] DEPARTMENT CHART EMERGENCY DEPARTMENT KRVZRGCHW23:08 RSSElimination/Toileting NPain 0Position Comfortable YSafe Environment YFall Risk Change N009/27/2017 18:08 Patient Interaction - Allergy Band onPt. 09/27/2017 18:08 RSS09/27/2017 18:08 Patient Interaction - Failure Analysis Engineer/Pulse ox/ BP cuff applied 09/27/2017 18:08 RSS09/27/2017 18:18 Neuro Assessment Non Stroke - NeuroAssessment 09/27/2017 18:18 RSSRight Pupil Reaction BriskLeft Pupil Reaction BriskFollows Commands Appropriately 0 performs 2 taskscorrectlyGlasgow Coma Scale /15 15Level of Orientation /4 4Pupil Right mm 3Pupil Left mm 3Motor Sensory Intact Times /4 19:08 Hourly Rounding - Rounding 09/27/201719:42 RSSPosition Comfortable YSafe Environment YAssessment Note poc qtnucoe5809/27/2017 19:15 POC testing results and criticalvalues - POC Troponin 0.00 on ED triag rnzsysmeiw59/19/2018 19:15 CNH09/27/2017 19:30 Genitourinary - Patient assisted toBR. 09/27/2017 19:31 RSSNotes: GAIT WAS TYTUZA5609/27/2017 20:09 Hourly Rounding - Rounding 09/27/201720:28 RSSPosition Comfortable YSafe Environment YAssessment Note POC COIKTCB0509/27/2017 21:07 Discharge - Ambulated with steady gait [facility] PATIENT NAME: SAMUEL WOO [id number] [facility] Dr[facility] Rojas [facility] REC #: [id number], [place] [address] DEPARTMENT CHART EMERGENCY DEPARTMENT PHYSICIANhome 09/27/2017 21:07 RSSNotes: REFUSED WC09/27/2017 21:07 Discharge - Instructions reviewed withpt and verbalizes understanding 09/27/2017 21:07 RSS MEDIC ATIONS IV======== IV Fluid: B 09/27/2017 18:58 09/27/2017 18:59RSSLine #: 1 Fluid: Saline LockRate: ml/hr Location: antecubital fossa rightNdl Gauge: 20 # Attempts: 1Notes: LABS SENT, GOOD BLOOD RETURN, FLUHES EASYIV Fluid: E 09/27/2017 21:06 09/27/2017 21:06RSSLine #: 1 Rate: ml/hr Location: antecubitalfossa rightNdl Gauge: 20 # Attempts: 1Notes: CATH INTACT, DRESSING APPLIED I AND O VITALS========= VS-ROUTINE Time: 09/27/2017 18:00B/P: 180/97 - Right Upper Arm - Sitting - MachinePulse: 86 - Failure Analysis Engineer Resp: 16Sa02: 100 Room Air Temp: 97.50 F - Oral09/27/2017 18:08 RSSVS-Pain Time: 09/27/2017 18:00 Pain Level: 18:08 RSSVS-GCS Time: 09/27/2017 18:00 Visual: 4 Verbal: 5 Motor:6 GCS Total: 15 09/27/2017 18:08 RSSVS-HT/WT Time: 09/27/2017 18:00 Weight: 184 lbs Bfvuhg1309/27/2017 18:08 RSSVS-Visual Time: 09/27/2017 18:00 09/27/2017 18:08 RSSVS-FHT Time: 09/27/2017 18:00 09/27/2017 18:[address] [facility]: [id number], [place] [address] DEPARTMENT CHART EMERGENCY DEPARTMENT PHYSICIANRSSVS-Notes Time: 09/27/2017 18:00 MAP 128 09/27/201718:08 RSSVS-ROUTINE Time: 09/27/2017 19:31B/P: 180/92 - Left Upper Arm - Sitting - MachinePulse: 78 - Failure Analysis Engineer Resp: 18Sa02: 100 Room Air 09/27/2017 19:31 RSSVS-Pain Time: 09/27/2017 19:31 Pain Level: 19:31 RSSVS-GCS Time: 09/27/2017 19:31 Visual: 4 Verbal: 5 Motor:6 GCS Total: 15 09/27/2017 19:31 RSSVS-HT/WT Time: 09/27/2017 19:31 09/27/2017 19:31 RSSVS-Visual Time: 09/27/2017 19:31 09/27/2017 19:31 RSSVS-FHT Time: 09/27/2017 19:31 09/27/2017 19:31RSSVS-Notes Time: 09/27/2017 19:31 MAP 126 09/27/201719:31 RSSVS-ROUTINE Time: 09/27/2017 19:44 09/27/2017 19:44RSSVS-Pain Time: 09/27/2017 19:44 09/27/2017 19:44RSSVS-GCS Time: 09/27/2017 19:44 09/27/2017 19:44 RSSVS-HT/WT Time: 09/27/2017 19:44 Ht: 67 in. Xnybnd6509/27/2017 19:44 RSSVS-Visual Time: 09/27/2017 19:44 09/27/2017 19:44 RSSVS-FHT Time: 09/27/2017 19:44 09/27/2017 19:44RSSVS-Notes Time: 09/27/2017 19:44 09/27/2017 19:44 RSS ORDER S Dischar ge patient 09/27/2017 21:02N/AOrdered: 09/27/2017 20:40 By . OtherReviewed: 09/27/2017 21:02 By . OtherEXTERN ORDER: GFRP 09/27/2017 19:21NoneOrdered: 09/27/2017 19:21 Completed Time:09/27/2017 19:21 Results Time: 09/27/2017 19:21EXTERN ORDER: POCTROP 09/27/2017 19:17None [facility] PATIENT NAME: SAMUEL WOO [id number] [facility] Dr. Rojas [facility] REC #: [id number], [place] [address] DEPARTMENT CHART EMERGENCY DEPARTMENT PHYSICIANOrdered: 09/27/2017 19:17 Completed Time:09/27/2017 19:17 Results Time: 09/27/2017 19:17CBC with diff 09/27/2017 19:17N/AOrdered: 09/27/2017 18:33 By LALY JEANCompleted Time: 09/27/2017 19:17 By LALY Oswald Time: 09/27/2017 18:58 RSSResults Time: 09/27/2017 19:17BMP 09/27/2017 19:21N/AOrdered: 09/27/2017 18:33 By LALY JEANCompleted Time: 09/27/2017 19:21 By LALY JEANNoted Time: 09/27/2017 18:58 RSSResults Time: 09/27/2017 19:21POC troponin 09/27/2017 18:58N/AOrdered: 09/27/2017 18:33 By LALY JEANNoted Time: 09/27/2017 18:58 RSSEKG and most recent EKG 09/27/2017 19:17N/AOrdered: 09/27/2017 18:33 By LALY JEANCompleted Time: 09/27/2017 19:16 By LALY Oswald Time: 09/27/2017 19:13 VLCIV hep lock 09/27/2017 18:58N/AOrdered: 09/27/2017 18:33 By LALY JEANCompleted Time: 09/27/2017 18:58 By LALY Petited Time: 09/27/2017 18:47 RSS DISCH ARGE Diag nosis: Bilateral upper extremity paresthesias,unclear etiology 09/27/2017 20:40Disposition: Time: 09/27/2017 20:40By: Gonzalez Ardon Time: 09/27/2017 21:10Type: DischargeCondition: Stable for admission/discharge/transfer after emergency evaluation/treatment Category: *NOTAPPLICABLE [facility] PATIENT NAME: SAMUEL WOO [id number] [facility] Dr. Rojas MEDICAL REC #: [id number], [place] [address] DEPARTMENT CHART EMERGENCY DEPARTMENT PHYSICIANConcurred: 09/27/2017 21:02 Referral:09/27/2017 20:40 PRE SCRIPTIONS CHARGE S SIGNATURE====== Gonzalez MEADE RN RSSLUCIE VICTORIA RN CNHVHENRIK HALL [facility] PAT[facility]: [facility] MEDICAL REC #: [id number] [address] DEPARTMENT CHART EMERGENCY DEPARTMENT PHYSICIAN Normal [facility] ED Documentation This is a preliminar y report only, as the practitioner review and authentication has not occurred. Normal [facility] EKGon 09-27-2017 EKG Procedure Date and T kathia: 09/27/171911Test Reason : STATBlood Pressure : / mmHGVent. Rate : 062 BPM Atrial Rate : 062 BPMP-R Int : 166 ms QRS Dur : 088 msQT Int : 416 ms P-R-T Axes : 055 059 054 degreesQTc Int : 422 ms Poor data quality, interpretation may be adversely affectedNormal sinus rhythm with sinus arrhythmiaNormal ECGWhen compared with ECG of 26-JUN-2016 20:59,No significant change was foundConfirmed by MINH REINOSO A. ([id number]) on 09/28/2017 7:28:40 PMReferred By: Laly Jean Confirmed By:Emanuel REINOSO M.D.FACC JoanDDandT: 09/27/171911TDandT:[facility] PATIENT NAME: SAMUEL WOO Brenda Rojas MEDICAL REC #: [id number], [place] [address] DATE:DISCHARGE DATE: 09/27/17ATTENDING PHY: Gonzalez Thao MDELECTROCARDIOGRAM REPORTCLBcc:[facility] PATIENT [facility]: [facility] MEDICAL REC #: [id number], [place] [address] DATE:DISCHARGE DATE: 09/27/17ATTENDING PHY: Gonzalez Thao MDELECTROCARDIOGRAM REPORT Normal [facility] ELECTROCARDIOGRAM REPORT [facility]2017 IF AMER Greater than 60 Normal [facility] Comment on above: Order Comment: Campu s: M Performed By: #### L 500.85070, L500.33092, L500.18785 ####[facility] [id number] [place], [place] [address]Mf# [phone] IF non-AFR AMER Greater than 60 Normal [facility] Comment on above: Order Comment: Campu s: M Performed By: #### L 500.75659, L500.46165, L500.88863 ####[facility] [id number] [place], [place] [address]Hl# [phone] TROPONIN I POCon 09-27-2017 Troponin I.cardiac mass conc 0.00 ng/mL Normal 0.0-0.06 [facility] Comment on above: Result Comment: 0.0 - 0.06 NG/ML - NON-DIAGNOSTIC (REFERENCE RANGE)0.07 - 0.59 NG/ML - INDETERMINATEGreater than or equal to 0.6 NG/ML - INDICATIVE OFMYOCARDIAL DAMAGE CT SINUSES/FACIAL BONES W/O COon 08-27-2017 CT SINUSES/FACIAL BONES W/O CO CT SINUSES/FACIAL BONES W/O COOrdering Physician: Joe Hopper MD08/27/2017 8:00 AMCT SINUSES/FACIAL BONES WITHOUT CONTRAST, WITH CORONALRECONSTRUCTIONS:Clini she Statement: Sinus drainage for over six weeks, headache,lightheadednessComp arison: CT head 04/25/2016TECHNIQUE: Continuous transaxial 2.5 mm images were obtained throughthe paranasal sinuses without the administration of contrast. Postprocessing coronal reconstruction was performed.FINDINGS:There is mild to moderate mucosal thickening of the bilateralmaxillary sinuses. There has been prior tooth extraction in the leftmaxilla. No obvious fistula is shown. Otherwise, there is adequatepneumatization of the bilateral frontal, ethmoid, and sphenoidsinuses. The visualized mastoid air cells are clear bilaterally. Themaxillary sinus ostia and infundibula are patent. No air-fluid levelsare seen. There is no evidence of sinus expansion or bony destruction.The nasal septum is midline. The orbits and periorbital soft tissuesare unremarkable.The temporomandibular joints are intact. No soft tissue swelling isnoted.The visualized oral, pharyngeal, and nasal structures areunremarkable. Intracranial contents are within normal limits.IMPRESSION:Mild to moderate mucosal thickening of the bilateral maxillarysinuses. The ostiomeatal units are patent bilaterally. Dictated by Smoke Tester: Moi Patel and Signed by: Thea Trujillo MD---- Electronic Signature on File ----Signed By: Thea Trujillo [email or web address]: 08/27/2017 8:24 AMSigned: 08/27/2017 9:05 AM Reported By: THEA TRUJILLO M.D. Signed By: THEA TRUJILLO M.D. [facility] EBV EA,EBV NA, EB VCA (IgG, IgM) [QUEST]on 05-17-2017 EBV EA,EBV NA, EB VCA (IgG, IgM) [QUEST] Normal [facility] Comment on above: Result Comment: _EBV EA,EBV NA,EB VCA(IGG,M)_EPSTEIN-BACON VCA PANELReported: 05/16/2017 23:17 Status=F TEST RESULT FLAG RANGE UNITS EBV VCA AB (IGG) 510.00 H <18.00 U/mL 05/16/17.rfl.COMPLETE.AMRR .5157-3 U/mL Interpretation <18.00 Ievadbjm59.00 - 21.99 Equivocal >21.99 PositiveEBV VCA AB (IGM) <36.00 <36.00 U/mL 05/16/17.2328.rfl.COMPLETE.AMRR .5159-9 U/mL Interpretation <36.00 Bhditjgz23.00 - 43.99 Equivocal >43.99 PositiveTest Performed by [facility],[address] [place] [address]Nlkjcbuamna Bahena M.D., Ph.D., Director of [phone], [facility] [id number] Performed By: #### 2 36464 ####[facility],[address] [place] [address] DAVIN BACON VIRUS AB PANELo n 05-17-2017 DAVIN BACON VIRUS AB PANEL Normal [facility] Comment on above: Result Comment: _EBV ANTIBODY PANEL_EPSTEIN-BACON VIRUS ANTIBODY PANELReported: 05/16/2017 23:17 Status=F TEST RESULT FLAG RANGE UNITS EBV VCA AB (IGM) <36.00 <36.00 U/mL 05/16/17.rfl.COMPLETE.AMRR .5159-9 U/mL Interpretation <36.00 Gpkdazfa11.00 - 43.99 Equivocal >43.99 PositiveEBV VCA AB (IGG) 510.00 H <18.00 U/mL 05/16/17.rfl.COMPLETE.AMRR .5157-3 U/mL Interpretation <18.00 Eqfytnis55.00 - 21.99 Equivocal >21.99 PositiveEBV EBNA AB (IGG) 305.00 H <18.00 U/mL 05/16/17.rfl.COMPLETE.AMRR .32635-8 U/mL Interpretation <18.00 Mojxlsnc70.00 - 21.99 Equivocal >21.99 PositiveINTERPRETATION Past 05/16/17.rfl.COMPLETE.AMRRSuggestive of a past Davin-Bacon Virus infection.In infants, a similiar pattern may occur as a resultof a passive maternal transfer of antibody.Test Performed by [facility],[address] [place] [address]YluuavxTita Bahena M.D., Ph.D., Director of [phone], [facility] [id number] Performed By: #### 2 32951 ####[facility],[address] [place] [address] HEP C VIRUS AB WITH REFLEX [ QUEST]on 05-17-2017 HEP C VIRUS AB WITH REFLEX [QUEST] Normal [facility] Comment on above: Result Comment: _HEP C VIRUS AB_HEPATITIS C AB W/REFL HCV RNA, QN REAL-TIME PCRReported: 05/16/2017 21:55 Status=F TEST RESULT FLAG RANGE UNITS HEPATITIS C ANTIBODY Nonreactive Nonreactive 05/16/17.rfl.COMPLETE.AMRR .29843-4QKWLHG TO CUTOFF 0.01 <1.00 ratio 05/16/17.rfl.COMPLETE.[facility] .60495-9XTNOYFXVWV TESTING Not indicated 05/16/17.rfl.COMPLETE.AMRRTest Performed by [facility],[address] [place] [address]Athoxygamna Bahena M.D., Ph.D., Director of [phone], [facility] [id number] Performed By: #### 2 88389 ####[facility],[address] [place] [address] RHEUMATOID FACTOR [QUEST]on 05-17-2017 RHEUMATOID FACTOR [QUEST] Normal [facility] Comment on above: Result Comment: _RHE UMATOID FACTOR_RHEUMATOID FACTORReported: 05/17/2017 21:26 Status=F TEST RESULT FLAG RANGE UNITS RHEUMATOID FACTOR 20 H <14 IU/mL 05/17/17.2139.rfl.COMPLETE.AMRR .68406-2Htdt Performed by [facility],[employer],[address] [place], [place] [address]Ovhoajtamna Bahena M.D., Ph.D., Director of [phone], [facility] [id number] Performed By: #### 2 92253 ####[facility],[address] [place] [address] CYCLIC CITRULLINE PEP IGG [Q UEST]on 05-16-2017 CYCLIC CITRULLINE PEP IGG [QUEST] Normal [facility] Comment on above: Result Comment: _CYC LIC CITRULLINE PEP IGG_CYCLIC CITRULLINATED PEPTIDE (CCP) ANTIBODY IGGReported: 05/15/2017 17:56 Status=F TEST RESULT FLAG RANGE UNITS CCP, ANTIBODY (IGG) <16 <20 Units 05/15/17.1808.rfl.COMPLETE.AMRRNegative: <20Weak Positive: 20 - 39Moderate Positive: 40 - 59Strong Positive: >59Test Performed by [facility],[employer],[address] [place], [place] [address]Gkptrjhamna Bahena M.D., Ph.D., Director of [phone], CLIA [id number] Performed By: #### 2 77887 ####[facility],[address] [place] [address] ROSY WITH REFLEX TO TITER AND PATTERN[QU]on 05-15-2017 ROSY WITH REFLEX TO TITER AND PATTERN[QU] Normal [facility] Comment on above: Result Comment: _ANA WITH REFLEX TO TITER AND PATTERN_ANA SCREEN, IFA Positive A Negative 05/15/17.1448.rfl.COMPLETE.AMRR .64772-7YOU IFA is a first line screen for detecting thepresence of up to approximately 150 autoantibodies invarious autoimmune diseases. A positive ROSY IFA resultis suggestive of autoimmune disease and reflexes totiter and pattern. Further laboratory testing may beconsidered if clinically indicated.ADDITIONAL TESTING Has been added 05/15/17.1448.rfl.COMPLETE.AMRRTest Performed by [facility] [place],[address] [place], [place] [address]Fdgoreoamna Bahena M.D., Ph.D., Director of [phone], CLIA [id number], TITER AND PATTERNReported: 05/15/2017 15:07 Status=F TEST RESULT FLAG RANGE UNITS ROSY TITER 1:160 Negative 05/15/17.1518.rfl.COMPLETE.AMRR .5048-4Visit Physician FAQs for interpretation of allantibodies in the [place], prevalence, and associationwith diseases [email or web address] Performed by [facility],[address] [place] [address]Bfwwzjuamna Bahena M.D., Ph.D., Director of [phone], [facility] [id number] PATTERN Nucleolar 05/15/17.1518.rfl.COMPLETE.AMRR .17342-6Bpfognbfg pattern is associated with systemic sclerosis(scleroderma), systemic sclerosis/polymyositis overlapand Sjogren's syndrome. Performed By: #### 2 22231 ####[facility],[address] [place] [address] LYME DISEASE AB W/RFX IGG,IG M [QU]on 05-15-2017 LYME DISEASE AB W/RFX IGG,IGM [QU] Normal [facility] Comment on above: Result Comment: _LYM E DISEASE AB W/RFX IGG,IGM_LYME DISEASE ANTIBODY WITH RFLX TO BLOT (IGG, IGM)Reported: 05/14/2017 23:42 Status=F TEST RESULT FLAG RANGE UNITS LYME AB SCREEN <0.90 <0.90 Index 05/14/17.2353.rfl.COMPLETE.AMRR .5060-9Reference ranges:Index Interpretation----- <0.90 Negative0.90-1.09 Equivocal>1.09 PositiveAs recommended by the Food and Drug Aministration(FDA), all samples with positive or equivocal resultsin a Borrelia burgdorferi antibody EIA (screening)will be tested using a blot method. Positive orequivocal screening test results should not beinterpreted as truly positive until verified as suchusing a supplemental assay (e.g., B. burgdorferi blot).The screening test and/or blot for B. burgdorferiantibodies may be falsely negative in early stagesof Lyme disease, including the period when erythemamigrans is apparent.PROGRESSIVE LYME Not indicated 05/14/17.2353.rfl.COMPLETE.AMRR .35399-7Zvyt Performed by [facility],[address] [place] [address]Mnhnmhsamna Bahena M.D., Ph.D., Director of [phone], [facility] [id number] Performed By: #### 2 20634 ####[facility],[address] [place] [address] LEAD LEVEL [QUEST]on 017 LEAD LEVEL [QUEST] Normal [facility] Comment on above: Result Comment: _NICOL D LEVEL_LEAD, BLOODReported: 05/13/2017 17:19 Status=F TEST RESULT FLAG RANGE UNITS LEAD, BLOOD 1 <5 mcg/dL 05/13/17.1730.rflMarileeCOMPLETE.AMRR .5671-3This test was developed and its analytical performancecharacteristics have been determined by [employer] [place], [place]. It hasnot been cleared or approved by the U.S. Food and DrugAdministration. This assay has been validated pursuantto the CLIA regulations and is used for clinicalpurposes.COLLECTION SAMPLE (C/V): Venous 05/13/17.1730.rflMarileeCOMPLETE.AMRR .32831-8Yzrw Performed by [facility],[address] [place] [address] 08[address]Icdkkcaamna Bahena M.D., Ph.D., Director of [phone], CLIA [id number] Performed By: #### 2 39140 ####[facility],[address] [place] [address] MERCURY, WHOLE BLOOD [QUEST] on 05-13-2017 MERCURY, WHOLE BLOOD [QUEST] Normal [facility] Comment on above: Result Comment: _BRYANT BAIN, BLOOD_MERCURY, BLOODReported: 05/13/2017 15:53 Status=F TEST RESULT FLAG RANGE UNITS MERCURY, BLOOD <4 <=10 mcg/L 05/13/17.1606.rflMarileeCOMPLETE.AMRR .5685-3This test was developed and its analytical performancecharacteristics have been determined by [employer] [place], [place]. It hasnot been cleared or approved by the U.S. Food and DrugAdministration. This assay has been validated pursuantto the CLIA regulations and is used for clinicalpurposes.Test Performed by [facility],[address] [place] [address]Sprefjaamna Bahena M.D., Ph.D., Director of [phone], CLIA [id number] Performed By: #### 2 [address]4584 ####[place] [address] C-REACTIVE PROTEINon 017 C reactive protein (CRP) mg/L Normal 0.00 - 1.00 [facility] Comment on above: Performed By: #### 2 01832 ####[place] [address] CBCon 05-11-2017 Basophils Auto #/vol (Bld) 0.10 x10EE3/UL Normal 0.00 - 0.10 [facility] Comment on above: Performed By: #### 2 68301 ####[place] [id number] Basophils/100 WBC Auto (Bld) 0.9 % Normal 0.0 - 2.0 [facility] Comment on above: Performed By: #### 2 75372 ####[place] [address] Blood morphology N/A Normal [facility] Comment on above: Result Comment: {CD] Performed By: #### 2 17554 ####[place] [address] CBC Normal [facility] Comment on above: Result Comment: CBC- COMPLETE BLOOD COUNT Performed By: #### 2 70502 ####[place] [id number] Eosinophils 0.00 x10EE3/UL Normal 0.00 - 0.50 [facility] Comment on above: Performed By: #### 2 86151 ####[facility],[address] [place] [address] Eosinophils/100 leukocytes 0.7 % Normal 0.0 - 7.0 [facility] Comment on above: Performed By: #### 2 11482 ####[facility],[address] [place] [address] Erythrocyte distribution width Auto Ratio (RBC) 12.6 % Normal 12.0 - 15.6 [facility] Comment on above: Performed By: #### 2 27918 ####[facility],[address] [place] [address] Erythrocytes (RBC) 4.64 x 10EE6/UL Normal 4.10 - 5.30 [facility] Comment on above: Performed By: #### 2 11857 ####[facility],[address] [place] [address] Hematocrit (HCT) 42.3 % Normal 34.0 - 46.0 [facility] Comment on above: Performed By: #### 2 09052 ####[facility],[address] [place], [place] [address] Hemoglobin mass conc (Bld) 14.4 g/dL Normal 12.0 - 16.0 [facility] Comment on above: Performed By: #### 2 94810 ####[facility],[address] [place] [address] Lymphocytes 1.20 x10EE3/UL Normal 0.80 - 2.80 [facility] Comment on above: Performed By: #### 2 44151 ####[facility],[address] [place] [address] Lymphocytes/100 leukocytes 18.5 % Low 20.0 - 45.0 [facility] Comment on above: Performed By: #### 2 23648 ####[facility],[address] [place] [address] MANUAL DIFF N/A Normal [facility] Comment on above: Performed By: #### 2 64293 ####[facility],[address] [place] [address] MCH 31 pg Normal 27 - 33 [facility] Comment on above: Performed By: #### 2 43960 ####[facility],[address] [place] [address] MCHC mass conc (RBC) 34 X10 3 Normal 32 - 36 [facility] Comment on above: Performed By: #### 2 51513 ####[facility],[address] [place] [address] MCV 91 fL Normal 80 - 99 [facility] Comment on above: Performed By: #### 2 72111 ####[place] [address] Monocytes 0.30 x10EE3/UL Normal 0.20 - 1.00 [facility] Comment on above: Performed By: #### 2 75297 ####[facility],[address] [place] [address] MONOS % 3.8 % Normal 0.0 - 10.0 [facility] Comment on above: Performed By: #### 2 99743 ####[facility],[address] [place] [address] Neutrophils 5.10 x10EE3/UL Normal 1.50 - 7.10 [facility] Comment on above: Performed By: #### 2 81997 ####[place] [id number] Neutrophils/100 WBC Auto (Bld) 76.1 % High 46.0 - 76.0 [facility] Comment on above: Performed By: #### 2 46091 ####[facility],[address] [place] [address] Platelet mean volume (PMV) 10.3 fL Normal 6.6 - 10.5 [facility] Comment on above: Result Comment: AUTO MATED DIFFERENTIAL Performed By: #### 2 35042 ####[facility],[address] [place] [address] Platelets 166 x10EE3/UL Normal 150 - 450 [facility] Comment on above: Performed By: #### 2 55477 ####[facility],[address] [place] [address] WBC (Leukocytes) 6.7 x 10EE3/UL Normal 4.5 - 10.8 [facility] Comment on above: Performed By: #### 2 41194 ####[facility],[address] [place], [place] [address] CMP with eGFRon 05-11-2017 Age 52 years Normal [facility] Comment on above: Performed By: #### 2 04046 ####[facility],[address] [place], [place] [address] Albumin 4.5 g/dL Normal 3.4 - 4.8 [facility] [facility] Comment on above: Performed By: #### 2 15767 ####[facility],[address] [place] [address] 73130 Albumin/Globulin Ratio 2.6 {ratio} High 0.9 - 1.6 [facility] Comment on above: Performed By: #### 2 98726 ####[facility],[address] [place] [address] 75288 ALK PHOS 46 U/L Normal 38 - 126 [facility] Comment on above: Performed By: #### 2 09716 ####[facility],[address] [place] [address] 84758 ALT/SGPT 10 U/L Normal 8 - 35 [facility] Comment on above: Performed By: #### 2 84264 ####[facility],[address] [place] [address] 34461 Anion gap 12 mmol/L Normal 10 - 20 [facility] Comment on above: Performed By: #### 2 50797 ####[facility],[address] [place] [address] 17376 AST/SGOT 11 U/L Low 13 - 39 [facility] Comment on above: Performed By: #### 2 05625 ####[facility],[address] [place] [address] 08315 B/C RATIO 16 ratio Normal 0 - 30 [facility] Comment on above: Performed By: #### 2 23846 ####[facility],[address] [place] [address] 57772 Bilirubin (total) 1.3 mg/dL Normal 0.0 - 1.5 [facility] Comment on above: Performed By: #### 2 54506 ####[facility],[address] [place] [address] 53049 Calcium 9.0 mg/dL Normal 8.6 - 10.2 [facility] Comment on above: Performed By: #### 2 82973 ####[facility],[address] [place] [address] 63971 Chloride 104 mmol/L Normal 98 - 107 [facility] Comment on above: Performed By: #### 2 44697 ####[facility],[address] [place] [address] 52535 CO2 26.3 mmol/L Normal 21.0 - 31.0 [facility] Comment on above: Performed By: #### 2 89860 ####[facility],[address] [place] [address] 98312 Creatinine 0.7 mg/dL Normal 0.6 - 1.2 [facility] Comment on above: Performed By: #### 2 05506 ####[facility],[address] [place] [address] 44451 eGFR (non-black) mL/min/{1.73_m2} Normal 60 - 999 [facility] Comment on above: Performed By: #### 2 38986 ####[place] [address] Result Comment: ACCO RDING TO THE NATIONAL KIDNEY DISEASE EDUCATION PROGRAM(NKDE), A NORMAL eGFRIS A VALUE GREATER THAN OR EQUAL TO 60 ML/MIN/1.73 SQ METERS.CHRONIC KIDNEY DISEASE: <60mL/MIN/1.73 SQ METERSKIDNEY FAILURE: <15mL/MIN/1.73 SQ METERSTHIS TEST SHOULD ONLY BE USED FOR PATIENTS 18 YEARS OF AGE AND OLDER. eGFR (non-black) Normal [facility] Comment on above: Result Comment: COMP REHENSIVE METABOLIC PANEL Performed By: #### 2 47677 ####[place] [address] Globulin 1.7 g/dL Normal 1.5 - 3.8 [facility] Comment on above: Performed By: #### 2 33791 ####[place] [address] Glucose mass conc 78 mg/dL Normal 74 - 106 [facility] Comment on above: Performed By: #### 2 40639 ####[place] [id number] Potassium molar conc 3.6 mmol/L Normal 3.5 - 5.1 [facility] Comment on above: Performed By: #### 2 74401 ####[address] [address] Protein 6.2 g/dL Low 6.4 - 8.3 [facility] Comment on above: Performed By: #### 2 08789 ####[place] [id number] Sodium 139 mmol/L Normal 136 - 145 [facility] Comment on above: Performed By: #### 2 09393 ####[address] [address] Urea nitrogen 11 mg/dL Normal 6 - 20 [facility] Comment on above: Performed By: #### 2 30501 ####[facility],[address] [place] [address] SEDRATEon 05-11-2017 SEDRATE 3 mm/hr Normal 0 - 30 [facility] Comment on above: Performed By: #### 2 86643 ####[facility],[address] [place] [address] TSHon 05-11-2017 Thyroid stimulating hormone (TSH) 1.79 uIU/ml Normal 0.34 - 5.60 [facility] Comment on above: Performed By: #### 2 93972 ####[facility],[address] [place] [address] URINALYSISon 05-11-2017 Bilirubin (total) Negative Normal NORMAL: NEGATIVE [facility] Comment on above: Performed By: #### 2 73060 ####[facility],[address] [place] [address] Blood Negative Normal NORMAL: NEGATIVE [facility] Comment on above: Performed By: #### 2 89284 ####[facility],[address] [place] [address] Glucose mass conc NORM Normal NORMAL: NORMAL [facility] Comment on above: Performed By: #### 2 64990 ####[facility],[address] [place], [place] [address] Ketone Negative Normal NORMAL: NEGATIVE [facility] Comment on above: Performed By: #### 2 87840 ####[facility],[address] [place], [place] [address] Microscopic NOT INDICATED Normal [facility] Comment on above: Performed By: #### 2 95902 ####[facility],[address] [place], [place] [address] pH of blood 6 [pH] Normal NORMAL: 5.0-8.0 [facility] Comment on above: Performed By: #### 2 64847 ####[facility],[address] [place] [address] 76508 Protein Negative Normal NORMAL: NEGATIVE [facility] Comment on above: Performed By: #### 2 06529 ####[facility],[address] [place] [address] 20983 Sp [place] 1.010 Normal NORMAL: 1.010-1.03 0 [facility] Comment on above: Performed By: #### 2 35872 ####[facility],[address] [place] [address] Specimen Type Clean catch Normal [facility] Comment on above: Performed By: #### 2 00207 ####[facility],[address] [place], [place] [address] URINALYSIS Normal [facility] Comment on above: Result Comment: URIN ALYSIS Performed By: #### 2 36475 ####[facility],[address] [place] [address] 18420 Urine, clarity clear Normal NORMAL: CLEAR [facility] Comment on above: Performed By: #### 2 67695 ####[facility],[address] [place] [address] 59122 Urine, color p.yel Normal NORMAL: YELLOW [facility] Comment on above: Performed By: #### 2 53118 ####[facility],[address] [place] [address] 29444 Urine, nitrite presence Negative Normal NORMAL: NEGATIVE [facility] Comment on above: Performed By: #### 2 90282 ####[facility],[address] [place] [address] 59924 Urobilinog NORM Normal NORMAL: NORMAL [facility] Comment on above: Performed By: #### 2 45592 ####[facility],[address] [place] [address] 88183 WBC (Leukocytes) Negative Normal NORMAL: NEGATIVE [facility] Comment on above: Performed By: #### 2 39820 ####[facility],[address] [place] [address] 72919 LYME ABS IgG/Mon 04-20-2017 LYME IGG/IGM AB < 0.91 Normal 0.00-0.90 [facility]: Order Comment: Campu s: M Result Comment: Nega tive <0.91 Equivocal 0.91 - 1.09 Positive >1.09 Performed By: #### L 750.55374 ####[facility]PS[address] [place] [address]Wm# [phone] LYME IGM AB < 0.80 Normal 0.00-0.79 [facility] Comment on above: Order Comment: Campu s: M Result Comment: Nega tive <0.80 Equivocal 0.80 - 1.19 Positive >1.19 IgM levels may peak at 3-6 weeks post infection, then gradually decline.Performed At: [facility] [place], [place] [id number] Vincent [id number] Performed By: #### L 750.31376 ####[facility] UPPFXXD[address] [place] [address]Yc# [phone] BMPon 04-19-2017 Anion gap 8 mmol/L Normal 5-16 [facility] Comment [facility] above: Order Comment: Campu s: M Performed By: #### L 500.01441, L500.59434, L500.88741 ####[facility] LUEDFRAHPF7358 [place], [place] [address]Ch# [phone] BUN/Creatinine Ratio 14 mg/mg Low 15-24 [facility] Comment on above: Order Comment: Campu s: M Performed By: #### L 500.01882, L500.37942, L500.13501 ####[facility] ZAPQLEOHZM9332 [place], [place] [address]Wb# [phone] Calcium 8.7 mg/dL Normal 8.5-10.1 [facility] Comment on above: Order Comment: Campu s: M Performed By: #### L 500.68408, L500.66050, L500.77760 ####[facility] VCYBLVGTXE5081 [place], [place] [address]Sn# [phone] Chloride 108 mmol/L High 98-107 [facility] Comment [facility] above: Order Comment: Campu s: M Performed By: #### L 500.97666, L500.35833, L500.73532 ####[facility] RZBNRWUSTE6891 [place], [place] [address]Yd# [phone] CO2 23 mmol/L Normal 21-32 [facility] Comment on above: Order Comment: Campu s: M Performed By: #### L 500.38514, L500.78175, L500.63676 ####[facility] WTAWZLBFEC8196 [place], [place] [address]Hl# [phone] Creatinine 0.657 mg/dL Normal 0.510-0.95 0 [facility] Comment on above: Order Comment: Campu s: M Result Comment: Liz ents receiving either N-Acetylcysteine (NAC) orMetamizole prior to venipuncture, may have falsely depressedresults. Performed By: #### L 500.66295, L500.84767, L500.30395 ####[facility] XNPENFMWJR8391 [place], [place] [address]Ph# [phone] Glucose mass conc 87 mg/dL Normal 70-100 [facility] Comment on above: Order Comment: Campu s: M Result Comment: 70-1 00-Normal Fasting; [id number]-Hunzcvfd Fasting; greaterthan 126 on more than one result-Diabetes. ADA guidelines Performed By: #### L 500.74084, L500.38511, L500.23038 ####[facility] WHAKYZKCQN1225 [place], [place] [address]Mx# [phone] Potassium molar conc 3.5 mmol/L Normal 3.5-5.1 [facility] Comment on above: Order Comment: Campu s: M Performed By: #### L 500.16881, L500.64397, L500.81856 ####[facility] WKZZZDSAII6959 [place], [place] [address]Fs# [phone] Sodium 139 mmol/L Normal 136-145 [facility] Comment on above: Order Comment: Campu s: M Performed By: #### L 500.03959, L500.57450, L500.48228 ####[facility] AVTQHACPWY8420 [place], [place] [address]Fw# [phone] Urea nitrogen 9 mg/dL Normal 7-26 [facility] Comment on above: Order Comment: Campu s: M Performed By: #### L 500.91380, L500.54558, L500.45851 ####[place] [address] [place], [place] [address]Bx# [phone] CBC W/DIFFon 04-19-2017 BASO ABS 0.00 K/CU MM Normal 0-0.2 [facility] Comment [facility] above: Order Comment: Campu s: M Performed By: #### L 200.19112 ####[facility] WH[address]DTTZCP[address] [place] [address]Rp# [phone] Basophils/100 WBC Auto (Bld) 0.5 % Normal 0-2 [facility] Comment on above: Order Comment: Campu s: M Performed By: #### L 200.92089 ####[facility] ZTBPIUHRDV8117 [place], [place] [address]Lh# [phone] EOS ABS 0.00 K/CU MM Normal 0-0.5 [facility] Comment on above: Order Comment: Campu s: M Performed By: #### L 200.60014 ####[facility] OXACAKZIWG[address] [place] [address]Xp# [phone] Eosinophils/100 leukocytes 0.7 % Normal 0-5 [facility] Comment on above: Order Comment: Campu s: M Performed By: #### L 200.90652 ####[facility] YEKDCUYGIQ[address] [place] [address]Fm# [phone] Erythrocyte distribution width Auto Ratio (RBC) 11.9 % Normal 11-14.5 [facility] Comment on above: Order Comment: Campu s: M Performed By: #### L 200.51428 ####[facility] ZVDLWCIXJP2717 [place], [place] [address]Tp# [phone] Erythrocytes (RBC) 0.0 % Normal Less than 1 [facility] Comment on above: Order Comment: Campu s: M Performed By: #### L 200.55925 ####[facility] RGDKJLONDK[address] [place] [address]Nn# [phone] Erythrocytes (RBC) 4.69 M/CU MM Normal 3.90-5.30 [facility] Comment on above: Order Comment: Campu s: M Performed By: #### L 200.87894 ####[address] [address]Ee# [phone] Hematocrit (HCT) 40.3 % Normal 35.0-47.0 [facility] Comment [facility] above: Order Comment: Campu s: M Performed By: #### L 200.77880 ####[facility] JTLXDTIXUE[address] [place] [address]Yg# [phone] Hemoglobin mass conc (Bld) 14.3 g/dL Normal 11.5-15.5 [facility] Comment on above: Order Comment: Campu s: M Performed By: #### L 200.41926 ####[facility] KJCRMMACPA[address] [place] [address]Mu# [phone] IMMATR GRAN ABS 0.00 K/CU MM Normal Less than 2 [facility] Comment on above: Order Comment: Campu s: M Performed By: #### L 200.53328 ####[facility] NBRXMDKPSX[address] [place] [address]Jm# [phone] IMMATURE GRAN % 0.2 % Normal Less than 2 [facility] Comment on above: Order Comment: Campu s: M Performed By: #### L 200.79493 ####[facility] GSMRJOKZRD[address] [place], [place] [address]Ph# [phone] Lymphocytes 1.40 K/CU MM Normal 0.9-4.4 [facility] Comment on above: Order Comment: Campu s: M Performed By: #### L 200.74281 ####[facility] PILVLWDSCN0509 [place], [place] [address]Zb# [phone] Lymphocytes/100 leukocytes 26.2 % Normal 20-40 [facility] Comment on above: Order Comment: Campu s: M Performed By: #### L 200.04601 ####[facility] JUBDPFTIOK[address] [place], [place] [address]Ph# [phone] MCHC mass conc (RBC) 35.5 g/dL Normal 32.0-36.0 [facility] Comment on above: Order Comment: Campu s: M Performed By: #### L 200.02333 ####[facility] OSEBLQARFL[address] [place], [place] [address]Ph# [phone] MCV 85.9 fL Normal 80.0-99.0 [facility] Comment on above: Order Comment: Campu s: M Performed By: #### L 200.42216 ####[facility] [id number] [place], [place] [address]Ph# [phone] MONO ABS 0.40 K/CU MM Normal 0.1-1.1 [facility] Comment on above: Order Comment: Campu s: M Performed By: #### L 200.82816 ####[facility] NLQIFADJAK[address] [place], [place] [address]Ph# [phone] Monocytes/100 leukocytes 8.0 % Normal 2-10 [facility] Comment on above: Order Comment: Campu s: M Performed By: #### L 200.25281 ####[facility] BMSVVCOFPP[address] [place], [place] [address]Ph# [phone] Neutrophils 3.50 K/CU MM Normal 2.0-8.3 [facility] Comment on above: Order Comment: Campu s: M Performed By: #### L 200.96281 ####[facility] OOEKWJEUWV1574 [place], [place] [address]Ds# [phone] Neutrophils/100 WBC Auto (Bld) 64.4 % Normal 45-75 [facility] Comment [facility] above: Order Comment: Campu s: M Performed By: #### L 200.18640 ####[facility] WMJAVIPOTM9344 [place], [place] [address]Pq# [phone] Platelet mean volume (PMV) 10.6 fL Normal 9.4-12.4 [facility] Comment on above: Order Comment: Campu s: M Performed By: #### L 200.12668 ####[address] [address]Ci# [phone] Platelets 169 K/CU MM Normal 150-450 [facility] Comment on above: Order Comment: Campu s: M Performed By: #### L 200.06549 ####[facility] [address]NTVJLOI[address] [place] [address]Dj# [phone] WBC (Leukocytes) 5.5 K/CU MM Normal 4.5-11.0 [facility] Comment on above: Order Comment: Campu s: M Performed By: #### L 200.22764 ####[facility] HHWGSKWAKJ9724 [place], [place] [address]Rf# [phone] CKon 04-19-2017 Creatine kinase (CK) 125 U/L Normal 26-192 [facility] Comment on above: Order Comment: Campu s: M Performed By: #### L 500.73576 ####[facility] DZLRQZNMZV[address] [place] [address]Gh# [phone] ED DOCon 04-19-2017 ED DOC PHYSICIA N ASSESSMENT ==RECORDS: FlexChartDataEvent Time: 04/19/2017 06:05[facility] [[id number]]Mid -Level Chart (V2b)50 / F / 1965Chart created at 04/19/2017 05:53 by Jeremiah WhelanChart closed at 04/19/2017 06:00Entry in Emergency Department at 04/19/2017 02:57,departure at 04/19/2017 06:18Patient Name: Samuel Woo Record Number: [id number]: 04/19/2017 05:53Entered Department at: 04/19/2017 02:57 Patient Seen at:04/19/2017 03:23 PCP: Naeem Complaint:pain all over/ stabbing pain in hands andfeet for monthsHistory of Present Illness:Patient presents with chief complaint of generalized painthat has been ongoing for the last 16 months.Complains of pain mostly to the hands and feet sharp innature. She states the pain arises into differentareas of the hands and feet is not always the same. She hasseen multiple physicians she states over 24including multiple specialists with many different testswith no diagnosis. She is specifically concernedthat she has disseminated Lymes disease however she hashad testing which has been negative. She wasplaced on doxycycline several months ago and states shestarted improving but she gets extremeinflammation when on any oral medication includingvitamins. She denies fever or chills. She denies [facility] PATIENT NAME: SAMUEL WOO R[address] [facility] [address] Rojas MEDICAL REC #: [id number] [address] DEPARTMENT CHART EMERGENCY DEPARTMENT PHYSICIANrashes. She has no history diabetes.Review of Systems. All other systems reviewed and negative..Past History, Medications, Allergies, Social History andFamily History reviewed in nurses note.Medications: Reviewed RN Note.Allergies: Reviewed RN NoteSocial History: Reviewed RN Note.Family History: Reviewed RN NotePhysical Examination: General: Alert and Well Developed;patient is nontoxic appearing. She is tearfuland appears anxious. HEENT: Normal ENT inspection. Eyes:Lids Normal; .Oropharynx / Throat: Normal Pharynx. Neck: NoLymphadenopathy, No Meningismus andSupple Respiratory: No Resp Distress and Normal BreathSounds Cardio-Vascular: No murmur, No rub and RRRAbdomen: Non-tender and Soft Back: No CVA tenderness, NoMidline Tenderness and Non-tender Extremity: NoCalf Tenderness, No edema and Normal Equal pulses; there isno erythema swelling noted to theextremities. No rashes. There is no palpable tenderness.Distal pulses are 2+ symmetric. Capillary refillbrisk. There is no obvious inflamed joints. Neurological:Alert, Oriented X3 and No Gross Weakness Skin:No rash, No Petechiae, Warm and Dry Psychological:Mood/Affect Normal and Normal Memory/JudgmentCBC W/DIFF, information as of 04/19/2017, 3:40 am85.9/ 14.3 /5.5 andgt;------andlt; 169/ 40.3 /N:64.4BASO ABS: 0.00 K/Cu Mm; BASOPHIL %: 0.5 %; EOS ABS: 0.00K/Cu Mm; EOSINOPHIL %: 0.7 %; IMMATR GRAN ABS:0.00 K/Cu Mm; IMMATURE GRAN %: 0.2 %; LYMPH %: 26.2 %;LYMPH ABS: 1.40 K/Cu Mm; MCHC: 35.5 Gm/Dl; MONOABS: 0.40 K/Cu Mm; MONOCYTE %: 8.0 %; MPV: 10.6; NEUTROPHILABS: 3.50 K/Cu Mm; NRBC: 0.0 %; RBC: 4.[address] [facility] PATIENT NAME: SAMUEL WOO[address] Rojas [facility] REC #: [id number], [place] [address] DEPARTMENT CHART EMERGENCY DEPARTMENT PHYSICIANM/Shirley Mm; RDW: 11.9BMP, information as of 04/19/2017, 3:56 am139 --------+--------+--------an elli; 87 Anion Gap = 83.5 BUN/CREA: 14; CALCIUM TOTAL: 8.7 Mg/DlMAGNESIUM, information as of 04/19/2017, 3:56 amM.9CK, information as of 04/19/2017, 3:43 amCK: 125Medical Decision MakingVitals are noted. Patient is afebrile. Labs included a CBC,chemistry, CK which were normal. A Lymesdisease antibody test was sent as a send out. Patienthistory of IV fluids and Toradol. Given the above,the patient has no signs of a life-threatening illness. Thepatient was adamant about being admitted,however given her 16 month history of these symptoms withmultiple negative workups we did not feel thatadmission was warranted. We did discuss the case with thehospitalist who also felt that admission wasnot warranted. Is unclear the exact etiology of patientssymptoms I am suspicious there may be apsychiatric component. However the patient will bedischarged with a prescription for doxycycline becauseshe states it didnt greatly alleviate her symptoms. Shewill also be given a prescription for gabapentinfor nerve pain. Shell be given multiple Referrals. In ourfinal discussion with the patient her and eloy both agreed with this plan and will be dischargedhome.Clinical Impression:1. chronic generalized pain unclear etiologyDisposition: Discharged . Condition: Good at06:[address] [facility] PATIENT NAME: SAMUEL WOO R[address] [facility] [address] Rojas MEDICAL REC #: [id number], [place] [address] DEPARTMENT CHART EMERGENCY DEPARTMENT PHYSICIANDirect patient care supervision and electronicdocumentation review by Elaine Trinidad on 04/19/201706:18.: FlexChartDataEvent Time: 04/19/2017 06:50[facility]: [facility] [[id number]]Att ending Abvgqqpof24 / F / 1965Addendum (V2b)Chart created at 04/19/2017 06:17 by Elaine TrinidadChart closed at 04/19/2017 06:18Entry in Emergency Department at 04/19/2017 02:57,departure at 04/19/2017 06:18Patient Name: Samuel Woo Record Number: [id number]: 04/19/2017 06:17Entered Department at: 04/19/2017 02:57 Patient Seen at:04/19/2017 03:23 PCP: Naeem Complaint:pain all over/ stabbing pain in hands andfeet for monthsNote: Patient presents with generalized pain that has beengoing on for over a year. She has been tomultiple specialists. She states she has had a MRI, EEG,endoscopy, rheumatologic workup, and multipleCAT scans. She states she has seen 24 doctors. She tookdoxycycline for a while despite a negative Lymestest. She felt better with that but states that she cannottake any medication for more than a few daysbefore she gets so much inflammation that she cannot standit. Laboratory workup is unremarkable. Shedoes have multiple palpable lesions consistent withlipomas. The patient reports that she is in too muchpain to function. I did discuss the patient with Dr. Fermin.The patient has already had an extensiveoutpatient workup and any additional testing could also beperformed as an outpatient. because of thatshe would not meet for admission criteria. I did offer the [facility] PATIENT NAME: SAMUEL WOO R[address] Rojas MEDICAL REC #: [id number], [place] [address] DEPARTMENT CHART EMERGENCY DEPARTMENT PHYSICIANpatient the doxycycline and a Lyme test wassent. She was also offered gabapentin. She is encouraged tocontinue following up as an outpatient andwas given multiple referrals. The plan was discussedextensively with the patient and familyAgree with history/exam documented on primary chart andPatient Interviewed by me.MSE completed.I was the primary ED attending..I confirm that I have evaluated the patient, reviewed themid-level providers documentation, anddiscussed the evaluation, plan of care and disposition ofthe patient with the mid-level provider.. at 06:18 : Discharge ReportEvent Time: 04/19/2017 06:04===DISCHARGE REPORT===: FlexChartDataEvent Time: 04/19/2017 06:05: FlexChartDataEvent Time: 04/19/2017 06:50: Discharge ReportEvent Time: 04/19/2017 06:04Status: DraftReasons to Return to the ER:You must return to the ER for any new, worsening orchanging symptoms, or if you feel more ill or sick inany way. This is the most important thing to remember.Follow-up:The care you received in the ER was given on an emergencybasis only, and it is often not possible tocompletely treat or diagnose a problem in a single ERvisit. You must see your follow-up doctor for arecheck within a week unless you receive instructions witha different timeframe for follow-up. Pleasefollow all your discharge instructions. [facility] PATIENT NAME: SAMUEL WOO Brenda Rojas MEDICAL REC #: [id number], [place] [address] DEPARTMENT CHART EMERGENCY DEPARTMENT PHYSICIANMedications:Unless the ER doctor tells you differently, you should takeall your regular medications and any newmedications prescribed today. Because it is not possiblefor the ER doctor to review all of yourmedication side effects or interactions, you must reviewpossible side effects and interactions with yourpharmacist when you get your prescriptions filled.EKG and Radiology Results:A manager transportation or radiologist will review any EKG orradiology results provided by the ER doctor. We willcontact you if the results in the final EKG or radiologyreports require a change in treatment.Culture Results:Cultures may have been ordered during your ER visit. Wewill contact you if the culture results require achange in treatment.Referrals:Most referrals to specialists come from the on-call listYou should make your regular doctor aware of anyreferrals before you schedule the appointment so that theyare aware and can make suggestionsDIAGNOSIS:chronic generalized pain unclear etiologyINSTRUCTIONS:follow- up with the below referrals.[facility] [place] , Address: [address] [place] [address], , fax: Please call the above number to schedule a follow-upappointment. [facility] PATIENT NAME: SAMUEL WOOmakayla Rojas MEDICAL REC #: [id number], [place] [address] DEPARTMENT CHART EMERGENCY DEPARTMENT Lashawn Francis MD (Rheumatology), , fax: Please call the above number to schedule a follow-upappointment.Myles Dobbins MD (General Surgery / Trauma), , fax: Please call the above number to schedule a follow-upappointment.Patricia Felix MD (Infectious Disease), , fax: Please call the above number to schedule a follow-upappointment.2-3 daysMEDICATIONSWe have given you these prescriptions that you must filland start taking:doxycycline hyclate 100 mg tablet, count:20, Dose = 1,count:20, 10 days, count:20,2 times a day, count:20gabapentin 300 mg capsule, count:21, Dose = 1, count:21,po tid, count:21My signature below indicates that I have received andunderstand the oral instructions regarding mymedical problem. I also acknowledge receipt of this writteninstruction sheet including a list of majortests and procedures ordered during my visit. I willarrange for follow-up care as indicated by theseinstructions and referrals.This signed original will be kept in my medical record.Your signature below indicates consent for Case Managementto contact [facility] [place] [facility] to meet your ongoing healthcare needs. This willallow forcontinuity of care once you leave the [facility] PATIENT NAME: [facility] REC #: [id number], [place] [address] DEPARTMENT CHART EMERGENCY DEPARTMENT PHYSICIANEmergency Department. This exchange of informationwillinclude, but not be limited to, disclosure of yourpatient information and possible release ofrecords. ==DEMOGRAPHICS ======Emergisoft Patient: SAMUEL Eaglex: FDOB: 1965Age: 52 yrAccount No: [id number]: [id number] Date: 02:57 04/19/2017Address: [facility] [phone]: [place] [address] PRA ISTRATION =ED Number: [id number]: Marital Status: MFinancial Class: PPO TRIAG E Priorit y: 3 - UrgentComplaint: Pain, GeneralizedStated Complaint: pain all over/ stabbing pain inhands and feet for monthsArrival Date: 04/19/2017 02:57Triage Date: 04/19/2017 02:59Mode of Arrival: *Privately Owned VehicleWC: NLanguage: EnglishTransport: Ambulatory/Walk In BED=== A03 In: 04/19/2017 03:05:58 04/19/201703:05:58 JBFA03 (Removed From) Out: 04/19/2017 06:18:041 06:18:[address] [facility] PATIENT NAME: SAMUEL WOO Brenda Rojas MEDICAL REC #: [id number], [place] [address] DEPARTMENT CHART EMERGENCY DEPARTMENT PHYSICIAN =PROVIDERS ==TRACI Whelan Provider Contact: 04/19/201703:08:00 Yesi:ENRIKE JIMENEZ Provider Contact: :13:38 KVBEnd:MD Elaine Trinidad Provider Contact: :22:55 Micha: T RIAGE HISTORY A LLERGIESAllergic To: Morphine - *N/A 04/19/2017 03:59 KVBCURRENT MEDSName: SYNTHROID 88MCG TABLET - PO daily 04/19/201703:05 JBFName: updated/verified with pt memory 04/19/1710 03:05 JBFILLNESSIllness: GERD 04/19/2017 03:05 JBFIllness: *Family History of heart diseae 04/19/201703:05 JBFIllness: Hypothyroid 04/19/2017 03:05 JBFIllness: Gluten Sensitivity 04/19/2017 03:05 JBFPAST SURGERY HISTSurgery: x 2 04/19/2017 03:05 JBFSurgery: Tonsillectomy 04/19/2017 03:[address] [facility] PATIENT NAME: SAMUEL WOO Brenda Rojas MEDICAL REC #: [id number], [place] [address] DEPARTMENT CHART EMERGENCY DEPARTMENT PHYSICIANSurgery: ganglion cyst removal from wrist 04/19/201703:05 JBFSurgery: Hysterectomy-PARTIAL 04/19/2017 03:05 JBFPAST SOCIAL HISTSocial History: Communicates without knzzokmlzq29/09/2017 03:05 JBFSocial History: Lives with family or significant other04/19/2017 03:05 JBFSocial History: Smoker-None 04/19/2017 03:05 JBFSocial History: Recreational Drugs - None 04/19/201703:05 JBFSocial History: Have you traveled in the past month?Where DENIES 04/19/2017 03:05 JBFPAST BAND SPLITTER HISTSocial History: Hysterectomy-Partial 04/19/2017 03:05JBFIMMUNIZATIONSImmuniz ation: Flu Vaccine-no 04/19/2017 03:05 JBF NURSI NG ASSESSMENT ASSESS MENT NOTES 03/2017 04:23 Bilateral hand/feet burning, tingling,pain x 16 weeks. Has been seen at multiple hospitals forthe same with negative work ups. "I just cant handle thepain anymore, I can not go back home like this". Noecchymosis, swelling, or redness noted to any extremities.Full range of motion and feeling in all extremities. MSPsintact. Skin warm and dry. Denies any other associatedsymptoms. 04/19/2017 04:25 KVB [address] M[address] [facility] PATIENT NAME: SAMUEL WOO [address] [facility] [address] Rojas MEDICAL REC #: [id number], [place] [address] DEPARTMENT CHART EMERGENCY DEPARTMENT PHYSICIAN =04/19/2017 03:58 Hourly Rounding - Rounding 04/19/201703:58 KVBElimination/Toileting NPain 10Position Comfortable YSafe Environment YFall Risk Change N1 03:58 Patient Interaction - Call lightplaced within reach. 04/19/2017 03:58 KVB1 03:58 Patient Interaction - Name Band on Pt04/19/2017 03:58 KVB1 03:58 Patient Interaction - Introduce selfto Patient. 04/19/2017 03:58 KVB1 03:58 Primary DOC Guide - A. 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 Fall RiskAssessment (Age andlt;65) 04/19/2017 03:58 KVBHistory of Falling in last 3 months? No (0)Confusion or Disorientation? No (0)Intoxicated or Sedated? No (0)Impaired Gait? No (0)Mobility Assist Device Used? No (0)Altered Elimination? No (0)Fall Risk Score 1-2 Points = Low Risk. 3-4 Points =Moderate Risk. 5 or more points = High Risk. 0Fall Score Greater andgt;= 3? No04/19/2017 03:58 Primary DOC Guide - D. PsychosocialAssessment 04/19/2017 03:[address] [facility] PATIENT NAME: SAMUEL WOO R[address] [facility] [address] Rojas MEDICAL REC #: [id number], [place] [address] DEPARTMENT CHART EMERGENCY DEPARTMENT PHYSICIANOver the Last 2 weeks, how often have you had littleinterest or pleasure in doing things (0) Not at AllIs Psychosocial Assessment Score 3 or more? If score is3 or more please consult ED Navigator! NoTotal Psychosocial Assessment Score 0Over the last 2 weeks, how often have you been feelingdown, depressed or hopeless (0) Not at All04/19/2017 03:58 Primary DOC Guide - E. Family ViolenceAssessment 04/19/2017 03:58 KVBWithin the past year, has anyone ever pushed, shoved,slapped, choked, hit, punched or kicked you: NoWithin the past year, has anyone ever pressured orforced you to have sexual activities when you did not wantto: NoDo you feel safe and well cared for: YesIs there a partner from a previous or currentrelationship that is making you feel unsafe now: No04/19/2017 05:11 Hourly Rounding - Rounding 04/19/201705:31 KVBSafe Environment YAssessment Note LEANDRA Daniels and Dr Trinidad at gdmoupi5704/19/2017 05:28 Physician Call - Nelly Pope 52704/19/2017 05:28 TRM04/19/2017 05:33 Physician Call - / Wilbur at 0533 04/19/2017 05:35 TRM04/19/2017 06:17 Hourly Rounding - Rounding 04/19/201706:17 KVBElimination/Toileting NPosition Comfortable YSafe Environment YFall Risk Change N1 06:17 Discharge - Printed dischargeinstructions given to pt. 04/19/2017 06:17 KVB1 06:17 Discharge - Instructions reviewed withpt and verbalizes understanding 04/19/2017 06:17 KVB1 06:17 Discharge - Heplock removed dressingapplied no bleeding noted 04/19/2017 06:[address] [facility] PATIENT NAME: SAMUEL WOO [address] [facility] [address] Rojas MEDICAL REC #: [id number], [place] [address] DEPARTMENT CHART EMERGENCY DEPARTMENT WWDFZGVGN76/09/2017 06:17 Admit/Discharge - Dischargeprescriptions given to patient 04/19/2017 06:17 KVB1 06:17 Admit/Discharge - Ambulated withsteady gait home 04/19/2017 06:17 KVB MEDIC ATIONS IV======== IV Fluid: B 04/19/2017 03:53 04/19/2017 03:53KVBLine #: 1 Fluid: Saline LockRate: ml/hr Location: lower forearm leftNdl Gauge: 20 Notes: per protocol. labsobtained. flushes without difficulty. tegaderm applied.IV Fluid: S 04/19/2017 03:53 04/19/2017 06:17KVBLine #: 1 Fluid: 0.9% NS 1000cc bagRate: ml/hr 999 Location: lower forearm leftNdl Gauge: 20 Amt: 1000IV Fluid: D 04/19/2017 06:17 04/19/2017 06:17KVBLine #: 1 Fluid: 0.9% NS 1000cc bagRate: ml/hr 999 Location: lower forearm leftNdl Gauge: 20IV Fluid: E 04/19/2017 06:17 04/19/2017 06:17KVBLine #: 1 Rate: ml/hr Location: lowerforearm leftNdl Gauge: 20 Notes: cath intact I AND O VITALS========= VS-ROUTINE Time: 04/19/2017 02:59B/P: 163/100 - Left Upper Arm - Sitting - MachinePulse: 78 - Monitor Resp: [address] [facility] PATIENT NAME: SAMUEL WOO R[address] [facility] [address] Rojas MEDICAL REC #: [id number], [place] [address] DEPARTMENT CHART EMERGENCY DEPARTMENT [id number]: 98 Room Air Temp: 98.40 F - Oral04/19/2017 03:05 JBFVS-Pain Time: 04/19/2017 02:59 Pain Level: 101 03:05 JBFVS-GCS Time: 04/19/2017 02:59 Visual: 4 Verbal: 5 Motor:6 GCS Total: 15 04/19/2017 03:05 JBFVS-HT/WT Time: 04/19/2017 02:59 Ht: 67 in. StatedWeight: 189 lbs Actual 04/19/2017 03:05 JBFVS-Visual Time: 04/19/2017 02:59 04/19/2017 03:05 JBFVS-FHT Time: 04/19/2017 02:59 04/19/2017 03:05JBFVS-Notes Time: 04/19/2017 02:59 map 124 04/19/201703:05 JBFVS-ROUTINE Time: 04/19/2017 06:16B/P: 138/71 - Left Upper Arm - Sitting - MachinePulse: 89 - Monitor Resp: 18Sa02: 97 Room Air 04/19/2017 06:17 KVBVS-Pain Time: 04/19/2017 06:16 Pain Level: 06:17 KVBVS-GCS Time: 04/19/2017 06:16 Visual: 4 Verbal: 5 Motor:6 GCS Total: 15 04/19/2017 06:17 KVBVS-HT/WT Time: 04/19/2017 06:16 04/19/2017 06:17 KVBVS-Visual Time: 04/19/2017 06:16 04/19/2017 06:17 KVBVS-FHT Time: 04/19/2017 06:16 04/19/2017 06:17KVBVS-Notes Time: 04/19/2017 06:16 map 93 04/19/201706:17 KVB ORDER S MEDICAL BILL PROCESSOR ORDER: LYMEABS 04/20/2017 13:08NoneOrdered: 04/20/2017 13:08 Results Time:04/20/2017 13:08Discharge patient 04/19/2017 06:09N/AOrdered: 04/19/2017 06:01 By . OtherReviewed: 04/19/2017 06:09 By . OtherEXTERN ORDER: GFRP 04/19/2017 04:19NoneOrdered: 04/19/2017 04:19 Completed Time:04/19/2017 04:19 Results Time: 04/19/2017 04:[address] [facility] PATIENT NAME: SAMUEL WOO R1320 Brenda Rojas MEDICAL REC #: [id number], [place] [address] DEPARTMENT CHART EMERGENCY DEPARTMENT PHYSICIANCK total 04/19/2017 04:34N/AOrdered: 04/19/2017 03:42 By Elaine Modi Time: 04/19/2017 04:34 By Elaine Norton Time: 04/19/2017 03:57 KVBResults Time: 04/19/2017 04:34IV NS bolus 1L over 60 min 04/19/2017 03:52N/AOrdered: 04/19/2017 03:39 By Jeremiah Marrufopletemily Time: 04/19/2017 03:52 By Jeremiah Nelson Time: 04/19/2017 03:40 KVBCBC with diff 04/19/2017 04:09N/AOrdered: 04/19/2017 03:39 By Jeremiah Davis Time: 04/19/2017 04:09 By Jeremiah Nelson Time: 04/19/2017 03:58 KVBResults Time: 04/19/2017 04:09BMP 04/19/2017 04:19N/AOrdered: 04/19/2017 03:39 By Jeremiah Davis Time: 04/19/2017 04:19 By Jeremiah Nelson Time: 04/19/2017 03:58 KVBResults Time: 04/19/2017 04:19*Other Lab: nonstandard Lyme Qnoeqcp4004/19/2017 04:38N/AOrdered: 04/19/2017 03:39 By Jeremiah Marrufopleted Time: 04/19/2017 04:37 By Jeremiah Nelson Time: 04/19/2017 03:57 KVBMagnesium level 04/19/2017 04:19N/AOrdered: 04/19/2017 03:39 By Jeremiah Marrufopleted Time: 04/19/2017 04:19 By Jeremiah Nelson Time: 04/19/2017 03:57 KVBResults Time: 04/19/2017 04:19Toradol (IV)*(30mg/ml) DOSE: 15 mgIV 04/19/2017 03:52N/AOrdered: 04/19/2017 03:39 By [address] W[address]an [facility] PATIENT NAME: SAMUEL WOO [id number] [facility] [address] Rojas MEDICAL REC #: [id number], [place] [address] DEPARTMENT CHART EMERGENCY DEPARTMENT PHYSICIANCompleted Time: 04/19/2017 03:52 By Jeremiah WhelanNoted Time: 04/19/2017 03:40 KVB DISCH ARGE Diag nosis: chronic generalized pain unclear rzijlsxx74/09/2017 06:04Disposition: Time: 04/19/2017 06:01Discharge Time: 04/19/2017 06:18Type: DischargeCondition: Stable for admission/discharge/transfer after emergency evaluation/treatment Category: *NOTAPPLICABLEReferral: 04/19/2017 06:04Admit Physician: . Other PRE SCRIPTIONS ==doxycycline hyclate 100 mg tablet 04/19/2017 06:01SI bid for 10 daysDispense: 20 / Refills:gabapentin 300 mg capsule 04/19/2017 06:02SI po tid painDispense: 21 / Refills: CHARGES 0 .9% NS 1000cc bag QTY @ 1 04/19/2017 03:53 KVBAuto Generated Charge SI GNATURE T britany Fatimah Whelan PA-C BJKJOROSEMARY HERNANDEZ RN JBFKAJAZMYNE JIMENEZ RN KVB [facility] PATIENT NAME: [facility] MEDICAL REC #: [id number], [place] [address] DEPARTMENT CHART EMERGENCY DEPARTMENT PHYSICIAN [facility] PATIENT NAME: SAMUEL WOO Brenda Rojas MEDICAL REC #: [id number], [place] [address] DEPARTMENT CHART EMERGENCY DEPARTMENT PHYSICIAN Normal [facility] ED Documentation This is a preliminar y report only, as the practitioner review and authentication has not occurred. Normal [facility] GFR ESTon 04-19-2017 IF AMER Greater than 60 Normal [facility] Comment on above: Order Comment: Gauri abad: M Performed By: #### L 500.16113, L500.58568, L500.93925 ####[facility] [id number] [place], [place] [address]Is# [phone] IF non-AFR AMER Greater than 60 Normal [facility] Gilliam Comment on above: Order Comment: Campu s: M Performed By: #### L 500.81743, L500.94138, L500.32313 ####[facility] [id number] [place], [place] [address]Cd# [phone] MAGNESIUMon 04-19-2017 Magnesium 1.9 mg/dL Normal 1.6-2.6 [facility] Comment on above: Order Comment: Campu s: M Performed By: #### L 500.95529, L500.05201, L500.64783 ####[facility] [id number] [place], [place] [address]Pr# [phone] Vital Signs Date Time Vital Sign Value Performing Clinician Azeb malave 06-30-2024 08:27-0500 Body height 170.2 cm Surya Rizvi MD Work Phone: [facility] 06-30-2024 08:27-0500 Body mass index (BMI) [Ratio] 26.47 kg/m2 Surya Rizvi MD Work Phone: [facility] 06-30-2024 08:27-0500 Body weight 76.66 kg Surya Rizvi MD Work Phone: [facility] 06-30-2024 08:27-0500 Diastolic blood pressure 74 mm[Hg] Surya Rizvi MD Work Phone: [facility] 06-30-2024 08:27-0500 Systolic blood pressure 112 mm[Hg] Surya Rizvi MD Work Phone: [facility] 03-01-2024 13:52-0400 Body mass index (BMI) [Ratio] 27.28 kg/m2 Mercedes Ann MD Work Phone: [facility] 03-01-2024 13:52-0400 Body weight 79 kg Mercedes Ann MD Work Phone: [facility] 03-01-2024 13:52-0400 Diastolic blood pressure 83 mm[Hg] Mercedes Ann MD Work Phone: [facility] 03-01-2024 13:52-0400 Heart rate 77 /min Mercedes Ann MD Work Phone: [facility] 03-01-2024 13:52-0400 SaO2% (BldA) [Mass fraction] 98 % Mercedes Ann MD Work Phone: [facility] 03-01-2024 13:52-0400 Systolic blood pressure 133 mm[Hg] Mercedes Ann MD Work Phone: [facility] 03-27-2023 21:24-0400 Diastolic blood pressure 99 mm[Hg] [facility] 03-27-2023 21:24-0400 Heart rate 72 /min [place] 03-27-2023 21:24-0400 Respiratory rate 18 /min [facility] 03-27-2023 21:24-0400 SaO2% (BldA) [Mass fraction] 98 % [facility] 03-27-2023 21:24-0400 Systolic blood pressure 170 mm[Hg] [facility] 03-27-2023 19:33-0400 Body temperature 97.9 [degF] [facility] 03-27-2023 17:56-0400 Body height 170.18 cm [place] 03-27-2023 17:56-0400 Body mass index (BMI) [Ratio] 29.6 kg/m2 [facility] 03-27-2023 17:56-0400 Body weight 85.72 kg [place] 11-26-2022 09:32-0400 Body height 170.[address] Gilbert Monsalve Work Phone: [facility] 11-26-2022 09:31-0400 Body mass index (BMI) [Ratio] 30.4 kg/m2 Dr. Gilbert oMnsalve Work Phone: [facility] 11-26-2022 09:31-0400 Body weight 87.[address] Gilbert Monsalve Work Phone: [facility] 11-26-2022 09:31-0400 Diastolic blood pressure 84 mm[Hg] Dr. Gilbert Monsalve Work Phone: [facility] 11-26-2022 09:31-0400 Heart rate 61 /min Dr. Gilbert Monsalve Work Phone: [facility] 11-26-2022 09:31-0400 Respiratory rate 18 /min Dr. Gilbert Monsalve Work Phone: [facility] 11-26-2022 09:31-0400 SaO2% (BldA) [Mass fraction] 96 % Dr. Gilbert Monsalve Work Phone: [facility] 11-26-2022 09:31-0400 Systolic blood pressure 128 mm[Hg] Dr. Gilbert Monsalve Work Phone: [facility] 11-02-2022 10:41-0400 Body height 170.2 cm Surya Rizvi MD Work Phone: [facility] 11-02-2022 10:41-0400 Body weight 88.45 kg Surya Rizvi MD Work Phone: [facility] 11-02-2022 10:41-0400 Diastolic blood pressure 82 mm[Hg] Surya Rizvi MD Work Phone: [facility] 11-02-2022 10:41-0400 Systolic blood pressure 118 mm[Hg] Surya Rizvi MD Work Phone: [facility] 12-02-2021 10:36-0400 Body height 170.[address] Gilbert Monsalve Work Phone: [facility] Work Phone: 12-02-2021 10:36-0400 Body mass index (BMI) [Ratio] 32.1 kg/m2 Dr. Gilbert Monsalve Work Phone: [facility] Work Phone: 12-02-2021 10:36-0400 Body weight 92.[address] Gilbert Monsalve Work Phone: [facility] Work Phone: 12-02-2021 10:36-0400 Diastolic blood pressure 89 mm[Hg] Dr. Gilbert Monsalve Work Phone: [facility] Work Phone: 12-02-2021 10:36-0400 Heart rate 66 /min Dr. Gilbert Monsalve Work Phone: [facility] Work Phone: 12-02-2021 10:36-0400 Respiratory rate 16 /min Dr. Gilbert Monsalve Work Phone: [facility] Work Phone: 12-02-2021 10:36-0400 SaO2% (BldA) [Mass fraction] 99 % Dr. Gilbert Monsalve Work Phone: [facility] Work Phone: 12-02-2021 10:36-0400 Systolic blood pressure 137 mm[Hg] Dr. Gilbert Monsalve Work Phone: [facility] Work Phone: 10-13-2021 15:46-0400 Body height 170.2 cm Surya Rizvi MD Work Phone: [facility] 10-13-2021 15:46-0400 Body weight 92.08 kg Surya Rizvi MD Work Phone: [facility] 10-13-2021 15:46-0400 Diastolic blood pressure 78 mm[Hg] Surya Rizvi MD Work Phone: [facility] 10-13-2021 15:46-0400 Systolic blood pressure 122 mm[Hg] Surya Rizvi MD Work Phone: [facility] 09-17-2021 11:34-0500 Body height 170.[address] Gilbert Monsalve Work Phone: [facility] Work Phone: 09-17-2021 11:34-0500 Body mass index (BMI) [Ratio] 31.4 kg/m2 Dr. Gilbert Monsalve Work Phone: [facility] Work Phone: 09-17-2021 11:34-0500 Body weight 91.[address] Gilbert Monsalve Work Phone: [facility] Work Phone: 09-17-2021 11:34-0500 Diastolic blood pressure 80 mm[Hg] Dr. Gilbert Monsalve Work Phone: [facility] Work Phone: 09-17-2021 11:34-0500 Heart rate 72 /min Dr. Gilbert Monsalve Work Phone: [facility] Work Phone: 09-17-2021 11:34-0500 Respiratory rate 16 /min Dr. Gilbert Monsalve Work Phone: [facility] Work Phone: 09-17-2021 11:34-0500 SaO2% (BldA) [Mass fraction] 97 % Dr. Gilbert Monsalve Work Phone: [facility] Work Phone: 09-17-2021 11:34-0500 Systolic blood pressure 129 mm[Hg] Dr. Gilbert Monsalve Work Phone: [facility] Work Phone: 08-03-2021 17:58-0500 Diastolic blood pressure 89 mm[Hg] Dr. Gilbert Monsalve Work Phone: [facility] Work Phone: 08-03-2021 17:58-0500 Heart rate 84 /min Dr. Gilbert Monsalve Work Phone: [facility] Work Phone: 08-03-2021 17:58-0500 Respiratory rate 15 /min Dr. Gilbert Monsalve Work Phone: [facility] Work Phone: 08-03-2021 17:58-0500 SaO2% (BldA) [Mass fraction] 98 % Dr. Gilbert Monsalve Work Phone: [facility] Work Phone: 08-03-2021 17:58-0500 Systolic blood pressure 140 mm[Hg] Dr. Gilbert Monsalve Work Phone: [facility] Work Phone: 08-03-2021 15:11-0500 Body mass index (BMI) [Ratio] 31.3 kg/m2 Dr. Gilbert Monsalve Work Phone: [facility] Work Phone: 08-03-2021 15:11-0500 Body temperature 98.7 [degF] Dr. Gilbert Monsalve Work Phone: [facility] Work Phone: 08-03-2021 15:11-0500 Body weight 90.[address] Gilbert Monsalve Work Phone: [facility] Work Phone: Encounters Encounter Date Encounter Type Care Provider Facility Start: 01-29-2025 ambulatory Gilbert Bello Facility: [facility] Start: 09-12-2024 End: 09-12-[address] Gilbert Monsalve DO Work Phone: [facility] Work Phone: Start: 09-12-2024 End: 09-12-2024 Patient encounter procedure Naomy MOBLEY -Laboratory, Specimen Work Phone: Start: 09-12-2024 End: 09-12-2024 ambulatory Gilbert Monsalve Facility:[facility] Start: 08-30-2024 End: 08-30-2024 Patient encounter procedure Naomy MOBLEY -[facility] Work Phone: Start: 08-30-2024 End: 08-30-2024 ambulatory Gilbert Monsalve Facility[place] Start: 07-26-2024 End: 07-26-[address] Joseph Tomlinson DO -Laboratory Work Phone: Start: 07-26-2024 End: 07-26-2024 ambulatory [facility] Facility:[facility] Start: 06-30-2024 End: 06-30-2024 Patient encounter procedure Surya Rizvi MD Work Phone: OB/Gynecology Comment on above: Encounter for gyneco logical examination (general) (routine) without abnormal findings (Primary Dx); Encounter for screening mammogram for breast cancer Start: 06-30-2024 End: 06-30-2024 Patient encounter status Surya Rizvi MD Work Phone: [facility] Start: 06-30-2024 End: 06-30-2024 ambulatory SURYA RIZVI Facility:[facility] Start: 06-30-2024 End: 06-30-2024 Subsequent hospital visit by physician Screen Mammo [facility] Comment on above: Screening mammogram, encounter for [Z12.31] Start: 03-08-2024 End: 03-14-2024 E-mail encounter from caregiver Mercedes Ann MD Work Phone: Allergy Start: 03-08-2024 End: 03-14-2024 Follow-up encounter Mercedes Ann MD Work Phone: Allergy Comment on above: Follow-up to your re cent office visit Start: 03-01-2024 End: 03-01-2024 ambulatory MERCEDES ANN Facility:[facility] Start: 03-01-2024 End: 03-01-2024 Patient encounter procedure Mercedes Ann MD Work Phone: Allergy Comment on above: Adverse reaction to food, initial encounter (Primary Dx) Start: 07-21-2023 End: 07-21-2023 ambulatory [facility] Work Phone: Start: 07-21-2023 End: 07-21-2023 Patient encounter procedure [facility] Work Phone: Start: 03-27-2023 End: 03-27-2023 Emergency department patient visit [facility]Emergency Department Work Phone: Start: 03-23-2023 [facility] Work Phone: Start: 03-12-2023 End: 03-12-[address] Gilbert Monsalve Work Phone: [facility] Work Phone: Start: 03-12-2023 End: 03-12-[address] Gilbert Monsalve [facility] Work Phone: Start: 02-15-2023 End: 02-15-[address] Gilbert Monsalve Work Phone: [facility] Work Phone: Start: 02-15-2023 End: 02-15-[address] Gilbert Monsalve [facility] Start: 11-26-2022 End: 11-26-[address] Gilbert Monsalve Work Phone: [facility] Work Phone: Start: 11-02-2022 End: 11-02-2022 Patient encounter procedure Surya Rizvi MD Work Phone: OB/Gynecology Comment on above: Encounter for gyneco logical examination (general) (routine) without abnormal findings (Primary Dx); Encounter for screening mammogram for breast cancer Start: 11-02-2022 End: 11-02-2022 Patient encounter status Surya Rizvi MD Work Phone: OB/Gynecology Start: 10-26-2022 End: 10-26-2022 Patient encounter status Screen Wstr [facility] Start: 10-26-2022 End: 10-26-2022 Subsequent hospital visit by physician Screen Mammo [facility] Mammogram Comment on above: Encounter for gyneco logical examination (general) (routine) without abnormal findings [Z01.419] Start: 07-08-2022 End: 07-08-2022 ambulatory [facility] Work Phone: Start: 07-08-2022 End: 07-08-2022 Patient encounter procedure [facility] Start: 02-25-2022 End: 02-25-[address] Gilbert Monsalve Work Phone: [facility] Start: 12-02-2021 End: 12-02-[address] Gilbert Monsalve Work Phone: [facility] Start: 11-21-2021 End: 11-21-[address] Gilbert Monsalve [facility] Start: 11-05-2021 End: 11-05-[address] Gilbert Monsalve [facility] Start: 10-17-2021 Non-patient / Non-visit Dr. Gilbert Monsalve Work Phone: [facility] Start: 10-17-2021 End: 10-17-[address] Gilbert Monsalve Work Phone: [facility] Start: 10-13-2021 End: 10-13-2021 Patient encounter procedure Surya Rizvi MD Work Phone: OB/Gynecology Comment on above: Encounter for gyneco logical examination (general) (routine) without abnormal findings; Encounter for screening mammogram for breast cancer Start: 10-13-2021 End: 10-13-2021 Patient encounter status Surya Rizvi MD Work Phone: OB/Gynecology Start: 10-13-2021 End: 10-13-2021 Subsequent hospital visit by physician Screen Mammo [facility] Mammogram Comment on above: Encounter for screen ing mammogram for malignant neoplasm of breast [Z12.31] Start: 10-13-2021 Documentation procedure Mammography Coordinator [facility] Start: 10-13-2021 Letter encounter Mammography Coordinator [facility] Department Start: 10-02-2021 End: 10-02-[address] Gilbert Monsalve [facility] Start: 09-17-2021 End: 09-17-[address] Gilbert Monsalve Work Phone: [facility] Start: 09-17-2021 End: 09-17-[address] Gilbert Monsalve Work Phone: [facility] Start: 08-26-2021 End: 08-26-[address] Gilbert Monsalve [facility] Start: 08-25-2021 End: 08-25-[address] Gilbert Monsalve [facility] Start: 08-03-2021 End: 08-03-2021 Emergency department patient visit Dr. Gilbert Monsalve Work Phone: [facility]Emergency Department Start: 07-15-2021 End: 07-15-[address] Gilbert Monsalve [facility] Start: 07-07-[address] Gilbert Monsalve [facility] Start: 02-09-2018 Patient encounter Villa gabriel Facility:[id number] Start: 09-27-2017 Emergency department patient visit Emergency Physicians Vicenta Davis Facility:[facility] Start: 09-27-2017 Ambulatory Joseph Doan ty:[facility] Start: 08-27-2017 Ambulatory Joe Hopper Facility :[facility] Start: 05-11-2017 End: 05-11-2017 Ambulatory HANDY Sharma [facility] Start: 05-04-2017 Ambulatory Joseph Doan ty:[facility] Start: 04-19-2017 Emergency department patient visit Joseph Tomlinson Facility:[facility] Procedures Date Procedure Procedure Detail Performing Clinician Start: 09-12-2024 Giardia [address] antigen assay Dr[address] Gilbert Monsalve DO Work Phone: Start: 09-12-[address] Gilbert Monsalve DO Work Phone: Start: 09-12-2024 Ova [place] parasites identification Dr. Gilbert Monsalve DO Work Phone: Start: 03-27-2023 CT of abdomen and pelvis without contrast Start: 03-23-2023 Urine culture Start: 03-12-[address] Gilbert Monsalve Work Phone: Start: 10-26-2022 JANEE SCREENING W DARRELL Surya Marshall Work Phone: Start: 10-26-2022 Mammography Surya Rizvi MD Work Phone: Start: 10-13-2021 JANEE SCREENING W DARRELL Surya Marshall Work Phone: Start: 10-13-2021 Mammography Surya Rizvi MD Work Phone: Start: 10-02-2021 Computed tomography of abdomen and pelvis with contrast Dr. Gilbert Monsalve Work Phone: Start: 08-03-2021 Plain chest X-ray Dr. Gilbert Monsalve Work Phone: Start: 11-10-2018 Adult depression screening assessment Surya Rizvi MD Work Phone: Start: 07-09-2016 H/O: hysterectomy Status post hysterectomy Surya Rizvi MD Work Phone: Start: 10-02-2010 Lipid 1996 panel - Serum or Plasma Screen Wstr Plan of Treatment Date Care Activity Detail Author Start: 07-02-2025 End: 07-02-2025 Patient encounter procedure 07/02/2025 2:20 PM EST Office Visit OB/Gynecology [address] [place] [address] Surya Rizvi MD [address] [place] [address] Annual OB/Gynecology Comment on above: Annual Start: 07-02-2025 End: 07-02-2025 Patient encounter procedure 07/02/2025 1:10 PM EST Appointment Mammogram [address] [place], [place] [id number] Encounter for screening mammogram for breast cancer [Z12.31] Mammogram Comment on above: Encounter for screen ing mammogram for breast cancer [Z12.31] Start: 06-30-2024 End: 06-30-2024 Patient encounter procedure Mammogram Comment on above: SCREENING MAMMO WITH DARRELL ANNUAL Start: 03-12-2024 Covid-19 Vaccine ( season) Covid-19 Vaccine ( season) [facility] Start: 03-12-2024 Covid-19 Vaccine ( season) Covid-19 Vaccine ( season) [facility] Start: 03-12-2024 Influenza vaccination Influenza Vacc ine (#1) [facility] Start: 10-27-2023 Mammography [facility] Start: 10-27-2023 Screening for malign ant neoplasm of breast Mammogram Screening [facility] Start: 03-12-2023 Covid-19 Vaccine ( season) Covid-19 Vaccine ( season) [facility] Start: 03-12-2023 Influenza vaccination [facility] Start: 10-13-2022 Mammography MAMMOGRAM [facility] Start: 07-12-2022 DEPRESSION ASSESSMENT DEPRESSION ASS ESSMENT [facility] Start: 03-12-2022 Influenza vaccination INFLUENZ A (Season Ended) [facility] Start: 02-25-2022 Methylmalonate measurement [facility] Work Phone: Start: 02-25-2022 Procedure [facility] Work Phone: Start: 02-25-2022 Thiamine measurement [facility] Work Phone: Start: 02-25-2022 Vitamin B6 measurement [facility] Work Phone: Start: 11-10-2021 DIABETES SCREEN DIABETES SCREEN [facility] Start: 11-10-2021 Diabetes Screening Diabetes Screenin g [facility] Start: 11-11-2019 Adult depression screening assessment DEPRESSION SCREENING [facility] Start: 2017 Pneumococcal Vaccine : 50+ (1 of 1 - PCV) Pneumococcal Vaccine: 50+ (1 of 1 - PCV) [facility] Start: 2017 SHINGRIX VACCINE (1 of 2) SHINGRIX VACCINE (1 of 2) [facility] Start: 10-03-2015 Lipid 1996 panel - S maru or Plasma Lipid Screening [facility] Start: 10-03-2015 Lipid panel Lipid Screening [facility] Start: 10-03-2015 LIPID SCREEN LIPID SCREEN [facility] Start: 02-19-2012 COLOGUARD (FIT-DNA) COLOGUARD (FIT-D NA) [facility] Start: 02-19-2012 Colonoscopy COLONOSCOPY [facility] Start: 02-19-2012 COLORECTAL CANCER SCREENING COLORECTAL CANCER SCREENING [facility] Start: 02-19-[address] COLONOGRAPHY [facility] Start: 02-19-2012 FECAL OCCULT BLOOD FECAL OCCULT BLOO D [facility] Start: 02-19-2012 Screening for malign ant neoplasm of colon [facility] Start: 02-19-2012 SIGMOIDOSCOPY SIGMOIDOSCOPY [facility] Start: 1986 Hepatitis B Vaccine (1 of 3 - 19+ 3-dose series) Hepatitis B Vaccine (1 of 3 - 19+ 3-dose series) [facility] Start: 1986 Urine microalbumin profile [facility] Start: 1985 ANNUAL PCP TEAM RELAY TESTER TRACEE DISEASE VISIT ANNUAL PCP TEAM CHRONIC DISEASE VISIT [facility] Start: 1985 Anxiety Screening Anxiety Screening [facility] Start: 1985 Depression Screening Depression Scre ening [facility] Start: 02-19-1972 COVID-19 VACCINE (1) COVID-19 VACCIN E (1) [facility] Start: 1967 COVID-19 VACCINE (#1) COVID-19 VACCI NE (#1) [facility] Start: 1967 HEPATITIS B (1 of 3 - 3-dose series) HEPATITIS B (1 of 3 - 3-dose series) [facility] Start: 1967 Hepatitis B Vaccine (1 of 3 - 3-dose series) Hepatitis B Vaccine (1 of 3 - 3-dose series) [facility] End: 07-30-2025 DBT Breast - bilateral screening JANEE SCREENING W DARRELL Radiology Routine Encounter for gynecological examination (general) (routine) without abnormal findings Encounter for screening mammogram for breast cancer 1 Occurrences starting 06/30/2024 until 07/30/2025 [facility] Work Phone: Comment on above: 1 Occurrences starti ng 06/30/2024 until 07/30/2025 DBT Breast - bilater al screening JANEE SCREENING W DARRELL Radiology Routine Screening mammogram, encounter for 06/30/2024 8:06 AM EST [facility] Work Phone: End: 11-12-2022 JANEE SCREENING W DARRELL JANEE SCREENING W DARRELL Radiology Routine Encounter for gynecological examination (general) (routine) without abnormal findings Encounter for screening mammogram for breast cancer 1 Occurrences starting 10/13/2021 until 11/12/2022 [facility] Work Phone: Comment on above: 1 Occurrences starti ng 10/13/2021 until 11/12/2022 End: 12-02-2023 JANEE SCREENING W DARRELL JANEE SCREENING W DARRELL Radiology Routine Encounter for gynecological examination (general) (routine) without abnormal findings Encounter for screening mammogram for breast cancer 1 Occurrences starting 11/02/2022 until 12/02/2023 [facility] Work Phone: Comment on above: 1 Occurrences starti ng 11/02/2022 until 12/02/2023 Methylmalonate measurement [facility] Work Phone: Patient Education [facility] Work Phone: Patient referral [facility] Work Phone: Procedure [facility] Work Phone: Thiamine measurement [facility] Work Phone: Vitamin B6 measurement [facility] Work Phone: Payers Date Payer Category Payer Self-pay [id number] 2022 Unknown ANTHEM BLUE CARD POS OOS [id number] 2022-Present [phone] [address] [place] [address] POS [id number] 2022 Unknown [id number] 2020 Unknown ANTHEM BLUE CARD POS OOS [id number] 2020-Present [phone] [address] [place] [id number] POS [id number] 2017 Unknown [id number] 2016 Private Health Insurance [id number] 2003 Private Health Insurance [id number] Unknown [id number] Unknown [id number] Unknown [id number] Unknown [id number] Unknown [id number] Social History Date Type Detail Facility Start: 09-17-2021 End: 03-27-2023 Tobacco smoking status MDIS Unknown if ever smoked [facility] Start: 1965 Sex Assigned At Female W [facility] Start: 11-02-2022 End: 08-30-2024 Tobacco smoking status NHIS Ex-smoker [facility] Start: 02-16-1982 End: 02-16-2007 History of tobacco use Current smoker [facility] Start: 02-16-1982 End: 02-16-2007 History of tobacco use Cigarette Smoker [facility] History of tobacco use [facility] Start: 10-13-2021 End: 06-30-2024 Alcohol intake Current non-drinker of alcohol (finding) [facility] Start: 10-13-2021 End: 03-01-2024 Alcohol intake [facility] Start: 1965 Sex Assigned At Not on file [facility] Start: 10-03-2021 End: 10-13-2021 Exposure to SARS-CoV-2 (event) Not sure [facility] Start: 11-02-2022 End: 03-01-2024 Tobacco use and exposure Former smokeless tobacco user [facility] Start: 10-11-2018 Tobacco use and exposure User of smokeless tobacco [facility] Start: 10-13-2021 End: 03-01-2024 Tobacco use panel [facility] Adult Depression Screening Assessment 3 [facility] Start: 09-22-2024 Sex Female (finding) [facility] Mental Status Date Assessment Result Facility 03-27-2023 Cognitive function Level Of Cons ciousness Awake;Alert;Appropriate;Follow s Commands [facility] Work Phone: 08-03-2021 Cognitive function Level Of Cons ciousness Awake;Alert;Appropriate;Follow s Commands [facility] Work Phone: Clinical Notes 08-25-2013 to 08-30-2024 Note Date & Type Note Facility 08-30-2024 Evaluation note Diagnosis Onset Date Resolution Abnormal stools acute August 30, 2024 8:51am Constipation noneactive August 8:51am [facility] Work Phone: 1(946) 590-394512-20-2024 NoteHNO ID: [id number] Author: SURYA RIZVI MD Service: ? 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 Still get period: No LMP: n/a Menopause symptoms: None Time with current partner: 39 YEARS Number of lifetime partners: 2 control frequency: Never HPV vaccine: No; Last pap smear: 09/09/2022 History of abnormal pap: No, all prior PAP smears have been normal Bothersome pelvic pain: No Last mammogram: 2022 normal History of abnormal mammogram: No OB History T2 L2 SAB0 IAB0 Ectopic0 Multiple0 Live Births0 Ip Counsel History LMP: 09/06/2013, Hysterectomy Age at Menarche: 16 Age at First : Age at Menopause: Ip Counsel History Comments: Sexual Activity: Yes; Male; hysterectomy Contraception: Surgical PAST MEDICAL HISTORY Diagnosis Date Asthma Cervical stenosis (uterine cervix) Dysmenorrhea Excessive or frequent menstruation Heavy periods Hypothyroid Metrorrhagia 2008 MTHFR mutation 01/2019 Rheumatoid arthritis (HCC) Systemic lupus erythematosus (HCC) Tobacco use disorder Stopped 02/2007 Urinary tract infection, site not specified Recurrent UTI's Vitamin B12 deficiency PAST SURGICAL HISTORY Procedure Laterality Date DELIVERY ONLY , low cervical/X2 HYSTERECTOMY 2013 HYSTEROSCOPY, DIAGNOSTIC (SEPARATE 07/09/2009 Hysteroscopy, [facility] LAPS TOTAL HYSTERECT 250 GM/< W/RMVL TUBE/OVARY 10/26/2013 [facility], bilateral salpingectomy LIG/TRNSXJ FLP TUBE ABDL/VAG APPR UNI/BI Tubal ligation at time of c/s PAST SURGICAL HISTORY OF LEFT GANGLION CYST PAST SURGICAL HISTORY OF LASIK SURGERY TONSILLECTOMY PRIMARY/SECONDARY Tonsillectomy UNSPECIFIED ORAL SURGERY PROCEDURE, BY REPORT 2017 Teeth removal --2017 and 2020 FAMILY HISTORY Problem Relation Age of Onset Heart Mother AAA and her mother's 2 GMs Stroke Mother Cancer Mother lung Heart Father Cancer Father multiple mylomia other (mthfr) Sister other (gilberts disease) Brother Thyroid Brother hypo Diabetes Paternal Grandmother Asthma Daughter other (MTHFR) Daughter Thyroid Other Several P-cousins SOCIAL HISTORY Social History Tobacco Use Smoking status: Former Current packs/day: 0.00 Average packs/day: 0.5 packs/day for 25.0 years (12.5 ttl pk-yrs) Types: Cigarettes Start date: 02/16/1982 Quit date: 02/16/2007 Years since quittin.3 Smokeless tobacco: Former Types: Chew Vaping Use Vaping status: Never Used Substance Use Topics Alcohol use: No Alcohol/week: 1.0 standard drink of alcohol Types: 1 Cans of Beer (12oz) per week Drug use: No REVIEW OF SYSTEMS Abdomen: No abdominal pain, nausea, vomiting, diarrhea, or constipation. No bloating, early satiety, indigestion, or increased flatulence.no changes in BM Bladder: No dysuria, gross hematuria, urinary frequency, urinary urgency, or incontinence Breast: No breast lumps, nipple d/c, overlying skin changes, redness or skin retraction Allergies and current medication updated:Yes SENSITIVE EXAM: The sensitive examination was discussed with the Patient or Patient's Authorized Paper Sheeter. As applicable, any other physician, advance practice provider, medical student, or other health professional student that will be observing or involved in the sensitive examination for educational or training purposes was discussed with the Patient or Authorized Paper Sheeter. The Patient or Authorized Paper Sheeter has agreed to proceed with the sensitive examination. (Sensitive examination includes inspection and/or palpation of the breasts, pelvis, prostate and anorectal regions). EXAM: BP 112/74 Ht 5' 7" (1.70m) Wt 169 lb (76.7kg) LMP 09/06/2013 BMI 26.46 kg/(m2). GENERAL: pleasant, female in no apparent distress HEENT: Normocephalic, atraumatic, mucus membranes moist, and no lesions NECK: Supple, full range of motion, no adenopathy, and thyroid normal DERMATOLOGY: Normal, without lesions, non-icteric, and non-hirsute BREAST: soft, non-tender, symmetric, no dominant mass, normal nipple-areolar complex, no lymphadenopathy, and no nipple discharge CHEST: Normal inspiratory effort ABDOMEN: soft, non-tender, and no masses PELVIC: external genitalia normal, normal Bartholin's glands, urethra, Burnet's glands, no vulvar lesions, good vaginal support, physiologic discharge present, normal appearing perineal body and perianal region, cervix surgically absent BIMANUAL: no adnexal masses, non-tender, and uterus surgically absent RECTOVAGINAL: deferred. 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 Still get period: No LMP: n/a Menopause symptoms: None Time with current partner: 39 YEARS Number of lifetime partners: 2 control frequency: Never HPV vaccine: No; Last pap smear: 09/09/2022 History of abnormal pap: No, all prior PAP smears have been normal Bothersome pelvic pain: No Last mammogram: 2022 normal History of abnormal mammogram: No OB History T2 L2 SAB0 IAB0 Ectopic0 Multiple0 Live Births0 Ip Counsel History LMP: 09/06/2013, Hysterectomy Age at Menarche: 16 Age at First : Age at Menopause: Ip Counsel History Comments: Sexual Activity: Yes; Male; hysterectomy Contraception: Surgical PAST MEDICAL HISTORY Diagnosis Date Asthma Cervical stenosis (uterine cervix) Dysmenorrhea Excessive or frequent menstruation Heavy periods Hypothyroid Metrorrhagia 2008 MTHFR mutation 01/2019 Rheumatoid arthritis (HCC) Systemic lupus erythematosus (HCC) Tobacco use disorder Stopped 02/2007 Urinary tract infection, site not specified Recurrent UTI's Vitamin B12 deficiency PAST SURGICAL HISTORY Procedure Laterality Date DELIVERY ONLY , low cervical/X2 HYSTERECTOMY 2013 HYSTEROSCOPY, DIAGNOSTIC (SEPARATE 07/09/2009 Hysteroscopy, d&c LAPS TOTAL HYSTERECT 250 GM/< W/RMVL TUBE/OVARY 10/26/2013 [facility], bilateral salpingectomy LIG/TRNSXJ FLP TUBE ABDL/VAG APPR UNI/BI Tubal ligation at time of c/s PAST SURGICAL HISTORY OF LEFT GANGLION CYST PAST SURGICAL HISTORY OF LASIK SURGERY TONSILLECTOMY PRIMARY/SECONDARY <AGE 12 Tonsillectomy UNSPECIFIED ORAL SURGERY PROCEDURE, BY REPORT 2018 Teeth removal --2017 and 2020 FAMILY HISTORY Problem Relation Age of Onset Heart Mother AAA and her mother's 2 GMs Stroke Mother Cancer Mother lung Heart Father Cancer Father multiple mylomia other (mthfr) Sister other (gilberts disease) Brother Thyroid Brother hypo Diabetes Paternal Grandmother Asthma Daughter other (MTHFR) Daughter Thyroid Other Several P-cousins SOCIAL HISTORY Social History Tobacco Use Smoking status: Former Current packs/day: 0.00 Average packs/day: 0.5 packs/day for 25.0 years (12.5 ttl pk-yrs) Types: Cigarettes Start date: 02/16/1982 Quit date: 02/16/2007 Years since quittin.3 Smokeless tobacco: Former Types: Chew Vaping Use Vaping status: Never Used Substance Use Topics Alcohol use: No Alcohol/week: 1.0 standard drink of alcohol Types: 1 Cans of Beer (12oz) per week Drug use: No REVIEW OF SYSTEMS Abdomen: No abdominal pain, nausea, vomiting, diarrhea, or constipation. No bloating, early satiety, indigestion, or increased flatulence.no changes in BM Bladder: No dysuria, gross hematuria, urinary frequency, urinary urgency, or incontinence Breast: No breast lumps, nipple d/c, overlying skin changes, redness or skin retraction Allergies and current medication updated:Yes SENSITIVE EXAM: The sensitive examination was discussed with the Patient or Patient's Authorized Paper Sheeter. As applicable, any other physician, advance practice provider, medical student, or other health professional student that will be observing or involved in the sensitive examination for educational or training purposes was discussed with the Patient or Authorized Paper Sheeter. The Patient or Authorized Paper Sheeter has agreed to proceed with the sensitive examination. (Sensitive examination includes inspection and/or palpation of the breasts, pelvis, prostate and anorectal regions). EXAM: BP 112/74 Ht 5' 7" (1.70m) Wt 169 lb (76.7kg) LMP 09/06/2013 BMI 26.46 kg/(m^2). GENERAL: pleasant, female in no apparent distress HEENT: Normocephalic, atraumatic, mucus membranes moist, and no lesions NECK: Supple, full range of motion, no adenopathy, and thyroid normal DERMATOLOGY: Normal, without lesions, non-icteric, and non-hirsute BREAST: soft, non-tender, symmetric, no dominant mass, normal nipple-areolar complex, no lymphadenopathy, and no nipple discharge CHEST: Normal inspiratory effort ABDOMEN: soft, non-tender, and no masses PELVIC: external genitalia normal, normal Bartholin's glands, urethra, Burnet's glands, no vulvar lesions, good vaginal support, physiologic discharge present, normal appearing perineal body and perianal region, cervix surgically absent BIMANUAL: no adnexal masses, non-tender, and uterus surgically absent RECTOVAGINAL: deferred. NEURO: alert and oriented x3,exam grossly non-focal EXTREMITIES: normal ASSESSMENT/PLAN: 1) Health maintenance: Pap/HPV screening no longer needed Mammogram ordered Colon cancer screening: up to date with screening 2) Follow up one year or sooner as needed Surya Rizvi MD documented in this encounterWad[facility]12-20-[facility] History of Present illness Narrative* Cindy Will RT(Shaunna) - 06/30/2024 7:50 AM EST Radiology Service Progress Note PATIENT NAME: Samuel Woo DATE OF SERVICE: June 30, 2024 TIME: 7:50 AM PATIENT IDENTITY VERIFICATION COMPLETED USING TWO (2) IDENTIFIERS: Name and Date of confirmedby patient verbally. FALL SCREENING: Has the patient had 2 falls in the last year or 1 fall with injury or currently using an Ambulatory Assistive Device (Walker, Cane, Wheelchair, Crutches, etc.)? No PATIENT GENDER DATA: Female. status: : No status: NO. PATIENT RELEVANT IMPLANT DATA REVIEWED: Not Applicable PATIENT PRESENTS WITH AN IMPLANTABLE OR ATTACHED COUNTER HELP: No RADIOLOGY DEPARTMENT: Mammography PERIPHERAL IV DATA: Not applicable SIGNED BY: SHIMON Neal) June 30, 2024 7:50 AM documented in this encounterWadsworth-[facility]12-20-2024 NoteHNO ID: [id number] Author: CINDY WILL RT(R) Service: ? Author Type: Technologist Type: Progress Notes Filed: 06/30/2024 07:51 Note Text: Radiology Service Progress Note PATIENT NAME: Samuel Woo DATE OF SERVICE: June 30, 2024 TIME: 7:50 AM PATIENT IDENTITY VERIFICATION COMPLETED USING TWO (2) IDENTIFIERS: Name and Date of confirmed by patient verbally. FALL SCREENING: Has the patient had 2 falls in the last year or 1 fall with injury or currently using an Ambulatory Assistive Device (Walker, Cane, Wheelchair, Crutches, etc.)? No PATIENT GENDER DATA: Female. status: : No status: NO. PATIENT RELEVANT IMPLANT DATA REVIEWED: Not Applicable PATIENT PRESENTS WITH AN IMPLANTABLE OR ATTACHED COUNTER HELP: No RADIOLOGY DEPARTMENT: Mammography PERIPHERAL IV DATA: Not applicable SIGNED BY: RT Val(R) June 30, 2024 7:[address] [facility]09-03-2024 Telephone encounter Note* Telephone Encounter - Trinidad Arshad RN - 03/14/2024 8:55 AM EDT Informed patient to read letter. [facility]09-03-[facility]24 Miscellaneous Notes* Telephone Encounter - Trinidad Arshad RN - 03/14/2024 8:55 AM EDT Informed patient to read letter. * Telephone Encounter - Mercedes Ann MD - 03/14/2024 8:10 AM EDT Please contact patient to let her know I sent her a [employer] message last week to follow-up on her recent office visit. (Message has not been read.) Mercedes Ann MD documented in this encounterWadsworth-[facility]09-03-2024 Telephone encounter Note * Telephone Encounter - Mercedes Ann MD - 03/14/2024 8:10 AM EDT Please contact patient to let her know I sent her a [employer] message last week to follow-up on her recent office visit. (Message has not been read.) Mercedes Ann MD [facility]08-21-[facility] Nurse Note* Temitope Villareal RN - 03/01/2024 1:47 PM EDT Patient c/o h/a, dizziness, runny nose, nerve pain, involuntary twitching, internal vibration with salicylate. She has tried to avoid salicylates with some improvement in symptoms, but states it is impossible to avoid completely. [facility]08-21-[facility] Nurse Note* Temitope Villareal RN - 03/01/2024 1:47 PM EDT Patient c/o h/a, dizziness, runny nose, nerve pain, involuntary twitching, internal vibration with salicylate. She has tried to avoid salicylates with some improvement in symptoms, but states it is impossible to avoid completely. documented in this encounterWadsworth-[facility]ittman [facility]08-21-2024 NoteHNO ID: [id number] Author: MERCEDES ANN MD Service: ? Author Type: Physician Type: Progress Notes Filed: 03/08/2024 13:24 Note Text: ASSESSMENT/PLAN: -Discussed with patient that her constellation of symptoms are not consistent with IgE-mediated food allergies. Discussed that patients who have known conditions associated with aspirin/NSAID sensitivity including patients with aspirin exacerbated respiratory disease and urticaria associated with use of aspirin/NSAIDs tolerate salicylate containing foods without adverse reaction. Recommend that she see neurology and psychiatry for her symptoms. Recommend that she consult a dietitian if she chooses to continue her elimination diet. At the patient's request, I will reach out to my colleagues to get their opinion regarding this patient's concern about salicylate sensitivity. I will contact the patient after hearing back from them. - Discussed medication dosage, usage, side effects, and goals of treatment in detail. - Follow-up in PRN - patient will return sooner should new symptoms or problems arise. Mercedes Ann MD Allergy AND Immunology This is a self-referral for an allergy and immunology evaluation. Samuel Woo is a 59 year old female who presents for further evaluation of possible salicylate sensitivity. Patient was last seen in this office on January 02, 2021. She complains of multiple symptoms including headaches, nerve pain, joint pain, internal vibration, dizziness and rhinorrhea associated with ingestion of multiple types of foods. She attributes the symptoms to salicylates found in foods. She also develops the symptoms with exposure to strong odors. She is significantly limiting her diet and currently ingests "beef, white rice, vegetables and butter." She notes that some foods will "limit" her breathing but do not cause wheezing or distress. She has never experienced urticaria, angioedema, respiratory distress or loss of consciousness associated with ingestion of a particular type of food. Symptoms resolve without treatment. She has not presented to the emergency room or required treatment with epinephrine. She requests treatment with antileukotrienes for the presumed salicylate sensitivity. She reports that she has previously undergone neurologic and and psychological evaluation for these symptoms. She has a history of intermittent asthma. Denies use of short acting beta agonists or treatment with systemic steroids for asthma symptoms in recent years. Denies a history of nasal polyposis. Denies a history of urticaria. She currently avoids use of aspirin/NSAIDs. Prior to developing the symptoms mentioned above 8 years ago, she took aspirin/NSAIDs without adverse reaction. REVIEW OF SYSTEMS: Answers submitted by the patient for this visit: Allergy Review of Symptoms (Submitted on 03/01/2024) Eye discharge: Yes Eye pain: Yes Ear pain: Yes Ringing in Ears: Yes Nasal Congestion: Yes Runny Nose: Yes Shortness of breath: Yes Constipation: Yes Headaches: Yes All other review of systems negative except for those listed above. PAST MEDICAL HISTORY No date: Cervical stenosis (uterine cervix) No date: Dysmenorrhea No date: Excessive or frequent menstruation Comment: Heavy periods No date: Hypothyroid 2008: Metrorrhagia 01/2019: MTHFR mutation No date: Tobacco use disorder Comment: Stopped 02/2007 No date: Urinary tract infection, site not specified Comment: Recurrent UTI's No date: Vitamin B12 deficiency MEDICATIONS: levothyroxine (SYNTHROID) 100 mcg tablet Take 100 mcg by mouth daily before breakfast. ALLERGIES: Allergies As of Date: 03/01/2024 Allergen Noted Reaction PEANUT 11/30/2017 Shortness of Breath AMOXICILLIN 01/02/2021 Shortness of Breath KING PEPPER 01/02/2021 Unknown CINNAMON 01/02/2021 Other: See Comments CLINDAMYCIN 01/02/2021 Itching DAIRY AID [LACTASE] 01/02/2021 Unknown ESCITALOPRAM OXALATE 01/02/2021 Other: See Comments HISTAMINE H2 INHIBITORS 11/02/2022 Other: See Comments METOPROLOL 07/10/2019 Rash MORPHINE SULFATE 09/15/2016 Hives ONION 01/02/2021 Hives SALICYLAMIDE 11/02/2022 Other: See Comments STRAWBERRY 01/02/2021 Unknown VITAMIN D ANALOGUE 01/02/2021 Other: See Comments Fully Assessed 11/02/2022 PAST SURGICAL HISTORY No date: DELIVERY ONLY Comment: , low cervical/X2 2014: HYSTERECTOMY 07/09/2009: HYSTEROSCOPY, DIAGNOSTIC (SEPARATE Comment: Hysteroscopy, [facility] 10/26/2013: LAPS TOTAL HYSTERECT 250 GM/< W/RMVL TUBE/OVARY Comment: TLH, bilateral salpingectomy No date: LIG/TRNSXJ FLP TUBE ABDL/VAG APPR UNI/BI Comment: Tubal ligation at time of c/s No date: PAST SURGICAL HISTORY OF Comment: LEFT GANGLION CYST No date: PAST SURGICAL HISTORY OF Comment: LASIK SURGERY No date: TONSILLECTOMY PRIMARY/SECONDARY Comment: Tonsillectomy 2018: UNSPECIFIED ORAL KRYSTYNA (more content not included)...[facility]08-21-2024 History of Present illness Narrative* Mercedes Ann MD - 03/01/2024 1:41 PM EDT ASSESSMENT/PLAN: -Discussed with patient that her constellation of symptoms are not consistent with IgE-mediated food allergies. Discussed that patients who have known conditions associated with aspirin/NSAID sensitivity including patients with aspirin exacerbated respiratory disease and urticaria associated with use of aspirin/NSAIDs tolerate salicylate containing foods without adverse reaction. Recommend that she see neurology and psychiatry for her symptoms. Recommend that she consult a dietitian if she chooses to continue her elimination diet. At the patient's request, I will reach out to my colleagues to get their opinion regarding this patient's concern about salicylate sensitivity. I will contact the patient after hearing back from them. - Discussed medication dosage, usage, side effects, and goals of treatment in detail. - Follow-up in PRN - patient will return sooner should new symptoms or problems arise. Mercedes Ann MD Allergy & Immunology This is a self-referral for an allergy and immunology evaluation. Samuel Woo is a 59 year old female who presents for further evaluation of possible salicylate sensitivity. Patient was last seen in this office on January 02, 2021. She complains of multiple symptoms including headaches, nerve pain, joint pain, internal vibration,dizziness and rhinorrhea associated with ingestion of multiple types of foods. She attributes the symptoms to salicylates found in foods. She also develops the symptoms with exposure to strong odors.She is significantly limiting her diet and currently ingests "beef, white rice, vegetables and butter." She notes that some foods will "limit" her breathing but do not cause wheezing or distress. Shehas never experienced urticaria, angioedema, respiratory distress or loss of consciousness associated with ingestion of a particular type of food. Symptoms resolve without treatment. She has not presented to the emergency room or required treatment with epinephrine. She requests treatment with antileukotrienes for the presumed salicylate sensitivity. She reports that she has previously undergone neurologic and and psychological evaluation for thesesymptoms. She has a history of intermittent asthma. Denies use of short acting beta agonists or treatment with systemic steroids for asthma symptoms in recent years. Denies a history of nasal polyposis. Deniesa history of urticaria. She currently avoids use of aspirin/NSAIDs. Prior to developing the symptoms mentioned above 8 years ago, she took aspirin/NSAIDs without adverse reaction. REVIEW OF SYSTEMS: Answers submitted by the patient for this visit: Allergy Review of Symptoms (Submitted on 03/01/2024) Eye discharge: Yes Eye pain: Yes Ear pain: Yes Ringing in Ears: Yes Nasal Congestion: Yes Runny Nose: Yes Shortness of breath: Yes Constipation: Yes Headaches: Yes All other review of systems negative except for those listed above. PAST MEDICAL HISTORY No date: Cervical stenosis (uterine cervix) No date: Dysmenorrhea No date: Excessive or frequent menstruation Comment: Heavy periods No date: Hypothyroid 2009: Metrorrhagia 01/2019: MTHFR mutation No date: Tobacco use disorder Comment: Stopped 02/2007 No date: Urinary tract infection, site not specified Comment: Recurrent UTI's No date: Vitamin B12 deficiency MEDICATIONS: levothyroxine (SYNTHROID) 100 mcg tablet Take 100 mcg by mouth daily before breakfast. ALLERGIES: Allergies As of Date: 03/01/2024 Allergen Noted Reaction PEANUT 11/30/2017 Shortness of Breath AMOXICILLIN 01/02/2021 Shortness of Breath KING PEPPER 01/02/2021 Unknown CINNAMON 01/02/2021 Other: See Comments CLINDAMYCIN 01/02/2021 Itching DAIRY AID [LACTASE] 01/02/2021 Unknown ESCITALOPRAM OXALATE 01/02/2021 Other: See Comments HISTAMINE H2 INHIBITORS 11/02/2022 Other: See Comments METOPROLOL 07/10/2019 Rash MORPHINE SULFATE 09/15/2016 Hives ONION 01/02/2021 Hives SALICYLAMIDE 11/02/2022 Other: See Comments STRAWBERRY 01/02/2021 Unknown VITAMIN D ANALOGUE 01/02/2021 Other: See Comments Fully Assessed 11/02/2022 PAST SURGICAL HISTORY No date: DELIVERY ONLY Comment: , low cervical/X2 2014: HYSTERECTOMY 07/09/2009: HYSTEROSCOPY, DIAGNOSTIC (SEPARATE Comment: Hysteroscopy, d&c 10/26/2013: LAPS TOTAL HYSTERECT 250 GM/< W/RMVL TUBE/OVARY Comment: TLH, bilateral salpingectomy No date: LIG/TRNSXJ FLP TUBE ABDL/VAG APPR UNI/BI Comment: Tubal ligation at time of c/s No date: PAST SURGICAL HISTORY OF Comment: LEFT GANGLION CYST No date: PAST SURGICAL HISTORY OF Comment: LASIK SURGERY No date: TONSILLECTOMY PRIMARY/SECONDARY <AGE 14 Comment: Tonsillectomy 2018: UNSPECIFIED ORAL SURGERY PROCEDURE, BY REPORT Comment: Teeth removal --2017 and 2020 FAMILY HISTORY: Allergic rhinitis:no. Asthma: no. Eczema: no. Cystic fibrosis: no. Immunodeficiency: no. 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 Pets in the home: There are no pets in the home Outdoor animals: There are no outdoor animals Tobacco smoke: No exposure in the home. Physical Exam: GENERAL APPEARANCE:Well appearing, alert, in no acute distress, well-hydrated, well nourished. HEENT: NCAT. EYES: conjunctiva and sclera normal. EARS: External ears normal. Canals clear. TM's normal. NOSE/SINUS: Nares normal. Septum midline. Mucosa normal. No drainage or sinus tenderness. THROAT: no erythema NECK:neck supple, no adenopathy HEART:RRR with normal S1 and S2 ,no murmurs, no gallops, no rubs LUNGS: clear to auscultation bilaterally, no wheezes, rales or rhonchi EXTREMITIES:Extremities normal, No deformities, No skin discoloration, and No edema SKIN: Skin color, texture, turgor normal. No rashes or lesions. documented in this encounterWadsworth-[facility]04-24-2023 History of Present illness Narrative* Surya Rizvi MD - 11/02/2022 10:39 AM EDT Samuel is a 57 year old who presents for an annual gynecologic exam without complaints. Postmenopausal: Had a hysterectomy at age 48 HRT use: No. Last Pap: 06/21/2012 normal HPV: 06/15/2012 negative History of abnormal pap: No Last mammogram: 2022 normal History of abnormal mammogram: No Sexually active: Yes History of STDS: None Patient concerns for STD exposure: No. Hot flashes: No Night sweats: No Vaginal dryness: No Mood swings: No OB History T2 L2 SAB0 IAB0 Ectopic0 Multiple0 Live Births0 Ip Counsel History LMP: 09/06/2013, Hysterectomy Age at Menarche: Age at First : Age at Menopause: Ip Counsel History Comments: Sexual Activity: Yes; Male; hysterectomy Contraception: Surgical PAST MEDICAL HISTORY Diagnosis Date Cervical stenosis (uterine cervix) Dysmenorrhea Excessive or frequent menstruation Heavy periods Hypothyroid Metrorrhagia 2008 MTHFR mutation 01/2019 Tobacco use disorder Stopped 02/2007 Urinary tract infection, site not specified Recurrent UTI's Vitamin B12 deficiency PAST SURGICAL HISTORY Procedure Laterality Date DELIVERY ONLY , low cervical/X2 HYSTERECTOMY 2013 HYSTEROSCOPY, DIAGNOSTIC (SEPARATE 07/09/2009 Hysteroscopy, d&c LAPS TOTAL HYSTERECT 250 GM/< W/RMVL TUBE/OVARY 10/26/2013 TLH, bilateral salpingectomy LIG/TRNSXJ FLP TUBE ABDL/VAG APPR UNI/BI Tubal ligation at time of c/s PAST SURGICAL HISTORY OF LEFT GANGLION CYST PAST SURGICAL HISTORY OF LASIK SURGERY TONSILLECTOMY PRIMARY/SECONDARY <AGE 14 Tonsillectomy UNSPECIFIED ORAL SURGERY PROCEDURE, BY REPORT 2017 Teeth removal --2017 and 2020 FAMILY HISTORY Problem Relation Age of Onset Heart Mother AAA and her mother's 2 GMs Stroke Mother Cancer Mother lung Heart Father Cancer Father multiple mylomia other (mthfr) Sister Thyroid Brother hypo Diabetes Paternal Grandmother Asthma Daughter other (MTHFR) Daughter Thyroid Other Several P-cousins SOCIAL HISTORY Social History Tobacco Use Smoking status: Former Packs/day: 0.50 Years: 25.00 Pack years: 12.50 Types: Cigarettes Quit date: 02/16/2007 Years since quittin.7 Smokeless tobacco: Former Types: Chew Vaping Use Vaping Use: Never used Substance Use Topics Alcohol use: No Alcohol/week: 2.5 standard drinks Types: 1 Cans of Beer (12oz) per week Drug use: No REVIEW OF SYSTEMS Abdomen: Chronic constipation No abdominal pain, nausea, vomiting, diarrhea, or No bloating, early satiety, indigestion, or increased flatulence. Bladder: No dysuria, gross hematuria, urinary frequency, urinary urgency, or incontinence Breast: No breast lumps, nipple d/c, overlying skin changes, redness or skin retraction Allergies and current medication updated:Yes TEACHING PHYSICIAN NOTE OF PERSONAL INVOLVEMENT IN CARE: I have personally seen and examined the patient and performed the medical decision-making components. I have reviewed the medical student documentation and verified the findings in the note as written. Any additions or changes are noted in bold/italics. Signature: Surya Rizvi Date: 11/02/2022 Time: 11:05 AM EXAM: BP 118/82 Ht 5' 7" (1.70m) Wt 195 lb (88.5kg) LMP 09/06/2013 BMI 30.53 kg/(m^2). GENERAL: pleasant, female in no apparent distress HEENT: Normocephalic, atraumatic, mucus membranes moist, and no lesions NECK: Supple, full range of motion, no adenopathy, and thyroid normal DERMATOLOGY: Normal, without lesions, non-icteric, and non-hirsute BREAST: soft, non-tender, symmetric, no dominant mass, normal nipple-areolar complex, no lymphadenopathy, and no nipple discharge CHEST: Normal inspiratory effort ABDOMEN: soft, non-tender, and no masses PELVIC: external genitalia normal, normal Bartholin's glands, urethra, Burnet's glands, no vulvar lesions, good vaginal support, physiologic discharge present, normal appearing perineal body and perianal region, cuff intact BIMANUAL: uterus normal size, shape and consistency, no adnexal masses, and non-tender RECTOVAGINAL: deferred. NEURO: alert and oriented x3,exam grossly non-focal EXTREMITIES: normal ASSESSMENT/PLAN: 1) Health maintenance: Pap/HPV screening no longer needed Mammogram ordered colon cancer screen up to date 2) Follow up one year or sooner as needed Surya Rizvi MD documented in this encounterWadsworth-[facility]04-17-2023 History of Present illness Narrative* Cindy Will, RT(R) - 10/26/2022 12:50 PM EDT Radiology Service Progress Note PATIENT NAME: Samuel Woo DATE OF SERVICE: October 26, 2022 TIME: 12:50 PM PATIENT IDENTITY VERIFICATION COMPLETED USING TWO (2) IDENTIFIERS: Name and Date of confirmedby patient verbally. FALL SCREENING: Has the patient had 2 falls in the last year or 1 fall with injury or currently using an Ambulatory Assistive Device (Walker, Cane, Wheelchair, Crutches, etc.)? No PATIENT GENDER DATA: Female. status: : No status: NO. 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 Still has ACHARYA but tolerates them. Postmenopausal: yes HRT use: No. Last Pap: 06/21/2012 normal HPV: 06/15/2012 negative History of abnormal pap: No Last mammogram: 2021 normal OB History T2 L2 SAB0 IAB0 Ectopic0 Multiple0 Live Births0 Ip Counsel History LMP: 09/06/2013, Hysterectomy Age at Menarche: Age at First : Age at Menopause: Ip Counsel History Comments: Sexual Activity: Yes; Male; hysterectomy Contraception: Surgical PAST MEDICAL HISTORY Diagnosis Date Cervical stenosis (uterine cervix) Dysmenorrhea Excessive or frequent menstruation Heavy periods Hypothyroid Metrorrhagia 2008 MTHFR mutation 01/2019 Tobacco use disorder Stopped 02/2007 Urinary tract infection, site not specified Recurrent UTI's PAST SURGICAL HISTORY Procedure Laterality Date DELIVERY ONLY , low cervical/X2 HYSTERECTOMY 2013 HYSTEROSCOPY, DIAGNOSTIC (SEPARATE 07/09/09 Hysteroscopy, d&c LIGATE FALLOPIAN TUBE Tubal ligation at time of c/s PAST SURGICAL HISTORY OF LEFT GANGLION CYST PAST SURGICAL HISTORY OF LASIK SURGERY REMOVAL OF TONSILS,<14 Y/O Tonsillectomy TL[facility] W/T/O 250 G OR LESS 10/26/13 TLH, bilateral salpingectomy UNSPECIFIED ORAL SURGERY PROCEDURE, BY REPORT 2018 Teeth removal FAMILY HISTORY Problem Relation Age of Onset Heart Mother AAA and her mother's 2 GMs Stroke Mother Cancer Mother lung Heart Father Cancer Father multiple mylomia Thyroid Brother hypo Diabetes Paternal Grandmother Asthma Daughter Thyroid Other Several P-cousins SOCIAL HISTORY Social History Tobacco Use Smoking status: Former Smoker Packs/day: 0.50 Years: 25.00 Pack years: 12.50 Types: Cigarettes Quit date: 02/16/2007 Years since quittin.6 Smokeless tobacco: Current User Types: Chew Vaping Use Vaping Use: Never used Substance Use Topics Alcohol use: No Alcohol/week: 2.5 standard drinks Types: 1 Cans of Beer (12oz) per week Drug use: No REVIEW OF SYSTEMS Abdomen: No abdominal pain, nausea, vomiting, diarrhea, or constipation. No bloating, early satiety, indigestion, or increased flatulence. Bladder: No dysuria, gross hematuria, urinary frequency, urinary urgency, or incontinence Breast: No breast lumps, nipple d/c, overlying [...] external genitalia normal, normal Bartholin's glands, urethra, Burnet's glands, no vulvar lesions, good vaginal support, physiologic discharge present, normal appearing perineal body and perianal region, cervix surgically absent BIMANUAL: no adnexal masses, non-tender and uterus surgically absent RECTOVAGINAL: deferred. NEURO: alert and oriented x3,exam grossly non-focal EXTREMITIES: normal ASSESSMENT/PLAN: 1) Health maintenance: Pap/HPV screening no longer needed Mammogram ordered Colon cancer screening: up to date with screening 2) Follow up one year or sooner as needed Surya Rizvi MD documented in this encounterWadsworth-[facility]04-04-2022 Miscellaneous Notes* Letter - Mammography Coordinator - 10/13/2021 3:13 PM EDT October 13, 2021 PID: [id number] Samuel Woo [id number] [id number] Dear Ms. Woo, We are pleased to inform you that the results of your recent breast imaging exam on 10/13/2021 are normal. Your mammogram demonstrates that you have dense breast tissue, which could hide abnormalities. Dense breast tissue, in and of itself, is a relatively common condition. Therefore, this information is not provided to cause undue concern; rather, it is to raise your awareness and promote discussion with your health care provider regarding the presence of dense breast tissue in addition to other riskfactors. Early detection of cancer is very important. We also understand recommendations regarding breast cancer screening are controversial. Please discuss with your primary care provider which strategy is best for you and whether a mammogram is right for you. Your imaging studies and report will be kept on file at [facility] as part of your permanent medical record and are available for your continuing care. Thank you for allowing us to help in meeting your health care needs. Sincerely, Dr. Arvizu Interpreting Radiologist [facility] (Normal over 40) documented in this encounter[facility] History of Present illness Narrative* Anna Germain - 10/13/2021 2:30 PM EDT Radiology Service Progress Note PATIENT NAME: Samuel Woo DATE OF SERVICE: October 13, 2021 TIME: 2:11 PM PATIENT IDENTITY VERIFICATION COMPLETED USING TWO (2) IDENTIFIERS: Name and Date of confirmedby patient verbally. FALL SCREENING: Has the patient had 2 falls in the last year or 1 fall with injury or currently using an Ambulatory Assistive Device (Walker, Cane, Wheelchair, Crutches, etc.)? No PATIENT GENDER DATA: Female. status: : No status: NO. PATIENT RELEVANT IMPLANT DATA REVIEWED: Not Applicable RADIOLOGY DEPARTMENT: Mammography PERIPHERAL IV DATA: Not applicable SIGNED BY: Anna Germain October 13, 2021 2:11 PM documented in this encounterW[facility] History of Past illness Narrative* Problem Noted Date Resolved Date Pelvic pain in female 08/25/2013 12/08/2013 Pelvic pressure in female 08/25/20132013 Hypertrophy of uterus 07/24/2009 10/26/2013 Stricture and stenosis of cervix 06/05/2009 12/08/2013 Excessive or frequent menstruation 05/13/2009 12/08/2013 Metrorrhagia 01/20/2006 07/21/2013 documented as of this encounter (statuses as of 10/13/2021) [facility] History of Past illness Narrative* Problem Noted Date Resolved Date Pelvic pain in female 08/25/2013 12/08/2013 Pelvic pressure in female 08/25/20132013 Hypertrophy of uterus 07/24/2009 10/26/2013 Stricture and stenosis of cervix 06/05/2009 12/08/2013 Excessive or frequent menstruation 05/13/2009 12/08/2013 Metrorrhagia 01/20/2006 07/21/2013 documented as of this encounter (statuses as of 10/14/2021) [facility] History of Past illness Narrative* Problem Noted Date Resolved Date Pelvic pain in female 08/25/2013 12/08/2013 Pelvic pressure in female 08/25/20132013 Hypertrophy of uterus 07/24/2009 10/26/2013 Stricture and stenosis of cervix 06/05/2009 12/08/2013 Excessive or frequent menstruation 05/13/2009 12/08/2013 Metrorrhagia 01/20/2006 07/21/2013 documented as of this encounter (statuses as of 10/15/2021) [facility] History of Past illness Narrative* Problem Noted Date Resolved Date Pelvic pain in female 08/25/2013 12/08/2013 Pelvic pressure in female 08/25/20132013 Hypertrophy of uterus 07/24/2009 10/26/2013 Stricture and stenosis of cervix 06/05/2009 12/08/2013 Excessive or frequent menstruation 05/13/2009 12/08/2013 Metrorrhagia 01/20/2006 07/21/2013 documented as of this encounter (statuses as of 11/02/2022) [address]14-2014 History of Past illness Narrative* Problem Noted Date Diagnosed Date Resolved Date Pelvic pain in female 08/25/20132013 Pelvic pressure in female 08/25/2013 Hypertrophy of uterus 07/24/20092013 Stricture and stenosis of cervix 06/05/2009 12/08/2013 Excessive or frequent menstruation 05/13/2009 12/08/2013 Metrorrhagia 01/20/2006 07/21/2013 documented as of this encounter (statuses as of 05/16/2023) [facility] note* Diagnosis Onset Date Resolution Status Essential hypertension acute Adrenal adenoma chronic [facility] Work Phone: evaluation note* Diagnosis Encounter for gynecological examination (general) (routine) without abnormal findings Encounter for screening mammogram for breast cancer documented in this encounter [facility] note* Diagnosis Encounter for screening mammogram for malignant neoplasm of breast Other screening mammogram documented in this encounter [facility] note* Diagnosis Onset Date Resolution Status Elevated BP without diagnosis of hypertension acute [facility] Work Phone: evTotal-trax noteNo assessment information available [facility] Work Phone: evaluMonkey Bizness note* Diagnosis Encounter for gynecological examination (general) (routine) without abnormal findings- Primary Encounter for screening mammogram for breast cancer documented in this encounter [facility] note* Diagnosis Encounter for gynecological examination (general) (routine) without abnormal findings Encounter for screening mammogram for breast cancer documented in this encounter [facility] note* Diagnosis Adverse reaction to food, initial encounter- Primary documented in this encounter [facility] note* Diagnosis Encounter for gynecological examination (general) (routine) without abnormal findings- Primary Encounter for screening mammogram for breast cancer documented in this encounter [facility] note* Diagnosis Screening mammogram, encounter for [facility] Additional Instructions The exact cause of your symptoms is not clear today however your work-up was largely normal. At this time I feel he can safely be discharged home for outpatient follow-up. You not have any signs of infection on your imaging or blood work. You have been given referral for GI follow-up with gastroenterology as well as general surgery. You can choose who would like to follow-up with.[facility] Work Phone: Reason for referral (narrative)* Diagnostic Procedure Only (Routine) - Pending Review Specialty Diagnoses / Procedures Referred By Chan richardson Referred To Contact [facility] Diagnoses Encounter for gynecological examination (general) (routine) without abnormal findings Encounter for screening mammogram for breast cancer Procedures JANEE SCREENING W DARRELL SCREENING DIGITAL BREAST TOMOSYNTHESIS BI SCREENING MAMMOGRAPHY BI 2-VIEW BREAST INC Surya Zapata MD [address] [place] [address] [facility] [address] [place] [address] Referral ID Status Reason Start Date Expiration Date Visits Requested Visits Authorized [id number] Pending Review Auto-Generat ed Referral 10/13/2021 11/12/2022 1 1 [facility] for referral (narrative)* Diagnostic Procedure Only (Routine) - Closed Specialty Diagnoses / Procedures Referred By Chan richardson Referred To Contact [facility] Diagnoses Encounter for screening mammogram for malignant neoplasm of breast Procedures JANEE SCREENING W DARRELL SCREENING DIGITAL BREAST TOMOSYNTHESIS BI SCREENING MAMMOGRAPHY BI 2-VIEW BREAST INC Surya Zapata MD [address] [place] [address] [facility] [address] [place] [address] Referral ID Status Reason Start Date Expiration Date V isits Requested Visits Authorized [id number] Closed Auto-Generate d Referral 08/13/2021 09/12/2022 1 1 [facility] for referral (narrative)* Diagnostic Procedure Only (Routine) - Pending Review Specialty Diagnoses / Procedures Referred By Chan richardson Referred To Contact [facility] Diagnoses Encounter for gynecological examination (general) (routine) without abnormal findings Encounter for screening mammogram for breast cancer Procedures JANEE SCREENING W DARRELL SCREENING DIGITAL BREAST TOMOSYNTHESIS BI SCREENING MAMMOGRAPHY BI 2-VIEW BREAST INC Surya Zapata MD [address] [place] [address] [facility] [address] [place] [address] Referral ID Status Reason Start Date Expiration Date Visits Requested Visits Authorized [id number] Pending Review Auto-Generat ed Referral 11/02/2022 12/02/2023 1 1 [facility] for referral (narrative)* Diagnostic Procedure Only (Routine) - Closed Specialty Diagnoses / Procedures Referred By Contac t Referred To Contact [facility] Diagnoses Encounter for gynecological examination (general) (routine) without abnormal findings Encounter for screening mammogram for breast cancer Procedures JANEE SCREENING W DARRELL SCREENING DIGITAL BREAST TOMOSYNTHESIS BI SCREENING MAMMOGRAPHY BI 2-VIEW BREAST INC Surya Zapata MD [address] [place] [address] [facility] [address] [place] [address] Referral ID Status Reason Start Date Expiration Date V isits Requested Visits Authorized [id number] Closed Auto-Generate d Referral 10/13/2021 11/12/2022 1 1 [facility] for referral (narrative)* Diagnostic Procedure Only (Routine) - New Request Specialty Diagnoses / Procedures Referred By Chan richardson Referred To Contact [facility] Diagnoses Encounter for gynecological examination (general) (routine) without abnormal findings Encounter for screening mammogram for breast cancer Procedures JANEE SCREENING W DARRELL SCREENING DIGITAL BREAST TOMOSYNTHESIS BI SCREENING MAMMOGRAPHY BI 2-VIEW BREAST INC Surya Zapata MD [address] [place] [address] [facility] [address] [place] [address] Referral ID Status Reason Start Date Expiration Date Visits Requested Visits Authorized [id number] New Request Auto-Generat ed Referral 07/30/2025 1 1 [facility] for referral (narrative)No reason for referral information [facility]WUniversity [facility] Work Phone: Reason for visit Narrative* Diagnostic Procedure Only (Routine) - Closed Specialty Diagnoses / Procedures Referred By Chan richardson Referred To Contact [facility] Diagnoses Encounter for screening mammogram for malignant neoplasm of breast Procedures JANEE SCREENING W DARRELL SCREENING DIGITAL BREAST TOMOSYNTHESIS BI SCREENING MAMMOGRAPHY BI 2-VIEW BREAST INC Surya Zapata MD [address] [place] [address] [facility] [address] [place] [id number] Referral ID Status Reason Start Date Expiration Date V isits Requested Visits Authorized [id number] Closed Auto-Generate d Referral 08/13/2021 09/12/2022 1 1 [facility] for visit Narrative* Diagnostic Procedure Only (Routine) - Closed Specialty Diagnoses / Procedures Referred By Chan richardson Referred To Contact [facility] Diagnoses Encounter for gynecological examination (general) (routine) without abnormal findings Encounter for screening mammogram for breast cancer Procedures JANEE SCREENING W DARRELL SCREENING DIGITAL BREAST TOMOSYNTHESIS BI SCREENING MAMMOGRAPHY BI 2-VIEW BREAST INC Surya Zapata MD [address] [place] [address] [facility] [address] [place] [address] Referral ID Status Reason Start Date Expiration Date V isits Requested Visits Authorized [id number] Closed Auto-Generate d Referral 10/13/2021 11/12/2022 1 1 [facility] for visit Narrative* Diagnostic Procedure Only (Routine) - Closed Specialty Diagnoses / Procedures Referred By Chan richardson Referred To Contact [facility] Diagnoses Screening mammogram, encounter for Procedures JANEE SCREENING W DARRELL SCREENING DIGITAL BREAST TOMOSYNTHESIS BI SCREENING MAMMOGRAPHY BI 2-VIEW BREAST INC Surya Zapata MD [address] [place] [address] [facility] [address] [place] [address] Referral ID Status Reason Start Date Expiration Date V isits Requested Visits Authorized [id number] Closed Auto-Generate d Referral 02/21/2024 03/22/2025 1 1 [facility] Summary Purpose Family History No Family History Records Found Relationship Condition Age at Onset Recorded Date/T kathia mother Cerebrovascular accident (CVA) Unknown Heart disease Unknown Aortic aneurysm Unknown father Heart disease Unknown aunt Aortic aneurysm Unknown Advance Directives No Advanced Directives Records Found Advance Directive Response Recorded Date/ Time Advance Directives Yes June 8:23am Living Will No August 03 5:24pm Power of Journeyman Pressman Yes August 03, 2021 5:24pm Documents on File Type Date Recorded Patient Paper Sheeter Expl anation Advance Directive(s) 09/15/2016 6:30 PM Documents on File Type Date Recorded Patient Paper Sheeter Expl anation Advance Directive(s) 09/15/2016 6:30 PM Advance Directive Response Recorded Date/ Time Advance Directives Yes June 7:23am Living Will No August 03 4:24pm Power of Journeyman Pressman Yes August 03, 2021 4:24pm Advance Directive Response Recorded Date/ Time Advance Directives Yes June 8:23am Living Will No March 27, 2023 6:41pm Power of Journeyman Pressman No March 6:41pm Advance Directive Response Recorded Date/ Time Advance Directives Yes June 7:23am Living Will No March 27, 2023 5:41pm Power of Journeyman Pressman No March 5:41pm Advance Directive Response Recorded Date/ Time Advance Directives Yes June 8:23am Chief Complaint and Reason for Visit Chief Complaint HTN 24 HR URINE DROP OFF 24 HR URINE elevEVATED BP E-ORDER Benign neoplasm of unspecified adrenal gland Reason for Visit Essential hypertensi on Adrenal adenoma Chief Complaint HTN 24 HR URINE DROP OFF 24 HR URINE elevEVATED BP E-ORDER Benign neoplasm of unspecified adrenal gland HYPERTENSION Reason for Visit Essential hypertensi on Adrenal adenoma Chief Complaint 2 M FU Reason for Visit Elevated BP without diagnosis of hypertension Chief Complaint 6 M FU Reason for Visit Elevated BP without diagnosis of hypertension Chief Complaint GENERAL ILLNESS Chief Complaint Admit Date Constipation August 30, 2024 8:51am INT [facility]SPEC September 12, 2024 8:39 am Reason for Visit Admit Date Abnormal stools August 30, 2024 8:51am Constipation August 30, 2024 8:51am Additional Source Comments INFORMATION SOURCE (unrecogn ized section and content) DATE CREATED AUTHOR 12/30/2017 [facility] michelle Gilliam DATE CREATED AUTHOR AUTHOR'S ORGANIZ ATION 01/04/2018 Zacharynasir Lantiguaabril [facility] DATE CREATED AUTHOR AUTHOR'S ORGANIZ ATION 02/09/2018 [facility] DATE CREATED AUTHOR AUTHOR'S ORGANIZ ATION 02/09/2018 [employer] DATE CREATED AUTHOR AUTHOR'S ORGANIZ ATION 07/03/2024 [facility] DATE CREATED AUTHOR AUTHOR'S ORGANIZ ATION 01/29/2025 [place] Goals (unrecognized section and content) Goals may be documented in a n alternate sectionGoals may be documented in an alternate sectionGoals may be documented in an alternate sectionGoals may be documented in an alternate sectionGoals may be documented in an alternate sectionGoals may be documented in an alternate sectionGoals may be documented in an alternate sectionGoals may be documented in an alternate sectionGoals may be documented in an alternate sectionGoals may be documented in an alternate section Source Comments (unrecognize d section and content) In the event this informatio n is protected by the Federal Confidentiality of Alcohol and Drug Abuse Patient Records regulations: The Federal rules restrict any use of the information to criminally investigate or prosecute any alcohol or drug abuse patient.[facility] the event this information is protected by the Federal Confidentiality of Alcohol and Drug Abuse Patient Records regulations: The Federal rules restrict any use of the information to criminally investigate or prosecute any alcohol or drug abuse patient.[facility] Hospital[facility] the event this information is protected by the Federal Confidentiality of Alcohol and Drug Abuse Patient Records regulations: The Federal rules restrict any use of the information to criminally investigate or prosecute any alcohol or drug abuse patient.[facility] HospitalIn the event this information is protected by the Federal Confidentiality of Alcohol and Drug Abuse Patient Records regulations: The Federal rules restrict any use of the information to criminally investigate or prosecute any alcohol or drug abuse patient.[facility] Hospital[facility] the event this information is protected by the Federal Confidentiality of Alcohol and Drug Abuse Patient Records regulations: The Federal rules restrict any use of the information to criminally investigate or prosecute any alcohol or drug abuse patient.[facility] HospitalIn the event this information is protected by the Federal Confidentiality of Alcohol and Drug Abuse Patient Records regulations: The Federal rules restrict any use of the information to criminally investigate or prosecute any alcohol or drug abuse patient.[facility] HospitalIn the event this information is protected by the Federal Confidentiality of Alcohol and Drug Abuse Patient Records regulations: The Federal rules restrict any use of the information to criminally investigate or prosecute any alcohol or drug abuse patient.[facility] HospitalIn the event this information is protected by the Federal Confidentiality of Alcohol and Drug Abuse Patient Records regulations: The Federal rules restrict any use of the information to criminally investigate or prosecute any alcohol or drug abuse patient.[facility] HospitalIn the event this information is protected by the Federal Confidentiality of Alcohol and Drug Abuse Patient Records regulations: The Federal rules restrict any use of the information to criminally investigate or prosecute any alcohol or drug abuse patient.[facility] Care Teams (unrecognized sec tion and content) Last Trimmer Relationship Specialty Start Date End Date Mark Nguyen (Historical) [place] [address] PCP - General 06/21/12 Gilbert Monsalve, DO [address] [facility] [place], [place] [id number] Referring Family Practice 09/12/18 Last Trimmer Relationship Specialty Start Date End Date Mark Nguyen (Historical) [place] [address] PCP - General 06/21/12 Gilbert Monsalve, DO [address] [place] [address] Referring Family Practice 09/12/18 Last Trimmer Relationship Specialty Start Date End Date Mark Nguyen (Historical) [place] [address] PCP - General 06/21/12 Gilbert Monsalve, DO [address] [place] [address] Referring Family Practice 09/12/18 Last Trimmer Relationship Specialty Start Date End Date Mark Nguyen (Historical) [place] [address] PCP - General 06/21/12 Gilbert Monsalve, DO [address] [place] [address] Referring Family Medicine 09/12/18 Team Status: Active Member Role Status Dates Dr. Gilbert Monsalve , DO Family Provider Active Dr. Gilbert Monsalve , DO Primary Care Provider Active Team Status: Inactive Member Role Status Dates Dr. Gilbert Monsalve , DO Primary Care Provider, Referrin g Provider Active Lona Navarro PAINTER ROUGH, PAINTER ROUGH-C Attending Provider Active Team Status: Inactive Member Role Status Dates Dr. Gilbert Monsalve , DO Primary Care Provider Active Dr. Joseph Tomlinson , DO Attending Provider, Referring Provider Active Team Status: Inactive Member Role Status Dates Dr. Gilbert Monsalve , DO Primary Care Prov ider, Attending Provider, Referring Provider Active Team Status: Active Member Role Status Dates Dr. Gilbert Monsalve , DO Primary Care Prov ider, Attending Provider, Referring Provider Active Team Status: Inactive Member Role Status Dates Dr. Gilbert Monsalve , DO Primary Care Provider Active Dr. Ya He , DO Emergency Provider Active Last Trimmer Relationship Specialty Start Date End Date Mark Nguyen ([place] [address] [facility] - General 06/21/12 Gilbert Monsalve DO [address] [place], [place] [address] Referring Family Medicine 09/12/18 Team Status: Inactive Member Role Status Dates Dr. Gilbert Monsalve DO Primary Care Provider Active Dr. Joseph Tomlinson DO Attending Provider Active Last Trimmer Relationship Specialty Start Date End Date Bello Gilbert DO aPige [address] [place], [place] [address] Referring Family Medicine 09/12/18 Last Trimmer Relationship Specialty Start Date End Date Gilbert Monsalve DO [address] [place], [place] [id number] Referring Family Medicine 09/12/18 Last Trimmer Relationship Specialty Start Date End Date Gilbert Monsalve DO [address] [place], [place] [address] Referring Family Medicine 09/12/18 Last Trimmer Relationship Specialty Start Date End Date Gilbert Monsalve DO [address] [place], [place] [address] Referring Family Medicine 09/12/18 Team Status: Inactive Member Role Status Dates Dr. Gilbert Monsalve DO Primary Care Provider Active Start: July 26, 2024 End: July 26, 2024 Dr. Joseph Tomlinson DO Attending Provider Active Start: July 26, 2024 End: July 26, 2024 Dr. Joseph Tomlinson DO Referring Provider Active Start: July 26, 2024 End: July 26, 2024 Team Status: Inactive Member Role Status Dates Dr. Gilbert Monsalve DO Primary Care Provider Active Start: August 30, 2024 End: August 30, 2024 Dr. Gilbert Monsalve DO Referring Provider Active Start: August 30, 2024 End: August 30, 2024 LEANDRA Quiroz Attending Provider Active Start: August 30, 2024 End: August 30, 2024 Team Status: Inactive Member Role Status Dates Dr. Gilbert Monsalve DO Primary Care Provider Active Start: September 12, 2024 End: September 12, 2024 LEANDRA Quirzo Attending Provider Active Start: September 12, 2024 End: September 12, 2024 LEANDRA Quiroz Referring Provider Active Start: September 12, 2024 End: September 12, 2024 Reason for Visit (unrecogniz ed section and content) Reason Comments Yearly Exam Reason Comments New Patient Salicylate sensitivi ty/food allergy Reason Comments Yearly Exam With Mammogram FOR RECORDS PERTAINING TO PATIENTS WHO ARE OR HAVE BEEN ENROLLED IN A CHEMICAL DEPENDENCY/SUBSTANCEABUSE PROGRAM, SOME INFORMATION MAY BE OMITTED. This clinical summary was aggregated from multiple sources. Caution should be exercised in using it in the provision of clinical care. This summary normalizes information from multiple sources, and as a consequence, information in this document may materially change the coding, format and clinical context of patient data. In addition, data may be omitted in some cases. CLINICAL DECISIONS SHOULD BE BASED ON THE PRIMARY CLINICAL RECORDS. [employer] provides no warranty or guarantee of the accuracy or completeness of information in this document.
== END | disposition home or self-care (01) ==
LOC: LAB.FUTURE 14:47
PROVIDERS: PCP Family Medicine; Referring Provider Family Medicine; Visit Provider Family Medicine
DX: Z91.018 Allergy to other foods (principal)
CPT/HCPCS: 36415

== ENCOUNTER → 2025-02-21 | Outpatient (CLI) | payer BC, SELFPAY ==
[2025-02-21 12:34] LABS: Color, Urine Yellow (Yellow); Glucose, Dipstick Normal (Normal); Ketone-Dipstick 5 mg/dl (Negative); Leukocyte Esterase-Dipstick Negative /ul (Negative); Nitrite-Dipstick Negative (Negative); Occult Blood-Urine Negative /ul (Negative); Protein-Dipstick Negative (Negative); Specific Gravity, Urine 1.005 (1.002-1.030); Urine Bilirubin Dipstick Negative (Negative)
[2025-02-21 13:11] LABS: AST(SGOT) 26 U/L (<=31); Alanine Aminotransfer ALT/SGPT 36 U/L (<=34); Albumin, Serum 4.3 g/dL (3.5-5.0); Alkaline Phosphatase 61 U/L (35-104); Anion Gap 11 (5-15); BUN 15 mg/dL (4-19); BUN/Creat Ratio 12.6 RATIO (10-20); Calcium,Total 9.2 mg/dL (7.6-11.0); Carbon Dioxide 26.2 mmol/L (21.0-32.0); Chloride 102 mmol/L (98-108); Globulin 2.0 g/dL (2.2-4.2); Glucose 83 mg/dL (70-99); Potassium 4.2 mmol/L (3.3-5.1)
== END | disposition home or self-care (01) ==
PROVIDERS: PCP Family Medicine; Visit Provider Family Medicine
DX: I10 Essential (primary) hypertension (principal); E87.6 Hypokalemia; R82.90 Unspecified abnormal findings in urine; R79.0 Abnormal level of blood mineral
CPT/HCPCS: 36415; 80053; 81002

== ENCOUNTER → 2025-03-10 | Outpatient (CLI) | payer BC, SELFPAY ==
--- OUTSIDE RECORDS SUMMARY | 2025-03-10 09:12 | XMS RPT_ITS | CCD ---
Author Organization [facility] Care Team Providers Care Clinical Services Manager Name Role Phone Joseph Tomlinson Unavailable Unavailable [...] Provider [phone]) Dr. Gilbert Monsalve Referring Provider [phone] Dr. Mathew Dodge Attending Provider [phone]) Mark [...] Provider 1(330) Dr. Gilbert Monsalve Referring Provider [phone] JOHANA Navarro NP Attending Provider SURYA RIZVI Referring Unavailable SURYA RIZVI Attending Unavailable SURYA RIZVI Referring Unavailable MERCEDES ANN Attending Unavailable Dr. Gilbert Monsalve DO Primary Care Provider Dr. Joseph Tomlinson DO Attending Provider Davi WILLAMS, Dr. Ruiz Referring Provider Bello WILLAMS, Dr. Hunt Referring Provider Naomy Lagos Attending Provider Naomy Lagos Referring Provider Dr. Gilbert Monsalve DO Primary Care Provider Dr. Gilbert Monsalve DO Attending Provider [phone] Dr. Gilbert Monsalve DO Referring Provider [phone] Gilbert Monsalve Primary Care Unavailable Bello, Gilbert Attending Unavailable Bello, Gilbert Primary Care Unavailable Bello, Gilbert Attending Unavailable Bello, Gilbert Referring Unavailable Atanashunter, Naomy Attending Unavailable AtanasNaomy harrison Referring Unavailable Bello, Gilbert Primary Care Unavailable Bello, Gilbert Referring Unavailable Atanasov, Naomy Attending Unavailable BelloGilbert ryan Primary Care Unavailable Joseph Tomlinson Attending Unavailable Joseph Tomlinson Referring Unavailable Bello, Gilbert Primary Care Unavailable Allergies Allergy Classification Reported Allergen(s) Allergy Type Date of Onset Reaction(s) Facility (13 sources) amLODIPine Drug Allergy 2 Other: See Comments [facility] (20 sources) Metoprolol; Translations: [METOPROLOL] Drug Allergy 9 Rash [facility] (12 sources) Morphine Drug Allergy 2 Hives [facility] (20 sources) peanut allergenic extract; Translations: [PEANUT] Drug Allergy 8 Shortness of Breath [facility] Work Phone: (6 sources) ALL MEDS Propensity to adverse reactions 2 Other [facility] (10 sources) Amoxicillin; Translations: [AMOXICILLIN] Drug Allergy 1 Shortness of Breath [facility] (10 sources) Cinnamon Preparation; Translations: [CINNAMON] Drug Allergy 1 Other: See Comments [facility] (10 sources) Clindamycin; Translations: [CLINDAMYCIN] Drug Allergy 1 Itching [facility] (10 sources) Escitalopram; Translations: [ESCITALOPRAM OXALATE] Drug Allergy 1 Other: See Comments [facility] (10 sources) Lactase; Translations: [LACTASE] Drug Allergy 1 Unknown [facility] (10 sources) Morphine; Translations: [MORPHINE SULFATE] Drug Allergy 7 [facility] (10 sources) Onion extract; Translations: [ONION] Drug Allergy 1 [facility] (10 sources) strawberry allergenic extract; Translations: [STRAWBERRY] Drug Allergy 1 Unknown [facility] (4 sources) Green Pepper Propensity to adverse reactions to drug 1 Unknown [facility] (10 sources) Vitamin D Analogue; Translations: [VITAMIN D ANALOGUE] Propensity to adverse reactions to drug 1 Other: See Comments [facility] (12 sources) Losartan Drug Allergy 2 Other: See Comments [facility] (6 sources) Histamine H>2< antagonist; Translations: [HISTAMINE H2 INHIBITORS] Drug Intolerance 3 Other: See Comments [facility] (6 sources) salicylamide; Translations: [SALICYLAMIDE] Drug Allergy 3 Other: See Comments [facility] (5 sources) Salicylic Acid Drug Allergy 3 Other [facility] (6 sources) King Pepper; Translations: [KING PEPPER] Propensity to adverse reactions to drug 1 Unknown [facility] (1 source) amLODIPine Drug Allergy 3 [facility] (1 source) Losartan Drug Allergy 3 [facility] (1 source) Metoprolol Drug Allergy 3 [facility] (1 source) Morphine Drug Allergy 3 [facility] (1 source) peanut allergenic extract Drug Allergy 3 [facility] (1 source) Salicylic Acid Drug Allergy 3 [facility] Medications Current Medications Medication Drug Class(es) Dates Sig (Normalized) Sig (Original) hydroxocobalamin 1 mg/ml injectable solution (9 sources) Antidote Start: 12-02-2021 Hydroxocobalamin 1,000 mcg/mL [...] 6 HOURS NEEDED as needed for Pain 12 July 05, 2017 1:00am September 10, 2021 4:00pm Start: 07-05-2017 End: 09-10-2021 take 1 tablet by mouth every six hours as needed Oxycodone-Acetaminophen Discontinued 1 TABLET PO EVERY 6 HOURS NEEDED July 05, 2017 12:00am September 10, 2021 3:00pm Start: 10-27-2013 End: 10-27-2013 Oxycodone-Acetaminophen 1 TA BLET tablet Discontinued 2 {tbl} PO EVERY 4 HOURS NEEDED as needed for Moderate-Severe pain 30 0 October 27, 2013 12:00am October 27, 2013 [...] Cyanocobalamin (Vitamin B-12 ) 100 mcg/mL solution (6 sources) Start: 12-02-2021 End: 12-02-2021 Cyanocobalamin (Vitamin [...] weekly hydrALAZINE hydrochloride 10 mg oral tablet (12 sources) Arteriolar Vasodilator Start: 08-03-2021 End: 09-17-2021 [...] 6 HOURS NEEDED as needed for Pain 30 1 October 27, 2013 8:53am October 27, 2013 [...] before breakfast. LORazepam 1 mg oral tablet (12 sources) Benzodiazepine Start: 6 End: 7 take 1 tablet by mouth three times daily as needed for anxiety Lorazepam 1 MG tablet Discontinued 1 mg PO THREE TIMES A DAY as needed for Anxiety 10 0 April 22, 2016 10:35am September 09, 2016 12:03am losartan potassium 50 mg oral tablet (12 sources) Angiotensin 2 Receptor Chivo Start: 2 End: 2 take 1 tablet by mouth once daily Losartan 50 mg tablet Discontinued 50 mg PO DAILY 180 3 September 17, 2021 1:00am October 09, 2021 [...] encounter] Onset: 025 03-01-2024 Episodic Cardiac dysrhythmias (12 sources) Palpitations - rapid; Translations: [Palpitations] 09-17-2021 Episodic Essential hypertension (20 sources) Essential hypertension; Translations: [Essential (primary) hypertension] Onset: Chronic Fluid and electrolyte disorders (12 sources) Hypokalemia; Translations: [Hypokalemia] 09-16-2021 Episodic Other and unspecified benign neoplasm (12 sources) Adrenal adenoma; Translations: [Benign neoplasm of unspecified adrenal gland] 09-16-2021 Episodic Other and unspecified benign neoplasm (3 sources) Benign neoplasm of unspecified adrenal gland; Translations: [Benign neoplasm of adrenal gland] Episodic Other circulatory disease (9 sources) Elevated blood-pressure reading without diagnosis of [...] diarrhea; Translations: [Irritable bowel syndrome, unspecified] Onset: Chronic Other gastrointestinal disorders (4 sources) Abnormal feces; Translations: [Other fecal abnormalities] 08-30-2024 Episodic Other gastrointestinal disorders (1 source) Constipation; Translations: [Constipation, unspecified] 08-30-2024 Episodic Other nervous system disorders (12 sources) Paresthesia of skin; Translations: [Paresthesia of both hands] 09-17-2021 Episodic Other nervous system disorders (12 sources) Paresthesia of lower extremity; Translations: [Paresthesia of skin] 09-17-2021 Episodic Other nutritional; endocrine; and metabolic disorders (9 sources) Hypervitaminosis B6; 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 07-22-2019 Chronic Other screening for suspected conditions (not mental disorders or infectious disease) (7 sources) Patient encounter status; Translations: [Encounter for screening mammogram for malignant neoplasm of breast] Onset: 024 Episodic Residual codes; unclassified (12 sources) Heterozygous methylenetetrahydrofolate reductase mutation; Translations: [Genetic susceptibility to other disease] 07-18-2019 Episodic Thyroid disorders (20 sources) Hypothyroidism; Translations: [Hypothyroidism, unspecified] Onset: 016 09-16-2016 Chronic Unclassified (1 source) Unknown / UNK(Unknown) Onset: 017 Unclassified (9 sources) SUMMARY Onset: 09-18-2016 Past or Other Problems Problem Classification [...] Test Name Value Interpretation Reference Range Facility [id number] 03-01-20[facility] Misc[facility] COMMENT Normal . [facility] Comment on above: Order Comment: ROYAL METAL-FREE RMT ORLAV META-FREE [id number] MAGNESIUM Result Comment: Test Ordered: [id number] Magnesium, RBC Test(s) [id number], RBC was developed and its performance characteristics determined by [facility]. It has not been cleared or approved by the Food and Drug Administration. Magnesium, RBC 6.0 mg/dL Reference Range: 3.7-7.0 Performed at: - [facility] [id number] Chain Forming Machine Operator: Flavia Bishop MD, Phone: [phone] Performed at: [address] [id number] [employer] Forming Machine Operator: Keenan Sheridan PhD, Phone: [phone] Performed By: #### L 506.1000, L500.4808, D217.1345 #### [facility] [place], [address] Anion gap in Serum or Plasma Ordered By: Gilbert Monsalve on 02-21-2025 Anion gap [Moles/Vol] 11 mmol/L - [facility] Comment on above: Previous reported re sult: 11 Edited by: NAINA on 02/21/25:1311 AMENDED REPORT 02/21/25 1311 GAP previously reported as: 11 BUN/creatinine ratioOrdered By: Gilbert Monsalve on 02-21-2025 Urea nitrogen/Creatinine [Mass ratio] 12.6 mg/mg - [facility] Comment on above: Previous reported re sult: 12.8 RATIOEdited by: NAINA on 02/21/25:1311 AMENDED REPORT 02/21/25 1311 BUN/CRE previously reported as: 12.8 RATIO Bilirubin Test strip Ql (U)O rdered By: Gilbert Monsalve on 02-21-2025 Bilirubin Ql (U) Negative Negative [facility] Bilirubin, totalOrdered By: Gilbert Monsalve on 02-21-2025 Bilirubin [Mass/Vol] 2.27 mg/dL High 0.00-1.30 [facility] Comment on above: Previous reported re sult: 2.31 mg/dLEdited by: NAINA on 02/21/25:1311 AMENDED REPORT 02/21/251310 T BILI previously reported as: 2.31 H mg/dL Carbon dioxide, total [Moles /volume] in Central venous bloodOrdered By: Gilbert Monsalve on 02-21-2025 CO2 [Moles/Vol] 26.2 mmol/L 21.0-32.0 [facility] Comment on above: Previous reported re sult: 26.1 mmol/LEdited by: NAINA on 02/21/25:1311 AMENDED REPORT 02/21/25 131 CO2 previously reported as: 26.1 mmol/L Chloride assayOrdered By: Pauly Monsalve on 02-21-2025 Chloride [Moles/Vol] 102 mmol/L 98-108 [facility] Comment on above: Previous reported re sult: 103 mmol/LEdited by: NAINA on 02/21/25:1311 AMENDED REPORT 02/21/251310 CL previously reported as: 103 mmol/L Comprehensive Metabolic Prof ilon 02-21-2025 Albumin [Mass/Vol] 4.3 g/dL Normal 3.5-5.0 [facility] Comment on above: Performed By: #### L 506.1000, L500.4050, L501.9520 #### [facility] [address] [place] [address], [address] Albumin/Globulin [Mass ratio] 2.2 {ratio} Normal 0.9-2.4 [facility] Comment on above: Result Comment: AMENDED REPORT 02/21/251 A/G previously reported as: 2.3 RATIO Performed By: #### L 506.1000, L500.4050, L501.9520 #### [facility] [address] [place], [address] ALK PHOS 61 U/L Normal 35-104 [facility] Comment on above: Performed By: #### L 506.1000, L500.4050, L501.9520 #### [facility] [address] [place], [address] ALT [Catalytic activity/Vol] 36 U/L High <=34 [facility] Comment on above: Performed By: #### L 506.1000, L500.4050, L501.9520 #### [facility] [address] [place], [address] AST [Catalytic activity/Vol] 26 U/L Normal <=31 [facility] Comment on above: Result Comment: AMENDED REPORT 02/21/251310 AST previously reported as: 24 U/L Performed By: #### L 506.1000, L500.4050, L501.9520 #### [facility] [address] [place], [address] Bilirubin [Mass/Vol] 2.27 mg/dL High 0.00-1.30 [facility] Comment on above: Result Comment: AMENDED REPORT 02/21/251310 T BILI previously reported as: 2.31 H mg/dL Performed By: #### L 506.1000, L500.4050, L501.9520 #### [facility] [address] [place], [address] BUN/CRE 12.6 RATIO Normal 10-20 [facility] Comment on above: Result Comment: AMENDED REPORT 02/21/251310 BUN/CRE previously reported as: 12.8 RATIO Performed By: #### L 506.1000, L500.4050, L501.9520 #### [facility] [address] [place], [address] Calcium [Mass/Vol] 9.2 mg/dL Normal 7.6-11.0 [facility] Comment on above: Result Comment: AMENDED REPORT 02/21/251310 CA previously reported as: 9.1 mg/dL Performed By: #### L 506.1000, L500.4050, L501.9520 #### [facility] [address] [place], [address] Chloride [Moles/Vol] 102 mmol/L Normal 98-108 [facility] Comment on above: Result Comment: AMENDED REPORT 02/21/251310 CL previously reported as: 103 mmol/L Performed By: #### L 506.1000, L500.4050, L501.9520 #### [facility] [address] [place], [address] CO2 [Moles/Vol] 26.2 mmol/L Normal 21.0-32.0 [facility] Comment on above: Result Comment: AMENDED REPORT 02/21/251310 CO2 previously reported as: 26.1 mmol/L Performed By: #### L 506.1000, L500.4050, L501.9520 #### [facility] [address] [place], [address] Creatinine [Mass/Vol] 1.20 mg/dL Normal 0.70-1.20 [facility] Comment on above: Result Comment: AMENDED REPORT 02/21/251310 CREAT,SERUM previously reported as: 1.18 mg/dL Performed By: #### L 506.1000, L500.4050, L501.9520 #### [facility] [address] [place], [address] GAP 11 Normal 5-15 [facility] Comment on above: Result Comment: AMENDED REPORT 02/21/251310 GAP previously reported as: 11 Performed By: #### L 506.1000, L500.4050, L501.9520 #### [facility] [address] [place], [address] Globulin (S) [Mass/Vol] 2.0 g/dL Low 2.2-4.2 [facility] Comment on above: Result Comment: AMENDED REPORT 02/21/251310 GLOB previously reported as: 1.9 L g/dL Performed By: #### L 506.1000, L500.4050, L501.9520 #### [facility] [address] [place], [address] Glucose [Mass/Vol] 83 mg/dL Normal 70-99 [facility] Comment on above: Result Comment: AMENDED REPORT 02/21/251310 GLU previously reported as: 84 mg/dL Performed By: #### L 506.1000, L500.4050, L501.9520 #### [facility] [address] [place], [address] Potassium [Moles/Vol] 4.2 mmol/L Normal 3.3-5.1 [facility] Comment on above: Performed By: #### L 506.1000, L500.4050, L501.9520 #### [facility] [address] [place], [address] Sodium [Moles/Vol] 139 mmol/L Normal 133-145 [facility] Comment on above: Result Comment: AMENDED REPORT 02/21/251310 NA previously reported as: 140 mmol/L Performed By: #### L 506.1000, L500.4050, L501.9520 #### [facility] [address] [place], [address] T PROT 6.3 g/dL Normal 5.9-8.4 [facility] Comment on above: Result Comment: AMENDED REPORT 02/21/251310 T PROT previously reported as: 6.2 g/dL Performed By: #### L 506.1000, L500.4050, L501.9520 #### [facility] [address] [place], [place], [address] Urea nitrogen [Mass/Vol] 15 mg/dL Normal 4-19 [facility] Comment on above: Performed By: #### L 506.1000, L500.4050, L501.9520 #### [facility] [address] [place], [address] Glomerular filtration rate ( GFR) estimation/1.73 sq m using serum, plasma, or whole bOrdered By: Gilbert Monsalve on 02-21-2025 GFR/1.73 sq M.predicted among non-blacks MDRD (S/P/Bld) [Vol rate/Area] 54 mL/min/{1.73_m2} Low >60 [facility] Comment on above: mL/min/1.73m2 CKD-EP I Creatinine Equation (2020) Ketones Test strip Ql (U)Ord ered By: Gilbert Monsalve on 02-21-2025 Ketones Ql (U) 5 mg/dl High Negative [facility] - Chemistry and C hemistry - challengeOrdered By: Gilbert Monsalve on 02-21-2025 AST [Catalytic activity/Vol] 26 U/L <32 [facility] Comment on above: Previous reported re sult: 24 U/LEdited by: AUTOINJenniffer on 02/21/25:1311 AMENDED REPORT 02/21/25 1311 AST previously reported as: 24 U/L Nitrite Test strip Ql (U)Ord ered By: Gilbert Monsalve on 02-21-2025 Nitrite Ql (U) Negative Negative [facility] Potassium measurement (mass/ volume)Ordered By: Gilbert Monsalve on 02-21-2025 Potassium (Unsp spec) [Mass/Vol] 4.2 mmol/L 3.3-5.1 [facility] Protein Test strip Ql (U)Ord ered By: Gilbert Monsalve on 02-21-2025 Protein Ql (U) Negative Negative [facility] Serum creatinine measurement (mass/volume)Ordered By: Gilbert Monsalve on 02-21-2025 Creatinine [Mass/Vol] 1.20 mg/dL 0.70-1.20 [facility] Comment on above: Previous reported re sult: 1.18 mg/dLEdited by: AUTOINS on 02/21/25:1311 AMENDED REPORT 02/21/251310 CREAT,SERUM previously reported as: 1.18 mg/dL Serum globulin measurementOr dered By: Gilbert Monsalve on 02-21-2025 Globulin (S) [Mass/Vol] 2.0 g/dL Low 2.2-4.2 [facility] Comment on above: Previous reported re sult: 1.9 g/dLEdited by: AUTOINS on 02/21/25:1311 AMENDED REPORT 02/21/251310 GLOB previously reported as: 1.9 L g/dL Serum glucose measurement (m ass/volume)Ordered By: Gilbert Monsalve on 02-21-2025 Glucose [Mass/Vol] 83 mg/dL 70-99 [facility] Comment on above: Previous reported re sult: 84 mg/dLEdited by: AUTOINS on 02/21/25:1311 AMENDED REPORT 02/21/251310 GLU previously reported as: 84 mg/dL Serum or plasma alanine espinoza otransferase (ALT) measurementOrdered By: Gilbert Monsalve on 02-21-2025 ALT [Catalytic activity/Vol] 36 U/L High <35 [facility] Serum or plasma albumin yris urement (mass/volume)Ordered By: Gilbert Monsalve on 02-21-2025 Albumin [Mass/Vol] 4.3 g/dL 3.5-5.0 [facility] Serum or plasma albumin/glob ulin mass ratioOrdered By: Gilbert Monsalve on 02-21-2025 Albumin/Globulin [Mass ratio] 2.2 {ratio} 0.9-2.4 [facility] Comment on above: Previous reported re sult: 2.3 RATIOEdited by: AUTOINS on 02/21/25:1311 AMENDED REPORT 02/21/251310 A/G previously reported as: 2.3 RATIO Serum or plasma alkaline eliel sphatase measurementOrdered By: Gilbert Monsalve on 02-21-2025 ALP [Catalytic activity/Vol] 61 U/L 35-104 [facility] Serum or plasma calcium yris urement (mass/volume)Ordered By: Gilbert Monsalve on 02-21-2025 Calcium [Mass/Vol] 9.2 mg/dL 7.6-11.0 [facility] Comment on above: Previous reported re sult: 9.1 mg/dLEdited by: AUTOINS on 02/21/25:1311 AMENDED REPORT 02/21/25 1311 CA previously reported as: 9.1 mg/dL Serum or plasma urea nitroge n measurement (mass/volume)Ordered By: Gilbert Monsalve on 02-21-2025 Urea nitrogen [Mass/Vol] 15 mg/dL 4-19 [facility] Sodium levelOrdered By: Gilbert Monsalve on 02-21-2025 Sodium [Moles/Vol] 139 mmol/L 133-145 [facility] Comment on above: Previous reported re sult: 140 mmol/LEdited by: NAINA on 02/21/25:1311 AMENDED REPORT 02/21/25 1311 NA previously reported as: 140 mmol/L Total proteinOrdered By: Raven Monsalve on 02-21-2025 Protein [Mass/Vol] 6.3 g/dL 5.9-8.4 [facility] Comment on above: Previous reported re sult: 6.2 g/dLEdited by: AUTOINS on 02/21/25:1311 AMENDED REPORT 02/21/25 1311 T PROT previously reported as: 6.2 g/dL Urinalysis, Routine (Dipstic k)on 02-21-2025 BILIRUBIN URINE Negative Normal Negative [facility] Comment on above: Order Comment: CLEAN CATCH Performed By: #### L 400, L500.4050, L3410.9992 #### [facility] [address] [place], [address] Clarity (U) Clear Normal Clear [facility] Comment on above: Order Comment: CLEAN CATCH Performed By: #### L 400, L500.4050, L3410.9992 #### [facility] [address] [place], [address] Color (U) Yellow Normal Yellow [facility] Comment on above: Order Comment: CLEAN CATCH Performed By: #### L 400.2010, L500.4050, L3410.9992 #### [facility] [address] [place], [address] GLUCOSE, UR Normal Normal Normal [facility] Comment on above: Order Comment: CLEAN CATCH Performed By: #### L 400.2010, L500.4050, L3410.9992 #### [facility] [address] [place], [address] KETONE UR 5 mg/dl Abnormal Negative [facility] Comment on above: Order Comment: CLEAN CATCH Performed By: #### L 400, L5.405, L3410.9992 #### [facility] [address] [place], [address] LEUK ESTERASE Negative Normal Negative [facility] Comment on above: Order Comment: CLEAN CATCH Performed By: #### L 400.2010, L500.405, L3410.9992 #### [facility] [address] [place], [address] Nitrite Ql (U) Negative Normal Negative [facility] Comment on above: Order Comment: CLEAN CATCH Performed By: #### L 400.2010, L5.405, L3410.9992 #### [facility] [address] [place], [address] OCCULT BLOOD-UR Negative Normal Negative [facility] Comment on above: Order Comment: CLEAN CATCH Performed By: #### L 400.2010, L500.4050, L3410.9992 #### [facility] [address] [place], [address] pH UR 7.0 Normal 5.0 - 8.0 [facility] Comment on above: Order Comment: CLEAN CATCH Performed By: #### L 400.2010, L500.4050, L3410.9992 #### [facility] [address] [place], [address] PROT DIPSTX Negative Normal Negative [facility] Comment on above: Order Comment: CLEAN CATCH Performed By: #### L 400.2010, L500.4050, L3410.9992 #### [facility] [address] [place], [address] SP.GR. DIPSTX 1.005 Normal 1.002-1.03 0 [facility] Comment on above: Order Comment: CLEAN CATCH Performed By: #### L 400.2010, L500.4050, L3410.9992 #### [facility] [address] [place], [address] UROBILI Normal Normal Normal [facility] Comment on above: Order Comment: CLEAN CATCH Performed By: #### L 400.2010, L500.4050, L3410.9992 #### [facility] [address] [place], [address] Urine clarityOrdered By: Raven Monsalve on 02-21-2025 Clarity (U) Clear Clear [facility] Urine color determinationOrd ered By: Gilbert Monsalve on 02-21-2025 Color (U) Yellow Yellow [facility] Urine glucose detectionOrder ed By: Gilbert Monsalve on 02-21-2025 Glucose Ql (U) Normal mg/dl Normal [facility] Urine leukocyte esterase det ection by dipstickOrdered By: Gilbert Monsalve on 02-21-2025 Leukocyte esterase Test strip Ql (U) Negative Negative [facility] Urine pHOrdered By: Gilbert candelario on 02-21-2025 pH (U) 7.0 [pH] 5.0 - 8.0 [facility] Urine specific gravity measu rementOrdered By: Gilbert Monsalve on 02-21-2025 Specific gravity (U) [Rel density] 1.005 1.002-1.03 0 [facility] Urine urobilinogen measureme ntOrdered By: Gilbert Monsalve on 02-21-2025 Urobilinogen Ql (U) Normal mg/dl Normal [facility] L3410.9992on 02-05-2025 [facility] Misc. COMMENT Normal . [facility] Comment on above: Order Comment: [id number] 1 ALPHA GAL TIGER RT Result Comment: Test Ordered: [id number] Alpha-Gal [id number] Alpha-Gal <0.10 kU/L Reference Range: Class 0 Levels of Specific IgE Class Description of Class ----- < 0.10 0 Negative 0.10 - 0.31 0/I Equivocal/Low 0.32 - 0.55 I Low 0.56 - 1.40 II Moderate 1.41 - 3.90 III High 3.91 - 19.00 IV Very High 19.01 - 100.00 V Very High >100.00 Very High Performed at: [address] [id number] Chain Forming Machine Operator: Flavia Bishop MD, Phone: [phone] Performed at: [address] [id number] Chain Forming Machine Operator: Keenan Sheridan PhD, Phone: [phone] Performed By: #### L 3410.9992 #### [facility] [place], [address] [id number] 09-15-2024 M7400.3302 _ TESTING PERFORMED AT [facility]. ORIGINAL REPORT ON FILE IN LAB CONTAINS ADDITIONAL TEST SITE INFORMATION. _ Giardia Lamblia EIA NEGATIVE Normal [facility] Comment on above: Performed By: #### M 100.637, L7000.0700, M600.5000, M7400.3302 #### [facility] [address] [place], [address] Ova and Parasites 8623on OP OVA AND PARASITES EX AM, ROUTINE These results were obtained using wet preparation(s) and trichrome stained smear. This test does not include testing for Crytosporidium parvum, Cyclospora, or Microsporidia. One negative specimen does not rule out the possibility of a parasitic infection. _ TESTING PERFORMED AT [facility]. ORIGINAL REPORT ON FILE IN LAB CONTAINS ADDITIONAL TEST SITE INFORMATION. _ Ova/Parasite Exam NO OVA, CYSTS, OR PARASITES FOUND. Normal [facility] Comment on above: Performed By: #### M 100.637, L7000.0700, M600.5000, M7400.3302 #### [facility] [address] [place], [address] Calprotectin, Stoolon [address] 12 ug/g Normal 0-120 [facility] Comment on above: Result Comment: Conc entration Interpretation Follow-Up < 5 - 50 ug/g Normal None >50 -120 ug/g Borderline Re-evaluate in 4-6 weeks >120 ug/g Abnormal Repeat as clinically indicated Performed at: [address] [id number] Chain Forming Machine Operator: Flavia Bishop MD, Phone: [phone] Performed By: #### M 100.637, L7000.0700, M600.5000, M7400.3304 #### [facility] [address] [place], [address] Calprotectin stoolOrdered By : Naomy Chau on 09-12-2024 Stool Calprotectin 12 ug/g 0-120 [facility] Comment on above: Concentration Interp retation Follow-Up< 5 - 50 ug/g Normal None>50 -120 ug/g Borderline Re-evaluate in 4-6 weeks >120 ug/g Abnormal Repeat as clinically indicatedPerformed at: [facility] [address] [id number] Director: Flavia Bishop MD, Phone: [phone] ENTERIC PATHOGEN PANEL STOOL on 09-12-2024 EP [...] VIBRIO Not Detected Yersinia Not Detected Normal [facility] Comment on above: Performed By: #### M 100.637, L7000.0700, M600.5000, M7400.1519 #### [facility] [address] [place], [address] Giardia lamblia antigen assa y by enzyme immunoassayOrdered By: Naomy Chau on 09-12-2024 Giardia Antigen (MAIRA) [facility] Ova and parasitesOrdered By: Naomy Chau on 09-12-2024 Ova and Parasites [facility] Stool enteric pathogen panel by probe and target amplification methodOrdered By: Naomy Chau on 09-12-2024 Enteric Bacteriology [facility] Gastroenterology Visit Repor ton 08-30-2024 Gastroenterology Visit Report [facility] [address] [place] [address] OFFICE VISIT Date of Service: 08/30/24 MR#: [id number] Acct: [id number] Name: SAMUEL WOO Rep #: [id number] : 1965 Provider: LEANDRA Quiroz Age/Sex: 59/F [place] [facility] [place]: Signed Intake Vital Signs 03/27/23 17:56 Height 5 ft 7 in Intake Visit Reasons: Constipation Chief Complaint: constipation 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 Pt reports she has life long constipation and can not have a BM without enemas. Denies n/v, abdominal pain, gas, bloating, and blood in stools. Prior hx of colonoscopy was over 8 years ago. [facility] Medical History Adrenal adenoma Asthma B12 deficiency Connective tissue disease Essential hypertension Heterozygous MTHFR mutation [id number] Hypervitaminosis B6 Hypokalemia Hypothyroid Ocular rosacea Paresthesia [...] to the office today for establishment with [facility]. Pt with complaints of constipation for her whole life but worsening over the past 2.5 years. She is using three enemas daily. During the first enema she will have string like rubbery substance. The second one she has mucous [...] Appearance: average body habitus and well nourished [facility] Head: normal to inspection Ears: [...] to ins (more content not included)... Normal [facility] 29-PS-Kydrhla DOrdered By: Flory Tomlinson on 07-26-2024 Vitamin D 25-Hydroxy 25.4 ng/mL [facility] Comment on above: Vitamin D 25(OH) Sta tus Range Deficiency <20 ng/mL (50nmol/L) Insufficiency 20 - 30 ng/mL (50 - 75 nmol/L) Sufficiency 30 - 100 ng/mL (75 - 250 nmol/L) Toxicity >100 ng/mL (>250 nmol/L) Albumin to globulin ratioOrd ered By: Joseph Tomlinson on 07-26-2024 Albumin/Globulin [Mass ratio] 1.2 {ratio} 0.9-2.4 [facility] Bilirubin, totalOrdered By: Joseph Tomlinson on 07-26-2024 Bilirubin [Mass/Vol] 1.80 mg/dL High 0.20-1.00 [facility] Comment on above: For patients on eltr ombopag therapy, use of Dimension Fulda TBIL is not recommended. Blood urea nitrogen (BUN)/cr eatinine ratioOrdered By: Joseph Tomlinson on 07-26-2024 Urea nitrogen/Creatinine [Mass ratio] 14.0 mg/mg 10-20 [facility] Carbon dioxide measurementOr dered By: Joseph Tomlinson on 07-26-2024 CO2 [Moles/Vol] 30.0 mmol/L 21.0-32.0 [facility] Chloride measurementOrdered By: Joseph Tomlinson on 07-26-2024 Chloride [Moles/Vol] 104 mmol/L 98-107 [facility] Comprehensive Metabolic Prof ilon 07-26-2024 Albumin [Mass/Vol] 4.0 g/dL Normal 3.2-5.0 [facility] Comment on above: Performed By: #### L 506.1000, L500.4050, L501.9520 #### [facility] [address] [place], [address] Albumin/Globulin [Mass ratio] 1.2 {ratio} Normal 0.9-2.4 [facility] Comment on above: Performed By: #### L 506.1000, L500.4050, L501.9520 #### [facility] [address] [place], [address] ALK P 67 U/L Normal 45-117 [facility] Comment on above: Performed By: #### L 506.1000, L500.4050, L501.9520 #### [facility] [address] [place], [address] ALT [Catalytic activity/Vol] 32 U/L Normal 13-56 [facility] Comment on above: Performed By: #### L 506.1000, L500.4050, L501.9520 #### [facility] [address] [place], [address] AST [Catalytic activity/Vol] 17 U/L Normal 15-37 [facility] Comment on above: Performed By: #### L 506.1000, L500.4050, L501.9520 #### [facility] [address] [place], [address] Bilirubin [Mass/Vol] 1.80 mg/dL High 0.20-1.00 [facility] Comment on above: Result Comment: For patients on eltrombopag therapy, use of Dimension Fulda TBIL is not recommended. Performed By: #### L 506.1000, L500.4050, L501.9520 #### [facility] [address] [place], [address] BUN/CRE 14.0 RATIO Normal 10-20 [facility] Comment on above: Performed By: #### L 506.1000, L500.4050, L501.9520 #### [facility] [address] [place], [address] CA,Total 9.2 mg/dL Normal 8.5-10.1 [facility] Comment on above: Performed By: #### L 506.1000, L500.4050, L501.9520 #### [facility] [address] [place], [address] Chloride [Moles/Vol] 104 mmol/L Normal 98-107 [facility] Comment on above: Performed By: #### L 506.1000, L500.4050, L501.9520 #### [facility] [address] [place], [address] CO2 [Moles/Vol] 30.0 mmol/L Normal 21.0-32.0 [facility] Comment on above: Performed By: #### L 506.1000, L500.4050, L501.9520 #### [facility] [address] [place], [address] Creatinine [Mass/Vol] 0.86 mg/dL Normal 0.55-1.02 [facility] Comment on above: Result Comment: The validity of the calculated GFR GFRAA in patients over 70 years has not been determined. Clinical correlation is essential. Performed By: #### L 506.1000, L500.4050, L501.9520 #### [facility] [address] [place], [address] EST GFR - AA 87 mL/min Normal >60 [facility] Comment on above: Result Comment: Afri can Welsh GFR Calc Performed By: #### L 506.1000, L500.4050, L501.9520 #### [facility] [address] [place], [address] GAP 6 Normal 5-15 [facility] Comment on above: Performed By: #### L 506.1000, L500.4050, L501.9520 #### [facility] [address] [place], [address] GFR/1.73 sq M.predicted among non-blacks MDRD (S/P/Bld) [Vol rate/Area] 72 mL/min/{1.73_m2} Normal >60 [facility] Comment on above: Result Comment: Non- GFR Calc Performed By: #### L 506.1000, L500.4050, L501.9520 #### [facility] [address] [place], [address] Globulin (S) [Mass/Vol] 3.2 g/dL Normal 2.2-4.2 [facility] Comment on above: Performed By: #### L 506.1000, L500.4050, L501.9520 #### [facility] [address] [place], [address] Glucose [Mass/Vol] 88 mg/dL Normal 74-106 [facility] Comment on above: Performed By: #### L 506.1000, L500.4050, L501.9520 #### [facility] [address] [place], [address] Potassium [Moles/Vol] 4.0 mmol/L Normal 3.5-5.1 [facility] Comment on above: Performed By: #### L 506.1000, L500.4050, L501.9520 #### [facility] [address] [place], [address] Sodium [Moles/Vol] 140 mmol/L Normal 136-145 [facility] Comment on above: Performed By: #### L 506.1000, L500.4050, L501.9520 #### [facility] [address] [place], [address] T PROT 7.2 g/dL Normal 6.4-8.2 [facility] Comment on above: Performed By: #### L 506.1000, L500.4050, L501.9520 #### [facility] [address] [place], [address] Urea nitrogen [Mass/Vol] 12 mg/dL Normal 7-18 [facility] Comment on above: Performed By: #### L 506.1000, L500.4050, L501.9520 #### [facility] [address] [place], [address] Estimated glomerular filtrat ion rate (GFR) AmericanOrdered By: Joseph Tomlinson on 07-26-2024 Estimated GFR (MDRD) Amer 87 mL/min >60 [facility] Comment on above: GFR Calc Glomerular filtration rate ( GFR) estimationOrdered By: Joseph Tomlinson on 07-26-2024 Estimated GFR (MDRD) Non-Af Amer 72 mL/min >60 [facility] Comment on above: Non- GFR Calc Glucose measurementOrdered B y: Joseph Tomlinson on 07-26-2024 Glucose [Mass/Vol] 88 mg/dL 74-106 [facility] - Chemistry and C hemistry - challengeOrdered By: Joseph Tomlinson on 07-26-2024 AST [Catalytic activity/Vol] 17 U/L [facility] Potassium measurementOrdered By: Joseph Tomlinson on 07-26-2024 Potassium [Moles/Vol] 4.0 mmol/L 3.5-5.1 [facility] Serum anion gap measurementO rdered By: Joseph Tomlinson on 07-26-2024 Anion gap [Moles/Vol] 6 mmol/L 11-23 [facility] Serum globulin measurementOr dered By: Joseph Tomlinson on 07-26-2024 Globulin (S) [Mass/Vol] 3.2 g/dL 2.2-4.2 [facility] Serum or plasma alanine espinoza otransferase (ALT) measurementOrdered By: Joseph Tomlinson on 07-26-2024 ALT [Catalytic activity/Vol] 32 U/L 13-56 [facility] Serum or plasma albumin yris urement (mass/volume)Ordered By: Joseph Tomlinson on 07-26-2024 Albumin [Mass/Vol] 4.0 g/dL 3.2-5.0 [facility] Serum or plasma alkaline eliel sphatase measurementOrdered By: Joseph Tomlinson on 07-26-2024 ALP [Catalytic activity/Vol] 67 U/L 45-117 [facility] Serum or plasma calcium yris urement (mass/volume)Ordered By: Joseph Tomlinson on 07-26-2024 Calcium [Mass/Vol] 9.2 mg/dL 8.5-10.1 [facility] Serum or plasma creatinine m easurement (mass/volume)Ordered By: Joseph Tomlinson on 07-26-2024 Creatinine [Mass/Vol] 0.86 mg/dL 0.55-1.02 [facility] Comment on above: The validity of the calculated GFR & GFRAA in patients over 70 years has not been determined. Clinical correlation is essential. Serum or plasma urea nitroge n measurement (mass/volume)Ordered By: Joseph Tomlinson on 07-26-2024 Urea nitrogen [Mass/Vol] 12 mg/dL 7-18 [facility] Sodium levelOrdered By: Julian Tomlinson on 07-26-2024 Sodium [Moles/Vol] 140 mmol/L 136-145 [facility] TSH QnOrdered By: Joseph issa on 07-26-2024 Thyroid Stimulating Hormone (TSH) 1.730 uIU/mL 0.358-3.74 0 [facility] Thyroid Stim Hormone (TSH)on 07-26-2024 TSH 1.730 uIU/mL Normal 0.358-3.74 0 [facility] Comment on above: Performed By: #### L 506.1000, L500.4050, L501.9520 #### [facility] [address] [place] [address]. [place], [address] Total proteinOrdered By: Kyle Tomlinson on 07-26-2024 Protein [Mass/Vol] 7.2 g/dL 6.4-8.2 [facility] Vitamin D,25 Hydroxyon 07-26 Vitamin D 25-OH 25.4 ng/mL Normal [facility] Comment on above: Result Comment: Alisa min D 25(OH) Status Range Deficiency <20 ng/mL (50nmol/L) Insufficiency 20 - 30 ng/mL (50 - 75 nmol/L) Sufficiency 30 - 100 ng/mL (75 - 250 nmol/L) Toxicity >100 ng/mL (>250 nmol/L) Performed By: #### L 506.1000, L500.4050, L501.9520 #### [facility] [address] 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 As applicable, any other physician, advance practice provider, medical student, or other health professional student that will be observing or involved in the sensitive examination for educational or training purposes was discussed with the Patient or Authorized Director Broadcast. The Patient or Authorized Director Broadcast has agreed to proceed with the sensitive examination. (Sensitive examination includes inspection and/or palpation of the breasts, pelvis, prostate and anorectal regions). EXAM: BP 112/74 Ht 5' 7 (1.70m) Wt 169 lb (76.7kg) LMP 09/06/2013 [...] external genitalia normal, normal Bartholin's glands, urethra, Ramsey's glands, no vulvar lesions, good vaginal support, physiologic discharge present, normal appearing perineal body (more content not included)... Normal [facility] JANEE SCREENING W TOMOon 06-30 JANEE SCREENING W DARRELL * * *Final Report* * * DATE OF EXAM: Jun 30 2024 8:06AM [facility] 0582 - JANEE SCREENING W DARRELL / PROCEDURE REASON: Screening mammogram, encounter for * * * * Physician Interpretation * * * * RESULT: [facility] [address] [place] [address] #[id number] - JANEE SCREENING W DARRELL HISTORY: Patient is 59 [...] tissue. Interpreting Radiologist: Debi Saini M.D. FACR, FS Electronically signed on: 07/03/2024 Battery Checker: SHARRON Transcribe Date/Time: Jun 30 2024 7:52A Dictated by: DEBI SAINI MD This examination was interpreted and the report reviewed and electronically signed by: DEBI SAINI MD on Jul 03 2024 7:46AM EST [id number] Normal [facility] CNOVon 03-01-2024 CNOV Office Visit (ALLMED ) SAMUEL WOO ([id number]) 1965 F Date Time Provider Department 03/01/24 [...] currently ingests beef, white rice, vegetables and butter. She notes that some foods will limit her breathing but do not cause wheezing [...] Comment: T (more content not included)... Normal [facility] CNCOon 02-21-2024 CNCO Letter Text Normal [facility] Basophil percentageOrdered B y: Joseph Tomlinson on 07-21-2023 Bilirubin [Mass/Vol] 1.20 mg/dL 0.20-1.00 [facility] Comment on above: For patients on eltr ombopag therapy, use of Dimension Fulda TBIL is not recommended. Chloride [Moles/Vol] 105 mmol/L 98-107 [facility] Glucose [Mass/Vol] 107 mg/dL 74-106 [facility] Comment on above: Fasting Glucose resu lt from 100 to 125 mg/dL suggests IMPAIRED HOMEOSTASIS per A.D.A. criteria. Potassium [Moles/Vol] 4.0 mmol/L 3.5-5.1 [facility] Protein [Mass/Vol] 6.6 g/dL 6.4-8.2 [facility] Sodium [Moles/Vol] 137 mmol/L 136-145 [facility] - Chemistry and C hemistry - challengeOrdered By: Joseph Tomlinson on 07-21-2023 ALP [Catalytic activity/Vol] 67 U/L 45-117 [facility] ALT [Catalytic activity/Vol] 24 U/L 13-56 [facility] CO2 [Moles/Vol] 27.0 mmol/L 21.0-32.0 [facility] Globulin (S) [Mass/Vol] 3.1 g/dL 2.2-4.2 [facility] Urea nitrogen/Creatinine [Mass ratio] 12.7 mg/mg 10-20 [facility] No Panel InformationOrdered By: Joseph Tomlinson on 07-21-2023 Estimated GFR (MDRD) Amer 97 mL/min >60 [facility] Comment on above: GFR Calc Estimated GFR (MDRD) Non-Af Amer 80 mL/min >60 [facility] Comment on above: Non- GFR Calc Thyroid Stimulating Hormone (TSH) 0.63 uIU/mL 0.358-3.74 [facility] Vitamin D 25-Hydroxy 43.7 ng/mL [facility] Comment on above: Vitamin D 25(OH) Sta tus Range Deficiency <20 ng/mL (50nmol/L) Insufficiency 20 - 30 ng/mL (50 - 75 nmol/L) Sufficiency 30 - 100 ng/mL (75 - 250 nmol/L) Toxicity >100 ng/mL (>250 nmol/L) Serum or plasma albumin yris urement (mass/volume)Ordered By: Joseph Tomlinson on 07-21-2023 Albumin [Mass/Vol] 3.5 g/dL 3.2-5.0 [facility] Serum or plasma albumin/glob ulin mass ratioOrdered By: Joseph Tomlinson on 07-21-2023 Albumin/Globulin [Mass ratio] 1.1 {ratio} 0.9-2.4 [facility] Serum or plasma calcium yris urement (mass/volume)Ordered By: Joseph Tomlinson on 07-21-2023 Calcium [Mass/Vol] 9.0 mg/dL 8.5-10.1 [facility] Serum or plasma creatinine m easurement (mass/volume)Ordered By: Joseph Tomlinson on 07-21-2023 Creatinine [Mass/Vol] 0.79 mg/dL 0.55-1.02 [facility] Comment on above: The validity of the calculated GFR & GFRAA in patients over 70 years has not been determined. Clinical correlation is essential. Serum or plasma urea nitroge n measurement (mass/volume)Ordered By: Joseph Tomlinson on 07-21-2023 Urea nitrogen [Mass/Vol] 10 mg/dL 7-18 [facility] Thin prep Papanicolaou smear with manual screeningOrdered By: Joseph Tomlinson on 07-21-2023 Thin prep Papanicolaou smear with manual screening 16 U/L 15-37 [facility] Thin prep Papanicolaou smear with manual screening 5 5-15 [facility] Absolute lymphocyte countOrd ered By: Ya He on 03-27-2023 Lymphocytes Auto (Unsp spec) [#/Vol] 1.29 10*3/uL 0.83-4.51 [facility] Basophil percentageOrdered B y: Ya He on 03-27-2023 Basophil percentage 0 SEEN /hpf 0-5 [facility] Basophils/100 WBC (Bld) 0.7 % 0-1 [facility] Bilirubin [Mass/Vol] 1.30 mg/dL 0.20-1.00 [facility] Comment on above: For patients on eltr ombopag therapy, use of Dimension Fulda TBIL is not recommended. Chloride [Moles/Vol] 107 mmol/L 98-107 [facility] Eosinophils/100 WBC (Bld) 0.9 % 0-5 [facility] Glucose [Mass/Vol] 121 mg/dL 74-106 [facility] Comment on above: Fasting Glucose resu lt from 100 to 125 mg/dL suggests IMPAIRED HOMEOSTASIS per A.D.A. criteria. Neutrophils (Bld) [#/Vol] 3.9 10*3/uL 2.0-7.7 [facility] Neutrophils/100 WBC (Bld) 68.1 % 47-70 [facility] Potassium [Moles/Vol] 3.6 mmol/L 3.5-5.1 [facility] Protein [Mass/Vol] 6.9 g/dL 6.4-8.2 [facility] Sodium [Moles/Vol] 138 mmol/L 136-145 [facility] WBC (Bld) [#/Vol] 5.7 10*3/uL 4.4-11.0 [facility] Bilirubin Test strip Ql (U)O rdered By: Ya He on 03-27-2023 Bilirubin Ql (U) Negative Negative [facility] Blood erythrocytes count (nu mber/volume)Ordered By: Ya He on 03-27-2023 RBC (Bld) [#/Vol] 4.77 10*6/uL 4.2-5.4 [facility] Blood hemoglobin measurement (mass/volume)Ordered By: Ya He on 03-27-2023 Hemoglobin (Bld) [Mass/Vol] 14.8 g/dL 12.0-15.0 [facility] Blood lymphocytes/100 leukoc ytesOrdered By: Ya He on 03-27-2023 Lymphocytes/100 WBC (Bld) 22.8 % 19-41 [facility] Blood monocytes/100 leukocyt esOrdered By: Ya He on 03-27-2023 Monocytes/100 WBC (Bld) 7.3 % 0-10 [facility] Blood platelet mean volumeOr dered By: Ya He on 03-27-2023 Platelet mean volume (Bld) [Entitic vol] 10.1 fL 6.2-12.0 [facility] Determination of erythrocyte mean corpuscular volume (MCV)Ordered By: Ya He on 03-27-2023 MCV (RBC) [Entitic vol] 89.5 fL 81-99 [facility] Hematocrit Auto (Bld) [Volum e fraction]Ordered By: Ya He on 03-27-2023 Hematocrit (Bld) [Volume fraction] 42.7 % 37-47 [facility] Ketones Test strip Ql (U)Ord ered By: Ya He on 03-27-2023 Ketones Ql (U) Negative Negative [facility] - Chemistry and C hemistry - challengeOrdered By: Ya He on 03-27-2023 ALP [Catalytic activity/Vol] 68 U/L 45-117 [facility] ALT [Catalytic activity/Vol] 31 U/L 13-56 [facility] CK [Catalytic activity/Vol] 108 U/L 26-192 [facility] CO2 [Moles/Vol] 26.0 mmol/L 21.0-32.0 [facility] Globulin (S) [Mass/Vol] 3.0 g/dL 2.2-4.2 [facility] Urea nitrogen/Creatinine [Mass ratio] 19.3 mg/mg 10-20 [facility] - Hematology and Cell countsOrdered By: Ya He on 03-27-2023 Erythrocyte distribution width (RBC) [Entitic vol] 38.2 fL 35.1-43.9 [facility] Erythrocyte distribution width (RBC) [Ratio] 11.8 % 11.6-14.6 [facility] Immature granulocytes/100 WBC (Bld) 0.200 % 0.0-0.9 [facility] Comment on above: IG% - Immature Granu locytes (promyelocytes, myelocytes and metamyelocytes) > 1% indicates that a LEFT SHIFT is Present. MCH (RBC) [Entitic mass] 31.0 pg 27.0-32.0 [facility] Nucleated RBC/100 WBC (Bld) [Ratio] 0 % 0-5 [facility] MCHC Auto (RBC) [Mass/Vol]Or dered By: Ya He on 03-27-2023 MCHC (RBC) [Mass/Vol] 34.7 g/dL 32-36 [facility] Mucus LM Ql (Urine sed)Order ed By: Ya He on 03-27-2023 Mucus Ql (Urine sed) 0 SEEN /hpf [facility] Nitrite Test strip Ql (U)Ord ered By: Ya He on 03-27-2023 Nitrite Ql (U) Negative Negative [facility] No Panel InformationOrdered By: Ya He on 03-27-2023 Estimated Creatinine Clearance Calc 62.33 ml/min [facility] Estimated GFR (MDRD) Amer 75 mL/min >60 [facility] Comment on above: GFR Calc Estimated GFR (MDRD) Non-Af Amer 62 mL/min >60 [facility] Comment on above: Non- GFR Calc Platelets bldOrdered By: Kimmy He on 03-27-2023 Platelets (Bld) [#/Vol] 190 10*3/uL 150-450 [facility] Protein Test strip Ql (U)Ord ered By: Ya He on 03-27-2023 Protein Ql (U) Negative Negative [facility] Serum or plasma albumin yris urement (mass/volume)Ordered By: Ya He on 03-27-2023 Albumin [Mass/Vol] 3.9 g/dL 3.2-5.0 [facility] Serum or plasma albumin/glob ulin mass ratioOrdered By: Ya He on 03-27-2023 Albumin/Globulin [Mass ratio] 1.3 {ratio} 0.9-2.4 [facility] Serum or plasma calcium yris urement (mass/volume)Ordered By: Ya He on 03-27-2023 Calcium [Mass/Vol] 8.8 mg/dL 8.5-10.1 [facility] Serum or plasma creatinine m easurement (mass/volume)Ordered By: Ya He on 03-27-2023 Creatinine [Mass/Vol] 0.98 mg/dL 0.55-1.02 [facility] Comment on above: The validity of the calculated GFR & GFRAA in patients over 70 years has not been determined. Clinical correlation is essential. Serum or plasma urea nitroge n measurement (mass/volume)Ordered By: Ya He on 03-27-2023 Urea nitrogen [Mass/Vol] 19 mg/dL 7-18 [facility] Squamous epithelial cells de tection in urine sediment by light microscopyOrdered By: Ya He on 03-27-2023 Epithelial cells.squamous LM Ql (Urine sed) 0-5 SEEN /hpf 5-10 [facility] Thin prep Papanicolaou smear with manual screeningOrdered By: Ya He on 03-27-2023 Thin prep Papanicolaou smear with manual screening 21 U/L 15-37 [facility] Thin prep Papanicolaou smear with manual screening 5 5-15 [facility] Urine blood detectionOrdered By: Ya He on 03-27-2023 RBC Ql (U) Negative Negative [facility] RBC Ql (U) 0 SEEN /hpf 0-5 [facility] Urine clarityOrdered By: Kimmy He on 03-27-2023 Clarity (U) Clear Clear [facility] Urine color determinationOrd ered By: Ya He on 03-27-2023 Color (U) Yellow Yellow [facility] Urine glucose detectionOrder ed By: Ya He on 03-27-2023 Glucose Ql (U) Normal mg/dl Normal [facility] Urine leukocyte esterase det ection by dipstickOrdered By: Ya He on 03-27-2023 Leukocyte esterase Test strip Ql (U) Negative Negative [facility] Urine pHOrdered By: Ya benson on 03-27-2023 pH (U) 6.5 [pH] 5.0 - 8.0 [facility] Urine sediment bacteria coun t by microscopy (number/high power field)Ordered By: Ya He on 03-27-2023 Bacteria LM.HPF (Urine sed) [#/Area] 0 /[HPF] None Seen [facility] Urine specific gravity measu rementOrdered By: Ya He on 03-27-2023 Specific gravity (U) [Rel density] 1.010 1.002-1.03 0 [facility] Urobilinogen Auto test strip Ql (U)Ordered By: Ya He on 03-27-2023 Urobilinogen Ql (U) Normal mg/dl Normal [facility] Bilirubin Test strip Ql (U)O rdered By: Gilbert Monsalve on 03-23-2023 Bilirubin Ql (U) Negative Negative [facility] Culture, urineOrdered By: Pauly Monsalve on 03-23-2023 Bacteria identified Cx Nom (U) Culture exhibits no growth. [facility] Ketones Test strip Ql (U)Ord ered By: Gilbert Monsalve on 03-23-2023 Ketones Ql (U) Negative Negative [facility] Nitrite Test strip Ql (U)Ord ered By: Gilbert Monsalve on 03-23-2023 Nitrite Ql (U) Negative Negative [facility] Protein Test strip Ql (U)Ord ered By: Gilbert Monsalve on 03-23-2023 Protein Ql (U) Negative Negative [facility] Urine blood detectionOrdered By: Gilbert Monsalve on 03-23-2023 RBC Ql (U) Negative Negative [facility] Urine clarityOrdered By: Raven Monsalve on 03-23-2023 Clarity (U) Clear Clear [facility] Urine color determinationOrd ered By: Gilbert Monsalve on 03-23-2023 Color (U) Yellow Yellow [facility] Urine glucose detectionOrder ed By: Gilbert Monsalve on 03-23-2023 Glucose Ql (U) Normal mg/dl Normal [facility] Urine leukocyte esterase det ection by dipstickOrdered By: Gilbert Monsalve on 03-23-2023 Leukocyte esterase Test strip Ql (U) Negative Negative [facility] Urine pHOrdered By: Gilbert candelario on 03-23-2023 pH (U) 8.0 [pH] 5.0 - 8.0 [facility] Urine specific gravity measu rementOrdered By: Gilbert Monsalve on 03-23-2023 Specific gravity (U) [Rel density] 1.010 1.002-1.03 0 [facility] Urobilinogen Auto test strip Ql (U)Ordered By: Gilbert Monsalve on 03-23-2023 Urobilinogen Ql (U) Normal mg/dl Normal [facility] Culture, urineOrdered By: Pauly Monsalve on 03-12-2023 Bacteria identified Cx Nom (U) Positive [facility] No Panel InformationOrdered By: Joseph Tomlinson on 02-15-2023 Thyroid Stimulating Hormone (TSH) 1.90 uIU/mL 0.358-3.74 [facility] JANEE SCREENING W TOMOon 10-26 [facility] Basophil percentageon 2021 Bilirubin [Mass/Vol] 1.20 mg/dL 0.20-1.00 [facility] Work Phone: Comment on above: For patients on eltr ombopag therapy, use of Dimension Fulda TBIL is not recommended. Chloride [Moles/Vol] 108 mmol/L 98-107 [facility] Work Phone: Glucose [Mass/Vol] 95 mg/dL 74-106 [facility] Work Phone: Potassium [Moles/Vol] 4.2 mmol/L 3.5-5.1 [facility] Work Phone: Comment on above: Slight Hemolysis, Re sult may be falsely increased. Protein [Mass/Vol] 6.4 g/dL 6.4-8.2 [facility] Work Phone: Sodium [Moles/Vol] 140 mmol/L 136-145 [facility] Work Phone: Laboratory - Chemistry and C hemistry - challengeon 07-08-2022 ALP [Catalytic activity/Vol] 56 U/L 45-117 [facility] Work Phone: ALT [Catalytic activity/Vol] 24 U/L 13-56 [facility] Work Phone: CO2 [Moles/Vol] 25.0 mmol/L 21.0-32.0 [facility] Work Phone: Globulin (S) [Mass/Vol] 2.9 g/dL 2.2-4.2 [facility] Work Phone: Urea nitrogen/Creatinine [Mass ratio] 13.6 mg/mg 10-20 [facility] Work Phone: No Panel Informationon 07-08 Estimated GFR (MDRD) Amer 85 mL/min >60 [facility] Work Phone: Comment on above: GFR Calc Estimated GFR (MDRD) Non-Af Amer 71 mL/min >60 [facility] Work Phone: Comment on above: Non- GFR Calc Thyroid Stimulating Hormone (TSH) 2.00 uIU/mL 0.358-3.74 [facility] Work Phone: Vitamin D 25-Hydroxy 43.4 ng/mL [facility] Work Phone: Comment on above: Vitamin D 25(OH) Sta tus Range Deficiency <20 ng/mL (50nmol/L) Insufficiency 20 - 30 ng/mL (50 - 75 nmol/L) Sufficiency 30 - 100 ng/mL (75 - 250 nmol/L) Toxicity >100 ng/mL (>250 nmol/L) Serum or plasma albumin yris urement (mass/volume)on 07-08-2022 Albumin [Mass/Vol] 3.5 g/dL 3.2-5.0 [facility] Work Phone: Serum or plasma albumin/glob ulin mass ratioon 07-08-2022 Albumin/Globulin [Mass ratio] 1.2 {ratio} 0.9-2.4 [facility] Work Phone: Serum or plasma calcium yris urement (mass/volume)on 07-08-2022 Calcium [Mass/Vol] 8.6 mg/dL 8.5-10.1 [facility] Work Phone: Serum or plasma creatinine m easurement (mass/volume)on 07-08-2022 Creatinine [Mass/Vol] 0.88 mg/dL 0.55-1.02 [facility] Work Phone: Comment on above: The validity of the calculated GFR & GFRAA in patients over 70 years has not been determined. Clinical correlation is essential. Serum or plasma urea nitroge n measurement (mass/volume)on 07-08-2022 Urea nitrogen [Mass/Vol] 12 mg/dL 7-18 [facility] Work Phone: Thin prep Papanicolaou smear with manual screeningon 07-08-2022 Thin prep Papanicolaou smear with manual screening 19 U/L 15-37 [facility] Work Phone: Comment on above: Slight Hemolysis, Re sult may be falsely increased. Thin prep Papanicolaou smear with manual screening 7 5-15 [facility] Work Phone: Absolute lymphocyte counton 02-25-2022 Lymphocytes Auto (Unsp spec) [#/Vol] 1.08 10*3/uL 0.83-4.51 [facility] Work Phone: Basophil percentageon 2021 Basophils/100 WBC (Bld) 0.8 % 0-1 [facility] Work Phone: Bilirubin [Mass/Vol] 1.60 mg/dL 0.20-1.00 [facility] Work Phone: Comment on above: For patients on eltr ombopag therapy, use of Dimension Fulda TBIL is not recommended. Chloride [Moles/Vol] 106 mmol/L 98-107 [facility] Work Phone: Eosinophils/100 WBC (Bld) 2.0 % 0-5 [facility] Work Phone: Glucose [Mass/Vol] 89 mg/dL 74-106 [facility] Work Phone: Neutrophils (Bld) [#/Vol] 2.2 10*3/uL 2.0-7.7 [facility] Work Phone: Neutrophils/100 WBC (Bld) 61.1 % 47-70 [facility] Work Phone: [phone] Potassium [Moles/Vol] 3.9 mmol/L 3.5-5.1 [facility]: Protein [Mass/Vol] 6.5 g/dL 6.4-8.2 [facility]: Sodium [Moles/Vol] 139 mmol/L 136-145 [facility] Work Phone: WBC (Bld) [#/Vol] 3.6 10*3/uL 4.4-11.0 [facility] Work Phone: Blood erythrocytes count (nu mber/volume)on 02-25-2022 RBC (Bld) [#/Vol] 4.55 10*6/uL 4.2-5.4 [facility]: Blood hemoglobin measurement (mass/volume)on 02-25-2022 Hemoglobin (Bld) [Mass/Vol] 14.1 g/dL 12.0-15.0 [facility] Work Phone: Blood lymphocytes/100 leukoc yteson 02-25-2022 Lymphocytes/100 WBC (Bld) 30.2 % 19-41 [facility] Work Phone: Blood monocytes/100 leukocyt eson 02-25-2022 Monocytes/100 WBC (Bld) 5.6 % 0-10 [facility] Work Phone: Blood platelet mean volumeon 02-25-2022 Platelet mean volume (Bld) [Entitic vol] 10.6 fL 6.2-12.0 [facility] Work Phone: Determination of erythrocyte mean corpuscular volume (MCV)on 02-25-2022 MCV (RBC) [Entitic vol] 90.5 fL 81-99 [facility] Work Phone: Hematocrit Auto (Bld) [Volum e fraction]on 02-25-2022 Hematocrit (Bld) [Volume fraction] 41.2 % 37-47 [facility] Work Phone: Iron measurement (mass/mass) on 02-25-2022 Iron (Unsp spec) [Mass/Mass] 120 ug/dL 50-170 [facility] Work Phone: Laboratory - Chemistry and C hemistry - challengeon 02-25-2022 ALP [Catalytic activity/Vol] 54 U/L 45-117 [facility] Work Phone: ALT [Catalytic activity/Vol] 23 U/L 13-56 [facility] Work Phone: CO2 [Moles/Vol] 28.0 mmol/L 21.0-32.0 [facility] Work Phone: Globulin (S) [Mass/Vol] 2.8 g/dL 2.2-4.2 [facility] Work Phone: Urea nitrogen/Creatinine [Mass ratio] 9.2 mg/mg 10-20 [facility] Work Phone: Laboratory - Hematology and Cell countson 02-25-2022 Erythrocyte distribution width (RBC) [Entitic vol] 37.3 fL 35.1-43.9 [facility] Work Phone: Erythrocyte distribution width (RBC) [Ratio] 11.2 % 11.6-14.6 [facility] Work Phone: Immature granulocytes/100 WBC (Bld) 0.300 % 0.0-0.9 [facility] Work Phone: Comment on above: IG% - Immature Granu locytes (promyelocytes, myelocytes and metamyelocytes) > 1% indicates that a LEFT SHIFT is Present. MCH (RBC) [Entitic mass] 31.0 pg 27.0-32.0 [facility] Work Phone: Nucleated RBC/100 WBC (Bld) [Ratio] 0 % 0-5 [facility] Work Phone: MCHC Auto (RBC) [Mass/Vol]on 02-25-2022 MCHC (RBC) [Mass/Vol] 34.2 g/dL 32-36 [facility] Work Phone: No Panel Informationon 02-25 Estimated GFR (MDRD) Amer 87 mL/min >60 [facility] Work Phone: Comment on above: GFR Calc Estimated GFR (MDRD) Non-Af Amer 72 mL/min >60 [facility] Work Phone: Comment on above: Non- GFR Calc Miscellaneous Test See comment [facility] Work Phone: Comment on above: TEST RESULT UNITS RE F INTERVALVITAMIN B5 73.0 ng/mL 12.9-253.1 ___ TESTING PERFORMED AT [facility]. ORIGINAL REPORT ON FILE IN LAB CONTAINS ADDITIONAL TEST SITE INFORMATION. Vitamin B12 Level > 2000 pg/mL 211-911 [facility] Work Phone: Vitamin D 25-Hydroxy 79.9 ng/mL [facility] Work Phone: Comment on above: Vitamin D 25(OH) Sta tus Range Deficiency <20 ng/mL (50nmol/L) Insufficiency 20 - 30 ng/mL (50 - 75 nmol/L) Sufficiency 30 - 100 ng/mL (75 - 250 nmol/L) Toxicity >100 ng/mL (>250 nmol/L) Platelets bldon 02-25-2022 Platelets (Bld) [#/Vol] 162 10*3/uL 150-450 [facility] Work Phone: Serum or plasma albumin yris urement (mass/volume)on 02-25-2022 Albumin [Mass/Vol] 3.7 g/dL 3.2-5.0 [facility] Work Phone: Serum or plasma albumin/glob ulin mass ratioon 02-25-2022 Albumin/Globulin [Mass ratio] 1.3 {ratio} 0.9-2.4 [facility] Work Phone: Serum or plasma calcium yris urement (mass/volume)on 02-25-2022 Calcium [Mass/Vol] 8.6 mg/dL 8.5-10.1 [facility] Work Phone: Serum or plasma creatinine m easurement (mass/volume)on 02-25-2022 Creatinine [Mass/Vol] 0.87 mg/dL 0.55-1.02 [facility] Work Phone: Comment on above: The validity of the calculated GFR & GFRAA in patients over 70 years has not been determined. Clinical correlation is essential. Serum or plasma ferritin dax surement (mass/volume)on 02-25-2022 Ferritin [Mass/Vol] 82 ng/mL 8-252 [facility] Work Phone: Serum or plasma folate measu rement (mass/volume)on 02-25-2022 Folate [Mass/Vol] 61.50 ng/mL 3.1-55.4 [facility] Work Phone: Serum or plasma urea nitroge n measurement (mass/volume)on 02-25-2022 Urea nitrogen [Mass/Vol] 8 mg/dL 7-18 [facility] Work Phone: Thin prep Papanicolaou smear with manual screeningon 02-25-2022 Thin prep Papanicolaou smear with manual screening 16 U/L 15-37 [facility] Work Phone: Thin prep Papanicolaou smear with manual screening 5 5-15 [facility] Work Phone: Basophil percentageon 2021 Bilirubin [Mass/Vol] 1.10 mg/dL 0.20-1.00 [facility] Work Phone: Comment on above: For patients on eltr ombopag therapy, use of Dimension Fulda TBIL is not recommended. Protein [Mass/Vol] 6.8 g/dL 6.4-8.2 [facility] Work Phone: Direct bilirubinon 2 Bilirubin.direct [Mass/Vol] 0.20 mg/dL 0.00-0.30 [facility] Work Phone: Laboratory - Chemistry and C hemistry - challengeon 11-21-2021 ALP [Catalytic activity/Vol] 66 U/L 45-117 [facility] Work Phone: ALT [Catalytic activity/Vol] 22 U/L 13-56 [facility] Work Phone: Globulin (S) [Mass/Vol] 3.0 g/dL 2.2-4.2 [facility] Work Phone: Serum or plasma albumin yris urement (mass/volume)on 11-21-2021 Albumin [Mass/Vol] 3.8 g/dL 3.2-5.0 [facility] Work Phone: Thin prep Papanicolaou smear with manual screeningon 11-21-2021 Thin prep Papanicolaou smear with manual screening 16 U/L 15-37 [facility] Work Phone: Basophil percentageon 2021 Bilirubin [Mass/Vol] 2.00 mg/dL 0.20-1.00 [facility] Work Phone: Comment on above: For patients on eltr ombopag therapy, use of Dimension Fulda TBIL is not recommended. Chloride [Moles/Vol] 104 mmol/L 98-107 [facility] Work Phone: Glucose [Mass/Vol] 113 mg/dL 74-106 [facility] Work Phone: Comment on above: Fasting Glucose resu lt from 100 to 125 mg/dL suggests IMPAIRED HOMEOSTASIS per A.D.A. criteria. Potassium [Moles/Vol] 3.8 mmol/L 3.5-5.1 [facility] Work Phone: Protein [Mass/Vol] 6.9 g/dL 6.4-8.2 [facility] Work Phone: Sodium [Moles/Vol] 138 mmol/L 136-145 [facility] Work Phone: Laboratory - Chemistry and C hemistry - challengeon 11-05-2021 ALP [Catalytic activity/Vol] 61 U/L 45-117 [facility] Work Phone: ALT [Catalytic activity/Vol] 24 U/L 13-56 [facility] Work Phone: CO2 [Moles/Vol] 26.0 mmol/L 21.0-32.0 [facility] Work Phone: Globulin (S) [Mass/Vol] 3.2 g/dL 2.2-4.2 [facility] Work Phone: Urea nitrogen/Creatinine [Mass ratio] 9.8 mg/mg 10-20 [facility] Work Phone: No Panel Informationon 11-05 Estimated GFR (MDRD) Amer 110 mL/min >60 [facility] Work Phone: Comment on above: GFR Calc Estimated GFR (MDRD) Non-Af Amer 91 mL/min >60 [facility] Work Phone: Comment on above: Non- GFR Calc RBC Folate Hemolysate 575.0 ng/mL Not Estab. Wo sandeep [facility] Work Phone: Red Blood Cell Folate 1420 ng/mL >498 [address] [facility] Work Phone: Comment on above: Performed at: [address] [id number] Director: Keenan Sheridan PhD, Phone: [phone] Thyroid Stimulating Hormone (TSH) 0.88 uIU/mL 0.358-3.74 [facility] Work Phone: Vitamin B12 Level > 2000 pg/mL 211-911 [facility] Work Phone: Serum or plasma albumin yris urement (mass/volume)on 11-05-2021 Albumin [Mass/Vol] 3.7 g/dL 3.2-5.0 [facility] Work Phone: Serum or plasma albumin/glob ulin mass ratioon 11-05-2021 Albumin/Globulin [Mass ratio] 1.2 {ratio} 0.9-2.4 [facility] Work Phone: Serum or plasma calcium yris urement (mass/volume)on 11-05-2021 Calcium [Mass/Vol] 8.4 mg/dL 8.5-10.1 [facility] Work Phone: Serum or plasma creatinine m easurement (mass/volume)on 11-05-2021 Creatinine [Mass/Vol] 0.71 mg/dL 0.55-1.02 [facility] Work Phone: Comment on above: The validity of the calculated GFR & GFRAA in patients over 70 years has not been determined. Clinical correlation is essential. Serum or plasma ferritin dax surement (mass/volume)on 11-05-2021 Ferritin [Mass/Vol] 103 ng/mL 8-252 [facility] Work Phone: Serum or plasma folate measu rement (mass/volume)on 11-05-2021 Folate [Mass/Vol] 50.40 ng/mL 3.1-55.4 [facility] Work Phone: Serum or plasma urea nitroge n measurement (mass/volume)on 11-05-2021 Urea nitrogen [Mass/Vol] 7 mg/dL 7-18 [facility] Work Phone: Thin prep Papanicolaou smear with manual screeningon 11-05-2021 Thin prep Papanicolaou smear with manual screening 16 U/L 15-37 [facility] Work Phone: Thin prep Papanicolaou smear with manual screening 8 5-15 [facility] Work Phone: Thin prep Papanicolaou smear with manual screening 40.5 % 34.0-46.6 [facility] Work Phone: JANEE SCREENING W TOMOon 10-13 [facility] Basophil percentageon 2021 Chloride [Moles/Vol] 106 mmol/L 98-[address] [facility] Work Phone: Glucose [Mass/Vol] 94 mg/dL 74-106 [facility] Work Phone: Potassium [Moles/Vol] 4.0 mmol/L 3.5-5.1 [facility] ster [facility] Work Phone: Sodium [Moles/Vol] 138 mmol/L 136-145 [facility] Work Phone: Laboratory - Chemistry and C hemistry - challengeon 09-17-2021 CO2 [Moles/Vol] 26.0 mmol/L 21.0-32.0 [facility] Work Phone: Urea nitrogen/Creatinine [Mass ratio] 10.2 mg/mg 10-20 [facility] Work Phone: No Panel Informationon 09-17 Estimated GFR (MDRD) Amer 99 mL/min >60 [facility] Work Phone: Comment on above: GFR Calc Estimated GFR (MDRD) Non-Af Amer 81 mL/min >60 [facility] Work Phone: Comment on above: Non- GFR Calc Homocysteine < 2.0 umol/L 3.2-10.7 [facility] Work Phone: Plasma Total Catecholamines Not Reportable [facility] Work Phone: Plasma epinephrine measureme nt (mass/volume)on 09-17-2021 EPINEPHrine (P) [Mass/Vol] Not Reportable [facility] Work Phone: Plasma norepinephrine measur ement (mass/volume)on 09-17-2021 Norepinephrine (P) [Mass/Vol] See comment [facility] Work Phone: Comment on above: TEST RESULT UNITS RE F INTERVALCatecholamines, PlasmaCatecholamine Frac,PNorepinephrine, Pl 186 pg/mL 0-874Epinephrine, Pl 28 pg/mL 0-62Dopamine, Pl <30 pg/mL 0-48 TESTING PERFORMED AT [facility]. ORIGINAL REPORT ON FILE IN LAB CONTAINS ADDITIONAL TEST SITE INFORMATION. Plasma renin measurement (en zymatic activity/volume)on 09-17-2021 Renin (P) [Catalytic activity/Vol] Not Reportable [facility] Work Phone: Serum or plasma calcium yris urement (mass/volume)on 09-17-2021 Calcium [Mass/Vol] 9.6 mg/dL 8.5-10.1 [facility] Work Phone: Serum or plasma creatinine m easurement (mass/volume)on 09-17-2021 Creatinine [Mass/Vol] 0.78 mg/dL 0.55-1.02 [facility] Work Phone: Comment on above: The validity of the calculated GFR & GFRAA in patients over 70 years has not been determined. Clinical correlation is essential. Serum or plasma dopamine dax surement (mass/volume)on 09-17-2021 DOPamine [Mass/Vol] Not Reportable [facility] Work Phone: Serum or plasma urea nitroge n measurement (mass/volume)on 09-17-2021 Urea nitrogen [Mass/Vol] 8 mg/dL 7-18 [facility] Work Phone: Thin prep Papanicolaou smear with manual screeningon 09-17-2021 Thin prep Papanicolaou smear with manual screening 6 5-15 [facility] Work Phone: Thin prep Papanicolaou smear with manual screening See comment [facility] Work Phone: Comment on above: TEST RESULT UNITS RE F INTERVALAldosterone/Renin RatioAldosterone 3.6 ng/dL 0.0-30.0Renin Activity, Plasma 0.418 ng/mL/hr 0.167-5.380Aldos/Renin Ratio 8.6 0.0-30.0 Units: ng/dL per ng/mL/hr 24 hour urine normetanephrin e measurement (mass/time)on 08-26-2021 Normetanephrine (24H U) [Mass/Time] 169 ug/24 hr [facility] Work Phone: No Panel Informationon 08-26 Urine Metanephrines 24 Hour 85 ug/24 hr [facility] Work Phone: Comment on above: Performed at: [employer] [place], [place] [id number] Director: Flavia Bishop MD, Phone: [phone] Urine Normetanephrine 36 ug/L Undefined [facility] Work Phone: Urine metanephrine measureme nt (mass/volume)on 08-26-2021 Metanephrine (U) [Mass/Vol] 18 ug/L Undefined [facility] Work Phone: 24 hour urine dopamine measu rement (mass/time)on 08-25-2021 DOPamine (24H U) [Mass/Time] 146 ug/24 hr 65-610 [facility] Work Phone: Comment on above: Performed at: [employer] [place], [place] [id number] Director: Flavia Bishop MD, Phone: [phone] ___ TESTING PERFORMED AT [facility]. ORIGINAL REPORT ON FILE IN LAB CONTAINS ADDITIONAL TEST SITE INFORMATION. 24 hour urine epinephrine me asurement (mass/time)on 08-25-2021 EPINEPHrine (24H U) [Mass/Time] < 3 ug/24 hr [facility] Work Phone: 24 hour urine vanillylmandel ate measurement (mass/time)on 08-25-2021 Vanillylmandelate (24H U) [Mass/Time] 3.3 mg/24 hr [facility] Work Phone: No Panel Informationon 08-25 Urine Norepinephrine 24 Hour 20 ug/24 hr [facility] Work Phone: Urine dopamine measurement ( mass/volume)on 08-25-2021 DOPamine (U) [Mass/Vol] 45 ug/L Undefined [facility] Work Phone: Urine epinephrine measuremen t (mass/volume)on 08-25-2021 EPINEPHrine (U) [Mass/Vol] < 1 ug/L Undefined [facility] Work Phone: Urine norepinephrine measure ment (mass/volume)on 08-25-2021 Norepinephrine (U) [Mass/Vol] 6 ug/L Undefined [facility] Work Phone: Urine vanillylmandelate yris urement (mass/volume)on 08-25-2021 Vanillylmandelate (U) [Mass/Vol] 1.0 mg/L Undefined [facility] Work Phone: Absolute lymphocyte counton 08-03-2021 Lymphocytes Auto (Unsp spec) [#/Vol] 1.25 10*3/uL 0.83-4.51 [facility] Work Phone: Basophil percentageon 2021 Basophils/100 WBC (Bld) 0.6 % 0-1 [facility] Work Phone: Eosinophils/100 WBC (Bld) 1.2 % 0-5 [facility] Work Phone: Neutrophils (Bld) [#/Vol] 3.3 10*3/uL 2.0-7.7 [facility] Work Phone: Neutrophils/100 WBC (Bld) 66.6 % 47-70 [facility] Work Phone: [phone] WBC (Bld) [#/Vol] 5.0 10*3/uL 4.4-11.0 [facility] Work Phone: Chloride [Moles/Vol] 109 mmol/L 98-107 [facility] Work [facility]: Glucose [Mass/Vol] 105 mg/dL 74-106 [facility] Work Phone: Comment on above: Fasting Glucose resu lt from 100 to 125 mg/dL suggests IMPAIRED HOMEOSTASIS per A.D.A. criteria. Potassium [Moles/Vol] 3.8 mmol/L 3.5-5.1 [facility] Work Phone: Comment on above: Moderate Hemolysis, Result may be falsely increased. Sodium [Moles/Vol] 140 mmol/L 136-145 [facility] Work Phone: Blood erythrocytes count (nu mber/volume)on 08-03-2021 RBC (Bld) [#/Vol] 4.59 10*6/uL 4.2-5.4 [facility] Work Phone: Blood hemoglobin measurement (mass/volume)on 08-03-2021 Hemoglobin (Bld) [Mass/Vol] 13.7 g/dL 12.0-15.0 [facility] Work Phone: Blood lymphocytes/100 leukoc yteson 08-03-2021 Lymphocytes/100 WBC (Bld) 25.3 % 19-41 [facility] Work Phone: Blood monocytes/100 leukocyt eson 08-03-2021 Monocytes/100 WBC (Bld) 6.1 % 0-10 [facility] Work Phone: Blood platelet mean volumeon 08-03-2021 Platelet mean volume (Bld) [Entitic vol] 10.2 fL 6.2-12.0 [facility] Work Phone: Determination of erythrocyte mean corpuscular volume (MCV)on 08-03-2021 MCV (RBC) [Entitic vol] 88.5 fL 81-99 [facility] Work Phone: Hematocrit Auto (Bld) [Volum e fraction]on 08-03-2021 Hematocrit (Bld) [Volume fraction] 40.6 % 37-47 [facility] Work Phone: Laboratory - Chemistry and C hemistry - challengeon 08-03-2021 CO2 [Moles/Vol] 26.0 mmol/L 21.0-32.0 [facility] Work Phone: Urea nitrogen/Creatinine [Mass ratio] 15.0 mg/mg 10-20 [facility] Work Phone: Laboratory - Hematology and Cell countson 08-03-2021 Erythrocyte distribution width (RBC) [Entitic vol] 37.2 fL 35.1-43.9 [facility] Work Phone: Erythrocyte distribution width (RBC) [Ratio] 11.8 % 11.6-14.6 [facility] Work Phone: Immature granulocytes/100 WBC (Bld) 0.200 % 0.0-0.9 [facility] Work Phone: Comment on above: IG% - Immature Granu locytes (promyelocytes, myelocytes and metamyelocytes) > 1% indicates that a LEFT SHIFT is Present. MCH (RBC) [Entitic mass] 29.8 pg 27.0-32.0 [facility] Work Phone: Nucleated RBC/100 WBC (Bld) [Ratio] 0 % 0-5 [facility] Work Phone: MCHC Auto (RBC) [Mass/Vol]on 08-03-2021 MCHC (RBC) [Mass/Vol] 33.7 g/dL 32-36 [facility] Work [facility]: No Panel Informationon 08-03 Estimated Creatinine Clearance Calc 93.34 ml/min [facility] Work Phone: Estimated GFR (MDRD) Amer 118 mL/min >60 [facility] Work Phone: Comment on above: GFR Calc Estimated GFR (MDRD) Non-Af Amer 98 mL/min >60 [facility] Work Phone: Comment on above: Non- GFR Calc Troponin I High Sensitivity 6 pg/mL 3.0-54.0 [facility] Work Phone: Comment on above: Please Note: New Isis t Units and Gender Specific Reference Ranges. For more information see Policy Stat Procedure Fulda High Sensitivity Troponin (TNIH) and attachments. Platelets bldon 08-03-2021 Platelets (Bld) [#/Vol] 183 10*3/uL 150-450 [facility] Work Phone: Serum or plasma calcium yris urement (mass/volume)on 08-03-2021 Calcium [Mass/Vol] 9.0 mg/dL 8.5-10.1 [facility] Work Phone: Serum or plasma creatinine m easurement (mass/volume)on 08-03-2021 Creatinine [Mass/Vol] 0.67 mg/dL 0.55-1.02 [facility] Work Phone: Comment on above: The validity of the calculated GFR & GFRAA in patients over 70 years has not been determined. Clinical correlation is essential. Serum or plasma urea nitroge n measurement (mass/volume)on 08-03-2021 Urea nitrogen [Mass/Vol] 10 mg/dL 7-18 [facility] Work Phone: Thin prep Papanicolaou smear with manual screeningon 08-03-2021 Thin prep Papanicolaou smear with manual screening 5 5-15 [facility] Work Phone: Basophil percentageon 2021 Bilirubin [Mass/Vol] 0.80 mg/dL 0.20-1.00 [facility] Work Phone: Comment on above: For patients on eltr ombopag therapy, use of Dimension Fulda TBIL is not recommended. Chloride [Moles/Vol] 107 mmol/L 98-107 [facility] Work Phone: Cholesterol [Mass/Vol] 195 mg/dL <200 [facility] Work Phone: Comment on above: <200 mg/dL Desirable 200-240 mg/dL Borderline >240 mg/dL High Risk Glucose [Mass/Vol] 92 mg/dL 74-106 [facility] Work Phone: Comment on above: Please note revised GLUCOSE reference range effective 2017. Potassium [Moles/Vol] 3.9 mmol/L 3.5-5.1 [facility] Work Phone: Protein [Mass/Vol] 6.5 g/dL 6.4-8.2 [facility] Work Phone: Sodium [Moles/Vol] 140 mmol/L 136-145 [facility] Work Phone: Triglyceride [Mass/Vol] 120 mg/dL [facility] Work Phone: Comment on above: The drugs N-Acetylcy steine and Metamizole may falsely depress this assay.Serum Triglycerides Reference Interval Normal <150 mg/dL Borderline high 150 - 199 mg/dL High 200 - 499 mg/dL Very High > or = 500 mg/dL Laboratory - Chemistry and C hemistry - challengeon 07-15-2021 ALP [Catalytic activity/Vol] 62 U/L 45-117 [facility] Work Phone: ALT [Catalytic activity/Vol] 22 U/L 13-56 [facility] Work Phone: CO2 [Moles/Vol] 26.0 mmol/L 21.0-32.0 [facility] Work Phone: Globulin (S) [Mass/Vol] 3.0 g/dL 2.2-4.2 [facility] Work Phone: Urea nitrogen/Creatinine [Mass ratio] 21.1 mg/mg 10-20 [facility] Work Phone: No Panel Informationon 01-04 -2022 Estimated GFR (MDRD) Amer 119 mL/min >60 [facility] Work Phone: Comment on above: GFR Calc Estimated GFR (MDRD) Non-Af Amer 99 mL/min >60 [facility] Work Phone: Comment on above: Non- GFR Calc Thyroid Stimulating Hormone (TSH) 0.46 uIU/mL 0.358-3.74 [facility] Work Phone: Vitamin D 25-Hydroxy 26.0 ng/mL [facility] Work Phone: Comment on above: Vitamin D 25(OH) Sta tus Range Deficiency <20 ng/mL (50nmol/L) Insufficiency 20 - 30 ng/mL (50 - 75 nmol/L) Sufficiency 30 - 100 ng/mL (75 - 250 nmol/L) Toxicity >100 ng/mL (>250 nmol/L) Serum or plasma albumin yris urement (mass/volume)on 07-15-2021 Albumin [Mass/Vol] 3.5 g/dL 3.2-5.0 [facility] Work Phone: Serum or plasma albumin/glob ulin mass ratioon 07-15-2021 Albumin/Globulin [Mass ratio] 1.2 {ratio} 0.9-2.4 [facility] Work Phone: Serum or plasma calcium yris urement (mass/volume)on 07-15-2021 Calcium [Mass/Vol] 8.5 mg/dL 8.5-10.1 [facility] Work Phone: Serum or plasma cholesterol in HDL measurement (mass/volume)on 07-15-2021 Cholesterol in HDL [Mass/Vol] 62 mg/dL [facility] Work Phone: Comment on above: The drugs N-Acetylcy steine and Metamizole may falsely depress this assay. Reference Range HDL <40 mg/dL Low HDL Cholesterol HDL >or= 60 mg/dL High HDL Cholesterol Serum or plasma cholesterol in VLDL measurement (mass/volume)on 07-15-2021 Cholesterol in VLDL [Mass/Vol] 24 mg/dL 5-40 [facility] Work Phone: Serum or plasma creatinine m easurement (mass/volume)on 07-15-2021 Creatinine [Mass/Vol] 0.66 mg/dL 0.55-1.02 [facility] Work Phone: Comment on above: The validity of the calculated GFR & GFRAA in patients over 70 years has not been determined. Clinical correlation is essential. Serum or plasma low density lipoprotein (LDL) cholesterol measurement (mass/volume)on 07-15-2021 Cholesterol in LDL [Mass/Vol] 109 mg/dL 0-130 [facility] Work Phone: Serum or plasma urea nitroge n measurement (mass/volume)on 07-15-2021 Urea nitrogen [Mass/Vol] 14 mg/dL 7-18 [facility] Work Phone: Thin prep Papanicolaou smear with manual screeningon 07-15-2021 Thin prep Papanicolaou smear with manual screening 13 U/L 15-37 [facility] Work Phone: Thin prep Papanicolaou smear with manual screening 7 5-15 [facility] Work Phone: Laboratory - Chemistry and C hemistry - challengeon 07-07-2021 Cobalamin (Vitamin B12) [Mass/Vol] 199 pg/mL 211-911 [facility] Work Phone: Serum or plasma zinc measure ment (mass/volume)on 07-07-2021 Zinc [Mass/Vol] 105 ug/dL [facility] Work Phone: Comment on above: Detection Limit = 5P erformed at: - [facility] [address] [place], [place] [id number] Director: Flavia Bishop MD, Phone: [phone] Office Visit (Neuro-Movement )on 02-09-2018 Office Visit [...] doesnt change. She saw Dr. Galvan in [place]. He had ordered an MRI of brain [...] asleep and no problems with daytime sleepiness. Howard Sleepiness Scale is 0. She reports no [...] is no postural or kinetic tremor on hktaon-izhk-usatsk) Muscle bulk was normal in both upper [...] WWO NCCBRAIN WITH AND WITHOUT Procedure ID: [id number] Report Text MRI brain with and without [...] changesProfessional interpretation provided by [facility], [place] on [id number].Thank you for this referral. Signed by: Justen Penaloza Date Signed: 07/03/2016 1:33 PM Diagnoses/Problems Occasional tremors (781.0) (R25.1) Provider ImpressionKay is a left-handed 52 year-old woman with [...] and treatment options. 80 minutes was spent xmlk-wi-sjvd in the visit. Signatures Electronically signed by : Villa Vilchis MD; Feb 09 2018 12:43PM EST (Author) Normal [facility] ID - Initial/Consulton 12-31 ID - Initial/Consult [...] evaluated by another infectious disease doctor neurologist cartographic engineer thread pulling machine attendant a Lyme specialist to determine ENT doctors [...] extraction. She was worked up extensively by cartographic engineer; she indicated the neurologist told her it was on her headCurrent symptoms are neck and throat pain malaise fatigue and headaches. 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 No unusual pets or animal exposures. Family [...] Gabapentin 300 MG Oral Capsule; as needed;Therapy: 91Ogk5496 to RecordedDispense: 30 Days ; #:30 Capsule; [...] specialists. 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 are typical for chronic fatigue. TimeTime Stamp_UH: Time Spent With Patient:1 70 minutes of which greater than 50 percent was spent counseling and or coordinating care.1 . 1 Amended By: Dominic Cesar; Dec 31 2017 2:13 PM EST End of Encounter MedsGabapentin 300 MG Oral Capsule; as needed;Therapy: 74Nms1379 to RecordedSynthroid 88 MCG Oral Tablet (Levothyroxine Sodium); Take 1 tablet daily;Therapy: (Recorded:31Dec2017) to Recorded Signatures Electronically signed by : Dominic Cesar MD; Dec 31 2017 2:14PM EST (Author) Normal Touchworks BMPon 09-27-2017 Anion gap 10 mmol/L Normal 5-16 [facility] Comment on above: Order Comment: Campu s: M Performed By: #### L 500.45913, L500.33581, L500.09271 ####[facility] VWMASLCTLX22[address] [place], [place] [address]Cl# [phone] BUN/Creatinine Ratio 9 mg/mg Low 15-24 [facility] Comment on above: Order Comment: Campu s: M Performed By: #### L 500.39760, L500.65366, L500.06309 ####[facility] SMAJROFIXE8185 [place], [place] [address]Cw# [phone] Calcium 9.6 mg/dL Normal 8.5-10.1 [facility] Comment on above: Order Comment: Campu s: M Performed By: #### L 500.26226, L500.47380, L500.77001 ####[facility] NYFQVEDNWI6588 [place], [place] [address]Ql# [phone] Chloride 104 mmol/L Normal 98-107 [facility] Comment on above: Order Comment: Campu s: M Performed By: #### L 500.62451, L500.29057, L500.31274 ####[facility] YRMNGMTVNH9790 [place], [place] [address]Gm# [phone] CO2 25 mmol/L Normal 21-32 [facility] Comment on above: Order Comment: Campu s: M Performed By: #### L 500.53065, L500.13099, L500.09158 ####[facility] YRMLEBRRYM8018 [place], [place] [address]El# [phone] Creatinine 0.705 mg/dL Normal 0.510-0.95 0 [facility] Comment on above: Order Comment: Campu s: M Result Comment: Liz ents receiving either N-Acetylcysteine (NAC) orMetamizole prior to venipuncture, may have falsely depressedresults. Performed By: #### L 500.16826, L500.98805, L500.17638 ####[facility] MXPBWQNELJ0340 [place], [place] [address]Zb# [phone] Glucose mass conc 96 mg/dL Normal 70-100 [facility] Comment on above: Order Comment: Campu s: M Result Comment: 70-1 00- Normal Fasting; 100-125 Impaired Fasting; greaterthan 126 on more than one result- Diabetes. ADA guidelines.Results may be falsely elevated after the administration ofSulfapyridine.Results may be falsely depressed after the administration ofSulfasalazine. Performed By: #### L 500.27202, L500.93620, L500.47281 ####[facility] CXEICSEGAW8224 [place], [place] [address]Xi# [phone] Potassium molar conc 3.6 mmol/L Normal 3.5-5.1 [facility] Comment on above: Order Comment: Campu s: M Performed By: #### L 500.98280, L500.62346, L500.43400 ####[facility] DUVNBHOSLB7814 [place], [place] [address]Jn# [phone] Sodium 139 mmol/L Normal 136-145 [facility] Comment on above: Order Comment: Campu s: M Performed By: #### L 500.73922, L500.20502, L500.06618 ####[facility] AOAKPGTMQX6439 [place], [place] [address]Dg# [phone] Urea nitrogen 6 mg/dL Low 7-26 [facility] Comment on above: Order Comment: Campu s: M Performed By: #### L 500.27589, L500.87212, L500.58386 ####[facility] YHDMPNIFXP3353 [place], [place] [address]Rs# [phone] CBC W/DIFFon 09-27-2017 BASO ABS 0.00 K/CU MM Normal 0-0.2 [facility] [place] Comment on above: Order Comment: Campu s: M Performed By: #### L 200.87100 ####[facility] OTVMVFEWNL8518 [place], [place] [address]Mr# [phone] Basophils/100 WBC Auto (Bld) 0.6 % Normal 0-2 [facility] [place] Comment on above: Order Comment: Campu s: M Performed By: #### L 200.82328 ####[facility] [id number] [place] [address]By# [phone] EOS ABS 0.00 K/CU MM Normal 0-0.5 [facility] [place] Comment on above: Order Comment: Campu s: M Performed By: #### L 200.16235 ####[address] [address]Us# [phone] Eosinophils/100 leukocytes 0.4 % Normal 0-5 [facility] [place] Comment on above: Order Comment: Campu s: M Performed By: #### L 200.09502 ####[address] [address]Dg# [phone] Erythrocyte distribution width Auto Ratio (RBC) 11.6 % Normal 11-14.5 [facility] [place] Comment on above: Order Comment: Campu s: M Performed By: #### L 200.13811 ####[facility] OB[address] [place] [address]Yb# [phone] Erythrocytes (RBC) 0.0 % Normal Less than 1 [facility] [place] Comment on above: Order Comment: Campu s: M Performed By: #### L 200.91170 ####[facility] [id number] [place] [address]Rf# [phone] Erythrocytes (RBC) 4.63 M/CU MM Normal 3.90-5.30 [facility] [place] Comment on above: Order Comment: Campu s: M Performed By: #### L 200.96819 ####[facility] TFCIOJEGQT0074 [place], [place] [address]Ak# [phone] Hematocrit (HCT) 40.4 % Normal 35.0-47.0 [facility] [place] Comment on above: Order Comment: Campu s: M Performed By: #### L 200.96403 ####[facility] [id number] [place], [place] [address]Ph# [phone] Hemoglobin mass conc (Bld) 14.0 g/dL Normal 11.5-15.5 [facility] Comment [facility]: Order Comment: Campu s: M Performed By: #### L 200.28981 ####[facility] [id number] [place], [place] [address]Ph# [phone] IMMATR GRAN ABS 0.00 K/CU MM Normal Less than 2 [facility] [place] Comment on above: Order Comment: Campu s: M Performed By: #### L 200.96169 ####[facility] [address]QN[address]ZHPR[address] [place], [place] [address]Ph# [phone] IMMATURE GRAN % 0.4 % Normal Less than 2 [facility] [place] Comment on above: Order Comment: Campu s: M Performed By: #### L 200.68735 ####[facility] [address]JOFR[address] [place] [address]Hc# [phone] Lymphocytes 1.00 K/CU MM Normal 0.9-4.4 [facility] [place] Comment on above: Order Comment: Campu s: M Performed By: #### L 200.29608 ####[facility] [id number] [place], [place] [address]Ph# [phone] Lymphocytes/100 leukocytes 19.3 % Low 20-40 [facility] [place] Comment on above: Order Comment: Campu s: M Performed By: #### L 200.30366 ####[facility] GRDAGTPGBC[address] [place] [address]Dm# [phone] MCHC mass conc (RBC) 34.7 g/dL Normal 32.0-36.0 [facility] Comment on above: Order Comment: Campu s: M Performed By: #### L 200.88533 ####[facility] EGSFMINQMA2678 [place] [address]Ph# [phone] MCV 87.3 fL Normal 80.0-99.0 [facility] Comment on above: Order Comment: Campu s: M Performed By: #### L 200.30046 ####[facility] [id number] [place], [place] [address]Ph# [phone] MONO ABS 0.30 K/CU MM Normal 0.1-1.1 [facility] Comment on above: Order Comment: Campu s: M Performed By: #### L 200.52082 ####[address] [address]Lz# [phone] Monocytes/100 leukocytes 6.0 % Normal 2-10 [facility] Comment on above: Order Comment: Campu s: M Performed By: #### L 200.78831 ####[facility] [id number] [place], [place] [address]Ph# [phone] Neutrophils 3.90 K/CU MM Normal 2.0-8.3 [facility] Comment on above: Order Comment: Campu s: M Performed By: #### L 200.65290 ####[facility] W[address]AKXLDGS[address] [place] [address]Of# [phone] Neutrophils/100 WBC Auto (Bld) 73.3 % Normal 45-75 [facility] Comment on above: Order Comment: Campu s: M Performed By: #### L 200.34108 ####[facility] EAZCY[address]IJT[address] [place] [address]Wz# [phone] Platelet mean volume (PMV) 10.3 fL Normal 9.4-12.4 [facility] Comment on above: Order Comment: Campu s: M Performed By: #### L 200.17811 ####[facility] [id number] [place], [place] [address]Ph# [phone] Platelets 183 K/CU MM Normal 150-450 [facility] [place] Comment on above: Order Comment: Campu s: M Performed By: #### L 200.39468 ####[facility] GCMGQMGBLO9292 [place], [place] [address]Bk# [phone] WBC (Leukocytes) 5.4 K/CU MM Normal 4.5-11.0 [facility] [place] Comment on above: Order Comment: Campu s: M Performed By: #### L 200.99135 ####[facility] OKKLSVFCQX6592 [place], [place] [address]Ch# [phone] CT ABDOMEN W/O CONon 018 CT ABDOMEN [...] WEEKS M.D. Signed By: SHAWN WEEKS M.D. [facility] ED DOCon 09-27-2017 ED DOC PHYSICIA N ASSESSMENT ==RECORDS: FlexChartDataEvent Time: 09/27/2017 20:40 CMCAStatus: [facility] CenterCynthiaaspirus ontonagon hospitalmargarita Woo [[id number]]Mid -Level Chart (V2b)1967Chart created at 09/27/2017 20:36 by Laly JeanChart closed at 09/27/2017 21:18Entry in Emergency Department at 09/27/2017 17:59,departure at 09/27/2017 21:10Patient Name: Samuel Woo Record Number: [id number]: 09/27/2017 20:36Entered Department at: 09/27/2017 17:59 Patient [...] inseverity. When it is more severe, she [facility] PATIENT NAME: SAMUEL WOO [id number] [facility] [address] Rojas MEDICAL REC #: [id number], [place] [address] DEPARTMENT CHART EMERGENCY DEPARTMENT PHYSICIANdescribes some mild [...] Reviewed RN Note.Family History: Reviewed RN Note [facility] PATIENT NAME: SAMUEL WOO [facility] Dr[address] Rojas MEDICAL REC #: [id number], [place] [address] DEPARTMENT CHART EMERGENCY DEPARTMENT PHYSICIANPhysical Examination: General: [...] The patient symptoms are also bilateral in [facility] PATIENT NAME: SAMUEL WOO [id number] [facility] [address] Rojas MEDICAL REC #: [id number], [place] [address] DEPARTMENT CHART EMERGENCY DEPARTMENT PHYSICIANnature. For these [...] process. She is advised to follow-up with herprimary care doctor for further evaluation of hersymptoms. [...] on 09/30/2017 23:30.: FlexChartDataEvent Time: 10/01/2017 00:07Status: SignedE[facility] Emily [[id number]] [facility] PATIENT NAME: SAMUEL WOO [id number] [facility] [address] Rojas [facility] REC #: [id number], [place] [address] DEPARTMENT CHART EMERGENCY DEPARTMENT PHYSICIANAttending [id number] / F 1965Addendum (V2b)Chart created at 09/30/2017 23:27 by Gonzalez ThaoChart closed at 09/30/2017 23:27Entry in Emergency Department at 09/27/2017 17:59,departure at 09/27/2017 21:10Patient Name: Samuel Woo Record Number: [id number]: 09/30/2017 23:27Entered Department at: 09/27/2017 17:59 Patient [...] you feel more ill or sick in [facility] PATIENT NAME: SAMUEL WOO [id number] [facility] [address] Rojas [facility] REC #: [id number], [place] [address] DEPARTMENT CHART EMERGENCY DEPARTMENT PHYSICIANany way. This [...] get your prescriptions filled.EKG and Radiology Results:A market sales manager or radiologist will review any EKG orradiology [...] that theyare aware and can make suggestionsDIAGNOSIS:Bishop al upper extremity paresthesias, unclear etiology [facility] PATIENT NAME: SAMUEL WOO [id number] [facility] [address] Rojas MEDICAL REC #: [id number], [place] [address] DEPARTMENT CHART EMERGENCY DEPARTMENT PHYSICIANINSTRUCTIONS:Contin ue all [...] below indicates consent for Case Managementto contact [facility] providers in [facility] to meet your ongoing healthcare needs. This willallow forcontinuity of care once you leave theEmergency Department. This exchange of informationwillinclude, but not be limited to, disclosure of yourpatient information and possible release ofrecords. ==DEMOGRAPHICS ======Emergisoft Patient: MELLINDA R HARTMANSex: F [facility] PATIENT NAME: SAMUEL WOO [id number] [facility] MEDICAL REC #: [id number], [place] [address] DEPARTMENT CHART EMERGENCY DEPARTMENT PHYSICIANDOB: 1965Age: 52 yrAccount No: [id number]: [id number] Date: 1709/27/2017Address: [address]Address: [place] [address] GLD ISTRATION =ED Number: [id number]: Marital Status: MFinancial Class: PPO TRIAG E Priorit y: 3 - UrgentComplaint: NumbnessStated Complaint: NUMBNESS IN BOTH ARMSArrival Date: 09/27/2017 17:59Triage Date: 09/27/2017 18:00Mode of Arrival: AmbulanceTransfer From: * HomeWC: NLanguage: EnglishTransport: Other$$$cccccccccccccccccccc ccccccccc$$$ ====BED C 36 In: 09/27/2017 18:07:57 09/27/201718:07:57 RSSC36 (Removed From) Out: 09/27/2017 21:10:17009/27/2017 21:10:17 RSS PROVI DERS Lesvia foley Medical Service Provider Contact:09/27/2017 18:00:36 EMSEnd: [facility] PATIENT NAME: SAMUEL WOO R13[address] [facility] [address] Rojas MEDICAL REC #: [id number], [place] [address] DEPARTMENT CHART EMERGENCY DEPARTMENT PHYSICIANRN KEN MEADE [...] ganglion cyst removal from wrist 09/27/201718:09 RSS [facility] PATIENT NAME: SAMUEL WOO R13[address] [facility] [address] Rojas MEDICAL REC #: [id number], [place] [address] DEPARTMENT CHART EMERGENCY DEPARTMENT PHYSICIANSurgery: Hysterectomy-PARTIAL 09/27/2017 18:09 RSSPAST SOCIAL HISTSocial History: Communicates without aogqchovxz13/19/2018 18:09 RSSSocial History: Lives with family or [...] - Calllight placed within reach. 09/27/2017 18:08 RSS09/27/2017 18:08 Staff/ Patient Interaction -Introduced self and assessed patients needs. 09/27/201718:08 RSS09/27/2017 18:08 Hourly Rounding - Rounding 09/27/2017 [facility] PATIENT NAME: SAMUEL WOO[address] [facility] [address] Rojas [facility] REC #: [id number], [place] [address] DEPARTMENT CHART EMERGENCY DEPARTMENT EBNKOSHSO58:08 RSSElimination/Toileting NPain 0Position Comfortable YSafe Environment YFall Risk Change N009/27/2017 18:08 Patient Interaction - Allergy Band onPt. 09/27/2017 18:08 RSS09/27/2017 18:08 Patient Interaction - Jitterbug Operator/Pulse ox/ BP cuff applied 09/27/2017 18:08 RSS09/27/2017 18:18 Neuro Assessment Non Stroke - NeuroAssessment 09/27/2017 18:18 RSSRight Pupil Reaction BriskLeft Pupil Reaction BriskFollows Commands Appropriately 0 performs 2 taskscorrectlyGlasgow Coma Scale /15 15Level of Orientation /4 4Pupil Right mm 3Pupil Left mm 3Motor Sensory Intact Times /4 19:08 Hourly Rounding - Rounding 09/27/201719:42 RSSPosition Comfortable YSafe Environment YAssessment Note poc lieydwe4009/27/2017 19:15 POC testing results and criticalvalues - POC Troponin 0.00 on ED triag zyjslwtkaz45/19/2018 19:15 CNH09/27/2017 19:30 Genitourinary - Patient assisted toBR. 09/27/2017 19:31 RSSNotes: GAIT WAS SLAUSM6509/27/2017 20:09 Hourly Rounding - Rounding 09/27/201720:28 RSSPosition Comfortable YSafe Environment YAssessment Note POC WSCSVQU3609/27/2017 21:07 Discharge - Ambulated with steady gait [facility] PATIENT NAME: SAMUEL WOO R13[address] [facility] [address] Rojas MEDICAL REC #: [id number], [place] [address] DEPARTMENT CHART EMERGENCY DEPARTMENT PHYSICIANhome 09/27/2017 21:07 [...] Arm - Sitting - MachinePulse: 86 - Jitterbug Operator Resp: 16Sa02: 100 Room Air Temp: 97.50 F - Oral09/27/2017 18:08 RSSVS-Pain Time: 09/27/2017 18:00 Pain Level: 18:08 RSSVS-GCS Time: 09/27/2017 18:00 Visual: 4 Verbal: 5 Motor:6 GCS Total: 15 09/27/2017 18:08 RSSVS-HT/WT Time: 09/27/2017 18:00 Weight: 184 lbs Aetawq8809/27/2017 18:08 RSSVS-Visual Time: 09/27/2017 18:00 09/27/2017 18:08 RSSVS-FHT Time: 09/27/2017 18:00 09/27/2017 18:08 [facility] PATIENT NAME: SAMUEL WOO [facility] Dr[facility] Rojas [facility] REC #: [id number], [place] [address] DEPARTMENT CHART EMERGENCY DEPARTMENT PHYSICIANRSSVS-Notes Time: 09/27/2017 18:00 MAP 128 09/27/201718:08 RSSVS-ROUTINE Time: 09/27/2017 19:31B/P: 180/92 - Left Upper Arm - Sitting - MachinePulse: 78 - Jitterbug Operator Resp: 18Sa02: 100 Room Air 09/27/2017 19:31 [...] RSSVS-HT/WT Time: 09/27/2017 19:44 Ht: 67 in. Lopcrs9309/27/2017 19:44 RSSVS-Visual Time: 09/27/2017 19:44 09/27/2017 19:44 RSSVS-FHT Time: 09/27/2017 19:44 09/27/2017 19:44RSSVS-Notes Time: 09/27/2017 19:44 09/27/2017 19:44 RSS ORDER S Dischar ge patient 09/27/2017 21:02N/AOrdered: 09/27/2017 20:40 By . OtherReviewed: 09/27/2017 21:02 By . OtherEXTERN ORDER: GFRP 09/27/2017 19:21NoneOrdered: 09/27/2017 19:21 Completed Time:09/27/2017 19:21 Results Time: 09/27/2017 19:21EXTERN ORDER: POCTROP 09/27/2017 19:17None [facility] PATIENT NAME: SAMUEL WOO0 [facility] Dr. Rojas MEDICAL REC #: [id number], [place] [address] DEPARTMENT CHART EMERGENCY DEPARTMENT PHYSICIANOrdered: 09/27/2017 19:17 Completed Time:09/27/2017 19:17 Results Time: 09/27/2017 19:17CBC with diff 09/27/2017 19:17N/AOrdered: 09/27/2017 18:33 By LALY COLLINSCompleted Time: 09/27/2017 19:17 By LALY COLLINSNoted Time: 09/27/2017 18:58 RSSResults Time: 09/27/2017 19:17BMP 09/27/2017 19:21N/AOrdered: 09/27/2017 18:33 By LALY COLLINSCompleted Time: 09/27/2017 19:21 By LALY COLLINSNoted Time: 09/27/2017 18:58 RSSResults Time: 09/27/2017 19:21POC troponin 09/27/2017 18:58N/AOrdered: 09/27/2017 18:33 By LALY COLLINSNoted Time: 09/27/2017 18:58 RSSEKG and most recent EKG 09/27/2017 19:17N/AOrdered: 09/27/2017 18:33 By LALY COLLINSCompleted Time: 09/27/2017 19:16 By LALY COLLINSNoted Time: 09/27/2017 19:13 VLCIV hep lock 09/27/2017 18:58N/AOrdered: 09/27/2017 18:33 By LALY COLLINSCompleted Time: 09/27/2017 18:58 By LALY COLLINSNoted Time: 09/27/2017 18:47 RSS DISCH ARGE Diag nosis: Bilateral upper extremity paresthesias,unclear etiology 09/27/2017 20:40Disposition: Time: 09/27/2017 20:40By: Gonzalez Ardon Time: 09/27/2017 21:10Type: DischargeCondition: Stable for admission/discharge/transfer after emergency evaluation/treatment Category: *NOTAPPLICABLE [facility] PATIENT NAME: SAMUEL WOO Brenda Rojas MEDICAL REC #: [id number], [place] [address] DEPARTMENT CHART EMERGENCY DEPARTMENT PHYSICIANConcurred: 09/27/2017 21:02 Referral:09/27/2017 20:40 PRE SCRIPTIONS CHARGE S SIGNATURE====== Gonzalez MEADE RN RSSCRAIYesenia VICTORIA RN CNHVHENRIK HALL [facility] PATIENT NAME: SAMUEL WOO Brenda Rojas MEDICAL REC #: [id number], [place] [address] DEPARTMENT CHART EMERGENCY DEPARTMENT PHYSICIAN Normal [facility] ED Documentation This is a preliminar y report only, as the practitioner review and authentication has not occurred. Normal [facility] EKGon 09-27-2017 EKG Procedure Date and T [...] Laly Jean Confirmed By:Emanuel REINOSO M.D.FACC JoanDDandT: 09/27/171911TDandT:[facility] PAT[facility]: [facility] #: [id number], [place] [address] DATE:DISCHARGE DATE: 09/27/17ATTENDING PHY: Gonzalez Thao MDELECTROCARDIOGRAM REPORTCLBcc:[facility] PATIENT NAME: [facility] MED[facility] REC #: [id number], [place] [address] DATE:DISCHARGE DATE: 09/27/17ATTENDING PHY: Gonzalez Thao MDELECTROCARDIOGRAM REPORT Normal [facility] ELECTROCARDIOGRAM REPORT Normal [facility] GFR ESTon 09-27-2017 IF AMER Greater than 60 Normal [facility] Comment on above: Order Comment: Gauri s: M Performed By: #### L 500.17071, L500.04200, L500.89520 ####[facility] [id number] [place], [place] [address]Nh# [phone] IF non-AFR AMER Greater than 60 Normal [facility] Comment on above: Order Comment: Gauri s: M Performed By: #### L 500.23560, L500.56274, L500.86129 ####[facility] [id number] [place], [place] [address]Sl# [phone] TROPONIN I POCon 09-27-2017 Troponin I.cardiac mass conc 0.00 ng/mL Normal 0.0-0.06 [facility] Comment on above: Result Comment: 0.0 - [...] ostiomeatal units are patent bilaterally. Dictated by Rotary Shear Worker Helper: Moi Patel and Signed by: Thea Trujillo MD---- Electronic Signature on File ----Signed By: Thea Trujillo [email or web address]: 08/27/2017 8:24 AMSigned: 08/27/2017 9:05 AM Reported By: THAE TRUJILLO M.D. Signed By: THEA TRUJILLO M.D. [facility] EBV EA,EBV NA, EB VCA (IgG, IgM) [QUEST]on 05-17-2017 EBV EA,EBV NA, EB VCA (IgG, IgM) [QUEST] Normal [facility] Comment on above: Result Comment: _EBV EA,EBV NA,EB VCA(IGG,M)_EPSTEIN-BACON VCA PANELReported: 05/16/2017 23:17 Status=F TEST RESULT FLAG RANGE UNITS EBV VCA AB (IGG) 510.00 H <18.00 U/mL 05/16/17.2329.rfl.COMPLETE.AMRR .5157-3 U/mL Interpretation <18.00 Rdhlsyiv46.00 - 21.99 Equivocal >21.99 PositiveEBV VCA AB (IGM) <36.00 <36.00 U/mL 05/16/17.2328.rfl.COMPLETE.AMRR .5159-9 U/mL Interpretation <36.00 Myawhiqa01.00 - 43.99 Equivocal >43.99 PositiveTest Performed by [facility],[address] [place] [address]Nayksngamna Bahena M.D., Ph.D., Director of [phone], [facility] [id number] Performed By: #### 2 36001 ####[facility],[address] [place] [address] DAVIN BACON VIRUS AB PANELo n 05-17-2017 DAVIN BACON VIRUS AB PANEL Normal [facility] Comment on above: Result Comment: _EBV ANTIBODY PANEL_EPSTEIN-BACON VIRUS ANTIBODY PANELReported: 05/16/2017 23:17 Status=F TEST RESULT FLAG RANGE UNITS EBV VCA AB (IGM) <36.00 <36.00 U/mL 05/16/17.2328.rfl.COMPLETE.AMRR .5159-9 U/mL Interpretation <36.00 Cxldvucy13.00 - 43.99 Equivocal >43.99 PositiveEBV VCA AB (IGG) 510.00 H <18.00 U/mL 05/16/17.rfl.COMPLETE.AMRR .5157-3 U/mL Interpretation <18.00 Guhiekbs29.00 - 21.99 Equivocal >21.99 PositiveEBV EBNA AB (IGG) 305.00 H <18.00 U/mL 05/16/17.rfl.COMPLETE.AMRR .27410-0 U/mL Interpretation <18.00 Nrelwlfm94.00 - 21.99 Equivocal >21.99 PositiveINTERPRETATION Past 05/16/17.rfl.COMPLETE.AMRRSuggestive of a past Davin-Bacon Virus infection.In infants, a similiar pattern may occur as a resultof a passive maternal transfer of antibody.Test Performed by [facility],[address] [place] [address]Kxhaqauamna Bahena M.D., Ph.D., Director of [phone], [facility] [id number] Performed By: #### 2 38650 ####[facility],[address] [place] [address] HEP C VIRUS AB WITH REFLEX [ QUEST]on 05-17-2017 HEP C VIRUS AB WITH REFLEX [QUEST] Normal [facility] Comment on above: Result Comment: _HEP C VIRUS AB_HEPATITIS C AB W/REFL HCV RNA, QN REAL-TIME PCRReported: 05/16/2017 21:55 Status=F TEST RESULT FLAG RANGE UNITS HEPATITIS C ANTIBODY Nonreactive Nonreactive 05/16/17.rfl.COMPLETE.AMRR .08732-6KBYRKZ TO CUTOFF 0.01 <1.00 ratio 05/16/17.rfl.COMPLETE.AMRR .20637-5PPMJRGAVUD TESTING Not indicated 05/16/17.rfl.COMPLETE.AMRRTest Performed by [facility],[address] [place] [address]Xvpxolfamna Bahena M.D., Ph.D., Director of [phone], [facility] [id number] Performed By: #### 2 14913 ####[facility],[address] [place] [address] RHEUMATOID FACTOR [QUEST]on 05-17-2017 RHEUMATOID FACTOR [QUEST] Normal [facility] Comment on above: Result Comment: _RHE UMATOID FACTOR_RHEUMATOID FACTORReported: 05/17/2017 21:26 Status=F TEST RESULT FLAG RANGE UNITS RHEUMATOID FACTOR 20 H <14 IU/mL 05/17/17.rfl.COMPLETE.AMRR .59023-0Biky Performed by [facility],[address] [place], [place] [address]SeurgcwTita Bahena M.D., Ph.D., Director of [phone], CLIA [id number] Performed By: #### 2 44109 ####[facility],[address] [place] [place] [address] CYCLIC CITRULLINE PEP IGG [Q UEST]on 05-16-2017 CYCLIC CITRULLINE PEP IGG [QUEST] Normal [facility] Comment on above: Result Comment: _CYC LIC CITRULLINE PEP IGG_CYCLIC CITRULLINATED PEPTIDE (CCP) ANTIBODY IGGReported: 05/15/2017 17:56 Status=F TEST RESULT FLAG RANGE UNITS CCP, ANTIBODY (IGG) <16 <20 Units 05/15/17.1808.rfl.COMPLETE.AMRRNegative: <20Weak Positive: 20 - 39Moderate Positive: 40 - 59Strong Positive: >59Test Performed by [facility],[address] [place], [place] [address]PzhdnheTita Bahena M.D., Ph.D., Director of [phone], CLIA [id number] Performed By: #### 2 00386 ####[facility],[address] [place], [place] [address] ROSY WITH REFLEX TO TITER AND PATTERN[QU]on 05-15-2017 ROSY WITH REFLEX TO TITER AND PATTERN[QU] Normal [facility] Comment on above: Result Comment: _ANA WITH REFLEX TO TITER AND PATTERN_ANA SCREEN, IFA Positive A Negative 05/15/17.1447.rfl.COMPLETE.AMRR .97993-8RMV IFA is a first line screen for detecting thepresence of up to approximately 150 autoantibodies invarious autoimmune diseases. A positive ROSY IFA resultis suggestive of autoimmune disease and reflexes totiter and pattern. Further laboratory testing may beconsidered if clinically indicated.ADDITIONAL TESTING Has been added 05/15/17.1447.rfl.COMPLETE.AMRRTest Performed by [facility],[address] [place] [address]AzzfsuuTita Bahena M.D., Ph.D., Director of [phone], CLIA [id number], TITER AND PATTERNReported: 05/15/2017 15:07 Status=F TEST RESULT FLAG RANGE UNITS ROSY TITER 1:160 Negative 05/15/17.1519.rfl.COMPLETE.AMRR .5048-4Visit Physician FAQs for interpretation of allantibodies in the [place], prevalence, and associationwith diseases athttp://education.Patient Engagement Systems/faq/[email or web address] Performed by [facility],[address] [place] [address]Askpnioamna Bahena M.D., Ph.D., Director of [phone], [facility] [id number] PATTERN Nucleolar 05/15/17.1519.Iavn.AMRR .73725-1Cexanrllp pattern is associated with systemic sclerosis(scleroderma), systemic sclerosis/polymyositis overlapand Sjogren's syndrome. Performed By: #### 2 59572 ####[facility],[address] [place] [address] LYME DISEASE AB W/RFX IGG,IG M [QU]on 05-15-2017 LYME DISEASE AB W/RFX IGG,IGM [QU] Normal [facility] Comment on above: Result Comment: _LYM E [...] when erythemamigrans is apparent.PROGRESSIVE LYME Not indicated 05/14/17.2353.rflJOSR.AMRR .03299-3Oola Performed by [facility],[address] [place] [address]Nhplohgamna Bahena M.D., Ph.D., Director of [phone], CLIA [id number] Performed By: #### 2 29309 ####[facility],[address] [place] [address] LEAD LEVEL [QUEST]on 017 LEAD LEVEL [QUEST] Normal [facility] Comment on above: Result Comment: _NICOL Marshall LEVEL_LEAD, BLOODReported: 05/13/2017 17:19 Status=F TEST RESULT FLAG RANGE UNITS LEAD, BLOOD 1 <5 mcg/dL 05/13/17.1731.rflJOSR.AMRR .5671-3This test was developed and its analytical performancecharacteristics have been determined by [employer] [place], [place]. It hasnot been cleared or approved by the U.S. Food and DrugAdministration. This assay has been validated pursuantto the CLIA regulations and is used for clinicalpurposes.COLLECTION SAMPLE (C/V): Venous 05/13/17.1731.rfl.COMPLETE.AMRR .30048-7Vkal Performed by [facility],[address] [place] [address]YxsremxTita Bahena M.D., Ph.D., Director of [phone], CLIA [id number] Performed By: #### 2 16155 ####[facility],[address] [place] [address] MERCURY, WHOLE BLOOD [QUEST] on 05-13-2017 MERCURY, WHOLE BLOOD [QUEST] Normal [facility] Comment on above: Result Comment: _BRYANT BAIN, BLOOD_MERCURY, BLOODReported: 05/13/2017 15:53 Status=F TEST RESULT FLAG RANGE UNITS MERCURY, BLOOD <4 <=10 mcg/L 05/13/17.1606.rfl.COMPLETE.AMRR .5685-3This test was developed and its analytical performancecharacteristics have been determined by [employer] [place], [place]. It hasnot been cleared or approved by the U.S. Food and DrugAdministration. This assay has been validated pursuantto the CLIA regulations and is used for clinicalpurposes.Test Performed by [facility],[address] [place] [address]Mvfcsilamna Bahena M.D., Ph.D., Director of [phone], [facility] [id number] Performed By: #### 2 63992 ####[facility],[address] [place] [address]69 C-REACTIVE PROTEINon 017 C reactive protein (CRP) mg/L Normal 0.00 - 1.00 [facility] Comment on above: Performed By: #### 2 21487 ####[facility],[address] [place] [address] 74059 CBCon 05-11-2017 Basophils Auto #/vol (Bld) 0.10 x10EE3/UL Normal 0.00 - 0.10 [facility] Comment on above: Performed By: #### 2 00835 ####[facility],[address] [place] [address] 70481 Basophils/100 WBC Auto (Bld) 0.9 % Normal 0.0 - 2.0 [facility] Comment on above: Performed By: #### 2 96336 ####[facility],[address] [place] [address] 51593 Blood morphology N/A Normal [facility] Comment on above: Result Comment: {CD] Performed By: #### 2 81437 ####[facility],[address] [place] [address] 45256 CBC Normal [facility] Comment on above: Result Comment: CBC- COMPLETE BLOOD COUNT Performed By: #### 2 53889 ####[facility],[address] [place] [address] 43741 Eosinophils 0.00 x10EE3/UL Normal 0.00 - 0.50 [facility] Comment on above: Performed By: #### 2 50433 ####[facility],[address] [place] [address] 41640 Eosinophils/100 leukocytes 0.7 % Normal 0.0 - 7.0 [facility] Comment on above: Performed By: #### 2 15922 ####[facility],[address] [place] [address] 78753 Erythrocyte distribution width Auto Ratio (RBC) 12.6 % Normal 12.0 - 15.6 [facility] Comment on above: Performed By: #### 2 00412 ####[facility],[address] [place] [address] 08532 Erythrocytes (RBC) 4.64 x 10EE6/UL Normal 4.10 - 5.30 [facility] Comment on above: Performed By: #### 2 11233 ####[facility],[address] [place] [address] 41747 Hematocrit (HCT) 42.3 % Normal 34.0 - 46.0 [facility] Comment on above: Performed By: #### 2 47360 ####[facility],[address] [place] [address] Hemoglobin mass conc (Bld) 14.4 g/dL Normal 12.0 - 16.0 [facility] Comment on above: Performed By: #### 2 90115 ####[facility],[address] [place] [address] 41489 Lymphocytes 1.20 x10EE3/UL Normal 0.80 - 2.80 [facility] Comment on above: Performed By: #### 2 79194 ####[facility],[address] [place] [address] 41210 Lymphocytes/100 leukocytes 18.5 % Low 20.0 - 45.0 [facility] Comment on above: Performed By: #### 2 50540 ####[facility],[address] [place] [address] 37662 MANUAL DIFF N/A Normal [facility] Comment on above: Performed By: #### 2 49849 ####[facility],[address] [place] [address] 23951 MCH 31 pg Normal 27 - 33 [facility] Comment on above: Performed By: #### 2 96206 ####[facility],[address] [place] [address] 93745 MCHC mass conc (RBC) 34 X10 3 Normal 32 - 36 [facility] Comment on above: Performed By: #### 2 75071 ####[facility],[address] [place] [address] 02107 MCV 91 fL Normal 80 - 99 [facility] Comment on above: Performed By: #### 2 14312 ####[facility],[address] [place] [address] 86502 Monocytes 0.30 x10EE3/UL Normal 0.20 - 1.00 [facility] Comment on above: Performed By: #### 2 97208 ####[facility],[address] [place] [address] 16224 MONOS % 3.8 % Normal 0.0 - 10.0 [facility] Comment on above: Performed By: #### 2 13652 ####[facility],[address] [place] [address] 45263 Neutrophils 5.10 x10EE3/UL Normal 1.50 - 7.10 [facility] Comment on above: Performed By: #### 2 53069 ####[facility],[address] [place] [address] 81768 Neutrophils/100 WBC Auto (Bld) 76.1 % High 46.0 - 76.0 [facility] Comment on above: Performed By: #### 2 90251 ####[facility],[address] [place] [address] 07252 Platelet mean volume (PMV) 10.3 fL Normal 6.6 - 10.5 [facility] Comment on above: Result Comment: AUTO MATED DIFFERENTIAL Performed By: #### 2 70090 ####[facility],[address] [place] [address] 40114 Platelets 166 x10EE3/UL Normal 150 - 450 [facility] Comment on above: Performed By: #### 2 94433 ####[facility],[address] [place] [address] 79771 WBC (Leukocytes) 6.7 x 10EE3/UL Normal 4.5 - 10.8 [facility] Comment on above: Performed By: #### 2 73273 ####[facility],[address] [place] [address] 29831 CMP with eGFRon 05-11-2017 Age 52 years Normal [facility] Comment on above: Performed By: #### 2 26840 ####[facility],[address] [place] [address] 62595 Albumin 4.5 g/dL Normal 3.4 - 4.8 [facility] Comment on above: Performed By: #### 2 71902 ####[facility],[address] [place], [place] [address] Albumin/Globulin Ratio 2.6 {ratio} High 0.9 - 1.6 [facility] Comment on above: Performed By: #### 2 40787 ####[facility],[address] [place] [address] 56351 ALK PHOS 46 U/L Normal 38 - 126 [facility] Comment on above: Performed By: #### 2 88818 ####[facility],[address] [place] [address] 12617 ALT/SGPT 10 U/L Normal 8 - 35 [facility] Comment on above: Performed By: #### 2 30527 ####[facility],[address] [place] [address] 54599 Anion gap 12 mmol/L Normal 10 - 20 [facility] Comment on above: Performed By: #### 2 17274 ####[facility],[address] [place] [address] 48319 AST/SGOT 11 U/L Low 13 - 39 [facility] Comment on above: Performed By: #### 2 02292 ####[facility],[address] [place] [address] B/C RATIO 16 ratio Normal 0 - 30 [facility] Comment on above: Performed By: #### 2 42587 ####[facility],[address] [place] [address] Bilirubin (total) 1.3 mg/dL Normal 0.0 - 1.5 [facility] Comment on above: Performed By: #### 2 98970 ####[facility],[address] [place] [address] Calcium 9.0 mg/dL Normal 8.6 - 10.2 [facility] Comment on above: Performed By: #### 2 21895 ####[facility],[address] [place] [address] Chloride 104 mmol/L Normal 98 - 107 [facility] Comment on above: Performed By: #### 2 51877 ####[facility],[address] [place] [address] CO2 26.3 mmol/L Normal 21.0 - 31.0 [facility] Comment on above: Performed By: #### 2 45973 ####[facility],[address] [place] [address] Creatinine 0.7 mg/dL Normal 0.6 - 1.2 [facility] Comment on above: Performed By: #### 2 22080 ####[facility],[address] [place] [address] eGFR (non-black) mL/min/{1.73_m2} Normal 60 - 999 [facility] Comment on above: Performed By: #### 2 27896 ####[facility],[address] [place] [address] Result Comment: ACCO RDING TO THE NATIONAL KIDNEY DISEASE EDUCATION PROGRAM(NKDE), A NORMAL eGFRIS A VALUE GREATER THAN OR EQUAL TO 60 ML/MIN/1.73 SQ METERS.CHRONIC KIDNEY DISEASE: <60mL/MIN/1.73 SQ METERSKIDNEY FAILURE: <15mL/MIN/1.73 SQ METERSTHIS TEST SHOULD ONLY BE USED FOR PATIENTS 18 YEARS OF AGE AND OLDER. eGFR (non-black) Normal [facility] Comment on above: Result Comment: COMP REHENSIVE METABOLIC PANEL Performed By: #### 2 61154 ####[facility],[address] [place] [address] 56833 Globulin 1.7 g/dL Normal 1.5 - 3.8 [facility] Comment on above: Performed By: #### 2 27758 ####[facility],[address] [place] [address] 23607 Glucose mass conc 78 mg/dL Normal 74 - 106 [facility] Comment on above: Performed By: #### 2 18380 ####[facility],[address] [place] [address] 82108 Potassium molar conc 3.6 mmol/L Normal 3.5 - 5.1 [facility] Comment on above: Performed By: #### 2 38588 ####[facility],[address] [place] [address] 39146 Protein 6.2 g/dL Low 6.4 - 8.3 [facility] Comment on above: Performed By: #### 2 36256 ####[facility],[address] [place] [address] 82519 Sodium 139 mmol/L Normal 136 - 145 [facility] Comment on above: Performed By: #### 2 15848 ####[facility],[address] [place] [address] 60332 Urea nitrogen 11 mg/dL Normal 6 - 20 [facility] Comment on above: Performed By: #### 2 87707 ####[facility],[address] [place] [address] 40820 SEDRATEon 05-11-2017 SEDRATE 3 mm/hr Normal 0 - 30 [facility] Comment on above: Performed By: #### 2 23061 ####[facility],[address] [place] [address] 93038 TSHon 05-11-2017 Thyroid stimulating hormone (TSH) 1.79 uIU/ml Normal 0.34 - 5.60 [facility] Comment on above: Performed By: #### 2 26522 ####[facility],[address] [place] [address] 50975 URINALYSISon 05-11-2017 Bilirubin (total) Negative Normal NORMAL: NEGATIVE [facility] Comment on above: Performed By: #### 2 23420 ####[facility],[address] [place] [address] Blood Negative Normal NORMAL: NEGATIVE [facility] Comment on above: Performed By: #### 2 56845 ####[facility],[address] [place] [address] Glucose mass conc NORM Normal NORMAL: NORMAL [facility] Comment on above: Performed By: #### 2 46029 ####[facility],[address] [place], [place] [address] Ketone Negative Normal NORMAL: NEGATIVE [facility] Comment on above: Performed By: #### 2 30071 ####[facility],[address] [place], [place] [address] Microscopic NOT INDICATED Normal [facility] Comment on above: Performed By: #### 2 09493 ####[facility],[address] [place], [place] [address] pH of blood 6 [pH] Normal NORMAL: 5.0-8.0 [facility] Comment on above: Performed By: #### 2 79072 ####[facility],[address] [place] [address] 74379 Protein Negative Normal NORMAL: NEGATIVE [facility] Comment on above: Performed By: #### 2 50899 ####[facility],[address] [place], [place] [address] Sp [place] 1.010 Normal NORMAL: 1.010-1.03 0 [facility] Comment on above: Performed By: #### 2 43452 ####[facility],[address] [place], [place] [address] Specimen Type Clean catch Normal [facility] Comment on above: Performed By: #### 2 99683 ####[facility] [facility],[address] [place] [address] URINALYSIS Normal [facility] Comment on above: Result Comment: URIN ALYSIS Performed By: #### 2 57568 ####[facility],[address] [place] [address],[place] [address] Urine, clarity clear Normal NORMAL: CLEAR [facility] Comment on above: Performed By: #### 2 20750 ####[facility],[address] [place] [address],[place] [phone] Urine, color p.yel Normal NORMAL: YELLOW [facility] Comment on above: Performed By: #### 2 39943 ####[facility],[address] [place], [place] [address] Urine, nitrite presence Negative Normal NORMAL: NEGATIVE [facility] Comment on above: Performed By: #### 2 53452 ####[facility],[address] [place] [address] Urobilinog NORM Normal NORMAL: NORMAL [facility] Comment on above: Performed By: #### 2 25317 ####[facility],[address] [place], [place] [address] WBC (Leukocytes) Negative Normal NORMAL: NEGATIVE [facility] Comment on above: Performed By: #### 2 96549 ####[facility],[address] [place] [address] 29284 LYME ABS IgG/Mon 04-20-2017 LYME IGG/IGM AB < 0.91 Normal 0.00-0.90 [facility] Comment on above: Order Comment: Campu s: M Result Comment: Nega tive <0.91 Equivocal 0.91 - 1.09 Positive >1.09 Performed By: #### L 750.34085 ####[facility] [address]GHPB[address] [place] [address]Eb# [phone] LYME IGM AB < 0.80 Normal 0.00-0.79 [facility] Comment on above: Order Comment: Campu s: M Result Comment: Nega tive <0.80 Equivocal 0.80 - 1.19 Positive >1.19 IgM levels may peak at 3-6 weeks post infection, then gradually decline.Performed At: [facility] Epoxpv3801 [place], [place] [id number] Vincent [id number] Performed By: #### L 750.21361 ####[facility] [place] [address] [place] [address]Zw# [phone] BMPon 04-19-2017 Anion gap 8 mmol/L Normal 5-16 [facility] Comment on above: Order Comment: Campu s: M Performed By: #### L 500.83724, L500.01710, L500.25388 ####[facility] DDHEZRXZZD8873 [place], [place] [address]Iz# [phone] BUN/Creatinine Ratio 14 mg/mg Low 15-24 [facility] Comment on above: Order Comment: Campu s: M Performed By: #### L 500.46561, L500.67675, L500.28475 ####[facility] RXOTTWAJFY3186 [place], [place] [address]Cr# [phone] Calcium 8.7 mg/dL Normal 8.5-10.1 [facility] Comment on above: Order Comment: Campu s: M Performed By: #### L 500.84916, L500.05648, L500.93397 ####[facility] KJJFJTTCOC7537 [place], [place] [address]Gl# [phone] Chloride 108 mmol/L High 98-107 [facility] Comment on above: Order Comment: Campu s: M Performed By: #### L 500.63946, L500.16064, L500.48887 ####[facility] KILOJPIDYQ9307 [place], [place] [address]Nh# [phone] CO2 23 mmol/L Normal 21-32 [facility] Comment on above: Order Comment: Campu s: M Performed By: #### L 500.85443, L500.99946, L500.70246 ####[facility] ABWBEJVMBO1266 [place], [place] [address]Nc# [phone] Creatinine 0.657 mg/dL Normal 0.510-0.95 0 [facility] Comment on above: Order Comment: Campu s: M Result Comment: Liz ents receiving either N-Acetylcysteine (NAC) orMetamizole prior to venipuncture, may have falsely depressedresults. Performed By: #### L 500.48241, L500.20364, L500.56449 ####[facility] MZTFOPFROH7031 [place], [place] [address]Oh# [phone] Glucose mass conc 87 mg/dL Normal 70-100 [facility] Comment on above: Order Comment: Campu s: M Result Comment: 70-1 00-Normal Fasting; [phone]-Oamxlasc Fasting; greaterthan 126 on more than one result-Diabetes. ADA guidelines Performed By: #### L 500.90398, L500.41928, L500.38035 ####[facility] ANOMOXAVMN4275 [place], [place] [address]Js# [phone] Potassium molar conc 3.5 mmol/L Normal 3.5-5.1 [facility] Comment on above: Order Comment: Campu s: M Performed By: #### L 500.08937, L500.97697, L500.97699 ####[facility] ERJZLEGJNN6428 [place], [place] [address]Tq# [phone] Sodium 139 mmol/L Normal 136-145 [facility] Comment on above: Order Comment: Campu s: M Performed By: #### L 500.48063, L500.26890, L500.14599 ####[facility] CNEPJNHGMF1276 [place], [place] [address]Vx# [phone] Urea nitrogen 9 mg/dL Normal 7-26 [facility] Comment on above: Order Comment: Campu s: M Performed By: #### L 500.34905, L500.74251, L500.02799 ####[facility] MQHOVHQEVV9291 [place], [place] [address]Cs# [phone] CBC W/DIFFon 04-19-2017 BASO ABS 0.00 K/CU MM Normal 0-0.2 [facility] Comment on above: Order Comment: Campu s: M Performed By: #### L 200.93393 ####[facility] [id number] [place], [place] [address]Ph# [phone] Basophils/100 WBC Auto (Bld) 0.5 % Normal 0-2 [facility] Comment on above: Order Comment: Campu s: M Performed By: #### L 200.15800 ####[facility] DMOTEIPSHE[address] [place], [place] [address]Ph# [phone] EOS ABS 0.00 K/CU MM Normal 0-0.5 [facility] Comment on above: Order Comment: Campu s: M Performed By: #### L 200.20615 ####[facility] CCWFPSBVAW[address] [place] [address]Wk# [phone] Eosinophils/100 leukocytes 0.7 % Normal 0-5 [facility] Comment on above: Order Comment: Campu s: M Performed By: #### L 200.93142 ####[facility] QIRMWYYCLT[address] [place] [address]Qd# [phone] Erythrocyte distribution width Auto Ratio (RBC) 11.9 % Normal 11-14.5 [facility] Comment on above: Order Comment: Campu s: M Performed By: #### L 200.63688 ####[facility] IBAXOEEERZ[address] [place] [address]Qm# [phone] Erythrocytes (RBC) 0.0 % Normal Less than 1 [facility] Comment on above: Order Comment: Campu s: M Performed By: #### L 200.97958 ####[facility] TYUIZLSCEB4102 [place], [place] [address]Ul# [phone] Erythrocytes (RBC) 4.69 M/CU MM Normal 3.90-5.30 [facility] Comment on above: Order Comment: Campu s: M Performed By: #### L 200.07162 ####[facility] HQEEDSDJNO[address] [place], [place] [address]Ph# [phone] Hematocrit (HCT) 40.3 % Normal 35.0-47.0 [facility] Comment on above: Order Comment: Campu s: M Performed By: #### L 200.70610 ####[address] [address]Af# [phone] Hemoglobin mass conc (Bld) 14.3 g/dL Normal 11.5-15.5 [facility] Comment on above: Order Comment: Campu s: M Performed By: #### L 200.40425 ####[facility] [id number] [place], [place] [address]Ph# [phone] IMMATR GRAN ABS 0.00 K/CU MM Normal Less than 2 [facility] Comment on above: Order Comment: Campu s: M Performed By: #### L 200.99896 ####[facility] [id number] [place], [place] [address]Ph# [phone] IMMATURE GRAN % 0.2 % Normal Less than 2 [facility] Comment on above: Order Comment: Campu s: M Performed By: #### L 200.68465 ####[facility] KKQQBRUCVU[address] [place] [address]Xl# [phone] Lymphocytes 1.40 K/CU MM Normal 0.9-4.4 [facility] Comment on above: Order Comment: Campu s: M Performed By: #### L 200.27826 ####[facility] QDVYEHLAOA[address] [place], [place] [address]Ph# [phone] Lymphocytes/100 leukocytes 26.2 % Normal 20-40 [facility] Comment on above: Order Comment: Campu s: M Performed By: #### L 200.48790 ####[facility] RSYJOACLHK0147 [place], [place] [address]Uf# [phone] MCHC mass conc (RBC) 35.5 g/dL Normal 32.0-36.0 [facility] Comment on above: Order Comment: Campu s: M Performed By: #### L 200.84569 ####[facility] Y[address]WZRYIHM[address] [place] [address]Sf# [phone] MCV 85.9 fL Normal 80.0-99.0 [facility] Comment on above: Order Comment: Campu s: M Performed By: #### L 200.29430 ####[address] [address]Fx# [phone] MONO ABS 0.40 K/CU MM Normal 0.1-1.1 [facility] Comment on above: Order Comment: Campu s: M Performed By: #### L 200.01333 ####[address] [address]Iq# [phone] Monocytes/100 leukocytes 8.0 % Normal 2-10 [facility] Comment on above: Order Comment: Campu s: M Performed By: #### L 200.61299 ####[facility] [id number] [place] [address]Oi# [phone] Neutrophils 3.50 K/CU MM Normal 2.0-8.3 [facility] Comment on above: Order Comment: Campu s: M Performed By: #### L 200.05341 ####[facility] GLHLKNEMDP[address] [place] [address]Bg# [phone] Neutrophils/100 WBC Auto (Bld) 64.4 % Normal 45-75 [facility] Comment on above: Order Comment: Campu s: M Performed By: #### L 200.80424 ####[facility] SUMEJGYOVG5199 [place], [place] [address]Vj# [phone] Platelet mean volume (PMV) 10.6 fL Normal 9.4-12.4 [facility] Comment on above: Order Comment: Campu s: M Performed By: #### L 200.48029 ####[facility] OWFTVEAOSU3555 [place], [place] [address]Kd# [phone] Platelets 169 K/CU MM Normal 150-450 [facility] Comment on above: Order Comment: Campu s: M Performed By: #### L 200.19309 ####[place] [address] [place], [place] [address]Pn# [phone] WBC (Leukocytes) 5.5 K/CU MM Normal 4.5-11.0 [facility] Comment on above: Order Comment: Campu s: M Performed By: #### L 200.55159 ####[facility] RZSDGUNIBJ[address] [place] [address]Rp# [phone] CKon 04-19-2017 Creatine kinase (CK) 125 U/L Normal 26-192 [facility] Comment on above: Order Comment: Campu s: M Performed By: #### L 500.79914 ####[facility] OATQGICLHV2990 [place], [place] [address]Sb# [phone] ED DOCon 04-19-2017 ED DOC PHYSICIA N ASSESSMENT ==RECORDS: FlexChartDataEvent Time: 04/19/2017 06:05Status: [facility] [[id number]]Mid -Level Chart (V2b)50 / / 1965Chart created at 04/19/2017 05:53 by Jeremiah Pretty closed at 04/19/2017 06:00Entry in Emergency Department at 04/19/2017 02:57,departure at 04/19/2017 06:18Patient Name: Samuel Woo Record Number: [id number]: 04/19/2017 05:53Entered Department at: 04/19/2017 02:57 Patient [...] She denies fever or chills. She denies [facility] PATIENT NAME: SAMUEL WOO [id number] [facility] [address] Rojas MEDICAL REC #: [id number], [place] [address] DEPARTMENT CHART EMERGENCY DEPARTMENT PHYSICIANrashes. She has [...] K/Cu Mm; NRBC: 0.0 %; RBC: 4.69 [facility] PATIENT NAME: SAMUEL WOO [facility] Dr. Rojas MEDICAL REC #: [id number], [place] [address] DEPARTMENT CHART EMERGENCY DEPARTMENT PHYSICIANM/Cu Mm; RDW: 11.9BMP, information as of 04/19/2017, [...] unclear etiologyDisposition: Discharged . Condition: Good at06:00 [facility] PATIENT NAME: [facility]EL [facility]OO0 [facility] MED[facility] REC #: [id number], [place] [address] DEPARTMENT CHART EMERGENCY DEPARTMENT PHYSICIANDirect patient care supervision and electronicdocumentation review by Elaine Trinidad on 04/19/201706:18.: FlexChartDataEvent Time: 04/19/2017 06:50Status: [facility] [[id number]]Att ending Aqvkoefqg66 / 1965Addendum (V2b)Chart created at 04/19/2017 06:17 by Elaine Rivera closed at 04/19/2017 06:18Entry in Emergency Department at 04/19/2017 02:57,departure at 04/19/2017 06:18Patient Name: Samuel Woo Record Number: [id number]: 04/19/2017 06:17Entered Department at: 04/19/2017 02:57 Patient [...] for admission criteria. I did offer the [facility] PATIENT NAME: SAMUEL WOO [id number] [facility] [address] Rojas MEDICAL REC #: [id number], [place] [address] DEPARTMENT CHART EMERGENCY DEPARTMENT PHYSICIANpatient the doxycycline [...] for follow-up. Pleasefollow all your discharge instructions. [facility] PATIENT NAME: SAMUEL WOO [facility] MEDICAL REC #: [id number], [place] [address] DEPARTMENT CHART EMERGENCY DEPARTMENT PHYSICIANMedications:Unless the ER doctor tells you differently, you should takeall your regular medications and any newmedications prescribed today. Because it is not possiblefor the ER doctor to review all of yourmedication side effects or interactions, you must reviewpossible side effects and interactions with yourpharmacist when you get your prescriptions filled.EKG and Radiology Results:A market sales manager or radiologist will review any EKG orradiology [...] pain unclear etiologyINSTRUCTIONS:follow- up with the below referrals.[facility] , Address: [address] [place] [address], , fax: Please call the above number to schedule a follow-upappointment. [facility] PATIENT NAME: SAMUEL WOO [facility] Dr. Rojas MEDICAL REC #: [id number], [place] [address] DEPARTMENT CHART EMERGENCY DEPARTMENT Lashawn Francis MD [...] below indicates consent for Case Managementto contact [facility] providers in [facility] to meet your ongoing healthcare needs. This willallow forcontinuity of care once you leave the [facility] PATIENT NAME: SAMUEL WOO [id number] [facility] [address] Rojas MEDICAL REC #: [id number], [place] [address] DEPARTMENT CHART EMERGENCY DEPARTMENT PHYSICIANEmergency Department. This exchange of informationwillinclude, but not be limited to, disclosure of yourpatient information and possible release ofrecords. ==DEMOGRAPHICS ======Emergisoft Patient: SAMUEL WOOSex: FDOB: 1965Age: 52 yrAccount No: [id number]: [id number] Date: 02:57 04/19/2017Address: [address] [address] [address]Address: [place] [address] EUO ISTRATION =ED Number: [id number]: Marital Status: MFinancial Class: PPO TRIAG E Priorit y: 3 - UrgentComplaint: Pain, GeneralizedStated Complaint: pain all over/ stabbing pain inhands and feet for monthsArrival Date: 04/19/2017 02:57Triage Date: 04/19/2017 02:59Mode of Arrival: *Privately Owned VehicleWC: NLanguage: EnglishTransport: Ambulatory/Walk In BED=== A03 In: 04/19/2017 03:05:58 04/19/201703:05:58 JBFA03 (Removed From) Out: 04/19/2017 06:18:041 06:18:04 KVB [facility] PATIENT NAME: WOOSAMUEL [id number] [facility] MEDICAL REC #: [id number], [place] [address] DEPARTMENT CHART EMERGENCY DEPARTMENT PHYSICIAN =PROVIDERS ==PA-C Jeremiah J Klockner Provider Contact: :08:00 Yesi:ENRIKE JIMENEZ Provider Contact: :13:38 KVBrooke:MD Elaine Trinidad Provider Contact: :22:55 MDWEnd: T RIAGE HISTORY A LLERGIESAllergic To: Morphine - *N/A 04/19/2017 03:59 KVBCURRENT MEDSName: SYNTHROID 88MCG TABLET - PO daily 04/19/201703:05 JBFName: updated/verified with pt memory 04/19/1710 03:05 JBFILLNESSIllness: GERD 04/19/2017 03:05 JBFIllness: *Family History of heart diseae 04/19/201703:05 JBFIllness: Hypothyroid 04/19/2017 03:05 JBFIllness: Gluten Sensitivity 04/19/2017 03:05 JBFPAST SURGERY HISTSurgery: x 2 04/19/2017 03:05 JBFSurgery: Tonsillectomy 04/19/2017 03:05 JBF [facility] PATIENT NAME: SAMUEL WOO [facility] Dr[facility] Rojas [facility] REC #: [id number], [place] [address] DEPARTMENT CHART EMERGENCY DEPARTMENT PHYSICIANSurgery: ganglion cyst removal from wrist 04/19/201703:05 JBFSurgery: Hysterectomy-PARTIAL 04/19/2017 03:05 JBFPAST SOCIAL HISTSocial History: Communicates without jbegsnbcuf10/09/2017 03:05 JBFSocial History: Lives with family or significant other04/19/2017 03:05 JBFSocial History: Smoker-None 04/19/2017 03:05 JBFSocial History: Recreational Drugs - None 04/19/201703:05 JBFSocial History: Have you traveled in the past month?Where DENIES 04/19/2017 03:05 JBFPAST VAMP PRESSER HISTSocial History: Hysterectomy-Partial 04/19/2017 03:05JBFIMMUNIZATIONSImmuniz ation: Flu Vaccine-no 04/19/2017 03:05 JBF NURSI NG ASSESSMENT ASSESS MENT NOTES 03/2017 04:23 Bilateral hand/feet burning, tingling,pain x 16 weeks. Has been seen at multiple hospitals forthe same with negative work ups. I just cant handle thepain anymore, I can not go back home like this. Noecchymosis, swelling, or redness noted to any extremities.Full range of motion and feeling in all extremities. MSPsintact. Skin warm and dry. Denies any other associatedsymptoms. 04/19/2017 04:25 KVB TREAT MENT [facility] PATIENT NAME: SAMUEL WOO [id number] Brenda Rojas MEDICAL REC #: [id number], [place] [address] DEPARTMENT CHART EMERGENCY DEPARTMENT PHYSICIAN =04/19/2017 03:58 Hourly Rounding - Rounding 04/19/201703:58 KVBElimination/Toileting NPain 10Position Comfortable YSafe Environment YFall Risk Change N1 03:58 Patient Interaction - Call lightplaced within reach. 04/19/2017 03:58 KVB1 03:58 Patient Interaction - Name Band on Pt04/19/2017 03:58 KVB1 03:58 Patient Interaction - Introduce selfto Patient. 04/19/2017 03:58 KVB1 03:58 Primary DOC Guide - A. 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 PsychosocialAssessment 04/19/2017 03:58 KVB [facility] PATIENT NAME: SAMUEL WOO [id number] [facility] [address] Rojas MEDICAL REC #: [id number], [place] [address] DEPARTMENT CHART EMERGENCY DEPARTMENT PHYSICIANOver the Last [...] Note LEANDRA Daniels and Dr Trinidad at gzoaeey6004/19/2017 05:28 Physician Call - Nelly YOUNGat 28 04/19/2017 05:28 TRM04/19/2017 05:33 Physician Call - / Wilbur at 0533 04/19/2017 05:35 TRM04/19/2017 06:17 Hourly Rounding - Rounding 04/19/201706:17 KVBElimination/Toileting NPosition Comfortable YSafe Environment YFall Risk Change N1 06:17 Discharge - Printed dischargeinstructions given to pt. 04/19/2017 06:17 KVB1 06:17 Discharge - Instructions reviewed withpt and verbalizes understanding 04/19/2017 06:17 KVB1 06:17 Discharge - Heplock removed dressingapplied no bleeding noted 04/19/2017 06:17 KVB [facility] PATIENT NAME: [facility]OO [facility] MEDICAL REC #: [id number], [place] [address] DEPARTMENT CHART EMERGENCY DEPARTMENT DOBYURRWF36/09/2017 06:17 Admit/Discharge - Dischargeprescriptions given to patient [...] - MachinePulse: 78 - Monitor Resp: 16 [facility] PATIENT NAME: SAMUEL WOO [id number] [facility] [address] 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 OtherReviewed: 04/19/2017 06:09 By . OtherEXTERN ORDER: GFRP 04/19/2017 04:19NoneOrdered: 04/19/2017 04:19 Completed Time:04/19/2017 04:19 Results Time: 04/19/2017 04:19 [facility] PATIENT NAME: SAMUEL WOO [id number] [facility] [address] Rojas MEDICAL REC #: [id number], [place] [address] DEPARTMENT CHART EMERGENCY DEPARTMENT PHYSICIANCK total 04/19/2017 04:34N/AOrdered: 04/19/2017 03:42 By Elaine TrinidadCompleted Time: 04/19/2017 04:34 By Elaine TrinidadNoted Time: 04/19/2017 03:57 KVBResults Time: 04/19/2017 04:34IV NS bolus 1L over 60 min 04/19/2017 03:52N/AOrdered: 04/19/2017 03:39 By Jeremiah Marrufopleted Time: 04/19/2017 03:52 By Jeremiah WhelanNotemily Time: 04/19/2017 03:40 KVBCBC with diff 04/19/2017 04:09N/AOrdered: 04/19/2017 03:39 By Jeremiah Marrufopleted Time: 04/19/2017 04:09 By Jeremiah WhelanNoted Time: 04/19/2017 03:58 KVBResults Time: 04/19/2017 04:09BMP 04/19/2017 04:19N/AOrdered: 04/19/2017 03:39 By Jeremiah Marrufopletemily Time: 04/19/2017 04:19 By Jeremiah WhelanNotemily Time: 04/19/2017 03:58 KVBResults Time: 04/19/2017 04:19*Other Lab: nonstandard Lyme Odgepqf1504/19/2017 04:38N/AOrdered: 04/19/2017 03:39 By Jeremiah Marrufopletemily Time: 04/19/2017 04:37 By Jeremiah Nelson Time: 04/19/2017 03:57 KVBMagnesium level 04/19/2017 04:19N/AOrdered: 04/19/2017 03:39 By Jeremiah Marrufopletemily Time: 04/19/2017 04:19 By Jeremiah Nelson Time: 04/19/2017 03:57 KVBResults Time: 04/19/2017 04:19Toradol (IV)*(30mg/ml) DOSE: 15 mgIV 04/19/2017 03:52N/AOrdered: 04/19/2017 03:39 By Jeremiah Whelan [facility] PATIENT NAME: SAMUEL WOO [id number] [facility] MEDICAL REC #: [id number], [place] [address] DEPARTMENT CHART EMERGENCY DEPARTMENT PHYSICIANCompleted Time: 04/19/2017 03:52 By Jeremiah WhelanNoted Time: 04/19/2017 03:40 KVB DISCH ARGE Diag nosis: chronic generalized pain unclear pbscygvk70/09/2017 06:04Disposition: Time: 04/19/2017 06:01Discharge Time: 04/19/2017 06:18Type: [...] KVBAuto Generated Charge SI GNATURE T britany JIMENEZ RN KVB [facility] PATIENT NAME: SAMUEL WOO R132Sacha Brenda Rojas MEDICAL REC #: [id number], [place] [address] DEPARTMENT CHART EMERGENCY DEPARTMENT PHYSICIAN [facility] PATIENT NAME: SAMUEL WOO32Sacha Brenda Rojas MEDICAL REC #: [id number], [place] [address] DEPARTMENT CHART EMERGENCY DEPARTMENT PHYSICIAN Normal [facility] ED Documentation This is a preliminar y report only, as the practitioner review and authentication has not occurred. Normal [facility] GFR ESTon 04-19-2017 IF AMER Greater than 60 Normal [facility] Comment on above: Order Comment: Gauri s: M Performed By: #### L 500.79343, L500.14075, L500.61354 ####[facility] NTTOHFQYKW0940 [place], [place] [address]Xj# [phone] IF non-AFR AMER Greater than 60 Normal [facility] Comment on above: Order Comment: Gauri s: M Performed By: #### L 500.09386, L500.84163, L500.88391 ####[facility] MGXRQDKQJS0984 [facility], [place] [address]Ua# [phone] MAGNESIUMon 04-19-2017 Magnesium 1.9 mg/dL Normal 1.6-2.6 [facility] Comment on above: Order Comment: Gauri s: M Performed By: #### L 500.61474, L500.66967, L500.74767 ####[facility] INXYFXDMZQ5157 [place], [place] [address]Nw# [phone] Vital Signs Date Time Vital Sign Value Performing Clinician Faci lity 06-30-2024 08:27-0500 Body height 170.2 cm Surya Rizvi MD Work Phone: [facility] 06-30-2024 08:27-0500 Body mass index (BMI) [Ratio] 26.47 kg/m2 Surya Rizvi MD Work Phone: [facility] 06-30-2024 08:27-0500 Body weight 76.66 kg Surya Rizvi MD Work Phone: [facility] 06-30-2024 08:27-0500 Diastolic blood pressure 74 mm[Hg] Surya Rizvi MD Work Phone: [facility] 06-30-2024 08:27-0500 Systolic blood pressure 112 mm[Hg] Surya Rizvi MD Work Phone: [facility] 03-01-2024 13:52-0400 Body mass index (BMI) [Ratio] 27.28 kg/m2 Mercedes Ann MD Work Phone: [facility] 03-01-2024 13:52-0400 Body weight 79 kg Mercedes Ann MD Work Phone: [facility] 03-01-2024 13:52-0400 Diastolic blood pressure 83 mm[Hg] Mercedes Ann MD Work Phone: [facility] 03-01-2024 13:52-0400 Heart rate 77 /min Mercedes Ann MD Work Phone: [facility] 03-01-2024 13:52-0400 SaO2% (BldA) [Mass fraction] 98 % Mercedes Ann MD Work Phone: [facility] 03-01-2024 13:52-0400 Systolic blood pressure 133 mm[Hg] Mercedes Ann MD Work Phone: [facility] 03-27-2023 21:24-0400 Diastolic blood pressure 99 mm[Hg] [facility] 03-27-2023 21:24-0400 Heart rate 72 /min [facility] 03-27-2023 21:24-0400 Respiratory rate 18 /min [facility] 03-27-2023 21:24-0400 SaO2% (BldA) [Mass fraction] 98 % [facility] 03-27-2023 21:24-0400 Systolic blood pressure 170 mm[Hg] [facility] 03-27-2023 19:33-0400 Body temperature 97.9 [degF] [facility] 03-27-2023 17:56-0400 Body height 170.18 cm [facility] 03-27-2023 17:56-0400 Body mass index (BMI) [Ratio] 29.6 kg/m2 [facility] 03-27-2023 17:56-0400 Body weight 85.72 kg [facility] 11-26-2022 09:32-0400 Body height 170.[address] Gilbert Monsalve Work Phone: [facility] 11-26-2022 09:31-0400 Body mass index (BMI) [Ratio] 30.4 kg/m2 Dr. Gilbert Monsalve Work Phone: [facility] 11-26-2022 09:31-0400 Body weight 87.[address] Gilbert Monsalve Work Phone: [facility] 11-26-2022 09:31-0400 Diastolic blood pressure 84 mm[Hg] Dr. Gilbert Monsalve Work Phone: [facility] 11-26-2022 09:31-0400 Heart rate 61 /min Dr. Gilbert Monsalve Work Phone: [facility] 11-26-2022 09:31-0400 Respiratory rate 18 /min Dr. Gilbert Monsalve Work Phone: [facility] 11-26-2022 09:31-0400 SaO2% (BldA) [Mass fraction] 96 % Dr. Gilbert Monsalve Work Phone: [facility] 11-26-2022 09:31-0400 Systolic blood pressure 128 mm[Hg] Dr. Gilbert Monsalve Work Phone: [facility] 11-02-2022 10:41-0400 Body height 170.2 cm Surya Rizvi MD Work Phone: [facility] 11-02-2022 10:41-0400 Body weight 88.45 kg Surya Rizvi MD Work Phone: [facility] 11-02-2022 10:41-0400 Diastolic blood pressure 82 mm[Hg] Surya Rizvi MD Work Phone: [facility] 11-02-2022 10:41-0400 Systolic blood pressure 118 mm[Hg] Surya Rizvi MD Work Phone: [facility] 12-02-2021 10:36-0400 Body height 170.[address] Gilbert Monsalve Work Phone: [facility] Work Phone: 12-02-2021 10:36-0400 Body mass index (BMI) [Ratio] 32.1 kg/m2 Dr. Gilbert Monsalve Work Phone: [facility] Work Phone: 12-02-2021 10:36-0400 Body weight 92.[address] Gilbert Monsalve Work Phone: [facility] Work Phone: 12-02-2021 10:36-0400 Diastolic blood pressure 89 mm[Hg] Dr. Gilbert Monsalve Work Phone: [facility] Work Phone: 12-02-2021 10:36-0400 Heart rate 66 /min Dr. Gilbert Monsalve Work Phone: [facility] Work Phone: 12-02-2021 10:36-0400 Respiratory rate 16 /min Dr. Gilbert Monsalve Work Phone: [facility] Work Phone: 12-02-2021 10:36-0400 SaO2% (BldA) [Mass fraction] 99 % Dr. Gilbert Monsalve Work Phone: [facility] Work Phone: 12-02-2021 10:36-0400 Systolic blood pressure 137 mm[Hg] Dr. Gilbert Monsalve Work Phone: [facility] Work Phone: 10-13-2021 15:46-0400 Body height 170.2 cm Surya Rizvi MD Work Phone: [facility] 10-13-2021 15:46-0400 Body weight 92.08 kg Surya Rizvi MD Work Phone: [facility] 10-13-2021 15:46-0400 Diastolic blood pressure 78 mm[Hg] Surya Rizvi MD Work Phone: [facility] 10-13-2021 15:46-0400 Systolic blood pressure 122 mm[Hg] Surya Rizvi MD Work Phone: [facility] 09-17-2021 11:34-0500 Body height 170.[address] Gilbert Monsalve Work Phone: [facility] Work Phone: 09-17-2021 11:34-0500 Body mass index (BMI) [Ratio] 31.4 kg/m2 Dr. Gilbert Monsalve Work Phone: [facility] Work Phone: 09-17-2021 11:34-0500 Body weight 91.[address] Gilbert Monsalve Work Phone: [facility] Work Phone: 09-17-2021 11:34-0500 Diastolic blood pressure 80 mm[Hg] Dr. Gilbert Monsalve Work Phone: [facility] Work Phone: 09-17-2021 11:34-0500 Heart rate 72 /min Dr. Gilbert Monsalve Work Phone: [facility] Work Phone: 09-17-2021 11:34-0500 Respiratory rate 16 /min Dr. Gilbert Monsalve Work Phone: [facility] Work Phone: 09-17-2021 11:34-0500 SaO2% (BldA) [Mass fraction] 97 % Dr. Gilbert Monsalve Work Phone: [facility] Work Phone: 09-17-2021 11:34-0500 Systolic blood pressure 129 mm[Hg] Dr. Gilbert Monsalve Work Phone: [facility] Work Phone: 08-03-2021 17:58-0500 Diastolic blood pressure 89 mm[Hg] Dr. Gilbert Monsalve Work Phone: [facility] Work Phone: 08-03-2021 17:58-0500 Heart rate 84 /min Dr. Gilbert Monsalve Work Phone: [facility] Work Phone: 08-03-2021 17:58-0500 Respiratory rate 15 /min Dr. Gilbert Monsalve Work Phone: [facility] Work Phone: 08-03-2021 17:58-0500 SaO2% (BldA) [Mass fraction] 98 % Dr. Gilbert Monsalve Work Phone: [facility] Work Phone: 08-03-2021 17:58-0500 Systolic blood pressure 140 mm[Hg] Dr. Gilbert Monsalve Work Phone: [facility] Work Phone: 08-03-2021 15:11-0500 Body mass index (BMI) [Ratio] 31.3 kg/m2 Dr. Gilbert Monsalve Work Phone: [facility] Work Phone: 08-03-2021 15:11-0500 Body temperature 98.7 [degF] Dr. Gilbert Monsalve Work Phone: [facility] Work Phone: 08-03-2021 15:11-0500 Body weight 90.[address] Gilbert Monsalve Work Phone: [facility] Work Phone: Encounters Encounter Date Encounter Type Care Provider Facility Start: 02-21-2025 End: 02-21-[address] Gilbert Monsalve DO Work Phone: -Laboratory Fiona Sims [facility] Start: 02-21-2025 End: 02-21-[address] Gilbert Monsalve DO -Reena Sims [facility] Start: 02-21-2025 End: 02-21-2025 ambulatory Gilbert Bello Facility:[facility] Start: 01-31-2025 End: 01-31-[address] Gilbert Monsalve DO Work Phone: -Laboratory [facility] Start: 01-31-2025 End: 01-31-[address] Gilbert Monsalve DO -Reena [facility] Work Phone: Start: 01-31-2025 End: 01-31-[facility] Start: 09-12-2024 End: 09-12-[address] Gilbert Monsalve DO Work Phone: [facility] Work Phone: Start: 09-12-2024 End: 09-12-2024 Patient encounter procedure Naomy MOBLEY -Laboratory, Specimen Work Phone: Start: 09-12-2024 End: 09-12-2024 ambulatory Naomy Chau Facility:[facility] Start: 08-30-2024 End: 08-30-2024 Patient encounter procedure Naomy MOBLEY -[facility] Work Phone: Start: 08-30-2024 End: 08-30-2024 ambulatory [facility] [place] [place] Start: 07-26-2024 End: 07-26-[address] Joseph Tomlinson DO -Laboratory Work Phone: Start: 07-26-2024 End: 07-26-2024 ambulatory Joseph Tomlinson Facility:[facility] Start: 06-30-2024 End: 06-30-2024 Patient encounter procedure Surya Rizvi MD Work Phone: OB/Gynecology Comment on above: Encounter for gyneco logical examination (general) (routine) without abnormal findings (Primary Dx); Encounter for screening mammogram for breast cancer Start: 06-30-2024 End: 06-30-2024 Patient encounter status Surya Rizvi MD Work Phone: [facility] Start: 06-30-2024 End: 06-30-2024 ambulatory SURYA RIZVI Facility:[facility] Start: 06-30-2024 End: 06-30-2024 Subsequent hospital visit by physician Screen Mammo [facility] Mammogram Comment on above: Screening mammogram, encounter for [Z12.31] Start: 03-08-2024 End: 03-14-2024 E-mail encounter from caregiver Mercedes Ann MD Work Phone: Allergy Start: 03-08-2024 End: 03-14-2024 Follow-up encounter Mercedes Ann MD Work Phone: Allergy Comment on above: Follow-up to your re cent office visit Start: 03-01-2024 End: 03-01-2024 ambulatory MERCEDES ANN Facility:[facility] Start: 03-01-2024 End: 03-01-2024 Patient encounter procedure Mercedes Ann MD Work Phone: Allergy Comment on above: Adverse reaction to food, initial encounter (Primary Dx) Start: 07-21-2023 End: 07-21-2023 ambulatory [facility] Work Phone: Start: 07-21-2023 End: 07-21-2023 [facility] Start: 03-27-2023 End: 03-27-2023 [facility] Work [facility]: Start: 03-23-2023 [facility] Work Phone: Start: 03-12-2023 End: 03-12-[address] Gilbert Monsalve Work Phone: [facility] Work Phone: Start: 03-12-2023 End: 03-12-[address] Gilbert Monsalve [facility] Work Phone: Start: 02-15-2023 End: 02-15-[address] Gilbert Monsalve Work Phone: [facility] Work Phone: Start: 02-15-2023 End: 02-15-[address] Gilbert [facility]alve [facility] Start: 11-26-2022 End: 11-26-[address] Gilbert Monsalve Work Phone: [facility] Work Phone: Start: 11-02-2022 End: 11-02-2022 Patient encounter procedure Surya Rizvi MD Work Phone: OB/Gynecology Comment on above: Encounter for gyneco logical examination (general) (routine) without abnormal findings (Primary Dx); Encounter for screening mammogram for breast cancer Start: 11-02-2022 End: 11-02-2022 Patient encounter status Surya Rizvi MD Work Phone: OB/Gynecology Start: 10-26-2022 End: 10-26-2022 Patient encounter status Screen Wstr [facility] Start: 10-26-2022 End: 10-26-2022 Subsequent hospital visit by physician Screen Mammo [facility] Mammogram Comment on above: Encounter for gyneco logical examination (general) (routine) without abnormal findings [Z01.419] Start: 07-08-2022 End: 07-08-2022 ambulatory [facility] Work Phone: Start: 07-08-2022 End: 07-08-2022 Patient encounter procedure [facility] Start: 02-25-2022 End: 02-25-[address] [facility]alve [facility] Start: 12-02-2021 End: 12-02-[address] Gilbert Monsalve Work Phone: [facility] Start: 11-21-2021 End: 11-21-[address] Gilbert Monsalve [facility] Start: 11-05-2021 End: 11-05-[address] Gilbert Monsalve [facility] Start: 10-17-2021 Non-patient / Non-visit Dr. Gilbert Monsalve Work Phone: [facility] Start: 10-17-2021 End: 10-17-[address] [facility]alve [facility] Start: 10-13-2021 End: 10-13-2021 Patient encounter procedure Surya Rizvi MD Work Phone: OB/Gynecology Comment on above: Encounter for gyneco logical examination (general) (routine) without abnormal findings; Encounter for screening mammogram for breast cancer Start: 10-13-2021 End: 10-13-2021 Patient encounter status Surya Rizvi MD Work Phone: OB/Gynecology Start: 10-13-2021 End: 10-13-2021 Subsequent hospital visit by physician Screen Mammo [facility] Mammogram Comment on above: Encounter for screen ing mammogram for malignant neoplasm of breast [Z12.31] Start: 10-13-2021 Documentation procedure Mammography Coordinator [facility] Start: 10-13-2021 Letter encounter Mammography Coordinator [facility] Department Start: 10-02-2021 End: 10-02-[address] Gilbert Monsalve Work Phone: [facility] Start: 09-17-2021 End: 09-17-[address] Gilbert [facility]alve [facility] Start: 09-17-2021 End: 09-17-[address] Gilbert Monsalve Work Phone: [facility] Start: 08-26-2021 End: 08-26-[address] Gilbert Monsalve [facility] Start: 08-25-2021 End: 08-25-[address] Gilbert [facility]alve [facility] Start: 08-03-2021 End: 08-03-2021 Emergency department patient visit Dr. Gilbert Monsalve Work Phone: [facility] Start: 07-15-2021 End: 07-15-[address] Gilbert [facility]alve [facility] Start: 07-07-[address] Gilbert [facility]alve [facility] Start: 02-09-2018 Patient encounter Villa maza Facility:[id number] Start: 09-27-2017 Emergency department patient visit Emergency Physicians Vicenta Davis Facility:[facility] Start: 09-27-2017 Ambulatory Joseph Tomlinson Facili ty:[facility] Start: 08-27-2017 Ambulatory Joe Hopper Facility :[facility] Start: 05-11-2017 End: 05-11-2017 Ambulatory HANDY PRICE [facility] Start: 05-04-2017 Ambulatory Joseph Tomlinson Facili ty:[facility] Start: 04-19-2017 Emergency department patient visit Joseph Tomlinson Facility:[facility] Procedures Date Procedure Procedure Detail Performing Clinician Start: 02-21-2025 Urnls dip stick/tabl et reagent auto microscopy Dr. Gilbert Monsalve DO Work Phone: Start: 01-31-[address] Gilbert bird DO Work Phone: Comment on above: Test Ordered: [id number] Alpha-Gal <0.10 kU/L BN Reference Range: Class 0 Levels of Specific IgE Class Description of Class ----- < 0.10 0 Negative 0.10 - 0.31 0/I Equivocal/Low 0.32 - 0.55 I Low 0.56 - 1.40 II Moderate 1.41 - 3.90 III High 3.91 - 19.00 IV Very High 19.01 - 100.00 V Very High >100.00 Very HighPerformed at: [facility] [address] [id number] Director: Flavia Bishop MD, Phone: [phone] at: [facility] [address] [id number] Director: Keenan Sheridan PhD, Phone: [phone] Start: 09-12-2024 Giardia lamblia anti gen assay Dr. Gilbert Monsalve DO Work Phone: Start: 09-12-[address] Gilbert Monsalve DO Work Phone: Start: 09-12-2024 Ova [place] parasites identification Dr. Gilbert Monsalve DO Work Phone: Start: 03-27-2023 CT of abdomen and pe lvis without contrast Start: 03-23-2023 Urine culture Start: 03-12-[address] Gilbert Monsalve Work Phone: Start: 10-26-2022 JANEE SCREENING W DARRELL Rizvi MD Work Phone: Start: 10-26-2022 Mammography Surya martinez MD Work Phone: Start: 10-13-2021 JANEE SCREENING W DARRELL Rizvi MD Work Phone: Start: 10-13-2021 Mammography Surya martinez MD Work Phone: Start: 10-02-2021 Computed tomography of abdomen and pelvis with contrast Dr. Gilbert Monsalve Work Phone: Start: 08-03-2021 Plain chest X-ray Dr. Michael Monsalve Work Phone: Start: 11-10-2018 Adult depression screening assessment Surya Rizvi MD Work Phone: Start: 07-09-2016 H/O: hysterectomy Status post hysterectomy Surya Rizvi MD Work Phone: Start: 10-02-2010 Lipid 1996 panel - S maru or Plasma Screen Wstr Plan of Treatment Date Care Activity Detail Author Start: 07-02-2025 End: 07-02-2025 Patient encounter procedure 07/02/2025 2:20 PM EST Office Visit OB/Gynecology [address] [place] [address] Surya Rizvi MD [address] [place], [place] [id number] Annual OB/Gynecology Comment on above: Annual Start: 07-02-2025 End: 07-02-2025 Patient encounter procedure 07/02/2025 1:10 PM EST Appointment Mammogram [address] [place] [address] Encounter for screening mammogram for breast cancer [Z12.31] Mammogram Comment on above: Encounter for screen ing mammogram for breast cancer [Z12.31] Start: 02-21-2025 Procedure [facility] Start: 06-30-2024 End: 06-30-2024 Patient encounter procedure Mammogram Comment on above: SCREENING MAMMO WITH DARRELL ANNUAL Start: 03-12-2024 Covid-19 Vaccine ( season) Covid-19 Vaccine () [facility] Start: 03-12-2024 Covid-19 Vaccine ( season) Covid-19 Vaccine () [facility] Start: 03-12-2024 Influenza vaccination Influenza Vacc ine (#1) [facility] Start: 10-27-2023 Mammography [facility] Start: 10-27-2023 Screening for malign ant neoplasm of breast Mammogram Screening [facility] Start: 03-12-2023 Covid-19 Vaccine ( season) Covid-19 Vaccine () [facility] Start: 03-12-2023 Influenza vaccination [facility] Start: 10-13-2022 Mammography MAMMOGRAM [facility] Start: 07-12-2022 DEPRESSION ASSESSMENT DEPRESSION ASS ESSMENT [facility] Start: 03-12-2022 Influenza vaccination INFLUENZ A (Season Ended) [facility] Start: 02-25-2022 Methylmalonate measurement [facility] Work Phone: Start: 02-25-2022 Procedure [facility] Work Phone: Start: 02-25-2022 Thiamine measurement [facility] Work Phone: Start: 02-25-2022 Vitamin B6 measurement [facility] Work Phone: Start: 11-10-2021 DIABETES SCREEN DIABETES SCREEN [facility] Start: 11-10-2021 Diabetes Screening Diabetes Screenin g [facility] Start: 11-11-2019 Adult depression screening assessment DEPRESSION SCREENING [facility] Start: 2017 Pneumococcal Vaccine : 50+ (1 of 1 - PCV) Pneumococcal Vaccine: 50+ (1 of 1 - PCV) [facility] Start: 2017 SHINGRIX VACCINE (1 of 2) SHINGRIX VACCINE (1 of 2) [facility] Start: 10-03-2015 Lipid 1996 panel - S maru or Plasma Lipid Screening [facility] Start: 10-03-2015 Lipid panel Lipid Screening [facility] Start: 10-03-2015 LIPID SCREEN LIPID SCREEN [facility] Start: 02-19-2012 COLOGUARD (FIT-DNA) COLOGUARD (FIT-D NA) [facility] Start: 02-19-2012 Colonoscopy COLONOSCOPY [facility] Start: 02-19-2012 COLORECTAL CANCER SCREENING COLORECTAL CANCER SCREENING [facility] Start: 02-19-[address] COLONOGRAPHY [facility] Start: 02-19-2012 FECAL OCCULT BLOOD FECAL OCCULT BLOO D [facility] Start: 02-19-2012 Screening for malign ant neoplasm of colon [facility] Start: 02-19-2012 SIGMOIDOSCOPY SIGMOIDOSCOPY [facility] Start: 1986 Hepatitis B Vaccine (1 of 3 - 19+ 3-dose series) Hepatitis B Vaccine (1 of 3 - 19+ 3-dose series) [facility] Start: 1986 Urine microalbumin profile [facility] Start: 1985 ANNUAL PCP TEAM CLINICAL STUDIES SPECIALIST [place]ACEE DISEASE VISIT ANNUAL PCP TEAM CHRONIC DISEASE VISIT [facility] Start: 1985 Anxiety Screening Anxiety Screening [facility] Start: 1985 Depression Screening Depression Scre ening [facility] Start: 02-19-1972 COVID-19 VACCINE (1) COVID-19 VACCIN E (1) [facility] Start: 1967 COVID-19 VACCINE (#1) COVID-19 VACCI NE (#1) [facility] Start: 1967 HEPATITIS B (1 of 3 - 3-dose series) HEPATITIS B (1 of 3 - 3-dose series) [facility] Start: 1967 Hepatitis B Vaccine (1 of 3 - 3-dose series) Hepatitis B Vaccine (1 of 3 - 3-dose series) [facility] End: 07-30-2025 DBT Breast - bilateral screening JANEE SCREENING W DARRELL Radiology Routine Encounter for gynecological examination (general) (routine) without abnormal findings Encounter for screening mammogram for breast cancer 1 Occurrences starting 06/30/2024 until 07/30/2025 [facility] Work Phone: Comment on above: 1 Occurrences starti ng 06/30/2024 until 07/30/2025 DBT Breast - bilater al screening JANEE SCREENING W DARRELL Radiology Routine Screening mammogram, encounter for 06/30/2024 8:06 AM EST [facility] Work Phone: End: 11-12-2022 JANEE SCREENING W DARRELL JANEE SCREENING W DARRELL Radiology Routine Encounter for gynecological examination (general) (routine) without abnormal findings Encounter for screening mammogram for breast cancer 1 Occurrences starting 10/13/2021 until 11/12/2022 [facility] Work Phone: Comment on above: 1 Occurrences starti ng 10/13/2021 until 11/12/2022 End: 12-02-2023 JANEE SCREENING W DARRELL JANEE SCREENING W DARRELL Radiology Routine Encounter for gynecological examination (general) (routine) without abnormal findings Encounter for screening mammogram for breast cancer 1 Occurrences starting 11/02/2022 until 12/02/2023 [facility] Work Phone: Comment on above: 1 Occurrences starti ng 11/02/2022 until 12/02/2023 Methylmalonate measurement [facility] Work Phone: Patient Education [facility] Work Phone: Patient referral [facility] Work Phone: Procedure [facility] Work Phone: Thiamine measurement [facility] Work Phone: Vitamin B6 measurement [facility] Work Phone: Payers Date Payer Category Payer Self-pay [id number] 2022 Unknown [employer] BLUE CARD POS OOS [id number] 2022-Present [phone] [address] [place] [address] POS [id number] 2022 Unknown [id number] 2020 Unknown [employer] BL[employer] CARD POS OOS [id number] 2020-Present [phone] [address] [place] [address] POS [id number] 2017 Unknown [id number] 2016 Private Health Insurance [id number] 2003 Private Health Insurance [id number] Unknown [id number] Unknown [id number] Unknown [id number] Unknown [id number] Unknown [id number] Unknown [id number] Social History Date Type Detail Facility Start: 09-17-2021 End: 03-27-2023 Tobacco smoking status ORIS Unknown if ever smoked [facility] Start: 1965 Sex Assigned At Female [facility] Start: 11-02-2022 End: 08-30-2024 Tobacco smoking status NHIS Ex-smoker [facility] Start: 02-16-1982 End: 02-16-2007 History of tobacco use Current smoker [facility] Start: 02-16-1982 End: 02-16-2007 History of tobacco use Cigarette Smoker [facility] History of tobacco use Chews Tobacco Clev [facility] Start: 10-13-2021 End: 06-30-2024 Alcohol intake Current non-drinker of alcohol (finding) [facility] Start: 10-13-2021 End: 03-01-2024 Alcohol intake [facility] Start: 1965 Sex Assigned At Not on file [facility] Start: 10-03-2021 End: 10-13-2021 Exposure to SARS-CoV-2 (event) Not sure [facility] Start: 11-02-2022 End: 03-01-2024 Tobacco use and exposure Former smokeless tobacco user [facility] Start: 10-11-2018 Tobacco use and exposure User of smokeless tobacco [facility] Start: 10-13-2021 End: 03-01-2024 Tobacco use panel [facility] Adult Depression Screening Assessment 3 [facility] Start: 09-22-2024 Sex Female (finding) [facility] Mental Status Date Assessment Result Facility 03-27-2023 Cognitive function Level Of Cons ciousness Awake;Alert;Appropriate;Follow s Commands [facility] Work Phone: 08-03-2021 Cognitive function Level Of Cons ciousness Awake;Alert;Appropriate;Follow s Commands [facility] Work Phone: Clinical Notes 08-25-2013 to 08-30-2024 Note Date & Type Note Facility 08-30-2024 Evaluation note Diagnosis Onset Date Resolution Abnormal stools acute August 30, 2024 8:51am Constipation noneactive August 8:51am [facility] Work Phone: [phone] 296-221112-20-2024 NoteHNO ID: [id number] Author: SURYA RIZVI MD Service: ? 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 As applicable, any other physician, advance practice provider, medical student, or other health professional student that will be observing or involved in the sensitive examination for educational or training purposes was discussed with the Patient or Authorized Director Broadcast. The Patient or Authorized Director Broadcast has agreed to proceed with the sensitive examination. (Sensitive examination includes inspection and/or palpation of the breasts, pelvis, prostate and anorectal regions). EXAM: BP 112/74 Ht 5' 7 (1.70m) Wt 169 lb (76.7kg) LMP 09/06/2013 [...] external genitalia normal, normal Bartholin's glands, urethra, Ramsey's glands, no vulvar lesions, good vaginal support, physiologic discharge present, normal appearing perineal body and perianal region, cervix surgically absent BIMANUAL: no adnexal masses, non-tender, and uterus surgically absent RECTOVAGINAL: deferred. 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 As applicable, any other physician, advance practice provider, medical student, or other health professional student that will be observing or involved in the sensitive examination for educational or training purposes was discussed with the Patient or Authorized Director Broadcast. The Patient or Authorized Director Broadcast has agreed to proceed with the sensitive examination. (Sensitive examination includes inspection and/or palpation of the breasts, pelvis, prostate and anorectal regions). EXAM: BP 112/74 Ht 5' 7 (1.70m) Wt 169 lb (76.7kg) LMP 09/06/2013 [...] external genitalia normal, normal Bartholin's glands, urethra, Ramsey's glands, no vulvar lesions, good vaginal support, [...] needed Surya Rizvi MD [facility] History of Present illness Narrative* Cindy Will RT(R) - 06/30/2024 7:50 AM EST Radiology Service [...] PATIENT PRESENTS WITH AN IMPLANTABLE OR ATTACHED DYER ASSISTANT: No RADIOLOGY DEPARTMENT: Mammography PERIPHERAL IV DATA: Not applicable SIGNED BY: SHIMON Neal) June 30, 2024 7:50 AM documented in this encounterK[facility]12-20-2024 NoteHNO ID: [id number] Author: CINDY WILL RT(R) Service: ? Author [...] PATIENT PRESENTS WITH AN IMPLANTABLE OR ATTACHED DYER ASSISTANT: No RADIOLOGY DEPARTMENT: Mammography PERIPHERAL IV DATA: Not applicable SIGNED BY: RT Val(R) June 30, 2024 7:50 [facility]09-03-2024 Telephone encounter Note* Telephone Encounter - Trinidad Arshad RN - 03/14/2024 8:55 AM EDT Informed patient to read letter. [facility] Miscellaneous Notes* Telephone Encounter - Trinidad Arshad RN - 03/14/2024 8:55 AM EDT Informed patient to read letter. * Telephone Encounter - Mercedes Ann MD - 03/14/2024 8:10 AM EDT Please contact patient to let her know I sent her a [employer] message last week to follow-up on her recent office visit. (Message has not been read.) Mercedes Ann MD documented in this encounterK[facility]09-03-2024 Telephone encounter Note * Telephone Encounter - Mercedes Ann MD - 03/14/2024 8:10 AM EDT Please contact patient to let her know I sent her a [employer] message last week to follow-up on her recent office visit. (Message has not been read.) Mercedes Ann MD [facility] Nurse Note* Temitope Villareal RN - 03/01/2024 1:47 PM EDT Patient c/o h/a, dizziness, runny nose, nerve pain, involuntary twitching, internal vibration with salicylate. She has tried to avoid salicylates with some improvement in symptoms, but states it is impossible to avoid completely. [facility] Nurse Note* Temitope Villareal RN - 03/01/2024 1:47 PM EDT Patient c/o h/a, dizziness, runny nose, nerve pain, involuntary twitching, internal vibration with salicylate. She has tried to avoid salicylates with some improvement in symptoms, but states it is impossible to avoid completely. documented in this encounterK[facility]08-21-2024 NoteHNO ID: [id number] Author: MERCEDES ANN MD Service: ? Author [...] currently ingests beef, white rice, vegetables and butter. She notes that some foods will limit her breathing but do not cause wheezing [...] HYSTERECTOMY 07/09/2009: HYSTEROSCOPY, DIAGNOSTIC (SEPARATE Comment: Hysteroscopy, dANGa 10/26/2013: LAPS TOTAL HYSTERECT 250 GM/< W/RMVL TUBE/OVARY Comment: TLH, bilateral salpingectomy No date: LIG/TRNSXJ FLP TUBE ABDL/VAG APPR UNI/BI Comment: Tubal ligation at time of c/s No date: PAST SURGICAL HISTORY OF Comment: LEFT GANGLION CYST No date: PAST SURGICAL HISTORY OF Comment: LASIK SURGERY No date: TONSILLECTOMY PRIMARY/SECONDARY Comment: Tonsillectomy 2018: UNSPECIFIED ORAL KRYSTYNA (more content not included)...[facility]08-21-2024 History of Present illness Narrative* Mercedes [...] currently ingests beef, white rice, vegetables and butter. 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 LMP: 09/06/2013, Hysterectomy Age at Menarche: Age at First : Age at Menopause: Resource Engineer History Comments: Sexual Activity: Yes; Male; hysterectomy [...] 11:05 AM EXAM: BP 118/82 Ht 5' 7 (1.70m) Wt 195 lb (88.5kg) LMP 09/06/2013 [...] external genitalia normal, normal Bartholin's glands, urethra, Ramsey's glands, no vulvar lesions, good vaginal support, [...] needed Surya Rizvi MD documented in this encounterK[facility]04-17-2023 History of Present illness Narrative* Cindy Will, [...] 26, 2022 12:50 PM documented in this encounterK[facility]04-04-2022 History of Present illness Narrative* Surya Rizvi MD - 10/13/2021 3:44 PM EDT Samuel is a 56 year old who presents for an annual gynecologic exam without complaints from student life advisor standpoint. Still has ACHARYA but tolerates them. Postmenopausal: yes HRT use: No. Last Pap: 06/21/2012 normal HPV: 06/15/2012 negative History of abnormal pap: No Last mammogram: 2021 normal OB History T2 L2 SAB0 IAB0 Ectopic0 Multiple0 Live Births0 Resource Engineer History LMP: 09/06/2013, Hysterectomy Age at Menarche: Age at First : Age at Menopause: Resource Engineer History Comments: Sexual Activity: Yes; Male; hysterectomy [...] external genitalia normal, normal Bartholin's glands, urethra, Ramsey's glands, no vulvar lesions, good vaginal support, [...] needed Surya Rizvi MD documented in this encounterKet[facility]04-04-2022 Miscellaneous Notes* Letter - Mammography Coordinator - 10/13/2021 3:13 PM EDT October 13, 2021 PID: [id number] Samuel Woo [address] [place] [id number] Dear Ms. Woo, We are pleased to [...] report will be [facility] as part of your permanent medical record and are available for your continuing care. Thank you for allowing us to help in meeting your health care needs. Sincerely, Dr. Arvizu Interpreting Radiologist [facility] (Normal over 40) documented in this encounterKettering [facility]04-04-2022 History of Present illness Narrative* Anna Germain [...] 13, 2021 2:11 PM documented in this encounterK[facility]02-14-2014 History of Past illness Narrative* Problem Noted Date Resolved Date Pelvic pain in female 08/25/2013 12/08/2013 Pelvic pressure in female 08/25/20132013 Hypertrophy of uterus 07/24/2009 10/26/2013 Stricture and stenosis of cervix 06/05/2009 12/08/2013 Excessive or frequent menstruation 05/13/2009 12/08/2013 Metrorrhagia 01/20/2006 07/21/2013 documented as of this encounter (statuses as of 10/13/2021) [facility] of Past illness Narrative* Problem Noted Date Resolved Date Pelvic pain in female 08/25/2013 12/08/2013 Pelvic pressure in female 08/25/20132013 Hypertrophy of uterus 07/24/2009 10/26/2013 Stricture and stenosis of cervix 06/05/2009 12/08/2013 Excessive or frequent menstruation 05/13/2009 12/08/2013 Metrorrhagia 01/20/2006 07/21/2013 documented as of this encounter (statuses as of 10/14/2021) [facility] of Past illness Narrative* Problem Noted Date Resolved Date Pelvic pain in female 08/25/2013 12/08/2013 Pelvic pressure in female 08/25/20132013 Hypertrophy of uterus 07/24/2009 10/26/2013 Stricture and stenosis of cervix 06/05/2009 12/08/2013 Excessive or frequent menstruation 05/13/2009 12/08/2013 Metrorrhagia 01/20/2006 07/21/2013 documented as of this encounter (statuses as of 10/15/2021) [facility] of Past illness Narrative* Problem Noted Date Resolved Date Pelvic pain in female 08/25/2013 12/08/2013 Pelvic pressure in female 08/25/20132013 Hypertrophy of uterus 07/24/2009 10/26/2013 Stricture and stenosis of cervix 06/05/2009 12/08/2013 Excessive or frequent menstruation 05/13/2009 12/08/2013 Metrorrhagia 01/20/2006 07/21/2013 documented as of this encounter (statuses as of 11/02/2022) [facility] of Past illness Narrative* Problem Noted Date Diagnosed Date Resolved Date Pelvic pain in female 08/25/20132013 Pelvic pressure in female 08/25/2013 Hypertrophy of uterus 07/24/20092013 Stricture and stenosis of cervix 06/05/2009 12/08/2013 Excessive or frequent menstruation 05/13/2009 12/08/2013 Metrorrhagia 01/20/2006 07/21/2013 documented as of this encounter (statuses as of 05/16/2023) [facility] note* Diagnosis Onset Date Resolution Status Essential hypertension acute Adrenal adenoma chronic [facility] Work Phone: Evaluation note* Diagnosis Encounter for gynecological examination (general) (routine) without abnormal findings Encounter for screening mammogram for breast cancer documented in this encounter [facility] note* Diagnosis Encounter for screening mammogram for malignant neoplasm of breast Other screening mammogram documented in this encounter [facility] note* Diagnosis Onset Date Resolution Status Elevated BP without diagnosis of hypertension acute [facility] Work Phone: evaluation noteNo assessment information available [facility] Work Phone: Evaluation note* Diagnosis Encounter for gynecological examination (general) (routine) without abnormal findings- Primary Encounter for screening mammogram for breast cancer documented in this encounter [facility] note* Diagnosis Encounter for gynecological examination (general) (routine) without abnormal findings Encounter for screening mammogram for breast cancer documented in this encounter [facility] note* Diagnosis Adverse reaction to food, initial encounter- Primary documented in this encounter [facility] note* Diagnosis Encounter for gynecological examination (general) (routine) without abnormal findings- Primary Encounter for screening mammogram for breast cancer documented in this encounter [facility] note* Diagnosis Screening mammogram, encounter for [facility] Additional Instructions The exact [...] can choose who would like to follow-up with.[facility] Work Phone: Reason for referral (narrative)* [...] [facility] Surya Zapata MD [address] [place] [address] [facility] [address] [place] [address] Referral ID Status Reason Start Date Expiration Date Visits Requested Visits Authorized [id number] Pending Review Auto-Generat ed Referral 10/13/2021 11/12/2022 1 1 [facility] for referral (narrative)* Diagnostic Procedure Only (Routine) - Closed Specialty Diagnoses / Procedures Referred By Chan richardson Referred To Contact [facility] Diagnoses Encounter for screening mammogram for malignant neoplasm of breast Procedures JANEE SCREENING W DARRELL SCREENING DIGITAL BREAST TOMOSYNTHESIS BI SCREENING MAMMOGRAPHY BI 2-VIEW BREAST INC Surya Zapata MD [address] [place] [address] [facility] [address] [place] [address] Referral ID Status Reason Start Date Expiration Date V isits Requested Visits Authorized [id number] Closed Auto-Generate d Referral 08/13/2021 09/12/2022 1 1 T [facility] for referral (narrative)* Diagnostic Procedure Only (Routine) - Pending Review Specialty Diagnoses / Procedures Referred By Chan richardson Referred To Contact [facility] Diagnoses Encounter for gynecological examination (general) (routine) without abnormal findings Encounter for screening mammogram for breast cancer Procedures JANEE SCREENING W DARRELL SCREENING DIGITAL BREAST TOMOSYNTHESIS BI SCREENING MAMMOGRAPHY BI 2-VIEW BREAST INC Surya Zapata MD [address] [place] [address] [facility] [address] [place] [address] Referral ID Status Reason Start Date Expiration Date Visits Requested Visits Authorized [id number] Pending Review Auto-Generat ed Referral 11/02/2022 12/02/2023 1 1 [facility] for referral (narrative)* Diagnostic Procedure Only (Routine) - Closed Specialty Diagnoses / Procedures Referred By Chan richardson Referred To Contact [facility] Diagnoses Encounter for gynecological examination (general) (routine) without abnormal findings Encounter for screening mammogram for breast cancer Procedures JANEE SCREENING W DARRELL SCREENING DIGITAL BREAST TOMOSYNTHESIS BI SCREENING MAMMOGRAPHY BI 2-VIEW BREAST INC Surya Zapata MD [address] [place] [address] [facility] [address] [place] [address] Referral ID Status Reason Start Date Expiration Date V isits Requested Visits Authorized [id number] Closed Auto-Generate d Referral 10/13/2021 11/12/2022 1 1 T [facility] for referral (narrative)* Diagnostic Procedure Only (Routine) - New Request Specialty Diagnoses / Procedures Referred By Chan richardson Referred To Contact [facility] Diagnoses Encounter for gynecological examination (general) (routine) without abnormal findings Encounter for screening mammogram for breast cancer Procedures JANEE SCREENING W DARRELL SCREENING DIGITAL BREAST TOMOSYNTHESIS BI SCREENING MAMMOGRAPHY BI 2-VIEW BREAST INC Surya Zapata MD [address] [place] [address] [facility] [address] [place] [address] Referral ID Status Reason Start Date Expiration Date Visits Requested Visits Authorized [id number] New Request Auto-Generat ed Referral 07/30/2025 1 1 [facility] for referral (narrative)No reason for referral information availableWBellevue Hospital Work Phone: Reason for visit Narrative* Diagnostic Procedure Only (Routine) - Closed Specialty Diagnoses / Procedures Referred By Chan richardson Referred To Contact [facility] Diagnoses Encounter for screening mammogram for malignant neoplasm of breast Procedures JANEE SCREENING W DARRELL SCREENING DIGITAL BREAST TOMOSYNTHESIS BI SCREENING MAMMOGRAPHY BI 2-VIEW BREAST INC Surya Zapata MD [address] [place] [address] [facility] [address] [place] [address] Referral ID Status Reason Start Date Expiration Date V isits Requested Visits Authorized [id number] Closed Auto-Generate d Referral 08/13/2021 09/12/2022 1 1 [facility] for visit Narrative* Diagnostic Procedure Only (Routine) - Closed Specialty Diagnoses / Procedures Referred By Chan richardson Referred To Contact [facility] Diagnoses Encounter for gynecological examination (general) (routine) without abnormal findings Encounter for screening mammogram for breast cancer Procedures JANEE SCREENING W DARRELL SCREENING DIGITAL BREAST TOMOSYNTHESIS BI SCREENING MAMMOGRAPHY BI 2-VIEW BREAST INC Surya Zapata MD [address] [place] [address] [facility] [address] [place] [address] Referral ID Status Reason Start Date Expiration Date V isits Requested Visits Authorized [id number] Closed Auto-Generate d Referral 10/13/2021 11/12/2022 1 1 [facility] for visit Narrative* Diagnostic Procedure Only (Routine) - Closed Specialty Diagnoses / Procedures Referred By Chan richardson Referred To Contact [facility] Diagnoses Screening mammogram, encounter for Procedures JANEE SCREENING W DARRELL SCREENING DIGITAL BREAST TOMOSYNTHESIS BI SCREENING MAMMOGRAPHY BI 2-VIEW BREAST INC Surya Zapata MD [address] [place] [address] [facility] [address] [place] [address] Referral ID Status Reason Start Date Expiration Date V isits Requested Visits Authorized [id number] Closed Auto-Generate d Referral 02/21/2024 03/22/2025 1 1 [facility] Summary Purpose Family History No Family History Records Found Relationship Condition Age at Onset Recorded Date/T kathia mother Cerebrovascular accident (CVA) Unknown Heart disease Unknown Aortic aneurysm Unknown father Heart disease Unknown aunt Aortic aneurysm Unknown Advance Directives No Advanced Directives Records Found Advance Directive Response Recorded Date/ Time Advance Directives Yes June 8:23am Living Will No August 03 5:24pm Power of Documentation Specialist Yes August 03, 2021 5:24pm Documents on File Type Date Recorded Patient Director Broadcast Expl anation Advance Directive(s) 09/15/2016 6:30 PM Documents on File Type Date Recorded Patient Director Broadcast Expl anation Advance Directive(s) 09/15/2016 6:30 PM Advance Directive Response Recorded Date/ Time Advance Directives Yes June 7:23am Living Will No August 03 4:24pm Power of Documentation Specialist Yes August 03, 2021 4:24pm Advance Directive Response Recorded Date/ Time Advance Directives Yes June 8:23am Living Will No March 27, 2023 6:41pm Power of Documentation Specialist No March 6:41pm Advance Directive Response Recorded Date/ Time Advance Directives Yes June 7:23am Living Will No March 27, 2023 5:41pm Power of Documentation Specialist No March 5:41pm Advance Directive Response Recorded [...] section and content) DATE CREATED AUTHOR 12/30/2017 [facility] DATE CREATED AUTHOR AUTHOR'S ORGANIZ ATION 01/04/2018 Zacharynasir Lantiguaabril [facility] DATE CREATED AUTHOR AUTHOR'S ORGANIZ ATION 02/09/2018 [facility] DATE CREATED AUTHOR AUTHOR'S ORGANIZ ATION 02/09/2018 [employer] DATE CREATED AUTHOR AUTHOR'S ORGANIZ ATION 07/03/2024 [facility] DATE CREATED AUTHOR AUTHOR'S ORGANIZ ATION 03/02/2025 [facility] Goals (unrecognized section and content) Goals may [...] or prosecute any alcohol or drug abuse patient.[facility] the event this information is protected by the Federal Confidentiality of Alcohol and Drug Abuse Patient Records regulations: The Federal rules restrict any use of the information to criminally investigate or prosecute any alcohol or drug abuse patient.[facility]ble[facility] the event this information is protected by the Federal Confidentiality of Alcohol and Drug Abuse Patient Records regulations: The Federal rules restrict any use of the information to criminally investigate or prosecute any alcohol or drug abuse patient.[facility]ble[facility] the event this information is protected by the Federal Confidentiality of Alcohol and Drug Abuse Patient Records regulations: The Federal rules restrict any use of the information to criminally investigate or prosecute any alcohol or drug abuse patient.[facility]ble[facility] the event this information is protected by the Federal Confidentiality of Alcohol and Drug Abuse Patient Records regulations: The Federal rules restrict any use of the information to criminally investigate or prosecute any alcohol or drug abuse patient.[facility]ble[facility] the event this information is protected by the Federal Confidentiality of Alcohol and Drug Abuse Patient Records regulations: The Federal rules restrict any use of the information to criminally investigate or prosecute any alcohol or drug abuse patient.[facility]ble[facility] the event this information is protected by the Federal Confidentiality of Alcohol and Drug Abuse Patient Records regulations: The Federal rules restrict any use of the information to criminally investigate or prosecute any alcohol or drug abuse patient.[facility]ble[facility] the event this information is protected by the Federal Confidentiality of Alcohol and Drug Abuse Patient Records regulations: The Federal rules restrict any use of the information to criminally investigate or prosecute any alcohol or drug abuse patient.[facility]ble[facility] the event this information is protected by the Federal Confidentiality of Alcohol and Drug Abuse Patient Records regulations: The Federal rules restrict any use of the information to criminally investigate or prosecute any alcohol or drug abuse patient.[facility] Care Teams (unrecognized sec tion and content) Clinical Services Manager Relationship Specialty Start Date End Date Mark Nguyen (Historical) VIRAJ DEVI [facility] [place] [address] PCP - General 06/21/12 Gilbert Monsalve DO [address] [facility] [place] [address] Referring Family Practice 09/12/18 Clinical Services Manager Relationship Specialty Start Date End Date Mark Nguyen (Historical) [place] [address] PCP - General 06/21/12 Gilbert Monsalve, DO [address] [place] [address] Referring Family Practice 09/12/18 Clinical Services Manager Relationship Specialty Start Date End Date Mark Nguyen (Historical) [place] [address] PCP - General 06/21/12 Gilbert Monsalve, DO [address] [place] [address] Referring Family Practice 09/12/18 Clinical Services Manager Relationship Specialty Start Date End Date Mark Nguyen (Historical) [place] [address] PCP - General 06/21/12 Gilbert Monsalve, [address] [place] [address] Referring Family Medicine 09/12/18 Team Status: Active Member Role Status Dates Dr. Gilbert Monsalve , Family Provider Active Dr. Gilbert Monsalve , DO Primary Care Provider Active Team Status: Inactive Member Role Status Dates Dr. Gilbert Monsalve , Primary Care Provider, Referrin g Provider Active Lona Navarro HISTORIC SITE ADMINISTRATOR, HISTORIC SITE ADMINISTRATOR-C Attending Provider Active Team Status: Inactive Member Role Status Dates Dr. Gilbert Monsalve , Primary Care Provider Active Dr. Joseph Tomlinson , DO Attending Provider, Referring Provider Active Team Status: Inactive Member Role Status Dates Dr. Gilbert Monsalve , Primary Care Prov ider, Attending Provider, Referring Provider Active Team Status: Active Member Role Status Dates Dr. Gilbert Monsalve , Primary Care Prov ider, Attending Provider, Referring Provider Active Team Status: Inactive Member Role Status Dates Dr. Gilbert Monsalve DO Primary Care Provider Active Dr. Ya He , DO Emergency Provider Active Clinical Services Manager Relationship Specialty Start Date End Date Mark Nguyen (Historical) [place] [address] PCP - General 06/21/12 Gilbert Monsalve DO [address] [place] [address] Referring Family Medicine 09/12/18 Team Status: Inactive Member Role Status Dates Dr. Gilbert Monsalve DO Primary Care Provider Active Dr. Joseph Tomlinson DO Attending Provider Active Clinical Services Manager Relationship Specialty Start Date End Date Gilbert Monsalve DO [address] [place] [address] Referring Family Medicine 09/12/18 Clinical Services Manager Relationship Specialty Start Date End Date Gilbert Monsalve DO [address] [place] [address] Referring Family Medicine 09/12/18 Clinical Services Manager Relationship Specialty Start Date End Date Gilbert Monsalve DO [address] [place] [address] Referring Family Medicine 09/12/18 Clinical Services Manager Relationship Specialty Start Date End Date Gilbert Monsalve DO [address] [place] [address] Referring Family Medicine 09/12/18 Team Status: Inactive [...] 2024 End: September 12, 2024 LEANDRA Quiroz Attending Provider Active Start: September 12, 2024 End: September 12, 2024 LEANDRA Quiroz Referring Provider Active Start: September 12, 2024 End: September 12, 2024 Team Status: Active Member Role/Relationship Status Dates Dr. Gilbert Monsalve DO Primary Care Provider Active Team Status: Inactive Member Role/Relationship Status Dates Dr. Gilbert Monsalve DO Primary Care Provider Active Start: January 31, 2025 End: January 31, 2025 Dr. Gilbert Monsalve DO Attending Provider Active Start: January 31, 2025 End: January 31, 2025 Dr. Gilbert Monsalve DO Referring Provider Active Start: January 31, 2025 End: January 31, 2025 Team Status: Inactive Member Role/Relationship Status Dates Dr. Gilbert Monsalve DO Primary Care Provider Active Start: February 21, 2025 End: February 21, 2025 Dr. Gilbert Monsalve DO Attending Provider Active Start: February 21, 2025 End: February 21, 2025 Reason for Visit (unrecogniz ed section and [...] BE BASED ON THE PRIMARY CLINICAL RECORDS. [employer] [facility]. provides no warranty or guarantee of the accuracy or completeness of information in this document.
[2025-03-10 10:35] LABS: AST(SGOT) 30 U/L (<=31); Alanine Aminotransfer ALT/SGPT 46 U/L (<=34); Albumin, Serum 4.6 g/dL (3.5-5.0); Alkaline Phosphatase 77 U/L (35-104); Anion Gap 11 (5-15); BUN 16 mg/dL (4-19); BUN/Creat Ratio 18.1 RATIO (10-20); Calcium,Total 9.3 mg/dL (7.6-11.0); Carbon Dioxide 26.0 mmol/L (21.0-32.0); Chloride 100 mmol/L (98-108); Globulin 2.2 g/dL (2.2-4.2); Glucose 81 mg/dL (70-99); Potassium 4.3 mmol/L (3.3-5.1); Vitamin D,25 Hydroxy 28.3 ng/mL (30-100)
== END | disposition home or self-care (01) ==
LOC: LAB 09:01
PROVIDERS: PCP Family Medicine; Referring Provider Nurse Practitioner Adult Health; Visit Provider Nurse Practitioner Adult Health
DX: E03.8 Other specified hypothyroidism (principal); E55.9 Vitamin D deficiency, unspecified
CPT/HCPCS: 36415; 80053; 82306; 84443